=== PATIENT | female | born 1930 | race Caucasian/White ===

== ENCOUNTER 2017-01-14 09:56 | Inpatient (IN) | payer MEDICARE, OTHER ==
[~2017-01-14] VITALS: Ht 165.1 cm; Wt 73.5 kg
[~2017-01-14 09:56] MED LIST: ASPI81TA2 PO; BUSP10TA PO; CELE200C PO; CHON250C PO; CLOB15CR TP; FAMO20TA5 PO; FEXO180T81 PO; GLUC1CAP14 PO; HYDR-2762 PO; LANS30TA6 PO; LATA2.5D3 OP; LEVO88TA4 PO; LISI40TA PO; MIRT30TA3 PO; OMEG1CAP16 PO; OMEG1CAP6 PO; PRED20TA PO; [UNRECOGNIZED DRUG - CODE] PO; pravastatin PO; stool softner; vitamin d
[2017-01-14] MEDS ORDERED: ONDANSETRON PF 4 MG/2 ML VIAL. IV ONE (11:00)
[2017-01-14] MEDS: FENTANYL PF 100 MCG/2 ML VIAL. IV PRN ×3 (11:12→12:27)
--- NOTE | 2017-01-14 11:43 | RAD ---
Exam performed: Right lower extremity venous Doppler. Clinical Indication: Severe pain in the right popliteal region for one day Date of Service:01/14/17 Comparison : None available Discussion: Multiple longitudinal and transverse high resolution real-time images of the venous system of right lower extremity were obtained with color and Doppler sampling and spectral analysis. The common femoral, superficial femoral, popliteal and proximal calf veins are all patent and demonstrate normal flow and compressibility. Normal respiratory phasicity and augmentation is present. There is a 4.3 x 2.7 x 1.1 cm hypoechoic area in the popliteal fossa. No vascularity is noted. Impression: 1. Normal color duplex ultrasound of the venous system of right lower extremity. 2. Hypoechoic 4.3 x 2.7 x 1.1 cm area in the right popliteal fossa corresponds to the area of pain. This could possibly represent a complex Barker's cysts or hematoma. Correlate with the history of trauma. If symptoms persist and patient does not respond to you for treatment, consider evaluation with MRI right knee with contrast.
[2017-01-14 11:48] LABS: BASO % 0 % (0-3); EOS % 0 % (0-3); HEMATOCRIT 34.8 % (36.0-47.0); HEMOGLOBIN 11.8 g/dL (12.0-15.5); LYMPH # 1.8 x10^3/uL (1.0-4.8); LYMPH % 22 % (24-48); MEAN CORPUSCULAR HEMOGLOBIN 32 pg (25-35); MEAN CORPUSCULAR HGB CONC 34 g/dL (31-37); MEAN CORPUSCULAR VOLUME 95 fL (79-100); MONO % 13 % (0-9); NEUT % 65 % (31-73); PLATELET COUNT 196 x10^3/uL (140-400); RED BLOOD COUNT 3.66 x10^6/uL (3.50-5.40); RED CELL DISTRIBUTION WIDTH 14.9 % (11.5-14.5); WHITE BLOOD COUNT 8.5 x10^3/uL (4.0-11.0)
[2017-01-14 11:59] LABS: CALCIUM 8.9 mg/dL (8.5-10.1); CREATININE 0.7 mg/dL (0.6-1.0); GFR 79.5; POTASSIUM 4.2 mmol/L (3.5-5.1)
[2017-01-14 12:04] LABS: ALBUMIN 3.3 g/dL (3.4-5.0); ALBUMIN/GLOBULIN RATIO 0.9 (1.0-1.7); TOTAL BILIRUBIN 0.6 mg/dL (0.2-1.0); TOTAL PROTEIN 6.8 g/dL (6.4-8.2)
--- NOTE | 2017-01-14 12:34 | RAD ---
Exam performed: One view chest. Indication: CP/cough Date of Service: 01/14/2017 12:42 PM Comparison: None available. Single AP upright portable view chest findings: Cardiomediastinal silhouette is within limits of normal. No acute infiltrates, effusion or pneumothorax is detected. The bony structures are normal. Impression: No acute cardiopulmonary process is detected.
--- NOTE | 2017-01-14 12:35 | RAD ---
Exam performed: 3 views right knee. History: Right knee pain, no known injury, pain worse with ambulation. Date of service: 01/14/17. Comparison: None available 3 views right knee findings: There is mild narrowing of both medial and lateral tibiofemoral as well as patellofemoral joint with osteophytic spurring. There is no acute fracture or dislocation. There is a moderate sized suprapatellar joint effusion. No soft tissue foreign body. 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
[2017-01-14] MEDS ORDERED: CONTRAST GIVEN MC PRN (12:45)
[2017-01-14] MEDS: MORPHINE SULFATE 4 MG/ML DISP.SYRIN. IV/SQ PRN ×3 (12:50→14:08)
--- NOTE | 2017-01-14 12:56 | EKG ---
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
[2017-01-14] MEDS ORDERED: IOHEXOL 350 MG/ML 100ML VIAL. IV ONE (13:00)
--- NOTE | 2017-01-14 14:06 | RAD ---
Exam performed: CT angiogram bilateral lower extremity runoff. History: Severe right lower extremity pain. Negative venous Doppler. Date of service: 01/14/17. Comparison: None available Technique: Contiguous helical acquisitions are obtained from the pelvis and both lower extremity runoff is performed. Sagittal and coronal reformatted images are obtained. The images were sent to 3-D workstation and rotating MIP images were obtained and reviewed. Findings: The distal abdominal aorta and aortic bifurcation appears normal. There is mild scattered atheromatous plaquing involving the distal aorta as well as internal and external iliac arteries. Normal course and caliber of both external iliac arteries as they course towards the groin. Common and superficial femoral arteries are seen normally throughout their course. Normal right popliteal artery and a normal popliteal artery bifurcation into anterior tibial as well as tibioperoneal trunk which further bifurcate into posterior tibial and renal arteries is seen. The left distal superficial artery/proximal popliteal artery is not clearly seen due to streak artifact emanating from the left knee arthroplasty. The distal left popliteal artery and the popliteal artery bifurcation into anterior tibial and tibioperoneal trunk which further bifurcate into posterior tibial and peroneal arteries is seen. Normal bilateral three-vessel anatomy is seen bilaterally extending up to the ankles. There are degenerative changes about the left hip joint. Status post total right hip arthroplasty. There are degenerative changes about the right knee joint with small joint effusion. Status post left total knee arthroplasty. There are no fractures. No definite acute abnormality seen. Sigmoid diverticulosis. The uterus is normal. Impression: 1. Mild atherosclerotic changes involving the distal aorta and its bifurcation with minimal atheromatous plaquing seen in both lower extremity arteries. No evidence of focal stenosis or aneurysm is identified. 2. Status post right hip and left knee arthroplasty. 3. Degenerative arthrosis involving the right knee with a small joint effusion. PQRS Compliance Statement: One or more of the following individualized dose reduction techniques were utilized for this examination: 1. Automated exposure control 2. Adjustment of the mA and/or kV according to patient size 3. Use of iterative reconstruction technique
[2017-01-14] MEDS: HYDROMORPHONE 2 MG/ML VIAL. IV/SQ PRN ×2 (14:49→15:40)
[2017-01-14] MEDS ORDERED: LIDOCAINE 2% 20 ML VIAL. IJ ONE (16:15)
[2017-01-14] MEDS ORDERED: MORPHINE SULFATE 4 MG/ML DISP.SYRIN. IV PRN (17:15)
[2017-01-14] MEDS ORDERED: ONDANSETRON PF 4 MG/2 ML VIAL. IV PRN (17:15)
[2017-01-14] MEDS ORDERED: ACETAMINOPHEN 325 MG TABLET. PO PRN (17:15)
--- NOTE | 2017-01-14 17:27 | ED.ADGEN ---
Past Medical History Past Medical History: Anxiety, Arthritis, Cancer, Depression, GERD, High Cholesterol, Hypertension, Hypothyroid Additional Past Medical Histor: BREAST CANCER Past Surgical History: Cancer Surgery, Cholecystectomy, Knee Replacement, Tonsillectomy, Other Additional Past Surgical Histo: bladder sx, lumpectomy Alcohol Use: None Drug Use: None Adult General Chief Complaint Chief Complaint: LOWER EXT PAIN HPI HPI Patient is a 86 year old [woman, history of type 2 diabetes mellitus, hypercholesterolemia, hypertension, arthritis, who presents to the emergency department with a complaint of right knee pain. Patient states that she first noted aching in the back of her this morning, states that she was seated in a chair when she is expressing worsening pain in the back of her leg, denies any discrete injuries, states she stood up, and states the pain probable became worse. She did call EMS, as she was unable to ambulate with the pain. Denies any similar symptoms previously. Patient is status post a hip replacement on the right, and a knee replacement on the left, states that "I could've had one on the right, but I didn't want yet". No recent travel or surgery, history of DVT or PE. She is not taking any medication prior to coming to the ED for pain. Review of Systems Review of Systems Constitutional: Denies fever or chills. [] Eyes: Denies change in visual acuity. [] HENT: Denies nasal congestion or sore throat. [] Respiratory: Denies cough or shortness of breath. [] Cardiovascular: Denies chest pain or edema. [] GI: Denies abdominal pain, nausea, vomiting, bloody stools or diarrhea. [] : Denies dysuria. [] Musculoskeletal: Denies back pain, right knee pain. Integument: Denies rash. [] Neurologic: Denies headache, focal weakness or sensory changes. [] Endocrine: Denies polyuria or polydipsia. [] Lymphatic: Denies swollen glands. [] Psychiatric: Denies depression or anxiety. [] Current Medications Current Medications Current Medications Medications (Trade) Dose Ordered Sig/Michael Start Time Stop Time Status Last Admin Dose Admin Acetaminophen (Tylenol) 650 mg PRN Q4HRS PRN 01/14/17 17:15 01/15/17 17:14 Fentanyl Citrate (Fentanyl 2ml Vial) 25 mcg PRN Q15MIN PRN 01/14/17 10:45 01/15/17 10:44 01/14/17 12:27 25 MCG Hydromorphone HCl (Dilaudid) 0.5 mg PRN Q15MIN PRN 01/14/17 14:30 01/15/17 01:00 01/14/17 15:40 0.5 MG Info (Do NOT chart on this entry -- for MONITORING) 1 each PRN DAILY PRN 01/14/17 12:45 01/16/17 12:44 Iohexol (Omnipaque 350 Mg/ml) 95 ml 1X ONCE 01/14/17 13:00 01/14/17 13:01 DC 01/14/17 12:57 95 ML Lidocaine HCl 20 ml 1X ONCE 01/14/17 16:15 01/14/17 16:16 DC 01/14/17 16:09 20 ML Morphine Sulfate 4 mg PRN Q2HR PRN 01/14/17 17:15 01/15/17 17:14 Ondansetron HCl (Zofran) 4 mg PRN Q8HRS PRN 01/14/17 17:15 01/15/17 17:14 Allergies Allergies Allergies Coded Allergies Type Severity Reaction Last Updated Verified Penicillins Allergy Intermediate Swelling 06/20/16 No Sulfa (Sulfonamide Antibiotics) Allergy Intermediate Rash 06/20/16 No nabumetone Adverse Reaction Intermediate nausea/vomiting 03/14/15 No Physical Exam Physical Exam Constitutional: Well developed, well nourished, no acute distress, non-toxic appearance. [] HENT: Normocephalic, atraumatic, bilateral external ears normal, oropharynx moist, no oral exudates, nose normal. [] Eyes: PERRLA, EOMI, conjunctiva normal, no discharge. [] Neck: Normal range of motion, no tenderness, supple, no stridor. [] Cardiovascular:Heart rate regular rhythm, no murmur [] Lungs & Thorax: Bilateral breath sounds clear to auscultation [] Abdomen: Bowel sounds normal, soft, no tenderness, no masses, no pulsatile masses. [] Skin: Warm, dry, no erythema, no rash. [] Back: No tenderness, no CVA tenderness. [] Extremities: No tenderness, no cyanosis, no clubbing, ROM intact, no edema. [] Neurologic: Alert and oriented X 3, normal motor function, normal sensory function, no focal deficits noted. [] Psychologic: Affect normal, judgement normal, mood normal. [] Current Patient Data Vital Signs Vital Signs Date Time Temp Pulse Resp B/P Pulse Ox O2 Delivery O2 Flow Rate FiO2 01/14/17 14:49 Room Air 01/14/17 13:58 93 150/67 95 01/14/17 09:56 97.3 18 97.3 Lab Values Laboratory Tests Test 01/14/17 11:25 White Blood Count 8.5x10^3/uL (4.0-11.0) Red Blood Count 3.66x10^6/uL (3.50-5.40) Hemoglobin 11.8g/dL (12.0-15.5) L Hematocrit 34.8% (36.0-47.0) L Mean Corpuscular Volume 95fL (79-100) Mean Corpuscular Hemoglobin 32pg (25-35) Mean Corpuscular Hemoglobin Concent 34g/dL (31-37) Red Cell Distribution Width 14.9% (11.5-14.5) H Platelet Count 196x10^3/uL (140-400) Neutrophils (%) (Auto) 65% (31-73) Lymphocytes (%) (Auto) 22% (24-48) L Monocytes (%) (Auto) 13% (0-9) H Eosinophils (%) (Auto) 0% (0-3) Basophils (%) (Auto) 0% (0-3) Neutrophils # (Auto) 5.5x10^3uL (1.8-7.7) Lymphocytes # (Auto) 1.8x10^3/uL (1.0-4.8) Monocytes # (Auto) 1.1x10^3/uL (0.0-1.1) Eosinophils # (Auto) 0.0x10^3/uL (0.0-0.7) Basophils # (Auto) 0.0x10^3/uL (0.0-0.2) Erythrocyte Sedimentation Rate 52 (0-25) H Sodium Level 132mmol/L (136-145) L Potassium Level 4.2mmol/L (3.5-5.1) Chloride Level 96mmol/L (98-107) L Carbon Dioxide Level 27mmol/L (21-32) Anion Gap 9 (6-14) Blood Urea Nitrogen 16mg/dL (7-20) Creatinine 0.7mg/dL (0.6-1.0) Estimated GFR (Cockcroft-Gault) 79.5 BUN/Creatinine Ratio 23 (6-20) H Glucose Level 103mg/dL (70-99) H Calcium Level 8.9mg/dL (8.5-10.1) Total Bilirubin 0.6mg/dL (0.2-1.0) Aspartate Amino Transferase (AST) 30U/L (15-37) Alanine Aminotransferase (ALT) 23U/L (14-59) Alkaline Phosphatase 86U/L (46-116) C-Reactive Protein, Quantitative 4.6mg/L (0-3.3) H Total Protein 6.8g/dL (6.4-8.2) Albumin 3.3g/dL (3.4-5.0) L Albumin/Globulin Ratio 0.9 (1.0-1.7) L Laboratory Tests 01/14/17 11:25 Laboratory Tests 01/14/17 11:25 Radiology/Procedures Radiology/Procedures [] [facility] [address] [place], [place] [id number] IMAGING REPORT Signed PATIENT: OMA SHETTY ACCOUNT: [id number] : 1930 LOCATION: ER AGE: 86 SEX: F EXAM STATUS: PRE ER ORD. PHYSICIAN: NOE JAVIER DO REASON: Knee/rle pain PROCEDURE: VENOUS LOWER EXTREMITY RIGHT Exam performed: Right lower extremity venous Doppler. Clinical Indication: Severe pain in the right popliteal region for one day Date of Service:01/14/17 Comparison : None available Discussion: Multiple longitudinal and transverse high resolution real-time images of the venous system of right lower extremity were obtained with color and Doppler sampling and spectral analysis. The common femoral, superficial femoral, popliteal and proximal calf veins are all patent and demonstrate normal flow and compressibility. Normal respiratory phasicity and augmentation is present. There is a 4.3 x 2.7 x 1.1 cm hypoechoic area in the popliteal fossa. No vascularity is noted. Impression: 1. Normal color duplex ultrasound of the venous system of right lower extremity. 2. Hypoechoic 4.3 x 2.7 x 1.1 cm area in the right popliteal fossa corresponds to the area of pain. This could possibly represent a complex Barker's cysts or hematoma. Correlate with the history of trauma. If symptoms persist and patient does not respond to you for treatment, consider evaluation with MRI right knee with contrast. DICTATED and SIGNED BY: JOSE FRANCISCO SWANN MD DATE: 01/14/17 1138 CC: NOE JAVIER DO; RM BURROUGHS ~ Impressions: [address] [address] IMAGING REPORT Signed PATIENT: OMA SHETTY ACCOUNT: [id number] : 1930 LOCATION: ER AGE: 86 SEX: F EXAM STATUS: REG ER ORD. PHYSICIAN: NOE JAVIER DO REASON: CP/cough PROCEDURE: PORTABLE CHEST 1V Exam performed: One view chest. Indication: CP/cough Date of Service: 01/14/2017 12:42 PM Comparison: None available. Single AP upright portable view chest findings: Cardiomediastinal silhouette is within limits of normal. No acute infiltrates, effusion or pneumothorax is detected. The bony structures are normal. Impression: No acute cardiopulmonary process is detected. [facility] [address] [place] [address] IMAGING REPORT Signed PATIENT: OMA SHETTY ACCOUNT: [id number] : 1930 LOCATION: ER AGE: 86 SEX: F EXAM STATUS: REG ER ORD. PHYSICIAN: NOE JAVIER DO REASON: CP/cough PROCEDURE: KNEE RIGHT 3V Exam performed: 3 views right knee. History: Right knee pain, no known injury, pain worse with ambulation. Date of service: 01/14/17. Comparison: None available 3 views right knee findings: There is mild narrowing of both medial and lateral tibiofemoral as well as patellofemoral joint with osteophytic spurring. There is no acute fracture or dislocation. There is a moderate sized suprapatellar joint effusion. No soft tissue foreign body. 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 DICTATED and SIGNED BY: JOSE FRANCISCO SWANN MD DATE: 01/14/17 1232 CC: NOE JAVIER DO; RM BURROUGHS ~ DICTATED and SIGNED BY: JOSE FRANCISCO SWANN MD DATE: 01/14/17 1231 CC: NOE JAVIER DO; RM BURROUGHS ~ [facility] [address] [place] [address] IMAGING REPORT Signed PATIENT: OMA SHETTY ACCOUNT: [id number] : 1930 LOCATION: ER AGE: 86 SEX: F EXAM STATUS: REG ER ORD. PHYSICIAN: NOE JAVIER DO REASON: pain right lower extremity, concern for vascular abnormality PROCEDURE: CTA ABD ILEO/FEMORAL RUNOFF Exam performed: CT angiogram bilateral lower extremity runoff. History: Severe right lower extremity pain. Negative venous Doppler. Date of service: 01/14/17. Comparison: None available Technique: Contiguous helical acquisitions are obtained from the pelvis and both lower extremity runoff is performed. Sagittal and coronal reformatted images are obtained. The images were sent to 3-D workstation and rotating MIP images were obtained and reviewed. Findings: The distal abdominal aorta and aortic bifurcation appears normal. There is mild scattered atheromatous plaquing involving the distal aorta as well as internal and external iliac arteries. Normal course and caliber of both external iliac arteries as they course towards the groin. Common and superficial femoral arteries are seen normally throughout their course. Normal right popliteal artery and a normal popliteal artery bifurcation into anterior tibial as well as tibioperoneal trunk which further bifurcate into posterior tibial and renal arteries is seen. The left distal superficial artery/proximal popliteal artery is not clearly seen due to streak artifact emanating from the left knee arthroplasty. The distal left popliteal artery and the popliteal artery bifurcation into anterior tibial and tibioperoneal trunk which further bifurcate into posterior tibial and peroneal arteries is seen. Normal bilateral three-vessel anatomy is seen bilaterally extending up to the ankles. There are degenerative changes about the left hip joint. Status post total right hip arthroplasty. There are degenerative changes about the right knee joint with small joint effusion. Status post left total knee arthroplasty. There are no fractures. No definite acute abnormality seen. Sigmoid diverticulosis. The uterus is normal. Impression: 1. Mild atherosclerotic changes involving the distal aorta and its bifurcation with minimal atheromatous plaquing seen in both lower extremity arteries. No evidence of focal stenosis or aneurysm is identified. 2. Status post right hip and left knee arthroplasty. 3. Degenerative arthrosis involving the right knee with a small joint effusion. PQRS Compliance Statement: One or more of the following individualized dose reduction techniques were utilized for this examination: 1. Automated exposure control 2. Adjustment of the mA and/or kV according to patient size 3. Use of iterative reconstruction technique DICTATED and SIGNED BY: JOSE FRANCISCO SWANN MD DATE: 01/14/17 8123 CC: NOE JAVIER DO; RM BURROUGHS ~ Course & Med Decision Making Course & Med Decision Making Pertinent Labs and Imaging studies reviewed. (See chart for details) Patient received several doses of fentanyl, followed by morphine. With continued pain in her right lower extremity. Due to the examination findings, I did have concern for a Barker cyst, ultrasound was obtained, which revealed a possible complex Barker's cyst versus hematoma. I did discuss the findings and concerns stated in the ultrasound, with Dr. Joyner of vascular surgery, who recommended obtaining imaging of the aorta with runoff to the extremities and to ensure that there was no vascular injury or abnormalities that was causing the patient's discomfort, as it is possible that she may have had some disruption/dislocation, weight with standing which was not very clear at that time. I did discuss this with patient, she was agreeable with this plan, CT obtained without issue, did not reveal any evidence of vascular abnormality. Patient continues to be extremely uncomfortable, noted to have a slightly increased effusion on examination than initially, patient does not have examination consistent with septic joint, either in history, laboratory studies or on examination, as her pain is still primarily in the posterior aspect of the joint. I did discuss laboratory studies and examination with Dr. Peralta of orthopedics, no indication for antibiotics or emergent aspirate for concern of septic joint. Patient is agreeable for initial hospital due to continued pain, receiving Dilaudid for her discomfort. She was evaluated in the emergency department Dr. Jean, who accepted to his service as admission for knee pain, with plan to consult orthopedics as stated. As she remains uncomfortable on reexamination, after discussion with the patient, I did perform a joint aspirate to affect relief from the effusion, and did aspirate approximately 8 mL of hematoma of the synovial space. At this time the patient is resting much more comfortably. Laboratory studies were sent for cell count, culture, Gram stain and crystal analysis. Consultation was placed for orthopedics as stated. Dragon Disclaimer Dragon Disclaimer This electronic medical record was generated, in whole or in part, using a voice recognition dictation system. Departure Impression: Primary Impression: Knee pain, right Disposition: ADMITTED INPATIENT Condition: IMPROVED NOE JAVIER DO Jan 14, 2017 17:27
[2017-01-14 17:45] VITALS: BP 126/58
[2017-01-14] MEDS ORDERED: DOXY100T PO (18:22)
[2017-01-14] MEDS ORDERED: CHOL100013 PO (18:22)
[2017-01-14] MEDS ORDERED: ACET500T68 PO (18:22)
[2017-01-14 19:28] VITALS: BP 106/49
[2017-01-14] MEDS ORDERED: OXYCODONE/APAP 10/325 TABLET. PO PRN (20:00)
[2017-01-14] MEDS ORDERED: MORPHINE SULFATE 4 MG/ML DISP.SYRIN. IV ONE (20:00)
[2017-01-14] MEDS ORDERED: OXYCODONE/APAP 5/325 TABLET. PO PRN (20:00)
[2017-01-14 20:04] LABS: BF CLARITY TURBID; BF COLOR RED
--- NOTE | 2017-01-14 21:42 | ACF ---
Admit Criteria Forms Admit Criteria Forms Admit Criteria Forms PAIN MANAGEMENT GRG Clinical Indications for Admission to Inpatient Care (Place 'X' for any and all applicable criteria): Hospital admission is needed for appropriate care of the patient because of ANY ONE of the following are present (1)(2)(3)(4)(5): [X]I. Severe pain requiring acute inpatient management as indicated by ALL of the following (2)(5)(10): [X]a) Continuous or frequent (eg, every 2 to 4 hours) parenteral analgesics required [A] [X]b) Necessity (ie, alternative approaches not effective) for analgesic regimen that can only be performed or initiated in inpatient setting [ ]II. Pain causing debilitation to the point of inability to function or be supported at any other level of care [ ]III. Severe side effects from pain medications as indicated by ANY ONE of the following (12)(13)(14)(15): [ ]a) Uncontrollable seizures [ ]b) Cardiac arrhythmias [ ]c) Severe volume depletion [ ]d) Vomiting that is uncontrollable at any other level of care [ ]e) Altered mental status (Diego coma scale score less than 13) [ ]f) Obstipation with inadequate GI function to maintain nutrition [ ]g) Dehydration that is severe or persistent The original [employer] content created by [employer] has been revised. The portions of the content which have been revised are identified through the use of italic text or in bold, and [facility] has neither reviewed nor approved the modified material. All other unmodified content is copyright [employer]. Please see references footnoted in the original [employer] edition 2016 MYCHAL OLMEDO Jan 14, 2017 21:42
--- NOTE | 2017-01-14 22:04 | HP ---
ADMIT DATE: 01/14/2017 CHIEF COMPLAINT: Severe knee pain. 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 She presents with severe right knee pain, rates it at 10/10, worse with moving, better with sitting still. Imaging studies were shown probable Barker cyst. I discussed the case with the ER physician. We are going to admit the patient with consultation to Orthopedics and narcotics. It should be noted the ER doctor did drain the knee as well. There was quite large amount of blood. There was probably a concomitant hemarthrosis. PAST MEDICAL HISTORY: Arthritis, anxiety, breast cancer, depression, GERD, hyperlipidemia, hypertension, hypothyroidism, cholecystectomy, knee replacement, tonsillectomy, bladder surgery, ____. ALLERGIES: PENICILLIN, SULFA, AND NUBAIN. FAMILY HISTORY: Diabetes. SOCIAL HISTORY: She does not drink, smoke or take drugs. 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 MEDICATIONS: Reviewed, please refer to the MRAD. REVIEW OF SYSTEMS: GENERAL: No history of weight change, weakness or fevers. SKIN: No bruising, hair changes or rashes. EYES: No blurred, double or loss of vision. NOSE AND THROAT: No history of nosebleeds, hoarseness or sore throat. HEART: No history of palpitations, chest pain or shortness of breath on exertion. LUNGS: Denies cough, hemoptysis, wheezing or shortness of breath. GASTROINTESTINAL: Denies changes in appetite, nausea, vomiting, diarrhea or constipation. GENITOURINARY: No history of frequency, urgency, hesitancy or nocturia. NEUROLOGIC: Denies history of numbness, tingling, tremor or weakness. PSYCHIATRIC: No history of panic, anxiety or depression. ENDOCRINE: No history of heat or cold intolerance, polyuria or polydipsia. EXTREMITIES: Severe right knee pain. PHYSICAL EXAMINATION: VITAL SIGNS: Temperature afebrile, pulse 67, respirations 18, blood pressure 126/58. GENERAL: She is alert, cooperative, complaining of severe pain in her leg and the back of her knee. HEART: Distant S1, S2. LUNGS: Clear. ABDOMEN: Soft, positive bowel sounds. EXTREMITIES: The right knee is swollen. There is severe pain on the right in the posterior aspect. ENDOCRINE: No thyromegaly. LYMPHATICS: No cervical nodes. HEMATOPOIETIC: No bruising. LABORATORY DATA: White count 8, hemoglobin 12, platelets 196. Electrolytes: Sodium 132, potassium 4.2, chloride 96, bicarbonate 27, BUN 16, creatinine 0.7, glucose 103, C-reactive protein is high at 4.6. ASSESSMENT AND PLAN: Barker's cyst and hemarthrosis. The patient has been admitted. We will consult Orthopedics, p.r.n. narcotics, IV fluids. We will try to resume her home meds, physical therapy and occupational therapy. She might need residential. ZEHRA DONNELLY DO DR: JUNAID/yelena JOB#: [id number] / [id number]
[2017-01-14] MEDS: LATANOPROST 0.005% OPHTH SOLUTION 2.5ML BOTTLE. OU SCH (22:10)
[2017-01-14] MEDS: OMEGA-3 FATTY ACIDS/FISH OIL 1,000 MG CAPSULE. PO SCH (22:10)
[2017-01-14] MEDS: busPIRone 10 MG TABLET. PO SCH (22:10)
[2017-01-14] MEDS: ATORVASTATIN CALCIUM 10 MG TABLET. PO SCH (22:10)
[2017-01-14] MEDS: DOXYCYCLINE HYCLATE 100 MG TABLET PO SCH (22:10)
[2017-01-14 23:42] VITALS: BP 91/47
[2017-01-15 03:05] VITALS: BP 100/52
[2017-01-15 05:11] LABS: BASO % 0 % (0-3); EOS % 0 % (0-3); HEMATOCRIT 35.3 % (36.0-47.0); HEMOGLOBIN 11.6 g/dL (12.0-15.5); LYMPH # 1.3 x10^3/uL (1.0-4.8); LYMPH % 20 % (24-48); MEAN CORPUSCULAR HEMOGLOBIN 32 pg (25-35); MEAN CORPUSCULAR HGB CONC 33 g/dL (31-37); MEAN CORPUSCULAR VOLUME 98 fL (79-100); MONO % 16 % (0-9); NEUT % 65 % (31-73); PLATELET COUNT 193 x10^3/uL (140-400); RED BLOOD COUNT 3.61 x10^6/uL (3.50-5.40); RED CELL DISTRIBUTION WIDTH 14.8 % (11.5-14.5); WHITE BLOOD COUNT 6.8 x10^3/uL (4.0-11.0)
[2017-01-15 05:30] LABS: CALCIUM 9.1 mg/dL (8.5-10.1); CREATININE 1.9 mg/dL (0.6-1.0); GFR 25.1; POTASSIUM 4.8 mmol/L (3.5-5.1)
[2017-01-15 07:00] VITALS: BP 106/54
[2017-01-15] MEDS ORDERED: LIDOCAINE 2% 20 ML VIAL. IJ ONE (07:00)
[2017-01-15] MEDS ORDERED: methylPREDNISolone ACETATE 80 MG/ML VIAL. IM ONE (07:00)
[2017-01-15] MEDS ORDERED: BUPIVACAINE 0.5% 50 ML VIAL. IJ ONE (07:00)
--- NOTE | 2017-01-15 07:46 | PDOC ---
ORTHO PROGRESS NOTES Vitals Vital Signs Date Time Temp Pulse Resp B/P Pulse Ox O2 Delivery O2 Flow Rate FiO2 01/15/17 03:05 98.1 85 14 100/52 96 Nasal Cannula 1.5 98.1 Labs Laboratory Tests Test 01/14/17 11:25 01/14/17 16:40 01/15/17 04:40 White Blood Count 8.5x10^3/uL (4.0-11.0) 6.8x10^3/uL (4.0-11.0) Red Blood Count 3.66x10^6/uL (3.50-5.40) 3.61x10^6/uL (3.50-5.40) Hemoglobin 11.8g/dL (12.0-15.5) 11.6g/dL (12.0-15.5) Hematocrit 34.8% (36.0-47.0) 35.3% (36.0-47.0) Mean Corpuscular Volume 95fL (79-100) 98fL (79-100) Mean Corpuscular Hemoglobin 32pg (25-35) 32pg (25-35) Mean Corpuscular Hemoglobin Concent 34g/dL (31-37) 33g/dL (31-37) Red Cell Distribution Width 14.9% (11.5-14.5) 14.8% (11.5-14.5) Platelet Count 196x10^3/uL (140-400) 193x10^3/uL (140-400) Neutrophils (%) (Auto) 65% (31-73) 65% (31-73) Lymphocytes (%) (Auto) 22% (24-48) 20% (24-48) Monocytes (%) (Auto) 13% (0-9) 16% (0-9) Eosinophils (%) (Auto) 0% (0-3) 0% (0-3) Basophils (%) (Auto) 0% (0-3) 0% (0-3) Neutrophils # (Auto) 5.5x10^3uL (1.8-7.7) 4.4x10^3uL (1.8-7.7) Lymphocytes # (Auto) 1.8x10^3/uL (1.0-4.8) 1.3x10^3/uL (1.0-4.8) Monocytes # (Auto) 1.1x10^3/uL (0.0-1.1) 1.1x10^3/uL (0.0-1.1) Eosinophils # (Auto) 0.0x10^3/uL (0.0-0.7) 0.0x10^3/uL (0.0-0.7) Basophils # (Auto) 0.0x10^3/uL (0.0-0.2) 0.0x10^3/uL (0.0-0.2) Erythrocyte Sedimentation Rate 52 (0-25) Sodium Level 132mmol/L (136-145) 130mmol/L (136-145) Potassium Level 4.2mmol/L (3.5-5.1) 4.8mmol/L (3.5-5.1) Chloride Level 96mmol/L (98-107) 94mmol/L (98-107) Carbon Dioxide Level 27mmol/L (21-32) 27mmol/L (21-32) Anion Gap 9 (6-14) 9 (6-14) Blood Urea Nitrogen 16mg/dL (7-20) 26mg/dL (7-20) Creatinine 0.7mg/dL (0.6-1.0) 1.9mg/dL (0.6-1.0) Estimated GFR (Cockcroft-Gault) 79.5 25.1 BUN/Creatinine Ratio 23 (6-20) Glucose Level 103mg/dL (70-99) 110mg/dL (70-99) Calcium Level 8.9mg/dL (8.5-10.1) 9.1mg/dL (8.5-10.1) Total Bilirubin 0.6mg/dL (0.2-1.0) Aspartate Amino Transf (AST/SGOT) 30U/L (15-37) Alanine Aminotransferase (ALT/SGPT) 23U/L (14-59) Alkaline Phosphatase 86U/L (46-116) C-Reactive Protein, Quantitative 4.6mg/L (0-3.3) Total Protein 6.8g/dL (6.4-8.2) Albumin 3.3g/dL (3.4-5.0) Albumin/Globulin Ratio 0.9 (1.0-1.7) Body Fluid Source Synovial Body Fluid Color Red Body Fluid Clarity Turbid Body Fluid Nucleated Cells 33367/cmm Body Fluid Mononuclear WBCs (%) 14% Body Fluid Polymorphonuclear Cells 86% Body Fluid Total RBCs Counted 351626/cmm Laboratory Tests Test 01/14/17 11:25 01/14/17 16:40 01/15/17 04:40 White Blood Count 8.5x10^3/uL (4.0-11.0) 6.8x10^3/uL (4.0-11.0) Red Blood Count 3.66x10^6/uL (3.50-5.40) 3.61x10^6/uL (3.50-5.40) Hemoglobin 11.8g/dL (12.0-15.5) 11.6g/dL (12.0-15.5) Hematocrit 34.8% (36.0-47.0) 35.3% (36.0-47.0) Mean Corpuscular Volume 95fL (79-100) 98fL (79-100) Mean Corpuscular Hemoglobin 32pg (25-35) 32pg (25-35) Mean Corpuscular Hemoglobin Concent 34g/dL (31-37) 33g/dL (31-37) Red Cell Distribution Width 14.9% (11.5-14.5) 14.8% (11.5-14.5) Platelet Count 196x10^3/uL (140-400) 193x10^3/uL (140-400) Neutrophils (%) (Auto) 65% (31-73) 65% (31-73) Lymphocytes (%) (Auto) 22% (24-48) 20% (24-48) Monocytes (%) (Auto) 13% (0-9) 16% (0-9) Eosinophils (%) (Auto) 0% (0-3) 0% (0-3) Basophils (%) (Auto) 0% (0-3) 0% (0-3) Neutrophils # (Auto) 5.5x10^3uL (1.8-7.7) 4.4x10^3uL (1.8-7.7) Lymphocytes # (Auto) 1.8x10^3/uL (1.0-4.8) 1.3x10^3/uL (1.0-4.8) Monocytes # (Auto) 1.1x10^3/uL (0.0-1.1) 1.1x10^3/uL (0.0-1.1) Eosinophils # (Auto) 0.0x10^3/uL (0.0-0.7) 0.0x10^3/uL (0.0-0.7) Basophils # (Auto) 0.0x10^3/uL (0.0-0.2) 0.0x10^3/uL (0.0-0.2) Erythrocyte Sedimentation Rate 52 (0-25) Sodium Level 132mmol/L (136-145) 130mmol/L (136-145) Potassium Level 4.2mmol/L (3.5-5.1) 4.8mmol/L (3.5-5.1) Chloride Level 96mmol/L (98-107) 94mmol/L (98-107) Carbon Dioxide Level 27mmol/L (21-32) 27mmol/L (21-32) Anion Gap 9 (6-14) 9 (6-14) Blood Urea Nitrogen 16mg/dL (7-20) 26mg/dL (7-20) Creatinine 0.7mg/dL (0.6-1.0) 1.9mg/dL (0.6-1.0) Estimated GFR (Cockcroft-Gault) 79.5 25.1 BUN/Creatinine Ratio 23 (6-20) Glucose Level 103mg/dL (70-99) 110mg/dL (70-99) Calcium Level 8.9mg/dL (8.5-10.1) 9.1mg/dL (8.5-10.1) Total Bilirubin 0.6mg/dL (0.2-1.0) Aspartate Amino Transf (AST/SGOT) 30U/L (15-37) Alanine Aminotransferase (ALT/SGPT) 23U/L (14-59) Alkaline Phosphatase 86U/L (46-116) C-Reactive Protein, Quantitative 4.6mg/L (0-3.3) Total Protein 6.8g/dL (6.4-8.2) Albumin 3.3g/dL (3.4-5.0) Albumin/Globulin Ratio 0.9 (1.0-1.7) Body Fluid Source Synovial Body Fluid Color Red Body Fluid Clarity Turbid Body Fluid Nucleated Cells 71794/cmm Body Fluid Mononuclear WBCs (%) 14% Body Fluid Polymorphonuclear Cells 86% Body Fluid Total RBCs Counted 020840/cmm Assessment and Plan note dictated knee injection performed activity as anita ok to go from my standpoint JOSÉ MIGUEL PINTO II, MD Jan 15, 2017 07:46
[2017-01-15] MEDS: CHOLECALCIFEROL (VITAMIN D3) 1,000 UNIT TABLET PO SCH (08:24)
[2017-01-15] MEDS: CETIRIZINE HCL 10 MG TABLET PO SCH (08:25)
[2017-01-15] MEDS: OMEGA-3 FATTY ACIDS/FISH OIL 1,000 MG CAPSULE. PO SCH ×2 (08:25→08:34)
[2017-01-15] MEDS: busPIRone 10 MG TABLET. PO SCH ×2 (08:25→20:45)
[2017-01-15] MEDS: LEVOTHYROXINE 88 MCG TABLET PO SCH (08:26)
[2017-01-15] MEDS: PAROXETINE ER 12.5 MG TAB.ER.24H. PO SCH (08:27)
[2017-01-15] MEDS: LANSOPRAZOLE 30 MG TAB.RAP.DR PO SCH (08:27)
[2017-01-15] MEDS: LISINOPRIL 40 MG TABLET. PO SCH (08:28)
[2017-01-15] MEDS: ASPIRIN 81 MG TAB.CHEW PO SCH (08:29)
[2017-01-15] MEDS: DOXYCYCLINE HYCLATE 100 MG TABLET PO SCH ×2 (08:29→20:45)
[2017-01-15] MEDS ORDERED: PREDNISONE 20 MG TABLET PO SCH (09:00)
[2017-01-15] MEDS ORDERED: CELECOXIB 200 MG CAPSULE PO SCH (09:00)
--- NOTE | 2017-01-15 09:23 | CONS ---
DATE OF CONSULTATION: 01/15/2017 REFERRING PROVIDER: Dr. Jean. CONSULTING PROVIDER: Ayan Peralta MD REASON FOR CONSULTATION: Right knee pain and effusion. CHIEF COMPLAINT: Right leg pain. 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 She felt the pain mainly in the back of her leg and it did radiate proximally and distally. She has a history of a left total knee arthroplasty, but tells me that the current right knee pain is worse than anything she can remember on the left side. The Emergency Room provider did do a knee aspiration as well as an ultrasound and angiography. The patient tells me that her right knee is feeling better today already. ALLERGIES: PENICILLIN, SULFA, NUBAIN. PAST MEDICAL HISTORY: Arthritis, anxiety, breast cancer, depression, GERD, hypertension, hypothyroidism, history of cholecystectomy, left total knee arthroplasty, right total hip arthroplasty, advanced right hip arthritis, tonsillectomy. FAMILY HISTORY: Diabetes. SOCIAL HISTORY: No alcohol or tobacco. MEDICATIONS: Reviewed. Please see MRAD. REVIEW OF SYSTEMS: Twelve-point review of systems are negative except as per HPI. PHYSICAL EXAMINATION: VITAL SIGNS: Reviewed. GENERAL: The patient is alert and oriented. No acute distress. Mood and affect are appropriate. HEENT: Head is normocephalic, atraumatic. Extraocular muscles are intact. Nasal cannula in place. CARDIOVASCULAR: Regular rate and rhythm. Dorsalis pedis 2+. No edema in her lower extremities. LUNGS: Respirations are unlabored with symmetric chest rise. ABDOMEN: Soft, nondistended. EXTREMITIES: Examination of bilateral lower extremities reveals EHL and FHL 5/5. Normal sensation is present in bilateral lower extremities. Well-healed anterior midline skin incision consistent with a total knee arthroplasty over her left side. Right knee range of motion is limited secondary to pain, 10 degrees to approximately 100 degrees. Knee is stable to varus and valgus. There is a bandage and a small amount of ecchymosis over the superolateral patellar region. She does have some mild tenderness to palpation globally around her knee. IMAGING: Reviewed. CT was reviewed. No obvious lesions. She does have advanced left hip arthritis, right total hip arthroplasty, left total knee arthroplasty, advanced right knee degenerative joint disease. Knee x-ray was reviewed and interpreted by myself. Report was also reviewed. Advanced right knee DJD. Ultrasound report was reviewed. She has a popliteal cyst. IMPRESSION: Right knee degenerative joint disease with bloody effusion. PLAN: I did review the results of the aspiration. These were consistent with a mild inflammatory hemarthrosis and not a septic process. Therefore, I had a discussion of risks, benefits, alternatives to intra-articular corticosteroid injection. After a sterile prep over the superolateral area, I injected 80 mg of Depo-Medrol and 50:50 local anesthetic mixture into the knee without complication. She tolerated this well. The area was cleansed, dried, and sterile dressings applied. From my standpoint, she can participate in activity as tolerated. Disposition per primary team. I did give her my card. She should feel free to follow up with me when her pain returns. AYAN PERALTA MD DR: AIMEE/yelena JOB#: [id number] / [id number]
[2017-01-15 11:00] VITALS: BP 112/48
--- NOTE | 2017-01-15 11:50 | PDOC ---
PROGRESS NOTES Chief Complaint Chief Complaint cc: Knee pain; Barker's cyst and hemarthrosis - cough, ?bronchitis - elevated Cr History of Present Illness History of Present Illness Patient sitting up in bed when evaluated this AM, in no acute distress. R knee injection was performed by ortho. Pt has improvement in pain and swelling. She was found to have an elevated Cr, without renal history. And has a bronchitis- like cough, over the last couple days. She is agreeable to getting these issues evaluated by the subspecialists. She also complains of anxiety, which she supposes is due to the combination of medications she's been taking. Vitals Vitals Vital Signs Date Time Temp Pulse Resp B/P Pulse Ox O2 Delivery O2 Flow Rate FiO2 01/15/17 11:00 97.4 85 18 112/48 93 Room Air 97.4 01/15/17 08:00 1.5 Physical Exam General: Alert, Cooperative, No acute distress Heart: Regular rate, Other (distant S1, S2) Lungs: Clear Abdomen: Soft, No tenderness Extremities: No cyanosis, Other (improved swelling R knee) Skin: No significant lesion Labs LABS Laboratory Tests Test 01/14/17 16:40 01/15/17 04:40 Body Fluid Source Synovial Body Fluid Color Red Body Fluid Clarity Turbid Body Fluid Nucleated Cells 14788/cmm Body Fluid Mononuclear WBCs (%) 14% Body Fluid Polymorphonuclear Cells 86% Body Fluid Total RBCs Counted 035956/cmm White Blood Count 6.8x10^3/uL (4.0-11.0) Red Blood Count 3.61x10^6/uL (3.50-5.40) Hemoglobin 11.6g/dL (12.0-15.5) Hematocrit 35.3% (36.0-47.0) Mean Corpuscular Volume 98fL (79-100) Mean Corpuscular Hemoglobin 32pg (25-35) Mean Corpuscular Hemoglobin Concent 33g/dL (31-37) Red Cell Distribution Width 14.8% (11.5-14.5) Platelet Count 193x10^3/uL (140-400) Neutrophils (%) (Auto) 65% (31-73) Lymphocytes (%) (Auto) 20% (24-48) Monocytes (%) (Auto) 16% (0-9) Eosinophils (%) (Auto) 0% (0-3) Basophils (%) (Auto) 0% (0-3) Neutrophils # (Auto) 4.4x10^3uL (1.8-7.7) Lymphocytes # (Auto) 1.3x10^3/uL (1.0-4.8) Monocytes # (Auto) 1.1x10^3/uL (0.0-1.1) Eosinophils # (Auto) 0.0x10^3/uL (0.0-0.7) Basophils # (Auto) 0.0x10^3/uL (0.0-0.2) Sodium Level 130mmol/L (136-145) Potassium Level 4.8mmol/L (3.5-5.1) Chloride Level 94mmol/L (98-107) Carbon Dioxide Level 27mmol/L (21-32) Anion Gap 9 (6-14) Blood Urea Nitrogen 26mg/dL (7-20) Creatinine 1.9mg/dL (0.6-1.0) Estimated GFR (Cockcroft-Gault) 25.1 Glucose Level 110mg/dL (70-99) Calcium Level 9.1mg/dL (8.5-10.1) Review of Systems Review of Systems denies fever, chills + R knee pain, well managed and improving + cough + anxiety Assessment and Plan Assessmemt and Plan ASSESSMENT: - Knee pain, resolved; Barker's cyst and hemarthrosis - cough, ?bronchitis - elevated Cr PLAN: - Orthopedics on the case; performed knee injection - consulting Nephrology for elevated Cr - consulting Pulmonology for cough/?bronchitis - SW to [facility] eval - cont PRN narcotic - cont IVF - PT/OT - repeat daily labs Problems: Comment Review of Relevant I have reviewed the following items kyle (where applicable) has been applied. Labs Laboratory Tests Test 01/14/17 11:25 01/14/17 16:40 01/15/17 04:40 White Blood Count 8.5x10^3/uL (4.0-11.0) 6.8x10^3/uL (4.0-11.0) Red Blood Count 3.66x10^6/uL (3.50-5.40) 3.61x10^6/uL (3.50-5.40) Hemoglobin 11.8g/dL (12.0-15.5) 11.6g/dL (12.0-15.5) Hematocrit 34.8% (36.0-47.0) 35.3% (36.0-47.0) Mean Corpuscular Volume 95fL (79-100) 98fL (79-100) Mean Corpuscular Hemoglobin 32pg (25-35) 32pg (25-35) Mean Corpuscular Hemoglobin Concent 34g/dL (31-37) 33g/dL (31-37) Red Cell Distribution Width 14.9% (11.5-14.5) 14.8% (11.5-14.5) Platelet Count 196x10^3/uL (140-400) 193x10^3/uL (140-400) Neutrophils (%) (Auto) 65% (31-73) 65% (31-73) Lymphocytes (%) (Auto) 22% (24-48) 20% (24-48) Monocytes (%) (Auto) 13% (0-9) 16% (0-9) Eosinophils (%) (Auto) 0% (0-3) 0% (0-3) Basophils (%) (Auto) 0% (0-3) 0% (0-3) Neutrophils # (Auto) 5.5x10^3uL (1.8-7.7) 4.4x10^3uL (1.8-7.7) Lymphocytes # (Auto) 1.8x10^3/uL (1.0-4.8) 1.3x10^3/uL (1.0-4.8) Monocytes # (Auto) 1.1x10^3/uL (0.0-1.1) 1.1x10^3/uL (0.0-1.1) Eosinophils # (Auto) 0.0x10^3/uL (0.0-0.7) 0.0x10^3/uL (0.0-0.7) Basophils # (Auto) 0.0x10^3/uL (0.0-0.2) 0.0x10^3/uL (0.0-0.2) Erythrocyte Sedimentation Rate 52 (0-25) Sodium Level 132mmol/L (136-145) 130mmol/L (136-145) Potassium Level 4.2mmol/L (3.5-5.1) 4.8mmol/L (3.5-5.1) Chloride Level 96mmol/L (98-107) 94mmol/L (98-107) Carbon Dioxide Level 27mmol/L (21-32) 27mmol/L (21-32) Anion Gap 9 (6-14) 9 (6-14) Blood Urea Nitrogen 16mg/dL (7-20) 26mg/dL (7-20) Creatinine 0.7mg/dL (0.6-1.0) 1.9mg/dL (0.6-1.0) Estimated GFR (Cockcroft-Gault) 79.5 25.1 BUN/Creatinine Ratio 23 (6-20) Glucose Level 103mg/dL (70-99) 110mg/dL (70-99) Calcium Level 8.9mg/dL (8.5-10.1) 9.1mg/dL (8.5-10.1) Total Bilirubin 0.6mg/dL (0.2-1.0) Aspartate Amino Transf (AST/SGOT) 30U/L (15-37) Alanine Aminotransferase (ALT/SGPT) 23U/L (14-59) Alkaline Phosphatase 86U/L (46-116) C-Reactive Protein, Quantitative 4.6mg/L (0-3.3) Total Protein 6.8g/dL (6.4-8.2) Albumin 3.3g/dL (3.4-5.0) Albumin/Globulin Ratio 0.9 (1.0-1.7) Body Fluid Source Synovial Body Fluid Color Red Body Fluid Clarity Turbid Body Fluid Nucleated Cells 00050/cmm Body Fluid Mononuclear WBCs (%) 14% Body Fluid Polymorphonuclear Cells 86% Body Fluid Total RBCs Counted 912915/cmm Laboratory Tests Test 01/14/17 16:40 01/15/17 04:40 Body Fluid Source Synovial Body Fluid Color Red Body Fluid Clarity Turbid Body Fluid Nucleated Cells 47241/cmm Body Fluid Mononuclear WBCs (%) 14% Body Fluid Polymorphonuclear Cells 86% Body Fluid Total RBCs Counted 949813/cmm White Blood Count 6.8x10^3/uL (4.0-11.0) Red Blood Count 3.61x10^6/uL (3.50-5.40) Hemoglobin 11.6g/dL (12.0-15.5) Hematocrit 35.3% (36.0-47.0) Mean Corpuscular Volume 98fL (79-100) Mean Corpuscular Hemoglobin 32pg (25-35) Mean Corpuscular Hemoglobin Concent 33g/dL (31-37) Red Cell Distribution Width 14.8% (11.5-14.5) Platelet Count 193x10^3/uL (140-400) Neutrophils (%) (Auto) 65% (31-73) Lymphocytes (%) (Auto) 20% (24-48) Monocytes (%) (Auto) 16% (0-9) Eosinophils (%) (Auto) 0% (0-3) Basophils (%) (Auto) 0% (0-3) Neutrophils # (Auto) 4.4x10^3uL (1.8-7.7) Lymphocytes # (Auto) 1.3x10^3/uL (1.0-4.8) Monocytes # (Auto) 1.1x10^3/uL (0.0-1.1) Eosinophils # (Auto) 0.0x10^3/uL (0.0-0.7) Basophils # (Auto) 0.0x10^3/uL (0.0-0.2) Sodium Level 130mmol/L (136-145) Potassium Level 4.8mmol/L (3.5-5.1) Chloride Level 94mmol/L (98-107) Carbon Dioxide Level 27mmol/L (21-32) Anion Gap 9 (6-14) Blood Urea Nitrogen 26mg/dL (7-20) Creatinine 1.9mg/dL (0.6-1.0) Estimated GFR (Cockcroft-Gault) 25.1 Glucose Level 110mg/dL (70-99) Calcium Level 9.1mg/dL (8.5-10.1) Microbiology 01/14/17 Gram Stain - Final, Complete Medications Current Medications Fentanyl Citrate (Fentanyl 2ml Vial) 25 mcg PRN Q15MIN PRN IV PAIN GREATER THAN 3/10 Last administered on 01/14/17t 12:27; Start 01/14/17 at 10:45; Stop 01/15 at 10:44; Status DC Ondansetron HCl (Zofran) 4 mg 1X ONCE IV Last administered on 01/14/17 11:11; Start 01/14/17 at 11:00; Stop 01/14/17 at 11:01; Status DC Morphine Sulfate 4 mg PRN Q15MIN PRN IV/SQ PAIN GREATER THAN 3/10 Last administered on 01/14/17 14:08; Start 01/14/17 at 12:30; Stop 01/15/17 at 01:00; Status DC Iohexol (Omnipaque 350 Mg/ml) 95 ml 1X ONCE IV Last administered on 01/14/17 12:57; Start 01/14/17 at 13:00; Stop 01/14/17 at 13:01; Status DC Info (Do NOT chart on this entry -- for MONITORING) 1 each PRN DAILY PRN MC SEE COMMENTS; Start 01/14/17 at 12:45; Stop 01/16/17 at 12:44 Hydromorphone HCl (Dilaudid) 0.5 mg PRN Q15MIN PRN IV/SQ PAIN GREATER THAN 3/ 10 Last administered on 01/14/17 15:40; Start 01/14/17 at 14:30; Stop 01/15/17 at 01:00; Status DC Lidocaine HCl 20 ml 1X ONCE IJ Last administered on 01/14/17 16:09; Start 01/14 at 16:15; Stop 01/14/17 at 16:16; Status DC Ondansetron HCl (Zofran) 4 mg PRN Q8HRS PRN IV NAUSEA/VOMITING Last administered on 01/14/17 20:17; Start 01/14/17 at 17:15; Stop 01/15/17 at 17:14 Morphine Sulfate 4 mg PRN Q2HR PRN IV PAIN Last administered on 01/14/17 18:40 ; Start 01/14/17 at 17:15; Stop 01/15/17 at 17:14 Acetaminophen (Tylenol) 650 mg PRN Q4HRS PRN PO FEVER; Start 01/14/17 at 17:15; Stop 01/15/17 at 17:14 Acetaminophen (Tylenol) 500 mg BID PRN PO PAIN; Start 01/14/17 at 19:15 Aspirin (Children'S Aspirin) 81 mg DAILYWBKFT PO Last administered on 01/15/17 08:29; Start 01/15/17 at 08:00 Buspirone HCl (Buspar) 10 mg BID PO Last administered on 01/15/17 08:25; Start 01/14/17 at 21:00 Celecoxib (Celebrex) 200 mg DAILY PO Last administered on 01/15/17 08:25; Start 01/15/17 at 09:00 Doxycycline Hyclate (Vibra-Tab) 100 mg BID PO Last administered on 01/15/17 08: 29; Start 01/14/17 at 21:00 Lansoprazole (Prevacid) 30 mg DAILY PO Last administered on 01/15/17 08:27; Start 01/15/17 at 09:00 Latanoprost (Xalatan) 1 drop HS OU Last administered on 01/14/17 22:10; Start 01/14/17 at 21:00 Levothyroxine Sodium (Synthroid) 88 mcg DAILYAC PO Last administered on 08:26; Start 01/15/17 at 07:30 Lisinopril (Prinivil) 40 mg DAILY PO Last administered on 01/15/17 08:28; Start 01/15/17 at 09:00 Fish Oil (Fish Oil) 1,000 mg BID PO Last administered on 01/14/17 22:10; Start 01/14/17 at 21:00 Prednisone (Prednisone) 20 mg DAILY PO Last administered on 01/15/17 08:26; Start 01/15/17 at 09:00 Vitamin D (Vitamin D3) 1,000 unit DAILY PO Last administered on 01/15/17 08:24 ; Start 01/15/17 at 09:00 Cetirizine HCl (Zyrtec) 10 mg DAILY PO Last administered on 01/15/17 08:25; Start 01/15/17 at 09:00 Paroxetine HCl (Paxil Cr) 37.5 mg DAILY PO Last administered on 01/15/17 08:27 ; Start 01/15/17 at 09:00 Atorvastatin Calcium (Lipitor) 10 mg QHS PO Last administered on 01/14/17 22:10 ; Start 01/14/17 at 21:00 Morphine Sulfate 4 mg 1X ONCE IV Last administered on 01/14/17 20:17; Start at 20:00; Stop 01/14/17 at 20:01; Status DC Oxycodone/ Acetaminophen (Percocet 10/325) 1 tab PRN Q4HRS PRN PO PAIN Last administered on 01/14/17 20:23; Start 01/14/17 at 20:00 Oxycodone/ Acetaminophen (Percocet 5/325) 1 tab PRN Q4HRS PRN PO PAIN; Start at 20:00 Methylprednisolone Acetate (Depo-Medrol 80mg Vial) 80 mg 1X ONCE IM ; Start 01/15/17 at 07:00; Stop 01/15/17 at 07:01; Status DC Lidocaine HCl 20 ml 1X ONCE IJ ; Start 01/15/17 at 07:00; Stop 01/15/17 at 07:01 ; Status DC Bupivacaine HCl (Marcaine 0.5%) 50 ml 1X ONCE IJ ; Start 01/15/17 at 07:00; Stop 01/15/17 at 07:01; Status DC Active Scripts Active Prednisone 20 Mg Tablet 2 Tab PO DAILY Reported Acetaminophen 500 Mg Tablet 2 Tab PO BID PRN Vitamin D (Cholecalciferol (Vitamin D3)) 1,000 Unit Capsule 1 Cap PO DAILY Doxycycline Hyclate 100 Mg Tablet 1 Tab PO BID Kassy Allergy (Fexofenadine Hcl) 180 Mg Tablet 1 Tab PO DAILY Latanoprost 2.5 Ml Drops 1 Drop OP HS [stool softner] [pravastatin] 40 Mg PO HS Aspirin 81 Mg Tab.chew 81 Mg PO Paxil Cr (Paroxetine Hcl) 37.5 Mg Tab.er.24h 37.5 Mg PO DAILY Buspirone Hcl 10 Mg Tablet 10 Mg PO BID Fish Oil 1,000 Mg Capsule (Decker-3 Fatty Acids/Fish Oil) 1 Each Capsule 1 Each PO BID [vitamin d] Glucosamine 1,500 Complex Cp (Gluc Johnson/Chondro Johnson A/Vit C/Mn) 1 Each Capsule 1 Each PO Lisinopril 40 Mg Tablet 40 Mg PO DAILY Levothyroxine Sodium 88 Mcg Tablet 88 Mcg PO DAILYAC Celebrex (Celecoxib) 200 Mg Capsule 200 Mg PO DAILY 30 Days Prevacid (Lansoprazole) 30 Mg Tab.rap.dr 30 Mg PO DAILY Vitals/I & O Vital Sign - Last 24 Hours 01/14/17 01/14/17 01/14/17 01/14/17 11:45 12:07 12:37 13:28 Pulse 90 86 88 B/P 140/62 158/67 147/68 Pulse Ox 94 O2 Delivery Room Air Room Air 01/14/17 01/14/17 01/14/17 01/14/17 13:32 13:34 13:58 14:08 Pulse 93 B/P 150/67 Pulse Ox 95 O2 Delivery Room Air Room Air Room Air Room Air 01/14/17 01/14/17 01/14/17 01/14/17 14:49 17:45 17:45 18:40 Temp 97.3 97.3 97.3 97.3 Pulse 97 97 Resp 18 18 B/P 126/58 126/58 Pulse Ox 86 86 O2 Delivery Room Air Room Air Room Air Room Air 01/14/17 01/14/17 01/14/17 01/14/17 18:52 19:11 19:28 19:45 Temp 98.4 98.4 Pulse 93 Resp 16 B/P 106/49 Pulse Ox 91 O2 Delivery Room Air Room Air Room Air Room Air 01/14/17 01/14/17 01/14/17 01/14/17 20:17 20:23 21:00 22:15 Resp 16 14 O2 Delivery Room Air Room Air Room Air Room Air 01/14/17 01/15/17 01/15/17 01/15/17 23:42 03:05 07:00 08:00 Temp 97.4 98.1 97.9 97.4 98.1 97.9 Pulse 95 85 87 Resp 16 14 18 B/P 91/47 100/52 106/54 Pulse Ox 90 96 94 O2 Delivery Room Air Nasal Cannula Room Air Room Air O2 Flow Rate 1.5 1.5 01/15/17 01/15/17 08:28 11:00 Temp 97.4 97.4 Pulse 87 85 Resp 18 B/P 106/54 112/48 Pulse Ox 93 O2 Delivery Room Air Intake and Output 01/14/17 01/14/17 01/15/17 15:00 23:00 07:00 Intake Total 180 ml Balance 180 ml CONY,NIAL K III DO Jan 15, 2017 11:50
[2017-01-15] MEDS: IV NORMAL SALINE 1000ML BAG 1,000 ML IV SCH (12:23)
[2017-01-15 15:00] VITALS: BP 147/62
[2017-01-15] MEDS: ACETAMINOPHEN 500 MG TABLET PO PRN ×2 (15:04→20:45)
[2017-01-15 19:00] VITALS: BP 160/71
[2017-01-15] MEDS: ATORVASTATIN CALCIUM 10 MG TABLET. PO SCH (20:44)
[2017-01-15] MEDS: LATANOPROST 0.005% OPHTH SOLUTION 2.5ML BOTTLE. OU SCH (20:45)
[2017-01-15] MEDS: BENZONATATE 100 MG CAPSULE. PO PRN (20:45)
--- NOTE | 2017-01-15 21:22 | PDOC ---
ORTHO PROGRESS NOTES Subjective Knee pain better after injection. Vitals Vital Signs Date Time Temp Pulse Resp B/P Pulse Ox O2 Delivery O2 Flow Rate FiO2 01/15/17 19:00 97.9 87 18 160/71 93 Room Air 97.9 01/15/17 08:00 1.5 Labs Laboratory Tests Test 01/14/17 11:25 01/14/17 16:40 01/15/17 04:40 White Blood Count 8.5x10^3/uL (4.0-11.0) 6.8x10^3/uL (4.0-11.0) Red Blood Count 3.66x10^6/uL (3.50-5.40) 3.61x10^6/uL (3.50-5.40) Hemoglobin 11.8g/dL (12.0-15.5) 11.6g/dL (12.0-15.5) Hematocrit 34.8% (36.0-47.0) 35.3% (36.0-47.0) Mean Corpuscular Volume 95fL (79-100) 98fL (79-100) Mean Corpuscular Hemoglobin 32pg (25-35) 32pg (25-35) Mean Corpuscular Hemoglobin Concent 34g/dL (31-37) 33g/dL (31-37) Red Cell Distribution Width 14.9% (11.5-14.5) 14.8% (11.5-14.5) Platelet Count 196x10^3/uL (140-400) 193x10^3/uL (140-400) Neutrophils (%) (Auto) 65% (31-73) 65% (31-73) Lymphocytes (%) (Auto) 22% (24-48) 20% (24-48) Monocytes (%) (Auto) 13% (0-9) 16% (0-9) Eosinophils (%) (Auto) 0% (0-3) 0% (0-3) Basophils (%) (Auto) 0% (0-3) 0% (0-3) Neutrophils # (Auto) 5.5x10^3uL (1.8-7.7) 4.4x10^3uL (1.8-7.7) Lymphocytes # (Auto) 1.8x10^3/uL (1.0-4.8) 1.3x10^3/uL (1.0-4.8) Monocytes # (Auto) 1.1x10^3/uL (0.0-1.1) 1.1x10^3/uL (0.0-1.1) Eosinophils # (Auto) 0.0x10^3/uL (0.0-0.7) 0.0x10^3/uL (0.0-0.7) Basophils # (Auto) 0.0x10^3/uL (0.0-0.2) 0.0x10^3/uL (0.0-0.2) Erythrocyte Sedimentation Rate 52 (0-25) Sodium Level 132mmol/L (136-145) 130mmol/L (136-145) Potassium Level 4.2mmol/L (3.5-5.1) 4.8mmol/L (3.5-5.1) Chloride Level 96mmol/L (98-107) 94mmol/L (98-107) Carbon Dioxide Level 27mmol/L (21-32) 27mmol/L (21-32) Anion Gap 9 (6-14) 9 (6-14) Blood Urea Nitrogen 16mg/dL (7-20) 26mg/dL (7-20) Creatinine 0.7mg/dL (0.6-1.0) 1.9mg/dL (0.6-1.0) Estimated GFR (Cockcroft-Gault) 79.5 25.1 BUN/Creatinine Ratio 23 (6-20) Glucose Level 103mg/dL (70-99) 110mg/dL (70-99) Calcium Level 8.9mg/dL (8.5-10.1) 9.1mg/dL (8.5-10.1) Total Bilirubin 0.6mg/dL (0.2-1.0) Aspartate Amino Transf (AST/SGOT) 30U/L (15-37) Alanine Aminotransferase (ALT/SGPT) 23U/L (14-59) Alkaline Phosphatase 86U/L (46-116) C-Reactive Protein, Quantitative 4.6mg/L (0-3.3) Total Protein 6.8g/dL (6.4-8.2) Albumin 3.3g/dL (3.4-5.0) Albumin/Globulin Ratio 0.9 (1.0-1.7) Body Fluid Source Synovial Body Fluid Color Red Body Fluid Clarity Turbid Body Fluid Nucleated Cells 01686/cmm Body Fluid Mononuclear WBCs (%) 14% Body Fluid Polymorphonuclear Cells 86% Body Fluid Total RBCs Counted 352476/cmm Laboratory Tests Test 01/15/17 04:40 White Blood Count 6.8x10^3/uL (4.0-11.0) Red Blood Count 3.61x10^6/uL (3.50-5.40) Hemoglobin 11.6g/dL (12.0-15.5) Hematocrit 35.3% (36.0-47.0) Mean Corpuscular Volume 98fL (79-100) Mean Corpuscular Hemoglobin 32pg (25-35) Mean Corpuscular Hemoglobin Concent 33g/dL (31-37) Red Cell Distribution Width 14.8% (11.5-14.5) Platelet Count 193x10^3/uL (140-400) Neutrophils (%) (Auto) 65% (31-73) Lymphocytes (%) (Auto) 20% (24-48) Monocytes (%) (Auto) 16% (0-9) Eosinophils (%) (Auto) 0% (0-3) Basophils (%) (Auto) 0% (0-3) Neutrophils # (Auto) 4.4x10^3uL (1.8-7.7) Lymphocytes # (Auto) 1.3x10^3/uL (1.0-4.8) Monocytes # (Auto) 1.1x10^3/uL (0.0-1.1) Eosinophils # (Auto) 0.0x10^3/uL (0.0-0.7) Basophils # (Auto) 0.0x10^3/uL (0.0-0.2) Sodium Level 130mmol/L (136-145) Potassium Level 4.8mmol/L (3.5-5.1) Chloride Level 94mmol/L (98-107) Carbon Dioxide Level 27mmol/L (21-32) Anion Gap 9 (6-14) Blood Urea Nitrogen 26mg/dL (7-20) Creatinine 1.9mg/dL (0.6-1.0) Estimated GFR (Cockcroft-Gault) 25.1 Glucose Level 110mg/dL (70-99) Calcium Level 9.1mg/dL (8.5-10.1) Notes A and A RLE: mild effusion at knee, unchanged remains NVI Assessment and Plan activity as anita follow up in clinic JOSÉ MIGUEL PINTO II, MD Jan 15, 2017 21:22
[2017-01-15 23:00] VITALS: BP 133/64
[2017-01-16] MEDS: IV NORMAL SALINE 1000ML BAG 1,000 ML IV SCH (01:50)
[2017-01-16 03:00] VITALS: BP 134/66
[2017-01-16 06:10] LABS: BASO % 0 % (0-3); EOS % 0 % (0-3); HEMATOCRIT 31.4 % (36.0-47.0); HEMOGLOBIN 10.4 g/dL (12.0-15.5); LYMPH # 0.8 x10^3/uL (1.0-4.8); LYMPH % 9 % (24-48); MEAN CORPUSCULAR HEMOGLOBIN 32 pg (25-35); MEAN CORPUSCULAR HGB CONC 33 g/dL (31-37); MEAN CORPUSCULAR VOLUME 97 fL (79-100); MONO % 4 % (0-9); NEUT % 87 % (31-73); PLATELET COUNT 183 x10^3/uL (140-400); RED BLOOD COUNT 3.23 x10^6/uL (3.50-5.40); RED CELL DISTRIBUTION WIDTH 14.8 % (11.5-14.5); WHITE BLOOD COUNT 8.7 x10^3/uL (4.0-11.0)
[2017-01-16 06:47] LABS: CALCIUM 8.8 mg/dL (8.5-10.1); CREATININE 0.9 mg/dL (0.6-1.0); GFR 59.5; POTASSIUM 4.5 mmol/L (3.5-5.1)
[2017-01-16 07:00] VITALS: BP 143/71
[2017-01-16 07:51] LABS: OVALOCYTES FEW; PLT ESTIMATE ADEQUATE (ADEQUATE)
[2017-01-16] MEDS: ASPIRIN 81 MG TAB.CHEW PO SCH (08:00)
[2017-01-16] MEDS: ACETAMINOPHEN 500 MG TABLET PO PRN ×2 (08:36→21:02)
[2017-01-16] MEDS: PAROXETINE ER 12.5 MG TAB.ER.24H. PO SCH (08:36)
[2017-01-16] MEDS: LEVOTHYROXINE 88 MCG TABLET PO SCH (08:36)
[2017-01-16] MEDS: DOXYCYCLINE HYCLATE 100 MG TABLET PO SCH ×2 (08:36→21:01)
[2017-01-16] MEDS: busPIRone 10 MG TABLET. PO SCH ×2 (08:36→21:01)
[2017-01-16] MEDS: CETIRIZINE HCL 10 MG TABLET PO SCH (08:37)
[2017-01-16] MEDS: CHOLECALCIFEROL (VITAMIN D3) 1,000 UNIT TABLET PO SCH (08:37)
[2017-01-16] MEDS: BENZONATATE 100 MG CAPSULE. PO PRN ×2 (08:37→21:01)
[2017-01-16] MEDS: LISINOPRIL 40 MG TABLET. PO SCH (08:37)
[2017-01-16] MEDS: OMEGA-3 FATTY ACIDS/FISH OIL 1,000 MG CAPSULE. PO SCH (08:38)
[2017-01-16] MEDS: LANSOPRAZOLE 30 MG TAB.RAP.DR PO SCH (08:38)
[2017-01-16 11:00] VITALS: BP 132/70
--- NOTE | 2017-01-16 11:09 | CONS ---
DATE OF CONSULTATION: REQUESTING PHYSICIAN: Hospitalist. REASON FOR CONSULTATION: Renal failure. HISTORY OF PRESENT ILLNESS: This is an 86-year-old female admitted with right knee pain. She has had poor oral intake over the last 24 hours under the setting. She has had increase in serum creatinine from 0.7 to 1.9 with corresponding decline in GFR from 79.5 to 25.1, and in this setting, Nephrology evaluation is requested. The patient feels "very dry." PAST MEDICAL HISTORY: Breast carcinoma, hypertension, hyperlipidemia, hypothyroidism, cholecystectomy, knee replacement, GE reflux disease, tonsillectomy, bladder surgery, depression, and anxiety. ALLERGIES: PENICILLIN, SULFA, AND ____. MEDICATIONS: Reviewed. FAMILY HISTORY: Noncontributory. SOCIAL HISTORY: The patient resides with assistance. No tobacco or ethanol. REVIEW OF SYSTEMS: No headaches, sinus problem, nasal drainage, epistaxis, changes in vision or hearing. No difficulty swallowing. No fever, chills, cough, sputum production, or hemoptysis. No chest pain, shortness of breath, PND, orthopnea, or dyspnea on exertion. No abdominal pain or upper or lower gastrointestinal blood loss. No nausea, vomiting, diarrhea, seizures, or malignancies. PHYSICAL EXAMINATION: GENERAL: The patient awake and conversant. HEENT: Clear. NECK: No increased JVD, no thyromegaly, masses, or adenopathy. LUNGS: Clear. CARDIAC: Without S3 or rub. ABDOMEN: Soft, nontender. No bruits. EXTREMITIES: Trace edema. NEUROLOGIC: Nonfocal localizing. PSYCHIATRIC: Good attention to detail, appropriate affect. LABORATORY DATA: Sodium 130, potassium 4.8, chloride 94, CO2 27, BUN 26, creatinine 1.9, and GFR 25. ____ labs as per above. Hemoglobin 11.6 and hematocrit 35%. IMPRESSION: Renal failure - acute, likely secondary to dehydration. RECOMMENDATIONS: Isotonic saline. We will follow renal function with you. DESTINY LEMONS MD DR: DESMOND/yelena JOB#: [id number] / [id number]
--- NOTE | 2017-01-16 11:09 | CONS ---
DATE OF CONSULTATION: 01/15/2017 ATTENDING PHYSICIAN: Dr. Jean. REASON FOR CONSULTATION: The patient is seen in pulmonary consultation at the request of Dr. Jean for cough. HISTORY OF PRESENT ILLNESS: The patient is an 86-year-old, that recently returned from [place], had upper respiratory tract infection and flu-like symptoms. She has been having a cough. She actually was seen in the urgent care center. The cough is mostly nonproductive. I reviewed her medications. She is also on lisinopril. I queried the patient about reflux. She does drink caffeinated beverages and she does suffer from reflux. PAST MEDICAL HISTORY: Arthritis, anxiety, breast cancer, depression, gastroesophageal reflux, hyperlipidemia, hypertension, hypothyroidism. PAST SURGICAL HISTORY: Status post cholecystectomy, knee replacement, tonsillectomy. ALLERGIES: TO PENICILLIN, SULFA, [place]. FAMILY HISTORY: Diabetes. SOCIAL HISTORY: She has never smoked. Denies any alcohol intake. REVIEW OF SYSTEMS: As indicated above. Otherwise, a 10-point system was reviewed and negative. PHYSICAL EXAMINATION: GENERAL: The patient was in no respiratory distress. During my evaluation, she coughed on several occasions. It was mostly dry. NECK: Jugular venous distention was not elevated. LUNGS: Adequate airway flow, no wheezes. CARDIOVASCULAR: Regular rate and rhythm, with S1, S2. No S3. ABDOMEN: Soft, nontender, nondistended. EXTREMITIES: No clubbing, cyanosis, or edema. LABORATORY DATA: White count was normal, hemoglobin and hematocrit were noted. Electrolytes were noted. Chest x-ray reviewed, no acute cardiopulmonary process. IMPRESSION AND PLAN: Cough, suspect post infectious. Recommend symptomatic treatment. If the cough persists after 2 months, I recommend that she follow up with either myself or family doctor. At that point, I would recommend discontinuing the lisinopril. For now, discharged home on doxycycline and prednisone taper along with Tessalon Perles. The patient was also instructed on avoiding caffeinated beverages, not eating close to bedtime, avoiding chocolates. I do appreciate the privilege in sharing in the patient's care. DEENA TURNER MD DR: KRISTINE/yelena JOB#: [id number] / [id number]
--- NOTE | 2017-01-16 13:06 | PDOC ---
PROGRESS NOTES Chief Complaint Chief Complaint cc: Knee pain, resolved; Barker's cyst and hemarthrosis - cough, suspect post infectious - Acute Renal Failure likely 2/2 to dehydration, resolving History of Present Illness History of Present Illness Patient sitting up in bed when evaluated this AM, in no acute distress. R knee pain and swelling improved since injection was performed by ortho. Creatinine is now 0.9, after spiking to 1.9 yesterday. Vitals Vitals Vital Signs Date Time Temp Pulse Resp B/P Pulse Ox O2 Delivery O2 Flow Rate FiO2 01/16/17 11:00 98.1 94 18 132/70 92 Room Air 98.1 01/16/17 08:00 1.5 Physical Exam General: Alert, Cooperative, No acute distress Heart: Regular rate, Other (distant S1, S2) Lungs: Clear Abdomen: Soft, No tenderness Extremities: No cyanosis, Other (improved pain and swelling R knee) Skin: No significant lesion Labs LABS Laboratory Tests Test 01/16/17 05:25 White Blood Count 8.7x10^3/uL (4.0-11.0) Red Blood Count 3.23x10^6/uL (3.50-5.40) Hemoglobin 10.4g/dL (12.0-15.5) Hematocrit 31.4% (36.0-47.0) Mean Corpuscular Volume 97fL (79-100) Mean Corpuscular Hemoglobin 32pg (25-35) Mean Corpuscular Hemoglobin Concent 33g/dL (31-37) Red Cell Distribution Width 14.8% (11.5-14.5) Platelet Count 183x10^3/uL (140-400) Neutrophils (%) (Auto) 87% (31-73) Lymphocytes (%) (Auto) 9% (24-48) Monocytes (%) (Auto) 4% (0-9) Eosinophils (%) (Auto) 0% (0-3) Basophils (%) (Auto) 0% (0-3) Neutrophils # (Auto) 7.6x10^3uL (1.8-7.7) Lymphocytes # (Auto) 0.8x10^3/uL (1.0-4.8) Monocytes # (Auto) 0.3x10^3/uL (0.0-1.1) Eosinophils # (Auto) 0.0x10^3/uL (0.0-0.7) Basophils # (Auto) 0.0x10^3/uL (0.0-0.2) Segmented Neutrophils % 78% (35-66) Band Neutrophils % 8% (0-9) Lymphocytes % 8% (24-48) Monocytes % 6% (0-10) Platelet Estimate Adequate (ADEQUATE) Ovalocytes Few Sodium Level 130mmol/L (136-145) Potassium Level 4.5mmol/L (3.5-5.1) Chloride Level 97mmol/L (98-107) Carbon Dioxide Level 25mmol/L (21-32) Anion Gap 8 (6-14) Blood Urea Nitrogen 23mg/dL (7-20) Creatinine 0.9mg/dL (0.6-1.0) Estimated GFR (Cockcroft-Gault) 59.5 Glucose Level 142mg/dL (70-99) Calcium Level 8.8mg/dL (8.5-10.1) Review of Systems Review of Systems denies fever, chills improved R knee pain, since injection. + cough + anxiety Assessment and Plan Assessmemt and Plan ASSESSMENT: - Knee pain, resolved; Barker's cyst and hemarthrosis - cough, suspect post infectious - Acute Renal Failure likely 2/2 to dehydration, resolving PLAN: - possible SNU in AM - Nephrology recs for elevated Cr/BUN appreciated - Pulmonology recs for cough appreciated - appreciate Orthopedics; planning to f/u outpatient - cont PRN narcotic - cont IVF - PT/OT - repeat daily labs Problems: Comment Review of Relevant I have reviewed the following items kyle (where applicable) has been applied. Labs Laboratory Tests Test 01/14/17 16:40 01/15/17 04:40 01/16/17 05:25 Body Fluid Source Synovial Body Fluid Color Red Body Fluid Clarity Turbid Body Fluid Nucleated Cells 71022/cmm Body Fluid Mononuclear WBCs (%) 14% Body Fluid Polymorphonuclear Cells 86% Body Fluid Total RBCs Counted 526662/cmm White Blood Count 6.8x10^3/uL (4.0-11.0) 8.7x10^3/uL (4.0-11.0) Red Blood Count 3.61x10^6/uL (3.50-5.40) 3.23x10^6/uL (3.50-5.40) Hemoglobin 11.6g/dL (12.0-15.5) 10.4g/dL (12.0-15.5) Hematocrit 35.3% (36.0-47.0) 31.4% (36.0-47.0) Mean Corpuscular Volume 98fL (79-100) 97fL (79-100) Mean Corpuscular Hemoglobin 32pg (25-35) 32pg (25-35) Mean Corpuscular Hemoglobin Concent 33g/dL (31-37) 33g/dL (31-37) Red Cell Distribution Width 14.8% (11.5-14.5) 14.8% (11.5-14.5) Platelet Count 193x10^3/uL (140-400) 183x10^3/uL (140-400) Neutrophils (%) (Auto) 65% (31-73) 87% (31-73) Lymphocytes (%) (Auto) 20% (24-48) 9% (24-48) Monocytes (%) (Auto) 16% (0-9) 4% (0-9) Eosinophils (%) (Auto) 0% (0-3) 0% (0-3) Basophils (%) (Auto) 0% (0-3) 0% (0-3) Neutrophils # (Auto) 4.4x10^3uL (1.8-7.7) 7.6x10^3uL (1.8-7.7) Lymphocytes # (Auto) 1.3x10^3/uL (1.0-4.8) 0.8x10^3/uL (1.0-4.8) Monocytes # (Auto) 1.1x10^3/uL (0.0-1.1) 0.3x10^3/uL (0.0-1.1) Eosinophils # (Auto) 0.0x10^3/uL (0.0-0.7) 0.0x10^3/uL (0.0-0.7) Basophils # (Auto) 0.0x10^3/uL (0.0-0.2) 0.0x10^3/uL (0.0-0.2) Sodium Level 130mmol/L (136-145) 130mmol/L (136-145) Potassium Level 4.8mmol/L (3.5-5.1) 4.5mmol/L (3.5-5.1) Chloride Level 94mmol/L (98-107) 97mmol/L (98-107) Carbon Dioxide Level 27mmol/L (21-32) 25mmol/L (21-32) Anion Gap 9 (6-14) 8 (6-14) Blood Urea Nitrogen 26mg/dL (7-20) 23mg/dL (7-20) Creatinine 1.9mg/dL (0.6-1.0) 0.9mg/dL (0.6-1.0) Estimated GFR (Cockcroft-Gault) 25.1 59.5 Glucose Level 110mg/dL (70-99) 142mg/dL (70-99) Calcium Level 9.1mg/dL (8.5-10.1) 8.8mg/dL (8.5-10.1) Segmented Neutrophils % 78% (35-66) Band Neutrophils % 8% (0-9) Lymphocytes % 8% (24-48) Monocytes % 6% (0-10) Platelet Estimate Adequate (ADEQUATE) Ovalocytes Few Laboratory Tests Test 01/16/17 05:25 White Blood Count 8.7x10^3/uL (4.0-11.0) Red Blood Count 3.23x10^6/uL (3.50-5.40) Hemoglobin 10.4g/dL (12.0-15.5) Hematocrit 31.4% (36.0-47.0) Mean Corpuscular Volume 97fL (79-100) Mean Corpuscular Hemoglobin 32pg (25-35) Mean Corpuscular Hemoglobin Concent 33g/dL (31-37) Red Cell Distribution Width 14.8% (11.5-14.5) Platelet Count 183x10^3/uL (140-400) Neutrophils (%) (Auto) 87% (31-73) Lymphocytes (%) (Auto) 9% (24-48) Monocytes (%) (Auto) 4% (0-9) Eosinophils (%) (Auto) 0% (0-3) Basophils (%) (Auto) 0% (0-3) Neutrophils # (Auto) 7.6x10^3uL (1.8-7.7) Lymphocytes # (Auto) 0.8x10^3/uL (1.0-4.8) Monocytes # (Auto) 0.3x10^3/uL (0.0-1.1) Eosinophils # (Auto) 0.0x10^3/uL (0.0-0.7) Basophils # (Auto) 0.0x10^3/uL (0.0-0.2) Segmented Neutrophils % 78% (35-66) Band Neutrophils % 8% (0-9) Lymphocytes % 8% (24-48) Monocytes % 6% (0-10) Platelet Estimate Adequate (ADEQUATE) Ovalocytes Few Sodium Level 130mmol/L (136-145) Potassium Level 4.5mmol/L (3.5-5.1) Chloride Level 97mmol/L (98-107) Carbon Dioxide Level 25mmol/L (21-32) Anion Gap 8 (6-14) Blood Urea Nitrogen 23mg/dL (7-20) Creatinine 0.9mg/dL (0.6-1.0) Estimated GFR (Cockcroft-Gault) 59.5 Glucose Level 142mg/dL (70-99) Calcium Level 8.8mg/dL (8.5-10.1) Microbiology 01/14/17 Gram Stain - Final, Complete Medications Current Medications Fentanyl Citrate (Fentanyl 2ml Vial) 25 mcg PRN Q15MIN PRN IV PAIN GREATER THAN 3/10 Last administered on 01/14/17 12:27; Start 01/14/17 at 10:45; Stop 01/15 at 10:44; Status DC Ondansetron HCl (Zofran) 4 mg 1X ONCE IV Last administered on 01/14/17 11:11; Start 01/14/17 at 11:00; Stop 01/14/17 at 11:01; Status DC Morphine Sulfate 4 mg PRN Q15MIN PRN IV/SQ PAIN GREATER THAN 3/10 Last administered on 01/14/17 14:08; Start 01/14/17 at 12:30; Stop 01/15/17 at 01:00; Status DC Iohexol (Omnipaque 350 Mg/ml) 95 ml 1X ONCE IV Last administered on 01/14/17 12:57; Start 01/14/17 at 13:00; Stop 01/14/17 at 13:01; Status DC Info (Do NOT chart on this entry -- for MONITORING) 1 each PRN DAILY PRN MC SEE COMMENTS; Start 01/14/17 at 12:45; Stop 01/16/17 at 12:44; Status DC Hydromorphone HCl (Dilaudid) 0.5 mg PRN Q15MIN PRN IV/SQ PAIN GREATER THAN 3/ 10 Last administered on 01/14/17 15:40; Start 01/14/17 at 14:30; Stop 01/15/17 at 01:00; Status DC Lidocaine HCl 20 ml 1X ONCE IJ Last administered on 01/14/17 16:09; Start 01/14 at 16:15; Stop 01/14/17 at 16:16; Status DC Ondansetron HCl (Zofran) 4 mg PRN Q8HRS PRN IV NAUSEA/VOMITING Last administered on 01/14/17 20:17; Start 01/14/17 at 17:15; Stop 01/15/17 at 17:14; Status DC Morphine Sulfate 4 mg PRN Q2HR PRN IV PAIN Last administered on 01/14/17 18:40 ; Start 01/14/17 at 17:15; Stop 01/15/17 at 17:14; Status DC Acetaminophen (Tylenol) 650 mg PRN Q4HRS PRN PO FEVER; Start 01/14/17 at 17:15; Stop 01/15/17 at 17:14; Status DC Acetaminophen (Tylenol) 500 mg BID PRN PO PAIN Last administered on 01/16/17 08 :36; Start 01/14/17 at 19:15 Aspirin (Children'S Aspirin) 81 mg DAILYWBKFT PO Last administered on 01/16/17 08:00; Start 01/15/17 at 08:00 Buspirone HCl (Buspar) 10 mg BID PO Last administered on 01/16/17 08:36; Start 01/14/17 at 21:00 Celecoxib (Celebrex) 200 mg DAILY PO Last administered on 01/15/17 08:25; Start 01/15/17 at 09:00; Stop 01/15/17 at 15:00; Status DC Doxycycline Hyclate (Vibra-Tab) 100 mg BID PO Last administered on 01/16/17 08: 36; Start 01/14/17 at 21:00 Lansoprazole (Prevacid) 30 mg DAILY PO Last administered on 01/16/17 08:38; Start 01/15/17 at 09:00 Latanoprost (Xalatan) 1 drop HS OU Last administered on 01/15/17 20:45; Start 01/14/17 at 21:00 Levothyroxine Sodium (Synthroid) 88 mcg DAILYAC PO Last administered on 08:36; Start 01/15/17 at 07:30 Lisinopril (Prinivil) 40 mg DAILY PO Last administered on 01/16/17 08:37; Start 01/15/17 at 09:00 Fish Oil (Fish Oil) 1,000 mg BID PO Last administered on 01/14/17 22:10; Start 01/14/17 at 21:00 Prednisone (Prednisone) 20 mg DAILY PO Last administered on 01/15/17 08:26; Start 01/15/17 at 09:00; Stop 01/15/17 at 16:28; Status DC Vitamin D (Vitamin D3) 1,000 unit DAILY PO Last administered on 01/16/17 08:37 ; Start 01/15/17 at 09:00 Cetirizine HCl (Zyrtec) 10 mg DAILY PO Last administered on 01/16/17 08:37; Start 01/15/17 at 09:00 Paroxetine HCl (Paxil Cr) 37.5 mg DAILY PO Last administered on 01/16/17 08:36 ; Start 01/15/17 at 09:00 Atorvastatin Calcium (Lipitor) 10 mg QHS PO Last administered on 01/15/17 20:44 ; Start 01/14/17 at 21:00 Morphine Sulfate 4 mg 1X ONCE IV Last administered on 01/14/17 20:17; Start at 20:00; Stop 01/14/17 at 20:01; Status DC Oxycodone/ Acetaminophen (Percocet 10/325) 1 tab PRN Q4HRS PRN PO PAIN Last administered on 01/14/17 20:23; Start 01/14/17 at 20:00 Oxycodone/ Acetaminophen (Percocet 5/325) 1 tab PRN Q4HRS PRN PO PAIN; Start at 20:00 Methylprednisolone Acetate (Depo-Medrol 80mg Vial) 80 mg 1X ONCE IM ; Start 01/15/17 at 07:00; Stop 01/15/17 at 07:01; Status DC Lidocaine HCl 20 ml 1X ONCE IJ ; Start 01/15/17 at 07:00; Stop 01/15/17 at 07:01 ; Status DC Bupivacaine HCl 50 ml 50 ml 1X ONCE IJ ; Start 01/15/17 at 07:00; Stop 01/15/17 at 07:01; Status DC Sodium Chloride (Iv Sodium Chloride 0.9% 1000ml Bag) 1,000 ml @ 75 mls/hr [id number] IV Last administered on 01/16/17 01:50; Start 01/15/17 at 12:30 Benzonatate (Tessalon Perle) 100 mg PRN Q6HRS PRN PO COUGH Last administered on 01/16/17 08:37; Start 01/15/17 at 16:30 Active Scripts Active Prednisone 20 Mg Tablet 2 Tab PO DAILY Reported Acetaminophen 500 Mg Tablet 2 Tab PO BID PRN Vitamin D (Cholecalciferol (Vitamin D3)) 1,000 Unit Capsule 1 Cap PO DAILY Doxycycline Hyclate 100 Mg Tablet 1 Tab PO BID Kassy Allergy (Fexofenadine Hcl) 180 Mg Tablet 1 Tab PO DAILY Latanoprost 2.5 Ml Drops 1 Drop OP HS [stool softner] [pravastatin] 40 Mg PO HS Aspirin 81 Mg Tab.chew 81 Mg PO Paxil Cr (Paroxetine Hcl) 37.5 Mg Tab.er.24h 37.5 Mg PO DAILY Buspirone Hcl 10 Mg Tablet 10 Mg PO BID Fish Oil 1,000 Mg Capsule ([place]-3 Fatty Acids/Fish Oil) 1 Each Capsule 1 Each PO BID [vitamin d] Glucosamine 1,500 Complex Cp (Gluc Johnson/Chondro Johnson A/Vit C/Mn) 1 Each Capsule 1 Each PO Lisinopril 40 Mg Tablet 40 Mg PO DAILY Levothyroxine Sodium 88 Mcg Tablet 88 Mcg PO DAILYAC Celebrex (Celecoxib) 200 Mg Capsule 200 Mg PO DAILY 30 Days Prevacid (Lansoprazole) 30 Mg Tab.rap.dr 30 Mg PO DAILY Vitals/I & O Vital Sign - Last 24 Hours 01/15/17 01/15/17 01/15/17 01/15/17 15:00 19:00 20:00 23:00 Temp 98.1 97.9 97.6 98.1 97.9 97.6 Pulse 86 87 72 Resp 18 18 18 B/P 147/62 160/71 133/64 Pulse Ox 94 93 93 O2 Delivery Room Air Room Air Room Air Room Air 01/16/17 01/16/17 01/16/17 01/16/17 03:00 07:00 08:00 08:37 Temp 97.9 97.5 97.9 97.5 Pulse 79 89 89 Resp 18 B/P 134/66 143/71 143/71 Pulse Ox 92 91 O2 Delivery Room Air Room Air Room Air O2 Flow Rate 1.5 01/16/17 11:00 Temp 98.1 98.1 Pulse 94 Resp 18 B/P 132/70 Pulse Ox 92 O2 Delivery Room Air Intake and Output 01/15/17 01/15/17 01/16/17 15:00 23:00 07:00 Intake Total 619 ml Balance 619 ml ZEHRA DONNELLY III DO Jan 16, 2017 13:06
--- NOTE | 2017-01-16 14:05 | PDOC ---
PROGRESS NOTES Subjective Subjective SEEN IN FOLLOW UP OF ARF DUE TO DEHYDRATION Objective Objective Vital Signs Date Time Temp Pulse Resp B/P Pulse Ox O2 Delivery O2 Flow Rate FiO2 01/16/17 11:00 98.1 94 18 132/70 92 Room Air 98.1 01/16/17 08:00 1.5 Intake and Output 01/16/17 07:00 Intake Total 619 ml Balance 619 ml Intake Oral 200 ml IV Total 419 ml # Voids 1 Physical Exam Abdomen: Normal bowel sounds, Soft, No tenderness, No hepatosplenomegaly, No masses Heart: Regular rate, Normal S1, Normal S2, No murmurs, Gallops Extremities: No clubbing, No cyanosis, No edema, Normal pulses, No tenderness/ swelling General: Alert, Oriented X3, Cooperative, No acute distress Lungs: Clear to auscultation, Normal air movement Psych/Mental Status: Mental status NL, Mood NL Diagnosis RENAL FAILURE: Acute, Other (DEHYDRATION RESOLVED) Assessment Assessment Problems Medical Problems: (1) Knee pain, right Status: Acute Plan Plan of Care STOP IVF. RENAL WILL SIGN OFF Comment Review of Relevant I have reviewed the following items kyle (where applicable) has been applied. Labs Laboratory Tests Test 01/14/17 16:40 01/15/17 04:40 01/16/17 05:25 Body Fluid Source Synovial Body Fluid Color Red Body Fluid Clarity Turbid Body Fluid Nucleated Cells 83048/cmm Body Fluid Mononuclear WBCs (%) 14% Body Fluid Polymorphonuclear Cells 86% Body Fluid Total RBCs Counted 471256/cmm Body Fluid Crystals Comment (None seen) White Blood Count 6.8x10^3/uL (4.0-11.0) 8.7x10^3/uL (4.0-11.0) Red Blood Count 3.61x10^6/uL (3.50-5.40) 3.23x10^6/uL (3.50-5.40) Hemoglobin 11.6g/dL (12.0-15.5) 10.4g/dL (12.0-15.5) Hematocrit 35.3% (36.0-47.0) 31.4% (36.0-47.0) Mean Corpuscular Volume 98fL (79-100) 97fL (79-100) Mean Corpuscular Hemoglobin 32pg (25-35) 32pg (25-35) Mean Corpuscular Hemoglobin Concent 33g/dL (31-37) 33g/dL (31-37) Red Cell Distribution Width 14.8% (11.5-14.5) 14.8% (11.5-14.5) Platelet Count 193x10^3/uL (140-400) 183x10^3/uL (140-400) Neutrophils (%) (Auto) 65% (31-73) 87% (31-73) Lymphocytes (%) (Auto) 20% (24-48) 9% (24-48) Monocytes (%) (Auto) 16% (0-9) 4% (0-9) Eosinophils (%) (Auto) 0% (0-3) 0% (0-3) Basophils (%) (Auto) 0% (0-3) 0% (0-3) Neutrophils # (Auto) 4.4x10^3uL (1.8-7.7) 7.6x10^3uL (1.8-7.7) Lymphocytes # (Auto) 1.3x10^3/uL (1.0-4.8) 0.8x10^3/uL (1.0-4.8) Monocytes # (Auto) 1.1x10^3/uL (0.0-1.1) 0.3x10^3/uL (0.0-1.1) Eosinophils # (Auto) 0.0x10^3/uL (0.0-0.7) 0.0x10^3/uL (0.0-0.7) Basophils # (Auto) 0.0x10^3/uL (0.0-0.2) 0.0x10^3/uL (0.0-0.2) Sodium Level 130mmol/L (136-145) 130mmol/L (136-145) Potassium Level 4.8mmol/L (3.5-5.1) 4.5mmol/L (3.5-5.1) Chloride Level 94mmol/L (98-107) 97mmol/L (98-107) Carbon Dioxide Level 27mmol/L (21-32) 25mmol/L (21-32) Anion Gap 9 (6-14) 8 (6-14) Blood Urea Nitrogen 26mg/dL (7-20) 23mg/dL (7-20) Creatinine 1.9mg/dL (0.6-1.0) 0.9mg/dL (0.6-1.0) Estimated GFR (Cockcroft-Gault) 25.1 59.5 Glucose Level 110mg/dL (70-99) 142mg/dL (70-99) Calcium Level 9.1mg/dL (8.5-10.1) 8.8mg/dL (8.5-10.1) Segmented Neutrophils % 78% (35-66) Band Neutrophils % 8% (0-9) Lymphocytes % 8% (24-48) Monocytes % 6% (0-10) Platelet Estimate Adequate (ADEQUATE) Ovalocytes Few Laboratory Tests Test 01/16/17 05:25 White Blood Count 8.7x10^3/uL (4.0-11.0) Red Blood Count 3.23x10^6/uL (3.50-5.40) Hemoglobin 10.4g/dL (12.0-15.5) Hematocrit 31.4% (36.0-47.0) Mean Corpuscular Volume 97fL (79-100) Mean Corpuscular Hemoglobin 32pg (25-35) Mean Corpuscular Hemoglobin Concent 33g/dL (31-37) Red Cell Distribution Width 14.8% (11.5-14.5) Platelet Count 183x10^3/uL (140-400) Neutrophils (%) (Auto) 87% (31-73) Lymphocytes (%) (Auto) 9% (24-48) Monocytes (%) (Auto) 4% (0-9) Eosinophils (%) (Auto) 0% (0-3) Basophils (%) (Auto) 0% (0-3) Neutrophils # (Auto) 7.6x10^3uL (1.8-7.7) Lymphocytes # (Auto) 0.8x10^3/uL (1.0-4.8) Monocytes # (Auto) 0.3x10^3/uL (0.0-1.1) Eosinophils # (Auto) 0.0x10^3/uL (0.0-0.7) Basophils # (Auto) 0.0x10^3/uL (0.0-0.2) Segmented Neutrophils % 78% (35-66) Band Neutrophils % 8% (0-9) Lymphocytes % 8% (24-48) Monocytes % 6% (0-10) Platelet Estimate Adequate (ADEQUATE) Ovalocytes Few Sodium Level 130mmol/L (136-145) Potassium Level 4.5mmol/L (3.5-5.1) Chloride Level 97mmol/L (98-107) Carbon Dioxide Level 25mmol/L (21-32) Anion Gap 8 (6-14) Blood Urea Nitrogen 23mg/dL (7-20) Creatinine 0.9mg/dL (0.6-1.0) Estimated GFR (Cockcroft-Gault) 59.5 Glucose Level 142mg/dL (70-99) Calcium Level 8.8mg/dL (8.5-10.1) Microbiology 01/14/17 Anaerobic/Aerobic Culture, Resulted Pending 01/14/17 Anaerobic Culture Result 1 (NONA), Resulted Pending 01/14/17 Aerobic Culture - Preliminary, Resulted 01/14/17 Aerobic Culture Result 1 (NONA) - Preliminary, Resulted Medications Current Medications Fentanyl Citrate (Fentanyl 2ml Vial) 25 mcg PRN Q15MIN PRN IV PAIN GREATER THAN 3/10 Last administered on 01/14/17 12:27; Start 01/14/17 at 10:45; Stop 01/15 at 10:44; Status DC Ondansetron HCl (Zofran) 4 mg 1X ONCE IV Last administered on 01/14/17 11:11; Start 01/14/17 at 11:00; Stop 01/14/17 at 11:01; Status DC Morphine Sulfate 4 mg PRN Q15MIN PRN IV/SQ PAIN GREATER THAN 3/10 Last administered on 01/14/17 14:08; Start 01/14/17 at 12:30; Stop 01/15/17 at 01:00; Status DC Iohexol (Omnipaque 350 Mg/ml) 95 ml 1X ONCE IV Last administered on 01/14/17 12:57; Start 01/14/17 at 13:00; Stop 01/14/17 at 13:01; Status DC Info (Do NOT chart on this entry -- for MONITORING) 1 each PRN DAILY PRN MC SEE COMMENTS; Start 01/14/17 at 12:45; Stop 01/16/17 at 12:44; Status DC Hydromorphone HCl (Dilaudid) 0.5 mg PRN Q15MIN PRN IV/SQ PAIN GREATER THAN 3/ 10 Last administered on 01/14/17 15:40; Start 01/14/17 at 14:30; Stop 01/15/17 at 01:00; Status DC Lidocaine HCl 20 ml 1X ONCE IJ Last administered on 01/14/17 16:09; Start 01/14 at 16:15; Stop 01/14/17 at 16:16; Status DC Ondansetron HCl (Zofran) 4 mg PRN Q8HRS PRN IV NAUSEA/VOMITING Last administered on 01/14/17 20:17; Start 01/14/17 at 17:15; Stop 01/15/17 at 17:14; Status DC Morphine Sulfate 4 mg PRN Q2HR PRN IV PAIN Last administered on 01/14/17 18:40 ; Start 01/14/17 at 17:15; Stop 01/15/17 at 17:14; Status DC Acetaminophen (Tylenol) 650 mg PRN Q4HRS PRN PO FEVER; Start 01/14/17 at 17:15; Stop 01/15/17 at 17:14; Status DC Acetaminophen (Tylenol) 500 mg BID PRN PO PAIN Last administered on 01/16/17 08 :36; Start 01/14/17 at 19:15 Aspirin (Children'S Aspirin) 81 mg [id number] PO Last administered on 01/16/17 08:00; Start 01/15/17 at 08:00 Buspirone HCl (Buspar) 10 mg BID PO Last administered on 01/16/17 08:36; Start 01/14/17 at 21:00 Celecoxib (Celebrex) 200 mg DAILY PO Last administered on 01/15/17 08:25; Start 01/15/17 at 09:00; Stop 01/15/17 at 15:00; Status DC Doxycycline Hyclate (Vibra-Tab) 100 mg BID PO Last administered on 01/16/17 08: 36; Start 01/14/17 at 21:00 Lansoprazole (Prevacid) 30 mg DAILY PO Last administered on 01/16/17 08:38; Start 01/15/17 at 09:00 Latanoprost (Xalatan) 1 drop HS OU Last administered on 01/15/17 20:45; Start 01/14/17 at 21:00 Levothyroxine Sodium (Synthroid) 88 mcg DAILYAC PO Last administered on 08:36; Start 01/15/17 at 07:30 Lisinopril (Prinivil) 40 mg DAILY PO Last administered on 01/16/17 08:37; Start 01/15/17 at 09:00 Fish Oil (Fish Oil) 1,000 mg BID PO Last administered on 01/14/17 22:10; Start 01/14/17 at 21:00 Prednisone (Prednisone) 20 mg DAILY PO Last administered on 01/15/17 08:26; Start 01/15/17 at 09:00; Stop 01/15/17 at 16:28; Status DC Vitamin D (Vitamin D3) 1,000 unit DAILY PO Last administered on 01/16/17 08:37 ; Start 01/15/17 at 09:00 Cetirizine HCl (Zyrtec) 10 mg DAILY PO Last administered on 01/16/17 08:37; Start 01/15/17 at 09:00 Paroxetine HCl (Paxil Cr) 37.5 mg DAILY PO Last administered on 01/16/17 08:36 ; Start 01/15/17 at 09:00 Atorvastatin Calcium (Lipitor) 10 mg QHS PO Last administered on 01/15/17 20:44 ; Start 01/14/17 at 21:00 Morphine Sulfate 4 mg 1X ONCE IV Last administered on 01/14/17 20:17; Start at 20:00; Stop 01/14/17 at 20:01; Status DC Oxycodone/ Acetaminophen (Percocet 10/325) 1 tab PRN Q4HRS PRN PO PAIN Last administered on 01/14/17 20:23; Start 01/14/17 at 20:00 Oxycodone/ Acetaminophen (Percocet 5/325) 1 tab PRN Q4HRS PRN PO PAIN; Start at 20:00 Methylprednisolone Acetate (Depo-Medrol 80mg Vial) 80 mg 1X ONCE IM ; Start 01/15/17 at 07:00; Stop 01/15/17 at 07:01; Status DC Lidocaine HCl 20 ml 1X ONCE IJ ; Start 01/15/17 at 07:00; Stop 01/15/17 at 07:01 ; Status DC Bupivacaine HCl 50 ml 50 ml 1X ONCE IJ ; Start 01/15/17 at 07:00; Stop 01/15/17 at 07:01; Status DC Sodium Chloride (Iv Sodium Chloride 0.9% 1000ml Bag) 1,000 ml @ 75 mls/hr [id number] IV Last administered on 01/16/17 01:50; Start 01/15/17 at 12:30 Benzonatate (Tessalon Perle) 100 mg PRN Q6HRS PRN PO COUGH Last administered on 01/16/17 08:37; Start 01/15/17 at 16:30 Active Scripts Active Prednisone 20 Mg Tablet 2 Tab PO DAILY Reported Acetaminophen 500 Mg Tablet 2 Tab PO BID PRN Vitamin D (Cholecalciferol (Vitamin D3)) 1,000 Unit Capsule 1 Cap PO DAILY Doxycycline Hyclate 100 Mg Tablet 1 Tab PO BID Kassy Allergy (Fexofenadine Hcl) 180 Mg Tablet 1 Tab PO DAILY Latanoprost 2.5 Ml Drops 1 Drop OP HS [stool softner] [pravastatin] 40 Mg PO HS Aspirin 81 Mg Tab.chew 81 Mg PO Paxil Cr (Paroxetine Hcl) 37.5 Mg Tab.er.24h 37.5 Mg PO DAILY Buspirone Hcl 10 Mg Tablet 10 Mg PO BID Fish Oil 1,000 Mg Capsule ([place]-3 Fatty Acids/Fish Oil) 1 Each Capsule 1 Each PO BID [vitamin d] Glucosamine 1,500 Complex Cp (Gluc Johnson/Chondro Johnson A/Vit C/Mn) 1 Each Capsule 1 Each PO Lisinopril 40 Mg Tablet 40 Mg PO DAILY Levothyroxine Sodium 88 Mcg Tablet 88 Mcg PO DAILYAC Celebrex (Celecoxib) 200 Mg Capsule 200 Mg PO DAILY 30 Days Prevacid (Lansoprazole) 30 Mg Tab.rap.dr 30 Mg PO DAILY Vitals/I & O Vital Sign - Last 24 Hours 01/15/17 01/15/17 01/15/17 01/15/17 15:00 19:00 20:00 23:00 Temp 98.1 97.9 97.6 98.1 97.9 97.6 Pulse 86 87 72 Resp 18 18 18 B/P 147/62 160/71 133/64 Pulse Ox 94 93 93 O2 Delivery Room Air Room Air Room Air Room Air 01/16/17 01/16/17 01/16/17 01/16/17 03:00 07:00 08:00 08:37 Temp 97.9 97.5 97.9 97.5 Pulse 79 89 89 Resp 20 18 B/P 134/66 143/71 143/71 Pulse Ox 92 91 O2 Delivery Room Air Room Air Room Air O2 Flow Rate 1.5 01/16/17 11:00 Temp 98.1 98.1 Pulse 94 Resp 18 B/P 132/70 Pulse Ox 92 O2 Delivery Room Air Intake and Output 01/15/17 01/15/17 01/16/17 15:00 23:00 07:00 Intake Total 619 ml Balance 619 ml DESTINY LEMONS MD Jan 16, 2017 14:05
--- NOTE | 2017-01-16 14:19 | PDOC ---
PULMONARY PROGRESS NOTES Subjective STILL COUGHING Vitals Vital Signs Date Time Temp Pulse Resp B/P Pulse Ox O2 Delivery O2 Flow Rate FiO2 01/16/17 11:00 98.1 94 18 132/70 92 Room Air 98.1 01/16/17 08:00 1.5 ROS: No Nausea, No Chest Pain, No Abdominal Pain General: Alert Lungs: Clear Cardiovascular: S1, S2 Abdomen: Soft, Non-tender Neuro Exam: Alert Extremities: No Edema Skin: Warm Labs Laboratory Tests Test 01/14/17 16:40 01/15/17 04:40 01/16/17 05:25 Body Fluid Source Synovial Body Fluid Color Red Body Fluid Clarity Turbid Body Fluid Nucleated Cells 98272/cmm Body Fluid Mononuclear WBCs (%) 14% Body Fluid Polymorphonuclear Cells 86% Body Fluid Total RBCs Counted 054383/cmm Body Fluid Crystals Comment (None seen) White Blood Count 6.8x10^3/uL (4.0-11.0) 8.7x10^3/uL (4.0-11.0) Red Blood Count 3.61x10^6/uL (3.50-5.40) 3.23x10^6/uL (3.50-5.40) Hemoglobin 11.6g/dL (12.0-15.5) 10.4g/dL (12.0-15.5) Hematocrit 35.3% (36.0-47.0) 31.4% (36.0-47.0) Mean Corpuscular Volume 98fL (79-100) 97fL (79-100) Mean Corpuscular Hemoglobin 32pg (25-35) 32pg (25-35) Mean Corpuscular Hemoglobin Concent 33g/dL (31-37) 33g/dL (31-37) Red Cell Distribution Width 14.8% (11.5-14.5) 14.8% (11.5-14.5) Platelet Count 193x10^3/uL (140-400) 183x10^3/uL (140-400) Neutrophils (%) (Auto) 65% (31-73) 87% (31-73) Lymphocytes (%) (Auto) 20% (24-48) 9% (24-48) Monocytes (%) (Auto) 16% (0-9) 4% (0-9) Eosinophils (%) (Auto) 0% (0-3) 0% (0-3) Basophils (%) (Auto) 0% (0-3) 0% (0-3) Neutrophils # (Auto) 4.4x10^3uL (1.8-7.7) 7.6x10^3uL (1.8-7.7) Lymphocytes # (Auto) 1.3x10^3/uL (1.0-4.8) 0.8x10^3/uL (1.0-4.8) Monocytes # (Auto) 1.1x10^3/uL (0.0-1.1) 0.3x10^3/uL (0.0-1.1) Eosinophils # (Auto) 0.0x10^3/uL (0.0-0.7) 0.0x10^3/uL (0.0-0.7) Basophils # (Auto) 0.0x10^3/uL (0.0-0.2) 0.0x10^3/uL (0.0-0.2) Sodium Level 130mmol/L (136-145) 130mmol/L (136-145) Potassium Level 4.8mmol/L (3.5-5.1) 4.5mmol/L (3.5-5.1) Chloride Level 94mmol/L (98-107) 97mmol/L (98-107) Carbon Dioxide Level 27mmol/L (21-32) 25mmol/L (21-32) Anion Gap 9 (6-14) 8 (6-14) Blood Urea Nitrogen 26mg/dL (7-20) 23mg/dL (7-20) Creatinine 1.9mg/dL (0.6-1.0) 0.9mg/dL (0.6-1.0) Estimated GFR (Cockcroft-Gault) 25.1 59.5 Glucose Level 110mg/dL (70-99) 142mg/dL (70-99) Calcium Level 9.1mg/dL (8.5-10.1) 8.8mg/dL (8.5-10.1) Segmented Neutrophils % 78% (35-66) Band Neutrophils % 8% (0-9) Lymphocytes % 8% (24-48) Monocytes % 6% (0-10) Platelet Estimate Adequate (ADEQUATE) Ovalocytes Few Laboratory Tests Test 01/16/17 05:25 White Blood Count 8.7x10^3/uL (4.0-11.0) Red Blood Count 3.23x10^6/uL (3.50-5.40) Hemoglobin 10.4g/dL (12.0-15.5) Hematocrit 31.4% (36.0-47.0) Mean Corpuscular Volume 97fL (79-100) Mean Corpuscular Hemoglobin 32pg (25-35) Mean Corpuscular Hemoglobin Concent 33g/dL (31-37) Red Cell Distribution Width 14.8% (11.5-14.5) Platelet Count 183x10^3/uL (140-400) Neutrophils (%) (Auto) 87% (31-73) Lymphocytes (%) (Auto) 9% (24-48) Monocytes (%) (Auto) 4% (0-9) Eosinophils (%) (Auto) 0% (0-3) Basophils (%) (Auto) 0% (0-3) Neutrophils # (Auto) 7.6x10^3uL (1.8-7.7) Lymphocytes # (Auto) 0.8x10^3/uL (1.0-4.8) Monocytes # (Auto) 0.3x10^3/uL (0.0-1.1) Eosinophils # (Auto) 0.0x10^3/uL (0.0-0.7) Basophils # (Auto) 0.0x10^3/uL (0.0-0.2) Segmented Neutrophils % 78% (35-66) Band Neutrophils % 8% (0-9) Lymphocytes % 8% (24-48) Monocytes % 6% (0-10) Platelet Estimate Adequate (ADEQUATE) Ovalocytes Few Sodium Level 130mmol/L (136-145) Potassium Level 4.5mmol/L (3.5-5.1) Chloride Level 97mmol/L (98-107) Carbon Dioxide Level 25mmol/L (21-32) Anion Gap 8 (6-14) Blood Urea Nitrogen 23mg/dL (7-20) Creatinine 0.9mg/dL (0.6-1.0) Estimated GFR (Cockcroft-Gault) 59.5 Glucose Level 142mg/dL (70-99) Calcium Level 8.8mg/dL (8.5-10.1) Medications Active Scripts Medications Dose Route/Sig Days Date Category Acetaminophen 500 Mg Tablet 2 Tab PO BID PRN 01/14/17 Reported Vitamin D (Cholecalciferol (Vitamin D3)) 1,000 Unit Capsule 1 Cap PO DAILY 01/14/17 Reported Doxycycline Hyclate 100 Mg Tablet 1 Tab PO BID 01/14/17 Reported Prednisone 20 Mg Tablet 2 Tab PO DAILY 06/20/16 Rx Kassy Allergy (Fexofenadine Hcl) 180 Mg Tablet 1 Tab PO DAILY 03/14/15 Reported Latanoprost 2.5 Ml Drops 1 Drop OP HS 05/19/14 Reported [stool softner] 05/19/14 Reported [pravastatin] 40 Mg PO HS 05/19/14 Reported Aspirin 81 Mg Tab.chew 81 Mg PO 05/19/14 Reported Paxil Cr (Paroxetine Hcl) 37.5 Mg Tab.er.24h 37.5 Mg PO DAILY 05/19/14 Reported Buspirone Hcl 10 Mg Tablet 10 Mg PO BID 05/19/14 Reported Fish Oil 1,000 Mg Capsule ([place]-3 Fatty Acids/Fish Oil) 1 Each Capsule 1 Each PO BID 05/19/14 Reported [vitamin d] 05/19/14 Reported Glucosamine 1,500 Complex Cp (Gluc Johnson/Chondro Johnson A/Vit C/Mn) 1 Each Capsule 1 Each PO 05/19/14 Reported Lisinopril 40 Mg Tablet 40 Mg PO DAILY 05/19/14 Reported Levothyroxine Sodium 88 Mcg Tablet 88 Mcg PO DAILYAC 05/19/14 Reported Celebrex (Celecoxib) 200 Mg Capsule 200 Mg PO DAILY 30 05/19/14 Reported Prevacid (Lansoprazole) 30 Mg Tab.rap.dr 30 Mg PO DAILY 05/19/14 Reported Impression . IMPRESSION AND PLAN: Cough, suspect post infectious. Recommend symptomatic treatment. If the cough persists after 2 months, I recommend that she follow up with either myself or family doctor. At that point, I would recommend discontinuing the lisinopril. For now, discharged home on doxycycline and prednisone taper along with Shravan Zuñiga. The patient was also instructed on avoiding caffeinated beverages, not eating close to bedtime, avoiding chocolates. Plan . CONTINUE THE SAME SEE MY NOTE FOLLOW UP IN 6-8 WEEKS DEENA TURNER MD Jan 16, 2017 14:19
[2017-01-16 15:00] VITALS: BP 182/85
[2017-01-16 19:39] VITALS: BP 153/65
[2017-01-16] MEDS: ATORVASTATIN CALCIUM 10 MG TABLET. PO SCH (21:01)
[2017-01-16] MEDS: LATANOPROST 0.005% OPHTH SOLUTION 2.5ML BOTTLE. OU SCH (21:02)
[2017-01-16] MEDS ORDERED: MAGNESIUM HYDROXIDE 2,400 MG/30 ML ORAL.SUSP. PO PRN (21:45)
[2017-01-16] MEDS ORDERED: BISACODYL 10 MG SUPP.RECT PR PRN (21:45)
[2017-01-16 23:03] VITALS: BP 155/84
[2017-01-17 03:09] VITALS: BP 153/66
[2017-01-17 04:59] LABS: BASO % 0 % (0-3); EOS % 0 % (0-3); HEMATOCRIT 32.7 % (36.0-47.0); LYMPH # 1.1 x10^3/uL (1.0-4.8); LYMPH % 11 % (24-48); MEAN CORPUSCULAR HEMOGLOBIN 32 pg (25-35); MEAN CORPUSCULAR HGB CONC 34 g/dL (31-37); MEAN CORPUSCULAR VOLUME 96 fL (79-100); MONO % 9 % (0-9); NEUT % 80 % (31-73); PLATELET COUNT 259 x10^3/uL (140-400); RED CELL DISTRIBUTION WIDTH 14.6 % (11.5-14.5); WHITE BLOOD COUNT 10.4 x10^3/uL (4.0-11.0)
[2017-01-17 05:24] LABS: CALCIUM 9.1 mg/dL (8.5-10.1); CREATININE 0.8 mg/dL (0.6-1.0); GFR 68.2; POTASSIUM 4.6 mmol/L (3.5-5.1)
[2017-01-17 07:00] VITALS: BP 167/82
[2017-01-17] MEDS ORDERED: POLYETHYLENE GLYCOL 3350 17 GM PACKET. PO SCH (09:00)
[2017-01-17] MEDS: CETIRIZINE HCL 10 MG TABLET PO SCH (09:15)
[2017-01-17] MEDS: CHOLECALCIFEROL (VITAMIN D3) 1,000 UNIT TABLET PO SCH (09:15)
[2017-01-17] MEDS: ASPIRIN 81 MG TAB.CHEW PO SCH (09:15)
[2017-01-17] MEDS: busPIRone 10 MG TABLET. PO SCH (09:15)
[2017-01-17] MEDS: LANSOPRAZOLE 30 MG TAB.RAP.DR PO SCH (09:15)
[2017-01-17] MEDS: PAROXETINE ER 12.5 MG TAB.ER.24H. PO SCH (09:16)
[2017-01-17] MEDS: DOXYCYCLINE HYCLATE 100 MG TABLET PO SCH (09:16)
[2017-01-17] MEDS: LEVOTHYROXINE 88 MCG TABLET PO SCH (09:17)
[2017-01-17] MEDS: LISINOPRIL 40 MG TABLET. PO SCH (09:17)
[2017-01-17 11:00] VITALS: BP 174/68
[2017-01-17] MEDS ORDERED: AMLODIPINE BESYLATE 5 MG TABLET PO ONE (11:15)
[2017-01-17 11:30] VITALS: BP 174/68
[2017-01-17] MEDS ORDERED: DOXY100T PO (12:06)
--- NOTE | 2017-01-17 13:31 | PDOC ---
PULMONARY PROGRESS NOTES Subjective STILL COUGHING, BUT BETTER Vitals Vital Signs Date Time Temp Pulse Resp B/P Pulse Ox O2 Delivery O2 Flow Rate FiO2 01/17/17 11:30 87 174/68 01/17/17 11:00 98.1 18 94 Room Air 98.1 01/16/17 08:00 1.5 ROS: No Nausea, No Chest Pain, No Abdominal Pain General: Alert Lungs: Clear Cardiovascular: S1, S2 Abdomen: Soft, Non-tender Neuro Exam: Alert Extremities: No Edema Skin: Warm Labs Laboratory Tests Test 01/16/17 05:25 01/17/17 04:00 White Blood Count 8.7x10^3/uL (4.0-11.0) 10.4x10^3/uL (4.0-11.0) Red Blood Count 3.23x10^6/uL (3.50-5.40) 3.40x10^6/uL (3.50-5.40) Hemoglobin 10.4g/dL (12.0-15.5) 11.0g/dL (12.0-15.5) Hematocrit 31.4% (36.0-47.0) 32.7% (36.0-47.0) Mean Corpuscular Volume 97fL (79-100) 96fL (79-100) Mean Corpuscular Hemoglobin 32pg (25-35) 32pg (25-35) Mean Corpuscular Hemoglobin Concent 33g/dL (31-37) 34g/dL (31-37) Red Cell Distribution Width 14.8% (11.5-14.5) 14.6% (11.5-14.5) Platelet Count 183x10^3/uL (140-400) 259x10^3/uL (140-400) Neutrophils (%) (Auto) 87% (31-73) 80% (31-73) Lymphocytes (%) (Auto) 9% (24-48) 11% (24-48) Monocytes (%) (Auto) 4% (0-9) 9% (0-9) Eosinophils (%) (Auto) 0% (0-3) 0% (0-3) Basophils (%) (Auto) 0% (0-3) 0% (0-3) Neutrophils # (Auto) 7.6x10^3uL (1.8-7.7) 8.3x10^3uL (1.8-7.7) Lymphocytes # (Auto) 0.8x10^3/uL (1.0-4.8) 1.1x10^3/uL (1.0-4.8) Monocytes # (Auto) 0.3x10^3/uL (0.0-1.1) 1.0x10^3/uL (0.0-1.1) Eosinophils # (Auto) 0.0x10^3/uL (0.0-0.7) 0.0x10^3/uL (0.0-0.7) Basophils # (Auto) 0.0x10^3/uL (0.0-0.2) 0.0x10^3/uL (0.0-0.2) Segmented Neutrophils % 78% (35-66) Band Neutrophils % 8% (0-9) Lymphocytes % 8% (24-48) Monocytes % 6% (0-10) Platelet Estimate Adequate (ADEQUATE) Ovalocytes Few Sodium Level 130mmol/L (136-145) 130mmol/L (136-145) Potassium Level 4.5mmol/L (3.5-5.1) 4.6mmol/L (3.5-5.1) Chloride Level 97mmol/L (98-107) 95mmol/L (98-107) Carbon Dioxide Level 25mmol/L (21-32) 27mmol/L (21-32) Anion Gap 8 (6-14) 8 (6-14) Blood Urea Nitrogen 23mg/dL (7-20) 16mg/dL (7-20) Creatinine 0.9mg/dL (0.6-1.0) 0.8mg/dL (0.6-1.0) Estimated GFR (Cockcroft-Gault) 59.5 68.2 Glucose Level 142mg/dL (70-99) 118mg/dL (70-99) Calcium Level 8.8mg/dL (8.5-10.1) 9.1mg/dL (8.5-10.1) Laboratory Tests Test 01/17/17 04:00 White Blood Count 10.4x10^3/uL (4.0-11.0) Red Blood Count 3.40x10^6/uL (3.50-5.40) Hemoglobin 11.0g/dL (12.0-15.5) Hematocrit 32.7% (36.0-47.0) Mean Corpuscular Volume 96fL (79-100) Mean Corpuscular Hemoglobin 32pg (25-35) Mean Corpuscular Hemoglobin Concent 34g/dL (31-37) Red Cell Distribution Width 14.6% (11.5-14.5) Platelet Count 259x10^3/uL (140-400) Neutrophils (%) (Auto) 80% (31-73) Lymphocytes (%) (Auto) 11% (24-48) Monocytes (%) (Auto) 9% (0-9) Eosinophils (%) (Auto) 0% (0-3) Basophils (%) (Auto) 0% (0-3) Neutrophils # (Auto) 8.3x10^3uL (1.8-7.7) Lymphocytes # (Auto) 1.1x10^3/uL (1.0-4.8) Monocytes # (Auto) 1.0x10^3/uL (0.0-1.1) Eosinophils # (Auto) 0.0x10^3/uL (0.0-0.7) Basophils # (Auto) 0.0x10^3/uL (0.0-0.2) Sodium Level 130mmol/L (136-145) Potassium Level 4.6mmol/L (3.5-5.1) Chloride Level 95mmol/L (98-107) Carbon Dioxide Level 27mmol/L (21-32) Anion Gap 8 (6-14) Blood Urea Nitrogen 16mg/dL (7-20) Creatinine 0.8mg/dL (0.6-1.0) Estimated GFR (Cockcroft-Gault) 68.2 Glucose Level 118mg/dL (70-99) Calcium Level 9.1mg/dL (8.5-10.1) Medications Active Scripts Medications Dose Route/Sig Days Date Category Acetaminophen 500 Mg Tablet 2 Tab PO BID PRN 01/14/17 Reported Vitamin D (Cholecalciferol (Vitamin D3)) 1,000 Unit Capsule 1 Cap PO DAILY 01/14/17 Reported Doxycycline Hyclate 100 Mg Tablet 1 Tab PO BID 01/14/17 Reported Prednisone 20 Mg Tablet 2 Tab PO DAILY 06/20/16 Rx Kassy Allergy (Fexofenadine Hcl) 180 Mg Tablet 1 Tab PO DAILY 03/14/15 Reported Latanoprost 2.5 Ml Drops 1 Drop OP HS 05/19/14 Reported [stool softner] 05/19/14 Reported [pravastatin] 40 Mg PO HS 05/19/14 Reported Aspirin 81 Mg Tab.chew 81 Mg PO 05/19/14 Reported Paxil Cr (Paroxetine Hcl) 37.5 Mg Tab.er.24h 37.5 Mg PO DAILY 05/19/14 Reported Buspirone Hcl 10 Mg Tablet 10 Mg PO BID 05/19/14 Reported Fish Oil 1,000 Mg Capsule ([place]-3 Fatty Acids/Fish Oil) 1 Each Capsule 1 Each PO BID 05/19/14 Reported [vitamin d] 05/19/14 Reported Glucosamine 1,500 Complex Cp (Gluc Johnson/Chondro Johnson A/Vit C/Mn) 1 Each Capsule 1 Each PO 05/19/14 Reported Lisinopril 40 Mg Tablet 40 Mg PO DAILY 05/19/14 Reported Levothyroxine Sodium 88 Mcg Tablet 88 Mcg PO DAILYAC 05/19/14 Reported Celebrex (Celecoxib) 200 Mg Capsule 200 Mg PO DAILY 30 05/19/14 Reported Prevacid (Lansoprazole) 30 Mg Tab.rap.dr 30 Mg PO DAILY 05/19/14 Reported Impression . : Cough, suspect post infectious. Recommend symptomatic treatment. If the cough persists after 2-3 weeks, I recommend that she follow up with either Dr Krueger or family doctor. At that point, I would recommend discontinuing the lisinopril. For now, discharged home on doxycycline and prednisone taper along with Shravan Zuñiga. The patient was also instructed on avoiding caffeinated beverages, not eating close to bedtime, avoiding chocolates. Plan . CONTINUE THE SAME SEE MY NOTE FOLLOW UP IN 6-8 WEEKS NEEDED SAIRA SHAH MD Jan 17, 2017 13:31
--- NOTE | 2017-01-17 15:28 | PDOC3 ---
Discharge Summary Visit Information Date of Admission: Jan 14, 2017 Date of Discharge: Jan 17, 2017 Admitting Diagnosis: knee pain Final Diagnosis bronchitis, cough dyspnea GERD depression Problems Medical Problems: (1) HTN (hypertension) Status: Acute (2) Knee pain, right Status: Acute Brief Hospital Course Allergies Allergies Coded Allergies Type Severity Reaction Last Updated Verified Penicillins Allergy Intermediate Swelling 06/20/16 No Sulfa (Sulfonamide Antibiotics) Allergy Intermediate Rash 06/20/16 No nabumetone Adverse Reaction Intermediate nausea/vomiting 03/14/15 No Vital Signs Vital Signs Date Time Temp Pulse Resp B/P Pulse Ox O2 Delivery O2 Flow Rate FiO2 01/17/17 11:30 87 174/68 01/17/17 11:00 98.1 18 94 Room Air 98.1 01/16/17 08:00 1.5 Lab Results Laboratory Tests Test 01/16/17 05:25 01/17/17 04:00 White Blood Count 8.7x10^3/uL (4.0-11.0) 10.4x10^3/uL (4.0-11.0) Red Blood Count 3.23x10^6/uL (3.50-5.40) 3.40x10^6/uL (3.50-5.40) Hemoglobin 10.4g/dL (12.0-15.5) 11.0g/dL (12.0-15.5) Hematocrit 31.4% (36.0-47.0) 32.7% (36.0-47.0) Mean Corpuscular Volume 97fL (79-100) 96fL (79-100) Mean Corpuscular Hemoglobin 32pg (25-35) 32pg (25-35) Mean Corpuscular Hemoglobin Concent 33g/dL (31-37) 34g/dL (31-37) Red Cell Distribution Width 14.8% (11.5-14.5) 14.6% (11.5-14.5) Platelet Count 183x10^3/uL (140-400) 259x10^3/uL (140-400) Neutrophils (%) (Auto) 87% (31-73) 80% (31-73) Lymphocytes (%) (Auto) 9% (24-48) 11% (24-48) Monocytes (%) (Auto) 4% (0-9) 9% (0-9) Eosinophils (%) (Auto) 0% (0-3) 0% (0-3) Basophils (%) (Auto) 0% (0-3) 0% (0-3) Neutrophils # (Auto) 7.6x10^3uL (1.8-7.7) 8.3x10^3uL (1.8-7.7) Lymphocytes # (Auto) 0.8x10^3/uL (1.0-4.8) 1.1x10^3/uL (1.0-4.8) Monocytes # (Auto) 0.3x10^3/uL (0.0-1.1) 1.0x10^3/uL (0.0-1.1) Eosinophils # (Auto) 0.0x10^3/uL (0.0-0.7) 0.0x10^3/uL (0.0-0.7) Basophils # (Auto) 0.0x10^3/uL (0.0-0.2) 0.0x10^3/uL (0.0-0.2) Segmented Neutrophils % 78% (35-66) Band Neutrophils % 8% (0-9) Lymphocytes % 8% (24-48) Monocytes % 6% (0-10) Platelet Estimate Adequate (ADEQUATE) Ovalocytes Few Sodium Level 130mmol/L (136-145) 130mmol/L (136-145) Potassium Level 4.5mmol/L (3.5-5.1) 4.6mmol/L (3.5-5.1) Chloride Level 97mmol/L (98-107) 95mmol/L (98-107) Carbon Dioxide Level 25mmol/L (21-32) 27mmol/L (21-32) Anion Gap 8 (6-14) 8 (6-14) Blood Urea Nitrogen 23mg/dL (7-20) 16mg/dL (7-20) Creatinine 0.9mg/dL (0.6-1.0) 0.8mg/dL (0.6-1.0) Estimated GFR (Cockcroft-Gault) 59.5 68.2 Glucose Level 142mg/dL (70-99) 118mg/dL (70-99) Calcium Level 8.8mg/dL (8.5-10.1) 9.1mg/dL (8.5-10.1) Laboratory Tests Test 01/17/17 04:00 White Blood Count 10.4x10^3/uL (4.0-11.0) Red Blood Count 3.40x10^6/uL (3.50-5.40) Hemoglobin 11.0g/dL (12.0-15.5) Hematocrit 32.7% (36.0-47.0) Mean Corpuscular Volume 96fL (79-100) Mean Corpuscular Hemoglobin 32pg (25-35) Mean Corpuscular Hemoglobin Concent 34g/dL (31-37) Red Cell Distribution Width 14.6% (11.5-14.5) Platelet Count 259x10^3/uL (140-400) Neutrophils (%) (Auto) 80% (31-73) Lymphocytes (%) (Auto) 11% (24-48) Monocytes (%) (Auto) 9% (0-9) Eosinophils (%) (Auto) 0% (0-3) Basophils (%) (Auto) 0% (0-3) Neutrophils # (Auto) 8.3x10^3uL (1.8-7.7) Lymphocytes # (Auto) 1.1x10^3/uL (1.0-4.8) Monocytes # (Auto) 1.0x10^3/uL (0.0-1.1) Eosinophils # (Auto) 0.0x10^3/uL (0.0-0.7) Basophils # (Auto) 0.0x10^3/uL (0.0-0.2) Sodium Level 130mmol/L (136-145) Potassium Level 4.6mmol/L (3.5-5.1) Chloride Level 95mmol/L (98-107) Carbon Dioxide Level 27mmol/L (21-32) Anion Gap 8 (6-14) Blood Urea Nitrogen 16mg/dL (7-20) Creatinine 0.8mg/dL (0.6-1.0) Estimated GFR (Cockcroft-Gault) 68.2 Glucose Level 118mg/dL (70-99) Calcium Level 9.1mg/dL (8.5-10.1) Brief Hospital Course Ms. Vizcarra is a 86 old admit with poorly controlled htn and right knee pain knee asp., Dx Bakers Cyst, f/u primary care Discharge Information Follow Up: Weeks Disposition/Orders: D/C to Home Scheduled ([pravastatin]) 40 MG PO HS (Reported) Buspirone Hcl (Buspirone Hcl) 10 MG PO BID (Reported) Celecoxib (Celebrex) 200 MG PO DAILY (Reported) Cholecalciferol (Vitamin D3) (Vitamin D) 1 CAP PO DAILY (Reported) Doxycycline Hyclate (Doxycycline Hyclate) 1 TAB PO BID Fexofenadine Hcl (Kassy Allergy) 1 TAB PO DAILY (Reported) Lansoprazole (Prevacid) 30 MG PO DAILY (Reported) Latanoprost (Latanoprost) 1 DROP OP HS (Reported) Levothyroxine Sodium (Levothyroxine Sodium) 88 MCG PO DAILYAC (Reported) Lisinopril (Lisinopril) 40 MG PO DAILY (Reported) [place]-3 Fatty Acids/Fish Oil (Fish Oil 1,000 Mg Capsule) 1 EACH PO BID (Reported ) Paroxetine Hcl (Paxil Cr) 37.5 MG PO DAILY (Reported) Scheduled PRN Acetaminophen (Acetaminophen) 2 TAB PO BID PRN PRN PAIN (Reported) Miscellaneous Medications ([vitamin d]) (Reported) ([stool softner]) (Reported) Aspirin (Aspirin) 81 MG PO (Reported) Gluc Johnson/Chondro Johnson A/Vit C/Mn (Glucosamine 1,500 Complex Cp) 1 EACH PO (Reported ) Discontinued Medications Prednisone (Prednisone) 2 TAB PO DAILY Patient Instructions Patient Instructions time < 30 min f/u DR. Vernon 10 days additional KASIE Lozano MD Jan 17, 2017 15:28
[2017-01-23] MEDS ORDERED: BENZ100C2 PO (11:40)
[2017-01-23] MEDS ORDERED: PRED20TA PO (11:40)
[2017-01-23] MEDS ORDERED: DEME150T PO (11:40)
[2017-01-23] MEDS ORDERED: DOXY100T PO (11:40)
[2017-01-23] MEDS ORDERED: APIX5TAB PO (11:42)
[2017-01-23] MEDS ORDERED: AMIO200T2 PO ×2 (11:42)
== END 2017-01-17 13:40 | disposition home or self-care (01) | DRG 558 ==
LOC: ER 09:56 → 4 NORTH 16:52
PROVIDERS: ADMIT Internal Medicine; ATTEND Internal Medicine
DX: M71.21 Synovial cyst of popliteal space [Baker], right knee (principal); N17.9 Acute kidney failure, unspecified; M25.061 Hemarthrosis, right knee; E03.9 Hypothyroidism, unspecified; E11.9 Type 2 diabetes mellitus without complications; E78.00 Pure hypercholesterolemia, unspecified; E78.5 Hyperlipidemia, unspecified; Z96.641 Presence of right artificial hip joint; Z96.652 Presence of left artificial knee joint; F32.9 Major depressive disorder, single episode, unspecified; F41.9 Anxiety disorder, unspecified; I10 Essential (primary) hypertension; J40 Bronchitis, not specified as acute or chronic; K21.9 Gastro-esophageal reflux disease without esophagitis; M16.11 Unilateral primary osteoarthritis, right hip; M17.11 Unilateral primary osteoarthritis, right knee; Z83.3 Family history of diabetes mellitus; Z85.3 Personal history of malignant neoplasm of breast; Z90.49 Acquired absence of other specified parts of digestive tract; Z88.0 Allergy status to penicillin; Z88.2 Allergy status to sulfonamides; Z88.8 Allergy status to other drugs, medicaments and biological substances; Z79.899 Other long term (current) drug therapy; N18.2 Chronic kidney disease, stage 2 (mild)
CPT/HCPCS: 36415; 71010; 73562; 75635; 80048; 80053; 85007; 85027; 85651; 86140; 87071; 87075; 87205; 89050; 89060; 93005; 93971; 96374; 96375; 96376; J1170; J2270; J2405; J3010; J7030; J7512; Q9967; 97116; 97530; 97535; 99285-25

== ENCOUNTER 2017-01-17 23:48 | Inpatient (IN) | payer MEDICARE, OTHER ==
[~2017-01-17] VITALS: Ht 165.1 cm; Wt 78.7 kg
[~2017-01-17 23:48] MED LIST changes: +ACET500T68 PO; +CHOL100013 PO; +DOXY100T PO
[2017-01-18] VITALS (9 sets, daily range): BP systolic 144–163; BP diastolic 76–86
[2017-01-18 00:30] LABS: BASO % 1 % (0-3); EOS % 0 % (0-3); HEMATOCRIT 35.2 % (36.0-47.0); HEMOGLOBIN 11.7 g/dL (12.0-15.5); LYMPH # 1.9 x10^3/uL (1.0-4.8); LYMPH % 19 % (24-48); MEAN CORPUSCULAR HEMOGLOBIN 32 pg (25-35); MEAN CORPUSCULAR HGB CONC 33 g/dL (31-37); MEAN CORPUSCULAR VOLUME 96 fL (79-100); MONO % 11 % (0-9); NEUT % 69 % (31-73); PLATELET COUNT 285 x10^3/uL (140-400); RED BLOOD COUNT 3.65 x10^6/uL (3.50-5.40); RED CELL DISTRIBUTION WIDTH 14.6 % (11.5-14.5); WHITE BLOOD COUNT 10.1 x10^3/uL (4.0-11.0)
[2017-01-18] MEDS ORDERED: IV NORMAL SALINE 1000ML BAG 1,000 ML IV ONE (00:30)
[2017-01-18 00:38] LABS: CALCIUM 9.4 mg/dL (8.5-10.1); CREATININE 0.9 mg/dL (0.6-1.0); GFR 59.5; POTASSIUM 4.2 mmol/L (3.5-5.1)
--- NOTE | 2017-01-18 00:59 | PHYS DOC ---
Past Medical History Past Medical History: Anxiety, Arthritis, Cancer, Depression, GERD, High Cholesterol, Hypertension, Hypothyroid Additional Past Medical Histor: BREAST CANCER Past Surgical History: Cancer Surgery, Cholecystectomy, Knee Replacement, Tonsillectomy, Other Additional Past Surgical Histo: bladder sx, lumpectomy Alcohol Use: None Drug Use: None Adult General Chief Complaint Chief Complaint: NEAR SYNCOPE [facility] HPI This is an 86-year-old female who states she had an episode of near syncope while she was in the shower. She was just recently discharged from the hospital for right knee pain as well as a bronchitis. She was just discharged today. Her right knee pain associated to it a Barker's cyst. She denies any history of heart problems. States she feels weak but denies any chest pain or shortness of breath. She denies any fever or chills. She denies falling or hitting her head. She states she fell in the shower but was able to step out a shower and rest. She called her daughter who brought her here for evaluation. Review of Systems Review of Systems Constitutional: Denies fever or chills [] Eyes: Denies change in visual acuity, redness, or eye pain [] HENT: Denies nasal congestion or sore throat [] Respiratory: Denies cough or shortness of breath [] Cardiovascular: No additional information not addressed in HPI [] GI: Denies abdominal pain, nausea, vomiting, bloody stools or diarrhea [] : Denies dysuria or hematuria [] Musculoskeletal: Denies back pain or joint pain [] Integument: Denies rash or skin lesions [] Neurologic: Denies headache, focal weakness or sensory changes [] Endocrine: Denies polyuria or polydipsia [] Current Medications Current Medications Current Medications Medications (Trade) Dose Ordered Sig/Michael Start Time Stop Time Status Last Admin Dose Admin Sodium Chloride (Iv Sodium Chloride 0.9% 1000ml Bag) 1,000 ml @ 100 mls/hr Q10H 01/18/17 00:55 01/19/17 00:54 Allergies Allergies Allergies Coded Allergies Type Severity Reaction Last Updated Verified Penicillins Allergy Intermediate Swelling 06/20/16 No Sulfa (Sulfonamide Antibiotics) Allergy Intermediate Rash 06/20/16 No nabumetone Adverse Reaction Intermediate nausea/vomiting 03/14/15 No Physical Exam Physical Exam Constitutional: Well developed, well nourished, no acute distress, non-toxic appearance. [] HENT: Normocephalic, atraumatic, bilateral external ears normal, oropharynx moist, no oral exudates, nose normal. [] Eyes: PERRLA, EOMI, conjunctiva normal, no discharge. [] Neck: Normal range of motion, no tenderness, supple, no stridor. [] Cardiovascular:Heart rate regular rhythm, no murmur [] Lungs & Thorax: Bilateral breath sounds clear to auscultation [] Abdomen: Bowel sounds normal, soft, no tenderness, no masses, no pulsatile masses. [] Skin: Warm, dry, no erythema, no rash. [] Back: No tenderness, no CVA tenderness. [] Extremities: No tenderness, no cyanosis, no clubbing, ROM intact, no edema. [] Neurologic: Alert and oriented X 3, normal motor function, normal sensory function, no focal deficits noted. [] Psychologic: Affect normal, judgement normal, mood normal. [] Current Patient Data Vital Signs Vital Signs Date Time Temp Pulse Resp B/P Pulse Ox O2 Delivery O2 Flow Rate FiO2 01/17/17 23:48 98.0 120 18 164/82 95 Room Air 98.0 Lab Values Laboratory Tests Test 01/18/17 00:15 White Blood Count 10.1x10^3/uL (4.0-11.0) Red Blood Count 3.65x10^6/uL (3.50-5.40) Hemoglobin 11.7g/dL (12.0-15.5) L Hematocrit 35.2% (36.0-47.0) L Mean Corpuscular Volume 96fL (79-100) Mean Corpuscular Hemoglobin 32pg (25-35) Mean Corpuscular Hemoglobin Concent 33g/dL (31-37) Red Cell Distribution Width 14.6% (11.5-14.5) H Platelet Count 285x10^3/uL (140-400) Neutrophils (%) (Auto) 69% (31-73) Lymphocytes (%) (Auto) 19% (24-48) L Monocytes (%) (Auto) 11% (0-9) H Eosinophils (%) (Auto) 0% (0-3) Basophils (%) (Auto) 1% (0-3) Neutrophils # (Auto) 7.0x10^3uL (1.8-7.7) Lymphocytes # (Auto) 1.9x10^3/uL (1.0-4.8) Monocytes # (Auto) 1.1x10^3/uL (0.0-1.1) Eosinophils # (Auto) 0.0x10^3/uL (0.0-0.7) Basophils # (Auto) 0.0x10^3/uL (0.0-0.2) Sodium Level 128mmol/L (136-145) L Potassium Level 4.2mmol/L (3.5-5.1) Chloride Level 90mmol/L (98-107) L Carbon Dioxide Level 28mmol/L (21-32) Anion Gap 10 (6-14) Blood Urea Nitrogen 16mg/dL (7-20) Creatinine 0.9mg/dL (0.6-1.0) Estimated GFR (Cockcroft-Gault) 59.5 Glucose Level 118mg/dL (70-99) H Calcium Level 9.4mg/dL (8.5-10.1) Troponin I Quantitative 0.081ng/mL (0.000-0.055) Laboratory Tests 01/18/17 00:15 Laboratory Tests 01/18/17 00:15 EKG EKG EKG as interpreted by me shows a sinus tachycardia with a rate of 104 bpm. There are no obvious ischemic findings seen. Radiology/Procedures Radiology/Procedures One view of the chest as interpreted by me did not reveal an acute cardiopulmonary process. Course & Med Decision Making Course & Med Decision Making Pertinent Labs and Imaging studies reviewed. (See chart for details) This 86-year-old female will be admitted to the hospital for her ongoing weakness that she has a slightly elevated troponin of 0.08. Cardiac consult will be ordered. Repeat troponins will be ordered as well. I will discuss the case with the hospitalist, Dr. Freed, about the need for admission. EKG and chest x-ray at this time do not reveal any acute abnormalities. Her orthostatic vital signs were positive and she was given a fluid bolus in the department prior to admission. Dragon Disclaimer Dragon Disclaimer This electronic medical record was generated, in whole or in part, using a voice recognition dictation system. Departure Departure Impression: Primary Impression: Weakness Additional Impression: Near syncope Disposition: ADMITTED INPATIENT Admitting Physician: Kamron Freed Condition: STABLE Referrals: RM BURROUGHS (PCP) Problem Qualifiers [place] MOTLEY DO Jan 18, 2017 00:59
[2017-01-18] MEDS ORDERED: ONDANSETRON PF 4 MG/2 ML VIAL. IV PRN ×2 (01:00→09:10)
--- NOTE | 2017-01-18 01:17 | ACF ---
Admission Forms Criteria INTENSIVE CARE UNIT ADMISSION Intensive Care Admission Guidelines ( Place 'X' for any and all applicable criteria): Admission to ICU may be indicated when need is demonstrated by ANY ONE of the following (1)(2)(3)(4)(5)(6)(7)(8)(9) : [ ]I. Vital sign abnormalities, including ANY ONE of the following: [ ]a) Systolic arterial pressure less than 90 mm Hg, or 20 mm Hg below the patient's usual pressure [ ]b) Diastolic arterial pressure greater than 120 mm Hg [ ]c) Mean arterial pressure less than 70 mm Hg [A] [ ]d) Pulse less than 40 or greater than 140 beats per minute (in adult) [ ]e) Respiratory rate greater than 35 or less than 8 breaths per minute [ ]II. Laboratory findings (new), including ANY ONE of the following (10): [ ]a) Saturation of arterial oxygen less than 88% or partial pressure of oxygen less than 60 mm Hg (8.0 kPa) despite oxygen supplementation [ ]b) Rising partial pressure of carbon dioxide with respiratory acidosis [ ]c) pH less than 7.2 or greater than 7.65 [ ]d) Serum glucose greater than 800 mg/dL (44.4 mmol/L) [ ]e) Serum sodium less than 110 mEq/L (mmol/L) or greater than 160 mEq/L (mmol/L) [ ]f) Serum potassium less than 2 mEq/L (mmol/L) or greater than 7 mEq /L (mmol/L) [ ]g) Serum calcium greater than 15 mg/dL (3.75 mmol/L) [ ]h) Serum phosphorus less than 1 mg/dL (0.32 mmol/L) [ ]i) Toxic drug level or poisoning causing or likely to cause neurologic or Hemodynamic instability [ ]j) Less severe laboratory abnormalities contributing to ANY ONE of the following: [ ]i) Seizure [ ]ii) Altered mental status [ ]iii) Muscle weakness [ ]iv) Arrhythmias [ ]v) Hemodynamic instability [ ]vi) Other significant clinical manifestations [ ]III. Electrocardiogram (or cardiac monitoring) findings, including ANY ONE of the following: [ ]a) Inherently unstable or life-threatening arrhythmia (eg, sustained ventricular tachycardia, ventricular fibrillation, asystole) [ ]b) Arrhythmia causing severe hypotension (eg, bradycardia, tachycardia) [ ]c) Complete heart block causing severe hypotension [ ]d) Other findings indicative of a need for intensive care (eg , MS) [ ]IV.Physical findings, including ANY ONE of the following: [ ]a) Threatened airway [ ]b) Sudden altered mental status [ ]c) Repeated or prolonged seizures [ ]d) Coma [ ]e) New-onset anuria (urine output <0.1 mL/kg/hr over 4 h) [ ]f) Cyanosis (new) [ ]g) Cardiac tamponade [ ]h) Status post respiratory or cardiac arrest [ ]i) Severe moreno (eg, partial thickness moreno over more than 10% of body surface, third-degree moreno) [ ]j) Findings consistent with abdominal emergency (eg, peritoneal signs) [ ]V.Imaging findings, such as dissecting aneurysm or ruptured viscus [ ].Specific intervention or monitoring needed, as indicated by ANY ONE of the following: [ ]a) New need for assisted ventilation, invasive or noninvasive(11) [ ]b) New need for intubation (eg, to protect airway) [ ]c) New tracheostomy (less than 48 hours old) [ ]d) Hourly vital signs or neurologic checks [ ]e) Pulmonary artery line monitoring needed [ ]f) Continuous arterial line monitoring needed [ ]g) Continuous IV vasoactive drugs [ ]h) Continuous IV antiarrhythmics [ ]i) Large volume IV fluid resuscitation (eg, greater than 6 L per day ) [ ]j) Large or rapid transfusion needs (eg, more than 6 units within 24 hours) [ ]k) High-risk IV treatment, such as bolus IV medicatns or mannitol infusion [ ]l) Acute cardiac pacing [ ]m) Intra-aortic balloon pump [ ]n) Ventricular assist device [ ]o) Cardioversion [ ]p) Pericardiocentesis [ ]q) Hemodialysis in unstable patient [ ]r) Continuous renal replacement therapy (eg, continuous veno-venous hemofiltration) [ ]s) Peritoneal dialysis initiation [ ]t) Emergency bronchoscopic therapy (eg, for hemoptysis) [ ]u) Emergency endoscopic therapy for bleeding [ ]v) Balloon tamponade for variceal bleeding [ ]w) Intracranial pressure monitoring or tissue oxygen monitoring [ ]x) Ventriculostomy monitoring [ ]y) Treatment of ongoing seizures [ ]z) Induced hypothermia or coma [ ]aa) Ongoing frequent testing and treatment for acute conditions, including ANY ONE of the following: [ ]i) Correction of severe metabolic acidosis/ alkalosis [ ]ii). Severe fluid overload [ ]iii) Cerebral edema [ ]iv) Monitoring or suctioning for respiratory insufficiency or acidosis [ ]v) Monitoring for active bleeding [ ]bb) Rapid desensitization for high-risk hypersensitivity reaction to required medication (eg, penicillin)(12) [ ]cc) Other need for treatment or monitoring not available outside the ICU [X]VII.Cardiology diagnoses or procedures, including ANY ONE of the following (13)(14)(15)(16)(17): [X]a) Chest pain with ANY ONE of the following: [ ]i) Hemodynamic instability [ ]ii) Suspicion of diagnoses needing ICU care (eg, aortic dissection) [ ]iii) New unstable or symptomatic arrhythmia or ECG finding (eg, ventricular tachycardia, ventricular fibrillation, advanced heart block) [X]iv) Syncope or near-syncope [ ]v) SBP less than 100 mm Hg [ ]vi) Pulmonary edema thought to be due to ischemia [ ]vii) New or worsening mitral regurgitation murmur, S3 , or rales [ ]b) Acute MS with complications as indicated by ANY ONE of the following: [ ]i) Persistent chest pain [ ]ii) Hemodynamic instability [ ]iii) New unstable or symptomatic arrhythmia or ECG finding (eg, ventricular tachycardia, ventricular fibrillation, advanced heart block) [ ]iv) Syncope or near-syncope [ ]v) Pulmonary edema thought to be due to ischemia [ ]vi) New or worsening mitral regurgitation murmur, S3 , or rales [ ]vii) New-onset bundle branch block [ ]viii) Hemorrhagic complication (eg, intracranial or access site bleed following thrombolysis) [ ]c) Cardiac arrhythmia or conduction defect with Hemodynamic instability [ ]d) Complication of cardiac ablation, including ANY ONE of the following(18): [ ]i) Pericardial tamponade [ ]ii) Hemodynamic instability [ ]iii) Thromboembolic stroke [ ]iv) Aortic valve injury [ ]v) Vascular injuries [ ]vi) Esophageal perforation [ ]vii) Severe arrhythmia [ ]viii) Air embolism [ ]ix) Other severe complication [ ]e) Cardiogenic shock [ ]f) Hypertensive emergency, with need for ANY ONE of the following(19): [ ]i) IV antihypertensive therapy [ ]ii) Invasive hemodynamic monitoring (eg, arterial line) [ ]g) Pericardial tamponade [ ]h) Severe heart failure, with ANY ONE of the following(15): [ ]i) Respiratory failure [ ]ii) Cardiogenic shock [ ]iii) Severe arrhythmias [ ]iv) Evidence of cardiac ischemia [ ]i Myocarditis, with ANY ONE of the following [ ]i) Hemodynamic instability [ ]ii) Respiratory failure [ ]iii) Severe arrhythmias [ ]iv) Need for cardiac assist device (eg, left ventricular assist device or extracorporeal membrane oxygenator) [ ]j) Status post cardiac arrest(20) [ ]VIII. Cardiovascular Surgery diagnoses or procedures, including ANY ONE of the following.(21)(22): [ ]a) Acute aortic dissection [ ]b) Aortic surgery for ANY ONE of the following: [ ]i) Thoracic aneurysm [ ]ii) Abdominal aneurysm with ANY ONE of the following(23): [ ]1) Emergency repair [ ]2) Severe cardiopulmonary disease [ ]3) Dialysis-dependent renal failure [ ]4) Need for IV blood pressure control [ ]5) Need for ongoing ventilatory support [ ]6) Perioperative complications, including ANY ONE of the following: [ ]A. Sustained Hemodynamic instability [ ]B. Cardiac ischemia or arrhythmia [ ]C. Hypothermia (less than 35 degrees C (95 degrees F)) [ ]D. Blood transfusion greater than 3 L [ ]iii) Aortic coarctation operative excision or repair [ ]iv) Aortofemoral or aortoiliac bypass with ANY ONE of the following: [ ]1) Continued intubation [ ]2) Hemodynamic instability [ ]3) Need for IV blood pressure control [ ]4) Severe cardiopulmonary disease [ ]c) Cardiac surgery [ ]d) Carotid endarterectomy or stent placement with ANY ONE of the following: [ ]i) Blood pressure <100/60 mm Hg or >160/90 mm Hg despite 4 h of postanesthetic management [ ]ii) New or progressive neurologic defect [ ]iii) Chest pain [ ]iv) Continued intubation [ ]v) Heart failure [ ]vi) Airway compromise by hematoma or vocal cord paralysis [ ]vi) Need for IV blood pressure control [ ]e) Heart transplant [ ]f) Infrainguinal peripheral vascular surgery with ANY ONE of the following: [ ]i) Hemodynamic instability [ ]ii) Acute complications such as persistent chest pain or respiratory distress [ ]iii) Requirement for IV antiarrhythmic or vasoactive agent [ ]iv) Requirement for pulmonary artery catheter [ ]v) Severe hypertension despite 6 hours of recovery room management [ ]g) Complications of any surgery requiring ICU intervention as indicated by ANY ONE of the following(24): [ ]i) Hemodynamic instability [ ]ii) Myocardial infarction with complications (eg, severe arrhythmia, hypotension) [ ]iii) Excessive bleeding or severe coagulopathy [ ]iv) Respiratory failure [ ]v) Renal failure [ ]vi) Airway instability or obstruction [ ]vii) Neurologic deterioration [ ]viii) Infection with likelihood of sepsis syndrome or significant fluid shifts [ ]IX.Endocrinology diagnoses or procedures, including ANY ONE of the following(25)(26): [ ]a) Adrenal crisis with Hemodynamic instability(27) [ ]b) Pheochromocytoma with ANY ONE of the following(28): [ ]i) Hypertensive crisis [ ]ii) Postoperative Hemodynamic instability [ ]iii) Need for IV vasoactive therapy [ ]iv) Need for invasive arterial or central venous pressure monitoring [ ]v) Organ ischemia [ ]c) Diabetic hyperosmolar state with obtundation or coma [ ]d) Diabetic ketoacidosis with ANY ONE of the following: [ ]i) Serum pH less than 7.10 or bicarbonate level less than 10 mEq/L (mmol/L) [ ]ii) Rapidly changing electrolytes [ ]iii) Hypotension [ ]iv) Requirement for large-volume fluid resuscitation [ ]v) Respiratory insufficiency [ ]vi) Life-threatening cardiac dysrhythmias [ ]vii) Obtundation [ ]viii) Severe precipitating condition such as sepsis, stroke, or acute MS [ ]e) Severe hypoglycemia requiring continuous glucose infusion with frequent adjustment or glucagon infusion [ ]f) Hyperthyroidism associated with thyroid storm (also known as thyrotoxic crisis)(29) [ ]g) Myxedema with life-threatening neurologic, cardiovascular, electrolyte, or renal dysfunction(29) [ ]h) Diabetes insipidus that cannot be controlled with routine medication (30) [ ]X. Gastroenterology diagnoses or procedures, including ANY ONE of the following: [ ]a) Esophageal perforation(31) [ ]b) Severe caustic esophageal injury(31) [ ]c) Liver disease complications with ANY ONE of the following(32): [ ]i) Severe hepatic encephalopathy (eg, stage 3 (somnolent) or higher) [ ]ii) Type 1 hepatorenal syndrome [ ]iii) Other cirrhosis-associated causes of acute renal failure ( eg, severe hypovolemia, acute tubular necrosis, abdominal compartment syndrome) [ ]iv) Hemodynamic instability [ ]v) Respiratory insufficiency due to severe ascites [ ]vi) Sepsis due to spontaneous bacterial peritonitis [ ]d) Fulminant hepatic failure when aggressive intervention or transplant is anticipated (32) [ ]e) Gastrointestinal hemorrhage (upper or lower) with ANY ONE of the following(33)(34): [ ]i) Active ongoing bleeding [ ]ii) Transfusion requirement greater than 2 units of packed red cells [ ]iii) Bleeding ulcer or nonbleeding visible vessel seen on endoscopy [ ]iv) Bleeding ulcer, visible blood vessel, bleeding (or recently bleeding) esophageal varices seen on endoscopy [ ]v) Hypotension [ ]vi) Syncope [ ]vii) Coagulopathy [ ]viii) Hepatic cirrhosis [ ]ix) Abnormal mental status [ ]x) Unstable comorbid condition or end organ dysfunction [ ]xi) Ischemia due to poor perfusion [ ]xii) Need for hemodynamic monitoring (eg, for patients with heart failure or valvular disease) [ ]f) Severe pancreatitis indicated by ANY ONE of the following (35)(36): [ ]i) Requirement for aggressive fluid resuscitation [ ]ii) Life-threatening electrolyte abnormality [ ]iii) SBP less than 90 mm Hg [ ]iv) Persistent tachycardia greater than 120 beats per minute [ ]v) Patients at high risk of rapid deterioration, including ANY ONE of the following: [ ]1) Calculated [place] II score greater than 8 [ ]2) Age older than 55 years [ ]3) BMI greater than 30 [ ]4) Greater than 30% pancreatic necrosis on CT scan [ ]5) Admission hematocrit greater than 47% (0.47) [ ]vi) Organ failure as indicated by ANY ONE of the following: [ ]1) Serum creatinine greater than 1.9 mg/dL (168 micromoles/L) [ ]2) Requirement for mechanical ventilation [ ]3) Urine output less than 50 mL/hour [ ]4) Arterial partial pressure of oxygen less than 60 mm Hg (8.0 kPa) despite supplemental oxygen [ ]5) PiO2/FiO2 ratio less than 300 [ ]vii) Expanding pseudocyst [ ]viii) Infected pancreas [ ]ix) Pleural effusion [ ]x) Encephalopathy [ ]xi) Severe comorbidities [ ]XI. General Surgery diagnoses or procedures, including ANY ONE of the following (9)(24)(37): [ ]a) Acute abdominal catastrophe (eg, ischemic bowel, perforated viscus, abdominal compartment syndrome) [ ]b) Complications of any surgery requiring ICU intervention as indicated by ANY ONE of the following: [ ]i) Hemodynamic instability [ ]ii) MS with complications (eg, severe arrhythmia, hypotension) [ ]iii) Excessive bleeding or severe coagulopathy [ ]iv) Respiratory failure [ ]v) Renal failure [ ]vi) Airway instability or obstruction [ ]vii) Neurologic deterioration [ ]viii) Infection with likelihood of sepsis syndrome or significant fluid shifts [ ]c) Multiple trauma with complicating features as indicated by ANY ONE of the following(38): [ ]i) Impending acute respiratory failure due to lung contusion, unstable chest wall, aspiration, or hemorrhage [ ]ii) Facial or neck injury threatening airway patency [ ]iii) Cardiac contusion [ ]iv) Pericardial effusion [ ]v) Bronchial tear [ ]vi) Hemodynamic instability [ ]vii) Rhabdomyolisis requiring large volume IV fluid resuscitation [ ]viii)Other significant complicating feature [ ]d) Organ transplant(39)(40) [ ]e) Esophagectomy(31) [ ]f) Whipple procedure [ ]g) Preoperative or postoperative patients requiring ICU intervention, such as hemodynamic optimization, pulmonary artery monitoring, mechanical ventilation, or extensive nursing care [ ]h) Obesity surgery patients with ANY ONE of the following(41): [ ]i) ICU management needs for comorbid conditions, such as sleep apnea or airway management needs [ ]ii) Failed postoperative extubation [ ]iii) Intraoperative complications [ ]XII. Nephrology diagnoses or procedures, including acute, or acute on chronic renal insufficiency with ANY ONE of the following(44)(45): [ ]a) Life-threatening electrolyte or acid-base disorder [ ]b) Acute pulmonary edema [ ]c) Hypotension or significant volume depletion [ ]d) Hypertensive emergency [ ]e) Underlying critical illness contributing to renal failure (eg, septic shock, hepatorenal syndrome) [ ]f) Need for continuous renal replacement therapy [ ]XIII. Neurology diagnoses or procedures, including ANY ONE of the following (46)(47) [B] : [ ]a) Intracranial hypertension requiring ANY ONE of the following(49 ): [ ]i) Induced barbiturate coma [ ]ii) Pharmacologic paralysis or deep sedation and mechanical ventilation [ ]iii) Intracranial pressure or cerebral perfusion pressure monitoring [ ]iv) IV mannitol or hypertonic saline [ ]v) Frequent serum osmolality measurements [ ]b) Seizures with ANY ONE of the following(50): [ ]i) Status epilepticus [ ]ii) Airway compromise requiring or likely to require mechanical ventilation [ ]iii) Severe electrolyte abnormalities causing seizures [ ]c) Progressive acute neurologic dysfunction requiring or likely to require ANY ONE of the following: [ ]i) Mechanical ventilation [ ]ii) Intracranial pressure or cerebral perfusion pressure monitoring [ ]d) Meningitis with obtundation or respiratory insufficiency [C])(51 ) [ ]e) Stroke with ANY ONE of the following(52)(53): [ ]i) Need for observation after thrombolysis [ ]ii) Altered mental status [ ]iii) Need for mechanical ventilation [ ]iv) Elevated intracranial pressure [ ]v) Hypertensive emergency [ ]vi) High risk of progressive infarction or deterioration based on CT scan or MRI [ ]vii) Hemorrhage [ ]f) Acute coma [ ]g) Acute spontaneous intracranial hemorrhage(53)(54) [ ]h) Drug ingestion with ANY ONE of the following(56)(57): [ ]i) Hemodynamic instability [ ]ii) Respiratory depression (partial pressure of carbon dioxide >45 mm Hg (6.0 kPa), new) [ ]iii) Patient requires or is likely to require mechanical ventilation. [ ]iv) Arrhythmias [ ]v) Seizures [ ]vi) Altered mental status ([place] coma scale score less than 12, new) [ ]vii) Significant risk for acute deterioration (eg, toxic level of hypotension or arrhythmia-producing drug) [ ]viii) Drug-induced hypothermia or hyperthermia [ ]ix) Increasing metabolic acidosis [ ]x) Severe hypoglycemia requiring glucose infusion with frequent adjustment or glucagon administration [ ]xi) Ongoing antidote administration (eg, continuous naloxone infusion, organophosphate toxicity treatment) [ ]xii) Emergency intervention need (eg, dialysis, hemoperfusion, restraints) [ ]i) Brain with preparation for organ donation [ ]j) Traumatic brain injury with ANY ONE of the following(55): [ ]i) Altered mental status (eg, new onset [place] coma scale score less than 10) [ ]ii) Cerebral edema [ ]iii) Cerebral hemorrhage [ ]iv) Increased intracranial pressure [ ]XIV. Neurosurgery diagnoses or procedures, including ANY ONE of the following(49)(58)(59): [ ]a) Emergency craniotomy for tumor, hematoma, or trauma [ ]b) Elective craniotomy for posterior fossa tumor [ ]c) Elective craniotomy (supratentorial) for tumor with ANY ONE of the following: [ ]i) Postoperative neurologic deficit or impaired consciousness 6 hours after completion of procedure [ ]ii) SBP less than 110 mm Hg or greater than 180 mm Hg despite therapy [ ]iii) Extensive operative blood loss [ ]iv) High anesthesia risk (eg, [place] [employer] anesthesi[employer] score greater than 3 [ ]d) Craniotomy for aneurysm with ANY ONE of the following: [ ]i) Postoperative neurologic deficit or impaired consciousness 6 hours after completion of procedure [ ]ii) Preoperative [place] grade 3 or higher [ ]iii) SBP less than 110 mm Hg or greater than 180 mm Hg despite therapy [ ]iv) Intracranial pressure monitoring [ ]e) Acute spinal cord injury [ ]f) Subarachnoid hemorrhage [ ]g) Traumatic brain injury with ANY ONE of the following: [ ]i) Acute mental status change ([place] coma scale score less than 10) [ ]ii) CT scan showing cerebral edema or hemorrhage [ ]iii) Intracranial pressure monitoring [ ]h) Complications of any surgery requiring ICU intervention as indicated by ANY ONE of the following(60): [ ]i) Hemodynamic instability [ ]ii) MS with complications (eg, severe arrhythmia, hypotension) [ ]iii) Excessive bleeding or severe coagulopathy [ ]iv) Respiratory failure [ ] v) Renal failure [ ]vi) Airway instability or obstruction [ ]vii) Neurologic deterioration [ ]viii) Infection with likelihood of sepsis syndrome or significant fluid shifts [ ]i) Preoperative or postoperative patients requiring ICU intervention, such as hemodynamic optimization, pulmonary artery monitoring, mechanical ventilation, or extensive nursing care [ ]XV.Obstetrics and Gynecology diagnoses or procedures, including ANY ONE of the ffg. (61)(62)(63): [ ]a) Severe peripartum condition as indicated by ANY ONE of the following: [ ]i) Eclampsia [ ]ii) Hypertensive emergency [ ]iii) HELLP syndrome (hemolysis, elevated liver enzymes, and low platelet count) [ ]iv) Pulmonary edema [ ]v) Respiratory failure [ ]vi) Pulmonary embolism [ ]vii) Anaphylactoid syndrome of (amniotic fluid embolus) [ ]viii) Ovarian hyperstimulation syndrome [D] [ ]ix) Acute fatty liver of (hepatic failure) [ ]x) Complications such as placental abruption or severe hemorrhage [ ]xi) Sepsis (eg, puerperal sepsis, chorioamnionitis, septic ) [ ]xii) cardiomyopathy with severe congestive heart failure (eg, respiratory failure, cardiogenic shock) [ ]b) Ruptured ectopic [ ]c) Complications of any surgery requiring ICU intervention as indicated by ANY ONE of the following: [ ]i) Hemodynamic instability [ ]ii) MS with complications (eg, severe arrhythmia, hypotension) [ ]iii) Excessive bleeding or severe coagulopathy [ ]iv) Respiratory failure [ ]v) Renal failure [ ]vi) Airway instability or obstruction [ ]vii) Neurologic deterioration [ ]viii) Infection with likelihood of sepsis syndrome or significant fluid shifts [ ]d) Preoperative or postoperative patients requiring ICU intervention , such as hemodynamic optimization, pulmonary artery monitoring, mechanical ventilation, or extensive nursing care [ ]XVI.Ophthalmology diagnoses or procedures, including ANY ONE of the following (64): [ ]a) Complications of any surgery requiring ICU intervention, such as ANY ONE of the following: [ ]i) Hemodynamic instability [ ]ii) MS with complications (eg, severe arrhythmia, hypotension) [ ]iii) Excessive bleeding or severe coagulopathy [ ]iv) Respiratory failure [ ]v) Renal failure [ ]vi) Airway instability or obstruction [ ]vii) Neurologic deterioration [ ]viii) Infection with likelihood of sepsis syndrome or significant fluid shifts [ ]b) Preoperative or postoperative patients requiring ICU intervention , such as hemodynamic optimization, pulmonary artery monitoring, mechanical ventilation, or extensive nursing care [ ]XVII.Orthopedics diagnoses or procedures, including ANY ONE of the following [phone]): [ ]a) Complications of any surgery requiring ICU intervention as indicated by ANY ONE of the following: [ ]i) Hemodynamic instability [ ]ii) MS with complications (eg, severe arrhythmia, hypotension) [ ]iii) Excessive bleeding or severe coagulopathy [ ]iv) Respiratory failure [ ]v) Renal failure [ ]vi) Airway instability or obstruction [ ] vii) Neurologic deterioration [ ]viii) Infection with likelihood of sepsis syndrome or significant fluid shifts [ ]b) Multiple trauma with complicating features as indicated by ANY ONE of the following(38): [ ]i) Impending acute respiratory failure due to lung contusion, unstable chest wall, pneumothorax, aspiration, or hemorrhage [ ]ii) Facial or neck injury threatening airway patency [ ]iii) Cardiac contusion [ ]iv) Rhabdomyolysis requiring large volume IV fluid resuscitation [ ]v) Pericardial effusion [ ]vi) Bronchial tear [ ]vii) Hemodynamic instability [ ]viii) Other significant complicating feature [ ]c) Threatened compartment syndrome [ ]d) Severe moreno with ANY ONE of the following(68)(69)(70): [ ]i) Hypotension or requirement for aggressive fluid resuscitation [ ]ii) Respiratory insufficiency with requirement for high- flow oxygen or mechanical ventilation [ ]iii) Carbon monoxide poisoning [ ]iv) Life-threatening cardiac, renal, pulmonary, or neurologic dysfunction [ ]v) High-voltage (eg, 1000 volts or more) electrical burn [ ]vi) Requirement for frequent or intensive debridement and dressing changes; examples include: [ ]1) Partial thickness moreno greater than 10% of body surface [ ]2) Moreno on face, hands, feet, genitalia, perineum , or major joints [ ]3) Third-degree moreno [ ]4) Any burn greater than 15% of body surface area [ ]vii) Inhalation lung injury [ ]viii) Concomitant trauma or other medical condition requiring ICU care [ ]e) Preoperative or postoperative patients requiring ICU intervention , such as hemodynamic optimization, pulmonary artery monitoring, mechanical ventilation, or extensive nursing care [ ]XVIII.Otolaryngology diagnoses or procedures, including ANY ONE of the following (71)(72): [ ]a) Complications of any surgery requiring ICU intervention as indicated by ANY ONE of the following: [ ]i) Hemodynamic instability [ ]ii) MS with complications (eg, severe arrhythmia, hypotension) [ ]iii) Excessive bleeding or severe coagulopathy [ ]iv) Respiratory failure [ ]v) Renal failure [ ]vi) Airway instability or obstruction [ ]vii) Neurologic deterioration [ ]viii) Infection with likelihood of sepsis syndrome or significant fluid shifts [ ]b) Airway or hemodynamic compromise that persists after 3 hours of observation in postanesthesia care unit following nasal, palate (eg, uvulopalatopharyngoplasty or palatoplasty), or tongue surgery for sleep apnea [ ]c) Preoperative or postoperative patient requiring ICU intervention, such as hemodynamic optimization, pulmonary artery monitoring, mechanical ventilation, or extensive nursing care [ ]d) Symptomatic upper airway compromise (eg, laryngeal edema, mass) [ ]e) Other airway-compromising procedure (eg, posterior nasal packing) [ ]XIX.Thoracic Surgery and Pulmonary Disease Diagnosis or procedures, including ANY ONE of the following(6): [ ]a) Asthma with ANY ONE of the following(73)(74): [ ]i) Impending or actual respiratory arrest [ ]ii) Need for mechanical ventilation [ ]iii) Peak expiratory flow rate less than 30% of predicted or personal best [ ]iv) Peak expiratory flow rate or FEV1 less than 40% predicted after 1 hour of initial treatment [ ]v) Acidosis [ ]vi) Persistent or worsening hypoxia after initial treatment [ ]vii) Hypercapnia (eg, partial pressure of carbon dioxide greater than 43 mm Hg (5.7 kPa)) [ ]viii) Severe drowsiness, confusion, or coma [ ]ix) Requiring continuous inhaled bronchodilator [ ]b) COPD with ANY ONE of the following(75): [ ]i) Need for assisted ventilation [ ]ii) Hemodynamic instability [ ]iii) Severe dyspnea unresponsive to initial treatment [ ]iv) Change in level of consciousness [ ]v) Persistent findings despite oxygen and outpatient management, including ANY ONE of the following: [ ]1) Partial pressure of oxygen less than 40 mm Hg ( 5.3 kPa) [ ]2) Partial pressure of carbon dioxide greater than 60 mm Hg (8.0 kPa) [ ]3) pH less than 7.25 [ ]4) Worsening hypoxemia or acidosis [ ]c) Cor pulmonale with ANY ONE of the following(75)(76)(77): [ ]i) Hemodynamic instability [ ]ii) Need for IV inotropic or vasoactive agent [ ]iii) Need for invasive hemodynamic monitoring (eg, central venous, pulmonary artery, or arterial catheter) [ ]iv) Hypoxemia with partial pressure of oxygen less than 40 mm Hg (5.3 kPa) [ ]v) Worsening hypoxemia or acidosis despite oxygen therapy [ ]vi) Need for assisted ventilation [ ]vii) Need for right ventricular assist device [ ]viii) Unstable atrial tachyarrhythmia [ ]ix) Need for inhaled nitric oxide [ ]d) Aspiration pneumonia with ANY ONE of the following(78): [ ]i) Acute respiratory distress syndrome (PaO2/FiO2 ratio of 300 or less) [ ]ii) Impending or actual respiratory arrest [ ]iii) Need for invasive or noninvasive mechanical ventilation [ ]e) Pneumocystis jiroveci pneumonia with ANY ONE of the following(79): [ ]i) Impending or actual respiratory arrest [ ]ii) Hypoxia (eg, PO260 mmGh (8.0 kPa) or less despite oxygen therapy) [ ]iii) Need for invasive or noninvasive mechanical ventilation [ ]f) Pneumonia with ANY ONE of the following(80)(81)(82): [ ]i) Need for invasive or noninvasive assisted ventilation [ ]ii) Hemodynamic instability [ ]iii) Severity factors as indicated by 3 or MORE of the following: [ ]1) Respiratory rate 30 breaths per minute or greater [ ]2) PaO2/FiO2 ratio of 250 or less [ ]3) Multilobed infiltrates [ ]4) Altered mental status [ ]5) BUN 20 mg/dL (7.1 mmol/L) or greater [ ]6) WBC count less than 4000/mm3 (4 x109/L) [ ]7) Platelet count <100,000/mm3 (100 x109/L) [ ]8) Temperature less than 36 degrees C (96.8 degrees F ) [ ]9) Hypotension requiring aggressive fluid resuscitation [ ]g) Pulmonary hypertension requiring initiation of parenteral pulmonary vasodilator or trial of inhaled nitric oxide (eg, need for right heart catheterization)(76) [ ]h) Impending respiratory failure as indicated by ANY ONE of the following: [ ]i) Respiratory rate greater than 30 or partial pressure of oxygen less than 60 mm Hg (8.0 kPa) on 50% oxygen or more [ ]ii) Partial pressure of carbon dioxide greater than 45 mm Hg (6.0 kPa) with pH less than 7.35 [ ]i) Respiratory failure with ANY ONE of the following (47): [ ]i) Need for invasive or noninvasive mechanical ventilation [ ]ii) High likelihood of requiring mechanical ventilation within 24 hours [ ]iii) Observation in the first several hours immediately after extubation from mechanical ventilation [ ]iv) Need for close observation and aggressive therapy, such as suctioning, chest physiotherapy, or inhalation treatments at intervals less than 1 hour [ ]v) Pharmacologic ventilatory paralysis [ ]j) Venous thromboembolism with need for systemic or catheter- directed thrombolysis (eg, for limb-threatening thrombosis, phlegmasia cerulea dolens) (83) [ ]k) Pulmonary embolus with ANY ONE of the following(83): [ ]i) Hypotension [ ]ii) Severe hypoxia [ ]iii) Dangerous arrhythmia [ ]iv) Bleeding [ ]v) Need for systemic or catheter-directed thrombolysis [ ]l) Lobectomy or other major thoracic surgery [ ]m) Lung transplant [ ]n) Symptomatic upper airway obstruction (eg, laryngeal edema, mass) [ ]o) Massive hemoptysis [ ]p) Infection or thrombosis of an intravenous device with ANY ONE of the following(6)(84): [ ]i) Hemodynamic instability [ ]ii) Requirement for frequent hemodynamic measurements [ ]iii) Shock [ ]iv) End organ dysfunction [ ] v) Acute renal failure due to missed dialysis [ ]vi) Unstable acute complication (eg, pericardial tamponade , tension pneumothorax) [ ]q) Traumatic rib fracture or fractures with ANY ONE of the following(85): [ ]i) Injury severity score of 19 or greater [ ]ii) Respiratory insufficiency [ ]iii) Flail chest [ ]iv) Sternum fracture [ ]v) Vascular injury (eg, heart or great vessels) [ ]r) Pleural effusion with ANY ONE of the following(86): [ ]i) Respiratory insufficiency [ ]ii) Hemothorax with active ongoing bleeding [ ]iii) Hemodynamic instability [ ]iv) Unstable comorbid condition (eg, sepsis or heart failure [ ]XX. Urology diagnoses or procedures, including ANY ONE of the following ( 87)(88): [ ]a) Renal transplant [ ]b) Complications of any surgery requiring ICU intervention as indicated by ANY ONE of the following: [ ]i) Hemodynamic instability [ ]ii) MS with complications (eg, severe arrhythmia, hypotension) [ ]iii) Excessive bleeding or severe coagulopathy [ ]iv) Respiratory failure [ ]v) Renal failure [ ]vi) Airway instability or obstruction [ ]vii) Neurologic deterioration [ ]viii) Infection with likelihood of sepsis syndrome or significant fluid shifts [ ]c) Preoperative or postoperative patients requiring ICU intervention , such as hemodynamic optimization, pulmonary artery monitoring, mechanical ventilation , or extensive nursing care [ ]XXI.Infectious Disease diagnoses or procedures, with ANY ONE of the following (6)(43): [ ]a) Hemodynamic instability [ ]b) Shock [ ]c) Requirement for frequent hemodynamic measurements (eg, arterial catheter, pulmonary artery catheter) [ ]d) Sepsis or suspected sepsis with end organ dysfunction (eg, acute kidney injury, acute respiratory distress syndrome) [ ]e) Necrotizing soft tissue infection [ ] XXII.Hematology - Oncology diagnoses or procedures, including chemotherapy administration with ANY ONE of the following(42): [ ]a) Hemodynamic instability [ ]b) Tumor lysis syndrome with ANY ONE of the following : [ ]1) Acute kidney injury [ ]2) Severe electrolyte abnormality [ ]3) Cardiac dysrhythmia [ ]XXIII. Systemic conditions, including ANY ONE of the following: [ ]a) Severe electrolyte or metabolic disturbance causing or likely to cause ANY ONE of the following(10)(89)(90): [ ]i) Life-threatening cardiac dysrhythmia [ ]ii) Respiratory insufficiency [ ]iii) Altered mental status [ ]iv) Seizures [ ]v) Hemodynamic instability [ ]vi) Muscular weakness [ ]b) Environmental injuries such as hypothermia, hyperthermia, electrical injuries, or near drowning(70)(91)(92) The original [employer] content created by [employer] has been revised. The portions of the content which have been revised are identified through the use of italic text or in bold, and [facility] has neither reviewed nor approved the modified material. All other unmodified content is copyright [employer]. Please see references footnoted in the original [facility] [employer] edition 2016 Admission Criteria Met?: Yes LUCI ERVIN Jan 18, 2017 01:17
[2017-01-18] MEDS: IV NORMAL SALINE 1000ML BAG 1,000 ML IV SCH ×2 (01:33→17:17)
--- NOTE | 2017-01-18 06:34 | EKG ---
[facility] [address] [place] [address] Test Date: 2017-01-17 Test Time: 23:56:59 Pat Name: OMA SHETTY Department: Room: Gender: F Spice Mixer: : [id number] Requested By: [place] MOTLEY Order Number: [id number] Reading MD: Measurements Intervals Miller Rate: 104 P: -53 NH: 132 QRS: 50 QRSD: 98 T: 33 QT: 330 QTc: 440 Interpretive Statements SINUS TACHYCARDIA T ABNORMALITY IN ANTERIOR LEADS RI6.01 Unconfirmed report No previous ECG available for comparison
--- NOTE | 2017-01-18 07:30 | RAD ---
EXAM: Chest one view. HISTORY: Near syncope. COMPARISON: 01/14/2017. FINDINGS: A frontal view of the chest is obtained. There are no confluent infiltrates. There is no pneumothorax or pleural effusion. The heart is not enlarged. There is mild elevation of the right hemidiaphragm with mild basilar atelectasis. There are atherosclerotic calcifications of the aorta. Changes of right mastectomy and axillary lymph node dissection are noted. There is a mild S-shaped thoracic scoliosis. IMPRESSION: 1. No confluent infiltrates.
[2017-01-18] MEDS ORDERED: LABETALOL 20 MG/4 ML DISP.SYRIN. IVP PRN (09:15)
--- NOTE | 2017-01-18 09:29 | PDOC2 ---
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 Was treated with Steroids during recent stay as well as IV hydration. One dose of amlodipine 01/17. Became weak and pre-syncopal in the shower yesterday evening. Denies associated dyspnea, chest pain, dizziness or lightheadedness. EKG with ST but no acute changes. Troponin levels of 0.08 and 0.076. Continues to feel weak today. Reason for Visit: weakness PAST MEDICAL HISTORY Cardiovascular: HTN, Hyperlipidemia Pulmonary: Bronchitis (01/2017) GI: GERD Heme/Onc: Cancer (right breast) Psych: Anxiety, Depression Musculoskeletal: Osteoarthritis (DJD) Endocrine: Hypothyroidism PAST SURGICAL HISTORY Past Surgical History: Cholecystectomy, Total hip replacement (right), Total knee replacement (left), Other (bladder surgery; lumpectomy) FAMILY HISTORY Family History: Other (non-contributory) SOCIAL HISTORY Smoke: No ALCOHOL: none Drugs: None Lives: Alone ( in NH due to dementia) CURRENT MEDICATIONS CURRENT MEDICATIONS Current Medications Medications (Trade) Dose Ordered Sig/Michael Route PRN Reason Start Time Stop Time Status Last Admin Dose Admin Sodium Chloride 1,000 ml @ 1,000 mls/hr 1X ONCE IV 01/18/17 00:30 01/18/17 01:29 DC 01/18/17 00:15 Sodium Chloride (Iv Sodium Chloride 0.9% 1000ml Bag) 1,000 ml @ 100 mls/hr Q10H IV 01/18/17 00:55 01/19/17 00:54 01/18/17 01:33 ALLERGIES ALLERGIES: Coded Allergies: Penicillins (Unverified Allergy, Intermediate, Swelling, 06/20/16) Sulfa (Sulfonamide Antibiotics) (Unverified Allergy, Intermediate, Rash, ) nabumetone (Unverified Adverse Reaction, Intermediate, nausea/vomiting, 03/14/15) ROS Review of System 14 point review with pertinent positives in HPI PHYSICAL EXAM General: Alert, Oriented X3, Cooperative HEENT: Atraumatic, PERRLA Lungs: Other (coarse) Heart: Normal S1, Normal S2, No murmurs, Other (no carotid bruits) Abdomen: Normal bowel sounds, Soft Extremities: No edema Skin: No rashes Neuro: Normal speech Psych/Mental Status: Mental status NL, Mood NL MUSCULOSKELETAL: Osteoarthritic changes both hands VITALS VITALS Vital Signs Date Time Temp Pulse Resp B/P Pulse Ox O2 Delivery O2 Flow Rate FiO2 01/18/17 07:51 98.0 92 17 154/83 92 Room Air 98.0 LABS Lab: Laboratory Tests Test 01/18/17 00:15 01/18/17 06:40 White Blood Count 10.1x10^3/uL (4.0-11.0) Red Blood Count 3.65x10^6/uL (3.50-5.40) Hemoglobin 11.7g/dL (12.0-15.5) Hematocrit 35.2% (36.0-47.0) Mean Corpuscular Volume 96fL (79-100) Mean Corpuscular Hemoglobin 32pg (25-35) Mean Corpuscular Hemoglobin Concent 33g/dL (31-37) Red Cell Distribution Width 14.6% (11.5-14.5) Platelet Count 285x10^3/uL (140-400) Neutrophils (%) (Auto) 69% (31-73) Lymphocytes (%) (Auto) 19% (24-48) Monocytes (%) (Auto) 11% (0-9) Eosinophils (%) (Auto) 0% (0-3) Basophils (%) (Auto) 1% (0-3) Neutrophils # (Auto) 7.0x10^3uL (1.8-7.7) Lymphocytes # (Auto) 1.9x10^3/uL (1.0-4.8) Monocytes # (Auto) 1.1x10^3/uL (0.0-1.1) Eosinophils # (Auto) 0.0x10^3/uL (0.0-0.7) Basophils # (Auto) 0.0x10^3/uL (0.0-0.2) Sodium Level 128mmol/L (136-145) Potassium Level 4.2mmol/L (3.5-5.1) Chloride Level 90mmol/L (98-107) Carbon Dioxide Level 28mmol/L (21-32) Anion Gap 10 (6-14) Blood Urea Nitrogen 16mg/dL (7-20) Creatinine 0.9mg/dL (0.6-1.0) Estimated GFR (Cockcroft-Gault) 59.5 Glucose Level 118mg/dL (70-99) Calcium Level 9.4mg/dL (8.5-10.1) Troponin I Quantitative 0.081ng/mL (0.000-0.055) 0.076ng/mL (0.000-0.055) IMAGES IMAGES CXR: There are no confluent infiltrates. There is no pneumothorax or pleural effusion. The heart is not enlarged. There is mild elevation of the right hemidiaphragm with mild basilar atelectasis. There are atherosclerotic calcifications of the aorta. Changes of right mastectomy and axillary lymph node dissection are noted. There is a mild S-shaped thoracic scoliosis. IMPRESSION: 1. No confluent infiltrates. EKG EKG ST without acute changes ASSESSMENT/PLAN ASSESSMENT/PLAN 1. near syncope ? related to recent bronchitis and changes in BP meds continue IV hydration check orthostatics echo to evaluate for valvular heart disease 2. trivial elevation in troponin levels not consistent with AMI no acute changes in EKG echo to assess LV function and evaluate for segmental WMA 3. HTN off meds for now with controlled BP 4. tachycardia likely reactive; recent steroid use; recent acute illness 5. hyponatremia continue IV fluids Problems: FABIOLA CRUZ MD 01/19/17 0910: CARDIAC CONSULT ALLERGIES ALLERGIES: Coded Allergies: Penicillins (Unverified Allergy, Intermediate, Swelling, 06/20/16) Sulfa (Sulfonamide Antibiotics) (Unverified Allergy, Intermediate, Rash, ) nabumetone (Unverified Adverse Reaction, Intermediate, nausea/vomiting, 03/14/15) ASSESSMENT/PLAN ASSESSMENT/PLAN Patient seen and examined 01/18/17. Agree with RECOATER's assessment and plan. Symptoms probably secondary to dehydration. Agree with intravenous fluids. 2-D echo showed normal LV function without any regional wall motion abnormalities. Plan for all patient ischemic evaluation the formal stress test. Thank you for your consultation. Problems: PHU DUMONT APRN Jan 18, 2017 09:29 FABIOLA CRUZ MD Jan 19, 2017 09:10
[2017-01-18] MEDS ORDERED: BENZONATATE 100 MG CAPSULE. PO PRN (09:30)
[2017-01-18] MEDS: OMEGA-3 FATTY ACIDS/FISH OIL 1,000 MG CAPSULE. PO SCH ×2 (10:00→19:13)
[2017-01-18] MEDS: CELECOXIB 200 MG CAPSULE PO SCH (10:00)
--- NOTE | 2017-01-18 10:05 | PDOC1 ---
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 BUt unfortunately fell at home, LAbs remarkable for worsening hyponatremia, upon dc was 131, on re admission is 128. On lisinopril at home for many yrs, Also has hypothyroidism, last TSH 2 yrs ago was low ([facility] records),. Pt denies any sxs, just weak, NS running at 100cc.hr Discussed with cards, will check echo and orthostatics, REquested renal consult - case dw renal too Past Medical History Cardiovascular: HTN, Hyperlipidemia Pulmonary: Bronchitis (01/2017) GI: GERD Heme/Onc: Cancer (right breast) Psych: Anxiety, Depression Musculoskeletal: Osteoarthritis (DJD) Endocrine: Hypothyroidism Past Surgical History Past Surgical History: Cholecystectomy, Total hip replacement (right), Total knee replacement (left), Other (bladder surgery; lumpectomy) Family History Family History: Other (non-contributory) Social History Smoke: No ALCOHOL: none Drugs: None Current Problem List Problem List Problems Medical Problems: (1) Near syncope Status: Acute (2) Weakness Status: Acute Problems: Current Medications Current Medications Current Medications Sodium Chloride (Iv Sodium Chloride 0.9% 1000ml Bag) 1,000 ml @ 1,000 mls/hr 1X ONCE IV Last administered on 01/18/17 00:15; Start 01/18/17 at 00:30; Stop 01/18/17 at 01:29; Status DC Ondansetron HCl 4 mg 4 mg PRN Q8HRS PRN IV NAUSEA/VOMITING; Start 01/18/17 at 01 :00; Stop 01/18/17 at 09:13; Status DC Sodium Chloride (Iv Sodium Chloride 0.9% 1000ml Bag) 1,000 ml @ 100 mls/hr Q10H IV Last administered on 01/18/17 01:33; Start 01/18/17 at 00:55; Stop at 00:54 Ondansetron HCl (Zofran) 4 mg PRN Q6HRS PRN IV NAUSEA/VOMITING; Start 01/18/17 at 09:10 Acetaminophen (Tylenol) 500 mg PRN Q6HRS PRN PO MILD PAIN / TEMP; Start at 09:15 Aspirin (Children'S Aspirin) 81 mg DAILY PO ; Start 01/18/17 at 10:00 Buspirone HCl (Buspar) 10 mg BID PO ; Start 01/18/17 at 10:00 Celecoxib (Celebrex) 200 mg DAILY PO ; Start 01/18/17 at 10:00 Doxycycline Hyclate (Vibra-Tab) 100 mg BID PO ; Start 01/18/17 at 10:00 Pantoprazole Sodium (Protonix) 40 mg DAILYAC PO ; Start 01/18/17 at 10:00 Latanoprost (Xalatan) 1 drop HS OU ; Start 01/18/17 at 21:00 Levothyroxine Sodium (Synthroid) 88 mcg DAILYAC PO ; Start 01/18/17 at 10:00 Fish Oil (Fish Oil) 1,000 mg BID PO ; Start 01/18/17 at 10:00 Vitamin D (Vitamin D3) 1,000 unit DAILY PO ; Start 01/18/17 at 10:00 Cetirizine HCl (Zyrtec) 10 mg DAILY PO ; Start 01/18/17 at 10:00 Paroxetine HCl (Paxil Cr) 37.5 mg DAILY PO ; Start 01/18/17 at 10:00 Atorvastatin Calcium (Lipitor) 10 mg QHS PO ; Start 01/18/17 at 21:00 Labetalol HCl (Normodyne) 10 mg PRN Q2HR PRN IVP HYPERTENSION, SEE COMMENTS; Start 01/18/17 at 09:15 Benzonatate (Tessalon Perle) 100 mg PRN Q8HRS PRN PO COUGH; Start 01/18/17 at 09 :30 Active Scripts Active Doxycycline Hyclate 100 Mg Tablet 1 Tab PO BID Reported Acetaminophen 500 Mg Tablet 2 Tab PO BID PRN Vitamin D (Cholecalciferol (Vitamin D3)) 1,000 Unit Capsule 1 Cap PO DAILY Kassy Allergy (Fexofenadine Hcl) 180 Mg Tablet 1 Tab PO DAILY Latanoprost 2.5 Ml Drops 1 Drop OP HS [stool softner] [pravastatin] 40 Mg PO HS Aspirin 81 Mg Tab.chew 81 Mg PO Paxil Cr (Paroxetine Hcl) 37.5 Mg Tab.er.24h 37.5 Mg PO DAILY Buspirone Hcl 10 Mg Tablet 10 Mg PO BID Fish Oil 1,000 Mg Capsule (Montrose-3 Fatty Acids/Fish Oil) 1 Each Capsule 1 Each PO BID [vitamin d] Glucosamine 1,500 Complex Cp (Gluc Johnson/Chondro Johnson A/Vit C/Mn) 1 Each Capsule 1 Each PO Lisinopril 40 Mg Tablet 40 Mg PO DAILY Levothyroxine Sodium 88 Mcg Tablet 88 Mcg PO DAILYAC Celebrex (Celecoxib) 200 Mg Capsule 200 Mg PO DAILY 30 Days Prevacid (Lansoprazole) 30 Mg Tab.rap.dr 30 Mg PO DAILY Allergies Allergies: Coded Allergies: Penicillins (Unverified Allergy, Intermediate, Swelling, 06/20/16) Sulfa (Sulfonamide Antibiotics) (Unverified Allergy, Intermediate, Rash, ) nabumetone (Unverified Adverse Reaction, Intermediate, nausea/vomiting, 03/14/15) ROS General: YES: Other (weak), No: Appetite, Chills, Fatigue, Malaise, Night Sweats PSYCHOLOGICAL ROS: No: Anxiety, Behavioral Disorder, Concentration difficultie , Decreased libido, Depression, Disorientation, Hallucinations, Hostility, Irritablity, Memory difficulties, Mood Swings, Obsessive thoughts, Other, Physical abuse, Sexual abuse, Sleep disturbances, Suicidal ideation Eyes: No Blurry vision, No Decreased vision, No Double vision, No Dry eyes, No Excessive tearing, No Eye Pain, No Itchy Eyes, No Loss of vision, No Other, No Photophobia, No Scotomata, No Uses contacts, No Uses glasses HEENT: No: Epistaxis, Heacaches, Hearing change, Nasal congestion, Nasal discharge, Oral lesions, Other, Sinus pain, Sneezing, Snoring, Sore Throat, Tinnitus, Vertigo, Visual Changes, Vocal changes ALLERGY AND IMMUNOLOGY: No: Hives, Insect Bite Sensitivity, Itchy/Watery Eyes, Nasal Congestion, Other, Post Nasal Drip, Seasonal Allergies Hematological and Lymphatic: No: Bleeding Problems, Blood Clots, Blood Transfusions, Brusing, Night Sweats, Other, Pallor, Swollen Lymph Nodes ENDOCRINE: No: Breast Changes, Galactorrhea, Hair Pattern Changes, Hot Flashes , Malaise/lethargy, Mood Swings, Other, Palpitations, Polydipsia/polyuria, Skin Changes, Temperature Intolerance, Unexpected Weight Changes Breast: No New/Changing Breast Lumps, No Nipple changes, No Nipple discharge, No Other Respiratory: No: Cough, Hemoptysis, Orthopnea, Other, Pleuritic Pain, SOB with excertion, Shortness of breath, Sputum Changes, Stridor, Tachypnea, Wheezing Cardiovascular: No Chest Pain, No Edema, No Lt Headedness, No Orthopnea, No Other, No Palpitations, No Paroxysmal Noc. Dyspnea Gastrointestinal: No Abdominal Pain, No Constipation, No Diarrhea, No Hematochezia, No Melena, No Nausea, No Other, No Vomiting Genitourinary: No , No , No , No , No , No , No , No Discharge, No Dysuria, No Flank Pain, No Frequency, No Hematuria, No Incontinence, No Other, No Pain, No Retention, No Urgency Musculoskeletal: No Gait Disturbance, No Joint Pain, No Joint Stiffness, No Joint Swelling, No Muscle Pain, No Muscular Weakness, No Other, No Pain In:, No Swelling In: Neurological: No Behavorial Changes, No Bowel/Bladder ControlChng, No Confusion , No Dizziness, No Gait Disturbance, No Headaches, No Impaired Coord/balance, No Memory Loss, No Numbness/Tingling, No Other, No Seizures, No Speech Problems , No Tremors, No Visual Changes, No Weakness Skin: No Acne, No Dry Skin, No Eczema, No Hair Changes, No Lumps, No Mole Changes, No Mottling, No Nail Changes, No Other, No Pruritus, No Rash, No Skin Lesion Changes Physical Exam General: Alert, Oriented X3, Cooperative, No acute distress HEENT: Atraumatic, PERRLA, EOMI Lungs: Clear to auscultation, Normal air movement Heart: S1S2, no rubs, no gallops Cardiovascular: S1, S2 Breasts: Normal Abdomen: Normal bowel sounds, Soft, No tenderness, No hepatosplenomegaly, No masses Rectal Exam: not examined PELVIC: Nml ext genitalia Extremities: No clubbing, No cyanosis, No edema, Normal pulses, No tenderness/ swelling Skin: No rashes, No breakdown, No significant lesion Neuro: Normal gait, Normal speech, Strength at 5/5 X4 ext, Normal tone, Sensation intact, Cranial nerves 3-12 NL, Reflexes 2+ Psych/Mental Status: Mental status NL, Mood NL Vitals Vitals Vital Signs Date Time Temp Pulse Resp B/P Pulse Ox O2 Delivery O2 Flow Rate FiO2 01/18/17 07:51 98.0 92 17 154/83 92 Room Air 98.0 Labs Labs Laboratory Tests Test 01/18/17 00:15 01/18/17 06:40 White Blood Count 10.1x10^3/uL (4.0-11.0) Red Blood Count 3.65x10^6/uL (3.50-5.40) Hemoglobin 11.7g/dL (12.0-15.5) Hematocrit 35.2% (36.0-47.0) Mean Corpuscular Volume 96fL (79-100) Mean Corpuscular Hemoglobin 32pg (25-35) Mean Corpuscular Hemoglobin Concent 33g/dL (31-37) Red Cell Distribution Width 14.6% (11.5-14.5) Platelet Count 285x10^3/uL (140-400) Neutrophils (%) (Auto) 69% (31-73) Lymphocytes (%) (Auto) 19% (24-48) Monocytes (%) (Auto) 11% (0-9) Eosinophils (%) (Auto) 0% (0-3) Basophils (%) (Auto) 1% (0-3) Neutrophils # (Auto) 7.0x10^3uL (1.8-7.7) Lymphocytes # (Auto) 1.9x10^3/uL (1.0-4.8) Monocytes # (Auto) 1.1x10^3/uL (0.0-1.1) Eosinophils # (Auto) 0.0x10^3/uL (0.0-0.7) Basophils # (Auto) 0.0x10^3/uL (0.0-0.2) Sodium Level 128mmol/L (136-145) Potassium Level 4.2mmol/L (3.5-5.1) Chloride Level 90mmol/L (98-107) Carbon Dioxide Level 28mmol/L (21-32) Anion Gap 10 (6-14) Blood Urea Nitrogen 16mg/dL (7-20) Creatinine 0.9mg/dL (0.6-1.0) Estimated GFR (Cockcroft-Gault) 59.5 Glucose Level 118mg/dL (70-99) Calcium Level 9.4mg/dL (8.5-10.1) Troponin I Quantitative 0.081ng/mL (0.000-0.055) 0.076ng/mL (0.000-0.055) Thyroid Stimulating Hormone (TSH) 0.504uIU/mL (0.358-3.74) Laboratory Tests Test 01/18/17 00:15 01/18/17 06:40 White Blood Count 10.1x10^3/uL (4.0-11.0) Red Blood Count 3.65x10^6/uL (3.50-5.40) Hemoglobin 11.7g/dL (12.0-15.5) Hematocrit 35.2% (36.0-47.0) Mean Corpuscular Volume 96fL (79-100) Mean Corpuscular Hemoglobin 32pg (25-35) Mean Corpuscular Hemoglobin Concent 33g/dL (31-37) Red Cell Distribution Width 14.6% (11.5-14.5) Platelet Count 285x10^3/uL (140-400) Neutrophils (%) (Auto) 69% (31-73) Lymphocytes (%) (Auto) 19% (24-48) Monocytes (%) (Auto) 11% (0-9) Eosinophils (%) (Auto) 0% (0-3) Basophils (%) (Auto) 1% (0-3) Neutrophils # (Auto) 7.0x10^3uL (1.8-7.7) Lymphocytes # (Auto) 1.9x10^3/uL (1.0-4.8) Monocytes # (Auto) 1.1x10^3/uL (0.0-1.1) Eosinophils # (Auto) 0.0x10^3/uL (0.0-0.7) Basophils # (Auto) 0.0x10^3/uL (0.0-0.2) Sodium Level 128mmol/L (136-145) Potassium Level 4.2mmol/L (3.5-5.1) Chloride Level 90mmol/L (98-107) Carbon Dioxide Level 28mmol/L (21-32) Anion Gap 10 (6-14) Blood Urea Nitrogen 16mg/dL (7-20) Creatinine 0.9mg/dL (0.6-1.0) Estimated GFR (Cockcroft-Gault) 59.5 Glucose Level 118mg/dL (70-99) Calcium Level 9.4mg/dL (8.5-10.1) Troponin I Quantitative 0.081ng/mL (0.000-0.055) 0.076ng/mL (0.000-0.055) Thyroid Stimulating Hormone (TSH) 0.504uIU/mL (0.358-3.74) VTE Prophylaxis Ordered VTE Prophylaxis Devices: Yes VTE Pharmacological Prophylaxi: Yes Assessment/Plan Assessment/Plan 1. Generalized weakness 2 Worsened.Hyponatremia on ANGEL inhib and recent pred use for # 3 3. Recent Acute bronchitis 4. Rt knee pain 5. HTN, uncontrolled PLAN: Echo orthostatics NS 100c.hr Re check TSH Check BMP dominik Renal consult \HOld lisinopril? prn labetolol PT/OT Dw CArds and renal TERMULSOBEIDA Rodriguez MD Jan 18, 2017 10:04
--- NOTE | 2017-01-18 10:19 | PDOC2 ---
CONSULT Date of Consult Date of Consult DATE: 01/18/17 TIME: 09:56 Reason for Consult Reason for Consult: hyponatremia Referring Physician Referring Physician: Dr Cullen Identification/Chief Complaint Chief Complaint Fall, weakness Problems: Source Source: Chart review, Patient History of Present Illness Reason for Visit: as dictated Past Medical History Cardiovascular: HTN, Hyperlipidemia Pulmonary: Bronchitis (01/2017) GI: GERD Heme/Onc: Cancer (right breast) Psych: Anxiety, Depression Musculoskeletal: Osteoarthritis (DJD) Endocrine: Hypothyroidism Past Surgical History Past Surgical History: Cholecystectomy, Total hip replacement (right), Total knee replacement (left), Other (bladder surgery; lumpectomy) Family History Family History: Other (non-contributory) Social History No ALCOHOL: none Drugs: None Lives: Alone ( in [place] due to dementia) Current Problem List Problem List Problems Medical Problems: (1) Near syncope Status: Acute (2) Weakness Status: Acute Current Medications Current Medications Current Medications Sodium Chloride (Iv Sodium Chloride 0.9% 1000ml Bag) 1,000 ml @ 1,000 mls/hr 1X ONCE IV Last administered on 01/18/17 00:15; Start 01/18/17 at 00:30; Stop 01/18/17 at 01:29; Status DC Ondansetron HCl 4 mg 4 mg PRN Q8HRS PRN IV NAUSEA/VOMITING; Start 01/18/17 at 01 :00; Stop 01/18/17 at 09:13; Status DC Sodium Chloride (Iv Sodium Chloride 0.9% 1000ml Bag) 1,000 ml @ 100 mls/hr Q10H IV Last administered on 01/18/17 01:33; Start 01/18/17 at 00:55; Stop at 00:54 Ondansetron HCl (Zofran) 4 mg PRN Q6HRS PRN IV NAUSEA/VOMITING; Start 01/18/17 at 09:10 Acetaminophen (Tylenol) 500 mg PRN Q6HRS PRN PO MILD PAIN / TEMP; Start at 09:15 Aspirin (Children'S Aspirin) 81 mg DAILY PO ; Start 01/18/17 at 10:00 Buspirone HCl (Buspar) 10 mg BID PO ; Start 01/18/17 at 10:00 Celecoxib (Celebrex) 200 mg DAILY PO ; Start 01/18/17 at 10:00 Doxycycline Hyclate (Vibra-Tab) 100 mg BID PO ; Start 01/18/17 at 10:00 Pantoprazole Sodium (Protonix) 40 mg DAILYAC PO ; Start 01/18/17 at 10:00 Latanoprost (Xalatan) 1 drop HS OU ; Start 01/18/17 at 21:00 Levothyroxine Sodium (Synthroid) 88 mcg DAILYAC PO ; Start 01/18/17 at 10:00 Fish Oil (Fish Oil) 1,000 mg BID PO ; Start 01/18/17 at 10:00 Vitamin D (Vitamin D3) 1,000 unit DAILY PO ; Start 01/18/17 at 10:00 Cetirizine HCl (Zyrtec) 10 mg DAILY PO ; Start 01/18/17 at 10:00 Paroxetine HCl (Paxil Cr) 37.5 mg DAILY PO ; Start 01/18/17 at 10:00 Atorvastatin Calcium (Lipitor) 10 mg QHS PO ; Start 01/18/17 at 21:00 Labetalol HCl (Normodyne) 10 mg PRN Q2HR PRN IVP HYPERTENSION, SEE COMMENTS; Start 01/18/17 at 09:15 Benzonatate (Tessalon Perle) 100 mg PRN Q8HRS PRN PO COUGH; Start 01/18/17 at 09 :30 Active Scripts Active Doxycycline Hyclate 100 Mg Tablet 1 Tab PO BID Reported Acetaminophen 500 Mg Tablet 2 Tab PO BID PRN Vitamin D (Cholecalciferol (Vitamin D3)) 1,000 Unit Capsule 1 Cap PO DAILY Kassy Allergy (Fexofenadine Hcl) 180 Mg Tablet 1 Tab PO DAILY Latanoprost 2.5 Ml Drops 1 Drop OP HS [stool softner] [pravastatin] 40 Mg PO HS Aspirin 81 Mg Tab.chew 81 Mg PO Paxil Cr (Paroxetine Hcl) 37.5 Mg Tab.er.24h 37.5 Mg PO DAILY Buspirone Hcl 10 Mg Tablet 10 Mg PO BID Fish Oil 1,000 Mg Capsule (Warren-3 Fatty Acids/Fish Oil) 1 Each Capsule 1 Each PO BID [vitamin d] Glucosamine 1,500 Complex Cp (Gluc Johnson/Chondro Johnson A/Vit C/Mn) 1 Each Capsule 1 Each PO Lisinopril 40 Mg Tablet 40 Mg PO DAILY Levothyroxine Sodium 88 Mcg Tablet 88 Mcg PO DAILYAC Celebrex (Celecoxib) 200 Mg Capsule 200 Mg PO DAILY 30 Days Prevacid (Lansoprazole) 30 Mg Tab.rap.dr 30 Mg PO DAILY Allergies Allergies: Coded Allergies: Penicillins (Unverified Allergy, Intermediate, Swelling, 06/20/16) Sulfa (Sulfonamide Antibiotics) (Unverified Allergy, Intermediate, Rash, ) nabumetone (Unverified Adverse Reaction, Intermediate, nausea/vomiting, 03/14/15) ROS Review of System GEN: no Fevers no Chills + Gen weakness EYES: no new Visual Complaints ENT: no EN Drainage no Hearing deficiets CVS: no Orthopnea no CP ? fall vs Syncope RESP: no SOB no URIBE GI: + Nausea no Vomiting No Diarrhea : no Dysuria no Urgency HEME: no easy bruising no Palp Ly Nodes NEURO no Focal Weakness no Sz PSYCH: no Suicidal Ideation ch Depression SKIN: no Rashes ENDO: no Polyuria or ? (intentional) Polydipsia no Hot/Cold Intolerance (+ hot Flashes) MU SK: ch Arthralgia no Myalgia Physical Exam Physical Exam General Appearance: Awake Alert Oriented x 3 In no Distress Eyes: VIsion Unchanged Conjunctiva Normal EN: No EN Drainage Mucous Memb. moist Neck: no JVD min JVP Supple no Thyromegaly CVS: S1 S2 soft Murmur No Gallop No Rub no Edema Resp: no Rales no Rhonchi no Acc. Muscle use GI: BAS +ve NO Bruit Non Tender Non Distended : no CVA tenderness; no Suprapubic Tenderness SKIN: no Rashes Breast Exam deferred Mu.Sk: Adequate ROM x left knee no Muscle Atrophy Heme: Unable to palpate Obvious LAD no palp Splenomegaly NEURO: Good Strength and Tone Cranial Nerves II - XII grossly intact Psych: chronically Depressed no Active hallucination Vital Signs Vital Signs Date Time Temp Pulse Resp B/P Pulse Ox O2 Delivery O2 Flow Rate FiO2 01/18/17 07:51 98.0 92 17 154/83 92 Room Air 98.0 Assessment & Plan HypoNatremia - multifactorial; checking TSH, recent Prednisone use (will check Cortrosyn stim if she does not respond to IV NS). She was intentionally drinking water as instructed due to recent dehydration but was not eating well. Nausea probably contributing too. Cannot R/o Vol depletion. She does not want me to stop the SSRI. WRIGHT-2i may also be contributing. Reval after IV NS as ongoing ? Vol depletion - IVF ongoing HTN - reval after home BP Meds are restarted anemia - suspect due to recent hospital stay Labs Labs Laboratory Tests Test 01/18/17 00:15 01/18/17 06:40 White Blood Count 10.1x10^3/uL (4.0-11.0) Red Blood Count 3.65x10^6/uL (3.50-5.40) Hemoglobin 11.7g/dL (12.0-15.5) Hematocrit 35.2% (36.0-47.0) Mean Corpuscular Volume 96fL (79-100) Mean Corpuscular Hemoglobin 32pg (25-35) Mean Corpuscular Hemoglobin Concent 33g/dL (31-37) Red Cell Distribution Width 14.6% (11.5-14.5) Platelet Count 285x10^3/uL (140-400) Neutrophils (%) (Auto) 69% (31-73) Lymphocytes (%) (Auto) 19% (24-48) Monocytes (%) (Auto) 11% (0-9) Eosinophils (%) (Auto) 0% (0-3) Basophils (%) (Auto) 1% (0-3) Neutrophils # (Auto) 7.0x10^3uL (1.8-7.7) Lymphocytes # (Auto) 1.9x10^3/uL (1.0-4.8) Monocytes # (Auto) 1.1x10^3/uL (0.0-1.1) Eosinophils # (Auto) 0.0x10^3/uL (0.0-0.7) Basophils # (Auto) 0.0x10^3/uL (0.0-0.2) Sodium Level 128mmol/L (136-145) Potassium Level 4.2mmol/L (3.5-5.1) Chloride Level 90mmol/L (98-107) Carbon Dioxide Level 28mmol/L (21-32) Anion Gap 10 (6-14) Blood Urea Nitrogen 16mg/dL (7-20) Creatinine 0.9mg/dL (0.6-1.0) Estimated GFR (Cockcroft-Gault) 59.5 Glucose Level 118mg/dL (70-99) Calcium Level 9.4mg/dL (8.5-10.1) Troponin I Quantitative 0.081ng/mL (0.000-0.055) 0.076ng/mL (0.000-0.055) Thyroid Stimulating Hormone (TSH) 0.504uIU/mL (0.358-3.74) Laboratory Tests Test 01/18/17 00:15 01/18/17 06:40 White Blood Count 10.1x10^3/uL (4.0-11.0) Red Blood Count 3.65x10^6/uL (3.50-5.40) Hemoglobin 11.7g/dL (12.0-15.5) Hematocrit 35.2% (36.0-47.0) Mean Corpuscular Volume 96fL (79-100) Mean Corpuscular Hemoglobin 32pg (25-35) Mean Corpuscular Hemoglobin Concent 33g/dL (31-37) Red Cell Distribution Width 14.6% (11.5-14.5) Platelet Count 285x10^3/uL (140-400) Neutrophils (%) (Auto) 69% (31-73) Lymphocytes (%) (Auto) 19% (24-48) Monocytes (%) (Auto) 11% (0-9) Eosinophils (%) (Auto) 0% (0-3) Basophils (%) (Auto) 1% (0-3) Neutrophils # (Auto) 7.0x10^3uL (1.8-7.7) Lymphocytes # (Auto) 1.9x10^3/uL (1.0-4.8) Monocytes # (Auto) 1.1x10^3/uL (0.0-1.1) Eosinophils # (Auto) 0.0x10^3/uL (0.0-0.7) Basophils # (Auto) 0.0x10^3/uL (0.0-0.2) Sodium Level 128mmol/L (136-145) Potassium Level 4.2mmol/L (3.5-5.1) Chloride Level 90mmol/L (98-107) Carbon Dioxide Level 28mmol/L (21-32) Anion Gap 10 (6-14) Blood Urea Nitrogen 16mg/dL (7-20) Creatinine 0.9mg/dL (0.6-1.0) Estimated GFR (Cockcroft-Gault) 59.5 Glucose Level 118mg/dL (70-99) Calcium Level 9.4mg/dL (8.5-10.1) Troponin I Quantitative 0.081ng/mL (0.000-0.055) 0.076ng/mL (0.000-0.055) Thyroid Stimulating Hormone (TSH) 0.504uIU/mL (0.358-3.74) Images Images COMPARISON: 01/14/2017. FINDINGS: A frontal view of the chest is obtained. There are no confluent infiltrates. There is no pneumothorax or pleural effusion. The heart is not enlarged. There is mild elevation of the right hemidiaphragm with mild basilar atelectasis. There are atherosclerotic calcifications of the aorta. Changes of right mastectomy and axillary lymph node dissection are noted. There is a mild S-shaped thoracic scoliosis. IMPRESSION: 1. No confluent infiltrates. RENATA ROMO MD Jan 18, 2017 10:19
[2017-01-18] MEDS ORDERED: MAGNESIUM SULFATE 2GM 50 ML IV ONE (11:00)
[2017-01-18] MEDS: PAROXETINE ER 12.5 MG TAB.ER.24H. PO SCH (11:05)
[2017-01-18] MEDS: CHOLECALCIFEROL (VITAMIN D3) 1,000 UNIT TABLET PO SCH (11:05)
[2017-01-18] MEDS: PANTOPRAZOLE 40 MG TABLET. PO SCH (11:05)
[2017-01-18] MEDS: LEVOTHYROXINE 88 MCG TABLET PO SCH (11:05)
[2017-01-18] MEDS: ASPIRIN 81 MG TAB.CHEW PO SCH (11:06)
[2017-01-18] MEDS: CETIRIZINE HCL 10 MG TABLET PO SCH (11:06)
[2017-01-18] MEDS: DOXYCYCLINE HYCLATE 100 MG TABLET PO SCH ×2 (11:06→20:10)
[2017-01-18] MEDS: busPIRone 10 MG TABLET. PO SCH ×2 (11:06→20:10)
[2017-01-18] MEDS: IPRATRPIUM/ALBUTEROL 0.5/2.5MG 3 ML NEBU. NEB SCH ×2 (16:10→19:34)
--- NOTE | 2017-01-18 16:27 | CARD ---
APPROVED REPORT EXAM: Two-dimensional and M-mode echocardiogram with Doppler and color Doppler. Other Information Quality : GoodHR: 97bpm Rhythm : NSR INDICATION Hypertension/HCVD RISK FACTORS Hypertension 2D DIMENSIONS RVDd3.2 (2.9-3.5cm)Left Atrium(2D)3.0 (1.6-4.0cm) IVSd0.9 (0.7-1.1cm)Aortic Root(2D)3.6 (2.0-3.7cm) LVDd4.7 (3.9-5.9cm)LVOT Diameter2.3 (1.8-2.4cm) PWd1.0 (0.7-1.1cm)LVDs3.2 (2.5-4.0cm) FS (%) 33.1 %SV63.8 ml LVEF(%)61.7 (>50%) Aortic Valve AoV Peak Luis M.117.6cm/sAoV VTI25.6cm AO Peak GR.5.5mmHgLVOT Peak Luis M.93.2cm/s AO Mean GR.4mmHgAVA (VMAX)3.29cm2 Mitral Valve MV E Xidxxtao79.8cm/sMV E Peak Gr.4mmHg MV DECEL [id number] A Rkkxnawi947.4cm/s MV E Mean Gr.2mmHgE/A Ratio0.7 MV A [id number] Pulmonary Valve PV Peak Soxfruac80.4cm/s Pulmonary Vein S1 Xujqhsdi12.9cm/sD2 Ckobqwoz14.3cm/s PVa [id number] LEFT VENTRICLE The left ventricle is normal size. There is normal left ventricular wall thickness. The left ventricu lar systolic function is normal. The Ejection Fraction is 60-65%. There is normal LV segmental wall m otion. Transmitral Doppler flow pattern is Grade I-abnormal relaxation pattern. RIGHT VENTRICLE The right ventricle is normal size. There is normal right ventricular wall thickness. The right ventr icular systolic function is normal. ATRIA The left atrium size is normal. The right atrium size is normal. The interatrial septum is intact wit h no evidence for an atrial septal defect or patent foramen ovale as noted on 2-D or Doppler imaging. AORTIC VALVE The aortic valve is mildly sclerotic. Doppler and Color Flow revealed trace aortic regurgitation. The re is no significant aortic valvular stenosis. MITRAL VALVE Mitral annular calcification is mild. The mitral valve leaflets are thickened. There is no evidence o f mitral valve prolapse. There is no mitral valve stenosis. Doppler and Color Flow revealed no mitral valve regurgitation noted. TRICUSPID VALVE The tricuspid valve is normal in structure and function. Doppler and Color Flow revealed no tricuspid valve regurgitation noted. There is no pulmonary hypertension. PULMONIC VALVE Doppler and Color Flow revealed trace pulmonic valvular regurgitation. There is no pulmonic valvular stenosis. GREAT VESSELS The aortic root is normal in size. The ascending aorta is normal in size. The pulmonary artery is nor mal. The IVC is normal in size and collapses >50% with inspiration. PERICARDIAL EFFUSION There is no evidence of significant pericardial effusion. Critical Notification Critical Value: No <Conclusion> The left ventricular systolic function is normal. The Ejection Fraction is 60-65%. There is normal LV segmental wall motion. Transmitral Doppler flow pattern is Grade I-abnormal relaxation pattern. Trace aortic regurgitation. There is no evidence of significant pericardial effusion.
[2017-01-18] MEDS: ACETAMINOPHEN 500 MG TABLET PO PRN (17:26)
[2017-01-18] MEDS: ATORVASTATIN CALCIUM 10 MG TABLET. PO SCH (20:10)
[2017-01-18] MEDS: BENZONATATE 100 MG CAPSULE. PO SCH (20:10)
[2017-01-18] MEDS: LATANOPROST 0.005% OPHTH SOLUTION 2.5ML BOTTLE. OU SCH (20:12)
[2017-01-18] MEDS ORDERED: MAGNESIUM SULFATE 1GM 100 ML IV ONE (23:00)
[2017-01-18] MEDS: GUAIFENESIN DM 200MG/20MG 10 ML SYRUP. PO PRN (23:11)
--- NOTE | 2017-01-19 02:14 | CONS ---
DATE OF CONSULTATION: PRIMARY PHYSICIAN: Dr. Cullen. REASON FOR CONSULTATION: Hyponatremia. HISTORY OF PRESENT ILLNESS: This patient is an 86-year-old female who was just discharged yesterday. 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 She apparently had acute bronchitis recently and was treated for the same. She was discharged on doxycycline and Solu-Medrol. She claims she had 5 days of high dose prednisone, which I am unable to verify. She unfortunately sustained a fall at home. She does not think it was a syncopal per se, but she has had generalized weakness. Her sodium was 131 at time of discharge and was 128 on readmission today. We were asked to see her for the same. She has been on lisinopril and SSRI for the prolonged period of time. She does not want me to stop it at this time. She did have some nausea, mostly associated with her coughing. Chest x-ray was nonrevealing for gross obvious abnormality. She does admit to poor p.o. intake, but she does admit to drinking decent amounts of water whatever she could keep down. For rest of details, see electronic records. RENATA ROMO MD DR: SHORTY/yelena JOB#: [id number] / [id number]
[2017-01-19] MEDS: IV NORMAL SALINE 1000ML BAG 1,000 ML IV SCH (03:10)
[2017-01-19 03:17] VITALS: BP 155/82
[2017-01-19 04:21] LABS: CALCIUM 8.1 mg/dL (8.5-10.1); CREATININE 0.6 mg/dL (0.6-1.0); POTASSIUM 3.9 mmol/L (3.5-5.1)
[2017-01-19 04:38] LABS: CHOLESTEROL/HDL RATIO 2.7
[2017-01-19] MEDS: GUAIFENESIN DM 200MG/20MG 10 ML SYRUP. PO PRN ×2 (06:23→20:46)
[2017-01-19] MEDS: PANTOPRAZOLE 40 MG TABLET. PO SCH (06:23)
[2017-01-19 07:00] VITALS: BP 161/88
[2017-01-19] MEDS ORDERED: ALPRAZOLAM 0.25 MG TABLET PO PRN (07:30)
[2017-01-19] MEDS: LEVOTHYROXINE 88 MCG TABLET PO SCH (07:33)
[2017-01-19] MEDS: PAROXETINE ER 12.5 MG TAB.ER.24H. PO SCH (07:35)
[2017-01-19] MEDS: PREDNISONE 20 MG TABLET PO SCH ×2 (07:35→09:00)
[2017-01-19] MEDS: IPRATRPIUM/ALBUTEROL 0.5/2.5MG 3 ML NEBU. NEB SCH ×4 (07:51→19:06)
[2017-01-19] MEDS: CELECOXIB 200 MG CAPSULE PO SCH (09:00)
[2017-01-19] MEDS: OMEGA-3 FATTY ACIDS/FISH OIL 1,000 MG CAPSULE. PO SCH (09:00)
--- NOTE | 2017-01-19 09:08 | PDOC ---
DANITZAPHU COLON Rao DIRECTOR PROCESS 01/19/17 0908: CARDIO Progress Notes Date and Time Date of Service 01/19/2017 Time of Evaluation 0907 Subjective Subjective: No Chest Pain, No shortness of breath, No Palpitations, No Dizziness, Other (anxiety attack earlier today) Vitals Vitals Vital Signs Date Time Temp Pulse Resp B/P Pulse Ox O2 Delivery O2 Flow Rate FiO2 01/19/17 07:52 96 Room Air 01/19/17 07:00 97.5 93 17 161/88 97.5 Weight Weight [ ] Input and Output Intake and Output Intake and Output 01/19/17 07:00 Intake Total 2695 ml Output Total 1700 ml Balance 995 ml Intake Oral 1720 ml IV Total 975 ml Output Urine Total 1700 ml Laboratory Labs Laboratory Tests Test 01/18/17 12:55 01/19/17 03:30 Troponin I Quantitative 0.069ng/mL (0.000-0.055) Sodium Level 128mmol/L (136-145) Potassium Level 3.9mmol/L (3.5-5.1) Chloride Level 93mmol/L (98-107) Carbon Dioxide Level 25mmol/L (21-32) Anion Gap 10 (6-14) Blood Urea Nitrogen 10mg/dL (7-20) Creatinine 0.6mg/dL (0.6-1.0) Estimated GFR (Cockcroft-Gault) 95.0 Glucose Level 96mg/dL (70-99) Calcium Level 8.1mg/dL (8.5-10.1) Magnesium Level 2.1mg/dL (1.8-2.4) Triglycerides Level 58mg/dL (0-150) Cholesterol Level 137mg/dL (0-200) LDL Cholesterol, Calculated 74mg/dL (0-100) VLDL Cholesterol, Calculated 12mg/dL (0-40) HDL Cholesterol 51mg/dL (40-60) Cholesterol/HDL Ratio 2.7 Case Discussion Case Discussed with: Physician, Other (RN) Physical Exam HEENT: Neck Supple W Full Motion Chest: Symmetric LUNGS: Other (coarse) Heart: S1S2, no rubs, no gallops, other (tele: SR) Abdomen: Soft N/T Extremities: No Edema Neurology: alert, oriented, follow commands Diagnostic Tests Echocardiogram: Normal LVEF (60-65% with grade 1 diastolic dysfunction; no segmental wall motion abnormalities), Normal Valves (trace AR) Assessment Assessment 1. near syncope no further episodes continue oral hydration echo with preserved LV function and no significant valvular heart disease 2. trivial elevation in troponin levels not consistent with AMI no acute changes in EKG preserved LV function and no segmental WMA on echo ? outpatient MPI 3. HTN remains mildly elevated restart ACEI @ lower dose and titrate upward if needed 4. hyponatremia FABIOLA CRUZ MD 01/20/17 0918: CARDIO Progress Notes Assessment Assessment Patient seen and examined 01/19/17. Agree with GROUT PUMP OPERATOR's assessment and plan. Telemetry did not show any significant arrhythmias. 2-D echo showed normal LV function without any significant structural abnormalities. Plan for outpatient ischemic evaluation in the form of MPI to evaluate slightly elevated troponin level. PHU DUMONT APRN Jan 19, 2017 09:08 FABIOLA CRUZ MD Jan 20, 2017 09:18
[2017-01-19] MEDS: DOXYCYCLINE HYCLATE 100 MG TABLET PO SCH ×2 (09:25→20:45)
[2017-01-19] MEDS: CHOLECALCIFEROL (VITAMIN D3) 1,000 UNIT TABLET PO SCH (09:25)
[2017-01-19] MEDS: busPIRone 10 MG TABLET. PO SCH ×2 (09:25→20:45)
[2017-01-19] MEDS: CETIRIZINE HCL 10 MG TABLET PO SCH (09:25)
[2017-01-19] MEDS: BENZONATATE 100 MG CAPSULE. PO SCH ×3 (09:25→20:45)
[2017-01-19] MEDS: ASPIRIN 81 MG TAB.CHEW PO SCH (09:25)
[2017-01-19] MEDS ORDERED: LISINOPRIL 2.5 MG TABLET PO SCH (09:30)
[2017-01-19] MEDS: LISINOPRIL 10 MG TABLET PO SCH (09:40)
--- NOTE | 2017-01-19 10:41 | PDOC ---
PROGRESS NOTES Chief Complaint Chief Complaint 1. Generalized weakness 2 Worsened.Hyponatremia on ANGEL inhib and recent pred use for # 3 and on chronic SSRI 3. Recent Acute bronchitis 4. Rt knee pain 5. HTN, uncontrolled 6. Depression and anxiety NOS History of Present Illness History of Present Illness HAd an anxiety attack 7 am today Better with xanax - last took xanax yrs ago NOt orthostatic Remains weak PT note reviewed PT agreeable to rehab NA 128- pt wants to cont taking paxil She thinks the steroids Pred 40 is making her anxious Dec BS but minimal wheezing PLAN: CPM COnt pred, xanax prn and pT./OT Sw for rehab Lisinopril 10 mg PO qD- restarted by cards' Monitor hyponat Dw \pt, cards and RN Vitals Vitals Vital Signs Date Time Temp Pulse Resp B/P Pulse Ox O2 Delivery O2 Flow Rate FiO2 01/19/17 09:40 93 148/62 01/19/17 08:00 Room Air 01/19/17 07:52 96 01/19/17 07:00 97.5 17 97.5 Physical Exam General: Alert, Oriented X3, Cooperative, No acute distress Heart: Normal S1, Normal S2, No murmurs, Other (no carotid bruits) Lungs: Clear Abdomen: Normal bowel sounds, Soft, No tenderness, No hepatosplenomegaly, No masses Extremities: No clubbing, No cyanosis, No edema, Normal pulses, No tenderness/ swelling Skin: No rashes, No breakdown, No significant lesion Labs LABS Laboratory Tests Test 01/18/17 12:55 01/19/17 03:30 Troponin I Quantitative 0.069ng/mL (0.000-0.055) Sodium Level 128mmol/L (136-145) Potassium Level 3.9mmol/L (3.5-5.1) Chloride Level 93mmol/L (98-107) Carbon Dioxide Level 25mmol/L (21-32) Anion Gap 10 (6-14) Blood Urea Nitrogen 10mg/dL (7-20) Creatinine 0.6mg/dL (0.6-1.0) Estimated GFR (Cockcroft-Gault) 95.0 Glucose Level 96mg/dL (70-99) Calcium Level 8.1mg/dL (8.5-10.1) Magnesium Level 2.1mg/dL (1.8-2.4) Triglycerides Level 58mg/dL (0-150) Cholesterol Level 137mg/dL (0-200) LDL Cholesterol, Calculated 74mg/dL (0-100) VLDL Cholesterol, Calculated 12mg/dL (0-40) HDL Cholesterol 51mg/dL (40-60) Cholesterol/HDL Ratio 2.7 Review of Systems Review of Systems weak, anxiety, all else is neg Assessment and Plan Assessmemt and Plan Problems Medical Problems: (1) Hyponatremia Status: Acute (2) Near syncope Status: Acute (3) Weakness Status: Acute Problems: Comment Review of Relevant I have reviewed the following items kyle (where applicable) has been applied. Labs Laboratory Tests Test 01/18/17 00:15 01/18/17 06:40 01/18/17 12:55 01/19/17 03:30 White Blood Count 10.1x10^3/uL (4.0-11.0) Red Blood Count 3.65x10^6/uL (3.50-5.40) Hemoglobin 11.7g/dL (12.0-15.5) Hematocrit 35.2% (36.0-47.0) Mean Corpuscular Volume 96fL (79-100) Mean Corpuscular Hemoglobin 32pg (25-35) Mean Corpuscular Hemoglobin Concent 33g/dL (31-37) Red Cell Distribution Width 14.6% (11.5-14.5) Platelet Count 285x10^3/uL (140-400) Neutrophils (%) (Auto) 69% (31-73) Lymphocytes (%) (Auto) 19% (24-48) Monocytes (%) (Auto) 11% (0-9) Eosinophils (%) (Auto) 0% (0-3) Basophils (%) (Auto) 1% (0-3) Neutrophils # (Auto) 7.0x10^3uL (1.8-7.7) Lymphocytes # (Auto) 1.9x10^3/uL (1.0-4.8) Monocytes # (Auto) 1.1x10^3/uL (0.0-1.1) Eosinophils # (Auto) 0.0x10^3/uL (0.0-0.7) Basophils # (Auto) 0.0x10^3/uL (0.0-0.2) Sodium Level 128mmol/L (136-145) 128mmol/L (136-145) Potassium Level 4.2mmol/L (3.5-5.1) 3.9mmol/L (3.5-5.1) Chloride Level 90mmol/L (98-107) 93mmol/L (98-107) Carbon Dioxide Level 28mmol/L (21-32) 25mmol/L (21-32) Anion Gap 10 (6-14) 10 (6-14) Blood Urea Nitrogen 16mg/dL (7-20) 10mg/dL (7-20) Creatinine 0.9mg/dL (0.6-1.0) 0.6mg/dL (0.6-1.0) Estimated GFR (Cockcroft-Gault) 59.5 95.0 Glucose Level 118mg/dL (70-99) 96mg/dL (70-99) Serum Osmolality 259mOsm/Kg (279-304) Calcium Level 9.4mg/dL (8.5-10.1) 8.1mg/dL (8.5-10.1) Troponin I Quantitative 0.081ng/mL (0.000-0.055) 0.076ng/mL (0.000-0.055) 0.069ng/mL (0.000-0.055) Uric Acid 2.2mg/dL (2.6-6.0) Magnesium Level 1.7mg/dL (1.8-2.4) 2.1mg/dL (1.8-2.4) Thyroid Stimulating Hormone (TSH) 0.504uIU/mL (0.358-3.74) Triglycerides Level 58mg/dL (0-150) Cholesterol Level 137mg/dL (0-200) LDL Cholesterol, Calculated 74mg/dL (0-100) VLDL Cholesterol, Calculated 12mg/dL (0-40) HDL Cholesterol 51mg/dL (40-60) Cholesterol/HDL Ratio 2.7 Laboratory Tests Test 01/18/17 12:55 01/19/17 03:30 Troponin I Quantitative 0.069ng/mL (0.000-0.055) Sodium Level 128mmol/L (136-145) Potassium Level 3.9mmol/L (3.5-5.1) Chloride Level 93mmol/L (98-107) Carbon Dioxide Level 25mmol/L (21-32) Anion Gap 10 (6-14) Blood Urea Nitrogen 10mg/dL (7-20) Creatinine 0.6mg/dL (0.6-1.0) Estimated GFR (Cockcroft-Gault) 95.0 Glucose Level 96mg/dL (70-99) Calcium Level 8.1mg/dL (8.5-10.1) Magnesium Level 2.1mg/dL (1.8-2.4) Triglycerides Level 58mg/dL (0-150) Cholesterol Level 137mg/dL (0-200) LDL Cholesterol, Calculated 74mg/dL (0-100) VLDL Cholesterol, Calculated 12mg/dL (0-40) HDL Cholesterol 51mg/dL (40-60) Cholesterol/HDL Ratio 2.7 Medications Current Medications Sodium Chloride (Iv Sodium Chloride 0.9% 1000ml Bag) 1,000 ml @ 1,000 mls/hr 1X ONCE IV Last administered on 01/18/17 00:15; Start 01/18/17 at 00:30; Stop 01/18/17 at 01:29; Status DC Ondansetron HCl 4 mg 4 mg PRN Q8HRS PRN IV NAUSEA/VOMITING; Start 01/18/17 at 01 :00; Stop 01/18/17 at 09:13; Status DC Sodium Chloride (Iv Sodium Chloride 0.9% 1000ml Bag) 1,000 ml @ 100 mls/hr Q10H IV Last administered on 01/19/17 03:10; Start 01/18/17 at 00:55; Stop at 00:54; Status DC Ondansetron HCl (Zofran) 4 mg PRN Q6HRS PRN IV NAUSEA/VOMITING; Start 01/18/17 at 09:10 Acetaminophen (Tylenol) 500 mg PRN Q6HRS PRN PO MILD PAIN / TEMP Last administered on 01/18/17 17:26; Start 01/18/17 at 09:15 Aspirin (Children'S Aspirin) 81 mg DAILY PO Last administered on 01/19/17 09:25 ; Start 01/18/17 at 10:00 Buspirone HCl (Buspar) 10 mg BID PO Last administered on 01/19/17 09:25; Start 01/18/17 at 10:00 Celecoxib (Celebrex) 200 mg DAILY PO ; Start 01/18/17 at 10:00 Doxycycline Hyclate (Vibra-Tab) 100 mg BID PO Last administered on 01/19/17 09: 25; Start 01/18/17 at 10:00 Pantoprazole Sodium (Protonix) 40 mg DAILYAC PO Last administered on 01/19/17 06:23; Start 01/18/17 at 10:00 Latanoprost (Xalatan) 1 drop HS OU Last administered on 01/18/17 20:12; Start 01/18/17 at 21:00 Levothyroxine Sodium (Synthroid) 88 mcg DAILYAC PO Last administered on 07:33; Start 01/18/17 at 10:00 Fish Oil (Fish Oil) 1,000 mg BID PO ; Start 01/18/17 at 10:00 Vitamin D (Vitamin D3) 1,000 unit DAILY PO Last administered on 01/19/17 09:25 ; Start 01/18/17 at 10:00 Cetirizine HCl (Zyrtec) 10 mg DAILY PO Last administered on 01/19/17 09:25; Start 01/18/17 at 10:00 Paroxetine HCl (Paxil Cr) 37.5 mg DAILY PO Last administered on 01/19/17 07:35 ; Start 01/18/17 at 10:00 Atorvastatin Calcium (Lipitor) 10 mg QHS PO Last administered on 01/18/17 20:10 ; Start 01/18/17 at 21:00 Labetalol HCl (Normodyne) 10 mg PRN Q2HR PRN IVP HYPERTENSION, SEE COMMENTS; Start 01/18/17 at 09:15 Benzonatate 100 mg 100 mg PRN Q8HRS PRN PO COUGH Last administered on 01/18/17 14:44; Start 01/18/17 at 09:30 Magnesium Sulfate/ Dextrose (Magnesium Sulfate PREMIX 2GM) 50 ml @ 25 mls/hr 1X ONCE IV Last administered on 01/18/17 11:05; Start 01/18/17 at 11:00; Stop 01/18/17 at 12:59; Status DC Prednisone (Prednisone) 40 mg DAILY PO Last administered on 01/19/17 07:35; Start 01/19/17 at 07:28; Stop 01/21/17 at 07:27 Prednisone (Prednisone) 20 mg DAILY PO ; Start 01/22/17 at 09:00 Albuterol/ Ipratropium (Duoneb) 3 ml RTQID NEB Last administered on 01/19/17 07 :51; Start 01/18/17 at 16:00 Benzonatate (Tessalon Perle) 100 mg [id number] PO Last administered on 01/19/17 09: 25; Start 01/18/17 at 21:00 Guaifenesin 10 ml 10 ml PRN Q6HRS PRN PO COUGH Last administered on 01/19/17 06 :23; Start 01/18/17 at 16:45 Magnesium Sulfate/ Dextrose (Magnesium Sulfate PREMIX 1GM) 100 ml @ 100 mls/hr 1X ONCE IV ; Start 01/18/17 at 23:00; Stop 01/18/17 at 23:00; Status DC Alprazolam (Xanax) 0.25 mg PRN Q8HRS PRN PO ANXIETY / AGITATION Last administered on 01/19/17 07:34; Start 01/19/17 at 07:30 Lisinopril (Prinivil) 2.5 mg DAILY PO ; Start 01/19/17 at 09:30; Stop 01/19/17 at 09:30; Status DC Lisinopril (Prinivil) 10 mg DAILY PO Last administered on 01/19/17 09:40; Start 01/19/17 at 09:30 Active Scripts Active Doxycycline Hyclate 100 Mg Tablet 1 Tab PO BID Reported Acetaminophen 500 Mg Tablet 2 Tab PO BID PRN Vitamin D (Cholecalciferol (Vitamin D3)) 1,000 Unit Capsule 1 Cap PO DAILY Kassy Allergy (Fexofenadine Hcl) 180 Mg Tablet 1 Tab PO DAILY Latanoprost 2.5 Ml Drops 1 Drop OP HS [stool softner] [pravastatin] 40 Mg PO HS Aspirin 81 Mg Tab.chew 81 Mg PO Paxil Cr (Paroxetine Hcl) 37.5 Mg Tab.er.24h 37.5 Mg PO DAILY Buspirone Hcl 10 Mg Tablet 10 Mg PO BID Fish Oil 1,000 Mg Capsule ([place]-3 Fatty Acids/Fish Oil) 1 Each Capsule 1 Each PO BID [vitamin d] Glucosamine 1,500 Complex Cp (Gluc Johnson/Chondro Johnson A/Vit C/Mn) 1 Each Capsule 1 Each PO Lisinopril 40 Mg Tablet 40 Mg PO DAILY Levothyroxine Sodium 88 Mcg Tablet 88 Mcg PO DAILYAC Celebrex (Celecoxib) 200 Mg Capsule 200 Mg PO DAILY 30 Days Prevacid (Lansoprazole) 30 Mg Tab.rap.dr 30 Mg PO DAILY Vitals/I & O Vital Sign - Last 24 Hours 01/18/17 01/18/17 01/18/17 01/18/17 11:00 11:04 11:05 14:32 Temp 98.3 98.1 98.3 98.1 Pulse 94 90 115 90 Resp 18 18 B/P 154/79 150/76 148/83 147/80 Pulse Ox 92 91 O2 Delivery Room Air Room Air 01/18/17 01/18/17 01/18/17 01/18/17 16:14 19:10 19:30 19:35 Temp 97.5 97.5 Pulse 96 Resp 20 B/P 144/86 Pulse Ox 95 92 96 O2 Delivery Room Air Room Air Room Air Room Air 01/18/17 01/19/17 01/19/17 01/19/17 23:12 03:17 07:00 07:52 Temp 97.6 98.4 97.5 97.6 98.4 97.5 Pulse 91 99 93 Resp 20 17 B/P 157/82 155/82 161/88 Pulse Ox 95 95 92 96 O2 Delivery Room Air Room Air Room Air Room Air 01/19/17 01/19/17 08:00 09:40 Pulse 93 B/P 148/62 O2 Delivery Room Air Intake and Output 01/18/17 01/18/17 01/19/17 15:00 23:00 07:00 Intake Total 1000 ml 1295 ml 400 ml Output Total 250 ml 450 ml 1000 ml Balance 750 ml 845 ml -600 ml SOBEIDA CLINE MD Jan 19, 2017 10:41
[2017-01-19 11:00] VITALS: BP 167/80
[2017-01-19] MEDS: ACETAMINOPHEN 500 MG TABLET PO PRN ×2 (12:54→23:23)
--- NOTE | 2017-01-19 13:32 | PDOC ---
SUBJECTIVE ROS F/up HypoNatremia NOT feeling too good today. Had Anxiety etc this am She thinks its the prednisone; ate a better brkfast. CVS: no Orthopnea, no CP RESP: no SOB, no URIBE GI: no Nausea, no Vomiting : no Dysuria, no Urgency OBJECTIVE Vital Signs Vital Signs Date Time Temp Pulse Resp B/P Pulse Ox O2 Delivery O2 Flow Rate FiO2 01/19/17 11:44 Room Air 01/19/17 11:00 98.2 89 20 167/80 94 98.2 I & 0 Intake and Output 01/19/17 07:00 Intake Total 2695 ml Output Total 1700 ml Balance 995 ml Intake Oral 1720 ml IV Total 975 ml Output Urine Total 1700 ml PHYSICAL EXAM Physical Exam General Appearance: Awake Alert Oriented x 3 In no Distress Eyes: VIsion Unchanged Conjunctiva Normal EN: No EN Drainage Mucous Memb. moist Neck: no JVD min JVP Supple no Thyromegaly CVS: S1 S2 soft Murmur No Gallop No Rub no Edema Resp: no Rales no Rhonchi no Acc. Muscle use GI: BAS +ve NO Bruit Non Tender Non Distended : no CVA tenderness; no Suprapubic Tenderness Assessment & Plan HypoNatremia - multifactorial; TSH is WNL. Not much change despite IV NS. U Osm NA yet. Current findings point to ^ ADH state. Recent Prednisone use (will check Cortrosyn stim if she does not respond to IV NS). Nausea probably contributing too. Cannot R/o Vol depletion. She does not want me to stop the SSRI. WRIGHT-2i may also be contributing. Since she is not feeling good - I will start 3% NaCl and ANGEL. Orthos -ve. HTN - reval after home BP Meds are restarted anemia - suspect due to recent hospital stay COMMENT/RELEVANT DATA Meds Current Medications Medications (Trade) Dose Ordered Sig/Michael Start Time Stop Time Status Last Admin Dose Admin Acetaminophen (Tylenol) 500 mg PRN Q6HRS PRN 01/18/17 09:15 01/19/17 12:54 500 MG Albuterol/ Ipratropium (Duoneb) 3 ml RTQID 01/18/17 16:00 01/19/17 11:43 3 ML Alprazolam (Xanax) 0.25 mg PRN Q8HRS PRN 01/19/17 07:30 01/19/17 07:34 0.25 MG Aspirin (Children'S Aspirin) 81 mg DAILY 01/18/17 10:00 01/19/17 09:25 81 MG Atorvastatin Calcium (Lipitor) 10 mg QHS 01/18/17 21:00 01/18/17 20:10 10 MG Benzonatate (Tessalon Perle) 100 mg [id number] 01/18/17 21:00 01/19/17 09:25 100 MG Benzonatate 100 mg 100 mg PRN Q8HRS PRN 01/18/17 09:30 01/18/17 14:44 100 MG Buspirone HCl (Buspar) 10 mg BID 01/18/17 10:00 01/19/17 09:25 10 MG Celecoxib (Celebrex) 200 mg DAILY 01/18/17 10:00 Cetirizine HCl (Zyrtec) 10 mg DAILY 01/18/17 10:00 01/19/17 09:25 10 MG Doxycycline Hyclate (Vibra-Tab) 100 mg BID 01/18/17 10:00 01/19/17 09:25 100 MG Fish Oil (Fish Oil) 1,000 mg BID 01/18/17 10:00 Guaifenesin 10 ml 10 ml PRN Q6HRS PRN 01/18/17 16:45 01/19/17 06:23 10 ML Labetalol HCl (Normodyne) 10 mg PRN Q2HR PRN 01/18/17 09:15 Latanoprost (Xalatan) 1 drop HS 01/18/17 21:00 01/18/17 20:12 1 DROP Levothyroxine Sodium (Synthroid) 88 mcg DAILYAC 01/18/17 10:00 01/19/17 07:33 88 MCG Lisinopril (Prinivil) 10 mg DAILY 01/19/17 09:30 01/19/17 09:40 10 MG Magnesium Sulfate/ Dextrose (Magnesium Sulfate PREMIX 1GM) 100 ml @ 100 mls/hr 1X ONCE 01/18/17 23:00 01/18/17 23:00 DC Magnesium Sulfate/ Dextrose (Magnesium Sulfate PREMIX 2GM) 50 ml @ 25 mls/hr 1X ONCE 01/18/17 11:00 01/18/17 12:59 DC 01/18/17 11:05 25 MLS/HR Ondansetron HCl (Zofran) 4 mg PRN Q6HRS PRN 01/18/17 09:10 Ondansetron HCl 4 mg 4 mg PRN Q8HRS PRN 01/18/17 01:00 01/18/17 09:13 DC Pantoprazole Sodium (Protonix) 40 mg DAILYAC 01/18/17 10:00 01/19/17 06:23 40 MG Paroxetine HCl (Paxil Cr) 37.5 mg DAILY 01/18/17 10:00 01/19/17 07:35 37.5 MG Prednisone (Prednisone) 20 mg DAILY 01/22/17 09:00 Sodium Chloride (Iv Sodium Chloride 0.9% 1000ml Bag) 1,000 ml @ 100 mls/hr Q10H 01/18/17 00:55 01/19/17 00:54 DC 01/19/17 03:10 100 MLS/HR Vitamin D (Vitamin D3) 1,000 unit DAILY 01/18/17 10:00 01/19/17 09:25 1,000 UNIT Lab Laboratory Tests Test 01/19/17 03:30 Sodium Level 128mmol/L (136-145) Potassium Level 3.9mmol/L (3.5-5.1) Chloride Level 93mmol/L (98-107) Carbon Dioxide Level 25mmol/L (21-32) Anion Gap 10 (6-14) Blood Urea Nitrogen 10mg/dL (7-20) Creatinine 0.6mg/dL (0.6-1.0) Estimated GFR (Cockcroft-Gault) 95.0 Glucose Level 96mg/dL (70-99) Calcium Level 8.1mg/dL (8.5-10.1) Magnesium Level 2.1mg/dL (1.8-2.4) Triglycerides Level 58mg/dL (0-150) Cholesterol Level 137mg/dL (0-200) LDL Cholesterol, Calculated 74mg/dL (0-100) VLDL Cholesterol, Calculated 12mg/dL (0-40) HDL Cholesterol 51mg/dL (40-60) Cholesterol/HDL Ratio 2.7 RENATA ROMO MD Jan 19, 2017 13:31
[2017-01-19] MEDS: DEMECLOCYCLINE HCL 150 MG TABLET PO SCH ×2 (14:00→20:45)
[2017-01-19] MEDS ORDERED: SODIUM CHLORIDE 3 % 500 ML IV PRN (14:00)
[2017-01-19] MEDS ORDERED: LORAZEPAM 1 MG TABLET. PO ONE (15:45)
--- NOTE | 2017-01-19 19:06 | RAD ---
PROCEDURE Single view chest radiograph HISTORY 86-year-old female status post PICC line placement. Patient reports history of bronchitis. TECHNIQUE Portable upright AP view of the chest is obtained. COMPARISON January 14, 2017. FINDINGS There has been interval placement of a left upper extremity PICC line with the distal tip terminating at the expected level of the superior cavoatrial junction. No interval consolidation, pleural effusion or pneumothorax is seen. Cardiomediastinal silhouette remains within normal limits of size. Aortic knob calcifications re-demonstrated. Visualized osseous structures and overlying soft tissues demonstrate no acute interval change. Surgical clips re-demonstrated in the right axillary region. IMPRESSION Left upper extremity PICC line with distal tip overlying the expected superior cavoatrial junction. No interval acute cardiopulmonary process seen radiographically. Electronically signed by: Coral Barnett (Jan 19, 2017 19:04:50)
[2017-01-19 20:42] VITALS: BP 152/80
[2017-01-19] MEDS: ATORVASTATIN CALCIUM 10 MG TABLET. PO SCH (20:44)
[2017-01-19] MEDS: LATANOPROST 0.005% OPHTH SOLUTION 2.5ML BOTTLE. OU SCH (20:45)
[2017-01-19 23:00] VITALS: BP 123/69
[2017-01-20 00:03] VITALS: BP 131/74
[2017-01-20 03:00] VITALS: BP 153/80
[2017-01-20] MEDS: LEVOTHYROXINE 88 MCG TABLET PO SCH (05:59)
[2017-01-20] MEDS: PANTOPRAZOLE 40 MG TABLET. PO SCH (05:59)
[2017-01-20 06:37] LABS: POTASSIUM 3.4 mmol/L (3.5-5.1)
[2017-01-20] MEDS: IPRATRPIUM/ALBUTEROL 0.5/2.5MG 3 ML NEBU. NEB SCH ×4 (07:31→20:27)
--- NOTE | 2017-01-20 08:42 | PDOC ---
SUBJECTIVE ROS F/up Hyponatremia Feeling a little better today CVS: no Orthopnea, no CP RESP: no SOB, no URIBE + Cough GI: no Nausea, no Vomiting : no Dysuria, no Urgency OBJECTIVE Vital Signs Vital Signs Date Time Temp Pulse Resp B/P Pulse Ox O2 Delivery O2 Flow Rate FiO2 01/20/17 07:32 Room Air 01/20/17 03:00 98.3 18 153/80 93 98.3 01/19/17 20:42 100 I & 0 Intake and Output 01/20/17 07:00 Intake Total 1460 ml Output Total 2100 ml Balance -640 ml Intake Oral 1460 ml Output Urine Total 2100 ml PHYSICAL EXAM Physical Exam General Appearance: Awake Alert Oriented x 3 In no Distress Eyes: VIsion Unchanged Conjunctiva Normal EN: No EN Drainage Mucous Memb. moist Neck: no JVD min JVP Supple no Thyromegaly CVS: S1 S2 soft Murmur No Gallop No Rub no Edema Resp: no Rales occ Rhonchi no Acc. Muscle use GI: BS +ve NO Bruit Non Tender Non Distended : no CVA tenderness; no Suprapubic Tenderness Assessment & Plan HypoNatremia - multifactorial; U Osm NA yet. Current findings point to ^ ADH state. remains on Prednisone. She does not want me to stop the SSRI. WRIGHT-2i may also be contributing. She is feeling better with higher Na this am after 3 % NaCl and ANGEL. ? Needs for CT chest if Cough and Na do not resolve; emphazied and ordered high protein diet. HTN - reval after home BP Meds are restarted anemia - suspect due to recent hospital stay COMMENT/RELEVANT DATA Meds Current Medications Medications (Trade) Dose Ordered Sig/Michael Start Time Stop Time Status Last Admin Dose Admin Acetaminophen (Tylenol) 500 mg PRN Q6HRS PRN 01/18/17 09:15 01/19/17 23:23 500 MG Albuterol/ Ipratropium (Duoneb) 3 ml RTQID 01/18/17 16:00 01/20/17 07:31 3 ML Alprazolam (Xanax) 0.25 mg PRN Q6HRS PRN 01/19/17 16:00 Aspirin (Children'S Aspirin) 81 mg DAILY 01/18/17 10:00 01/19/17 09:25 81 MG Atorvastatin Calcium (Lipitor) 10 mg QHS 01/18/17 21:00 01/19/17 20:44 10 MG Benzonatate (Tessalon Perle) 100 mg [id number] 01/18/17 21:00 01/19/17 20:45 100 MG Benzonatate 100 mg 100 mg PRN Q8HRS PRN 01/18/17 09:30 01/18/17 14:44 100 MG Buspirone HCl (Buspar) 10 mg BID 01/18/17 10:00 01/19/17 20:45 10 MG Celecoxib (Celebrex) 200 mg DAILY 01/18/17 10:00 01/19/17 15:51 DC Cetirizine HCl (Zyrtec) 10 mg DAILY 01/18/17 10:00 01/19/17 09:25 10 MG Demeclocycline HCl 150 mg 150 mg Q12HR 01/19/17 14:00 01/19/17 20:45 150 MG Doxycycline Hyclate (Vibra-Tab) 100 mg BID 01/18/17 10:00 01/19/17 20:45 100 MG Fish Oil (Fish Oil) 1,000 mg BID 01/18/17 10:00 01/19/17 15:51 DC Guaifenesin 10 ml 10 ml PRN Q6HRS PRN 01/18/17 16:45 01/19/17 20:46 10 ML Labetalol HCl (Normodyne) 10 mg PRN Q2HR PRN 01/18/17 09:15 Latanoprost (Xalatan) 1 drop HS 01/18/17 21:00 01/19/17 20:45 1 DROP Levothyroxine Sodium (Synthroid) 88 mcg DAILYAC 01/18/17 10:00 01/20/17 05:59 88 MCG Lisinopril (Prinivil) 10 mg DAILY 01/19/17 09:30 01/19/17 09:40 10 MG Lorazepam (Ativan) 1 mg 1X ONCE 01/19/17 15:45 01/19/17 15:52 DC 01/19/17 16:17 1 MG Magnesium Sulfate/ Dextrose (Magnesium Sulfate PREMIX 1GM) 100 ml @ 100 mls/hr 1X ONCE 01/18/17 23:00 01/18/17 23:00 DC Magnesium Sulfate/ Dextrose (Magnesium Sulfate PREMIX 2GM) 50 ml @ 25 mls/hr 1X ONCE 01/18/17 11:00 01/18/17 12:59 DC 01/18/17 11:05 25 MLS/HR Ondansetron HCl (Zofran) 4 mg PRN Q6HRS PRN 01/18/17 09:10 Ondansetron HCl 4 mg 4 mg PRN Q8HRS PRN 01/18/17 01:00 01/18/17 09:13 DC Pantoprazole Sodium (Protonix) 40 mg DAILYAC 01/18/17 10:00 01/20/17 05:59 40 MG Paroxetine HCl (Paxil Cr) 37.5 mg DAILY 01/18/17 10:00 01/19/17 07:35 37.5 MG Prednisone (Prednisone) 20 mg DAILY 01/22/17 09:00 Sodium Chloride (Hypertonic Saline) 500 ml @ 30 mls/hr CONT PRN PRN 01/19/17 14:00 01/19/17 20:44 30 MLS/HR Sodium Chloride (Iv Sodium Chloride 0.9% 1000ml Bag) 1,000 ml @ 100 mls/hr Q10H 01/18/17 00:55 01/19/17 00:54 DC 01/19/17 03:10 100 MLS/HR Vitamin D (Vitamin D3) 1,000 unit DAILY 01/18/17 10:00 01/19/17 09:25 1,000 UNIT Lab Laboratory Tests Test 01/19/17 18:00 01/20/17 00:50 01/20/17 06:00 Sodium Level 121mmol/L (136-145) 127mmol/L (136-145) 129mmol/L (136-145) Potassium Level 3.4mmol/L (3.5-5.1) Chloride Level 95mmol/L (98-107) Carbon Dioxide Level 28mmol/L (21-32) Anion Gap 6 (6-14) RENATA ROMO MD Jan 20, 2017 08:42
[2017-01-20] MEDS: PREDNISONE 20 MG TABLET PO SCH ×2 (08:58→09:56)
[2017-01-20] MEDS: CETIRIZINE HCL 10 MG TABLET PO SCH (08:58)
[2017-01-20] MEDS: BENZONATATE 100 MG CAPSULE. PO SCH ×3 (08:58→22:07)
[2017-01-20] MEDS: GUAIFENESIN DM 200MG/20MG 10 ML SYRUP. PO PRN (08:58)
[2017-01-20] MEDS: PAROXETINE ER 12.5 MG TAB.ER.24H. PO SCH (08:58)
[2017-01-20] MEDS: LISINOPRIL 10 MG TABLET PO SCH (09:02)
[2017-01-20] MEDS: busPIRone 10 MG TABLET. PO SCH ×2 (09:02→22:07)
[2017-01-20] MEDS: CHOLECALCIFEROL (VITAMIN D3) 1,000 UNIT TABLET PO SCH (09:02)
[2017-01-20] MEDS: DOXYCYCLINE HYCLATE 100 MG TABLET PO SCH ×2 (09:03→22:08)
[2017-01-20 09:09] VITALS: BP 160/87
[2017-01-20] MEDS ORDERED: POTASSIUM CHLORIDE 20 MEQ TABLET.ER. PO ONE (09:30)
[2017-01-20] MEDS: ASPIRIN 81 MG TAB.CHEW PO SCH (09:57)
--- NOTE | 2017-01-20 10:22 | PDOC ---
PROGRESS NOTES Chief Complaint Chief Complaint 1. Generalized weakness 2 Worsened.Hyponatremia on ANGEL inhib and recent pred use for # 3 and on chronic SSRI 3. Recent Acute bronchitis 4. Rt knee pain 5. HTN, uncontrolled 6. Depression and anxiety NOS History of Present Illness History of Present Illness On hypertonic now by renal Na 129 today from 128 Does not want to be taken off of paxil. COughing but no wheezing Weak Asks when she can go home She thinks pred is worsening her anxiety and insomnia PLAN: COnt hypertonic via PICC per renal PT./OT while here SW on case for dc planning, agreeable to rehab so far Dec pred dose Ok for phenergan with codeine Dw RN Vitals Vitals Vital Signs Date Time Temp Pulse Resp B/P Pulse Ox O2 Delivery O2 Flow Rate FiO2 01/20/17 09:09 98.2 92 18 160/87 98.2 01/20/17 07:32 Room Air 01/20/17 03:00 93 Physical Exam General: Alert, Oriented X3, Cooperative, No acute distress Heart: Normal S1, Normal S2, No murmurs, Other (no carotid bruits) Lungs: Clear Abdomen: Normal bowel sounds, Soft, No tenderness, No hepatosplenomegaly, No masses Extremities: No clubbing, No cyanosis, No edema, Normal pulses, No tenderness/ swelling Skin: No rashes, No breakdown, No significant lesion Labs LABS Laboratory Tests Test 01/19/17 18:00 01/20/17 00:50 01/20/17 06:00 Sodium Level 121mmol/L (136-145) 127mmol/L (136-145) 129mmol/L (136-145) Potassium Level 3.4mmol/L (3.5-5.1) Chloride Level 95mmol/L (98-107) Carbon Dioxide Level 28mmol/L (21-32) Anion Gap 6 (6-14) Review of Systems Review of Systems cough, anxiety, weak, insomnia Assessment and Plan Assessmemt and Plan Problems Medical Problems: (1) Hyponatremia Status: Acute (2) Near syncope Status: Acute (3) Weakness Status: Acute Problems: Comment Review of Relevant I have reviewed the following items kyle (where applicable) has been applied. Labs Laboratory Tests Test 01/18/17 12:55 01/18/17 14:40 01/19/17 03:30 01/19/17 18:00 Troponin I Quantitative 0.069ng/mL (0.000-0.055) Urine Random Sodium 98mmol/L (Not Estab.) Sodium Level 128mmol/L (136-145) 121mmol/L (136-145) Potassium Level 3.9mmol/L (3.5-5.1) Chloride Level 93mmol/L (98-107) Carbon Dioxide Level 25mmol/L (21-32) Anion Gap 10 (6-14) Blood Urea Nitrogen 10mg/dL (7-20) Creatinine 0.6mg/dL (0.6-1.0) Estimated GFR (Cockcroft-Gault) 95.0 Glucose Level 96mg/dL (70-99) Calcium Level 8.1mg/dL (8.5-10.1) Magnesium Level 2.1mg/dL (1.8-2.4) Triglycerides Level 58mg/dL (0-150) Cholesterol Level 137mg/dL (0-200) LDL Cholesterol, Calculated 74mg/dL (0-100) VLDL Cholesterol, Calculated 12mg/dL (0-40) HDL Cholesterol 51mg/dL (40-60) Cholesterol/HDL Ratio 2.7 Free Thyroxine 1.35ng/dL (0.76-1.46) Test 01/20/17 00:50 01/20/17 06:00 Sodium Level 127mmol/L (136-145) 129mmol/L (136-145) Potassium Level 3.4mmol/L (3.5-5.1) Chloride Level 95mmol/L (98-107) Carbon Dioxide Level 28mmol/L (21-32) Anion Gap 6 (6-14) Laboratory Tests Test 01/19/17 18:00 01/20/17 00:50 01/20/17 06:00 Sodium Level 121mmol/L (136-145) 127mmol/L (136-145) 129mmol/L (136-145) Potassium Level 3.4mmol/L (3.5-5.1) Chloride Level 95mmol/L (98-107) Carbon Dioxide Level 28mmol/L (21-32) Anion Gap 6 (6-14) Medications Current Medications Sodium Chloride (Iv Sodium Chloride 0.9% 1000ml Bag) 1,000 ml @ 1,000 mls/hr 1X ONCE IV Last administered on 01/18/17 00:15; Start 01/18/17 at 00:30; Stop 01/18/17 at 01:29; Status DC Ondansetron HCl 4 mg 4 mg PRN Q8HRS PRN IV NAUSEA/VOMITING; Start 01/18/17 at 01 :00; Stop 01/18/17 at 09:13; Status DC Sodium Chloride (Iv Sodium Chloride 0.9% 1000ml Bag) 1,000 ml @ 100 mls/hr Q10H IV Last administered on 01/19/17 03:10; Start 01/18/17 at 00:55; Stop at 00:54; Status DC Ondansetron HCl (Zofran) 4 mg PRN Q6HRS PRN IV NAUSEA/VOMITING; Start 01/18/17 at 09:10 Acetaminophen (Tylenol) 500 mg PRN Q6HRS PRN PO MILD PAIN / TEMP Last administered on 01/19/17 23:23; Start 01/18/17 at 09:15 Aspirin (Children'S Aspirin) 81 mg DAILY PO Last administered on 01/20/17 09:57 ; Start 01/18/17 at 10:00 Buspirone HCl (Buspar) 10 mg BID PO Last administered on 01/20/17 09:02; Start 01/18/17 at 10:00 Celecoxib (Celebrex) 200 mg DAILY PO ; Start 01/18/17 at 10:00; Stop 01/19/17 at 15:51; Status DC Doxycycline Hyclate (Vibra-Tab) 100 mg BID PO Last administered on 01/20/17 09: 03; Start 01/18/17 at 10:00 Pantoprazole Sodium (Protonix) 40 mg DAILYAC PO Last administered on 01/20/17 05:59; Start 01/18/17 at 10:00 Latanoprost (Xalatan) 1 drop HS OU Last administered on 01/19/17 20:45; Start 01/18/17 at 21:00 Levothyroxine Sodium (Synthroid) 88 mcg DAILYAC PO Last administered on 05:59; Start 01/18/17 at 10:00 Fish Oil (Fish Oil) 1,000 mg BID PO ; Start 01/18/17 at 10:00; Stop 01/19/17 at 15 :51; Status DC Vitamin D (Vitamin D3) 1,000 unit DAILY PO Last administered on 01/20/17 09:02 ; Start 01/18/17 at 10:00 Cetirizine HCl (Zyrtec) 10 mg DAILY PO Last administered on 01/20/17 08:58; Start 01/18/17 at 10:00 Paroxetine HCl (Paxil Cr) 37.5 mg DAILY PO Last administered on 01/20/17 08:58 ; Start 01/18/17 at 10:00 Atorvastatin Calcium (Lipitor) 10 mg QHS PO Last administered on 01/19/17 20:44 ; Start 01/18/17 at 21:00 Labetalol HCl (Normodyne) 10 mg PRN Q2HR PRN IVP HYPERTENSION, SEE COMMENTS; Start 01/18/17 at 09:15 Benzonatate 100 mg 100 mg PRN Q8HRS PRN PO COUGH Last administered on 01/18/17 14:44; Start 01/18/17 at 09:30; Stop 01/20/17 at 09:20; Status DC Magnesium Sulfate/ Dextrose (Magnesium Sulfate PREMIX 2GM) 50 ml @ 25 mls/hr 1X ONCE IV Last administered on 01/18/17 11:05; Start 01/18/17 at 11:00; Stop 01/18/17 at 12:59; Status DC Prednisone (Prednisone) 40 mg DAILY PO Last administered on 01/20/17 09:56; Start 01/19/17 at 07:28; Stop 01/20/17 at 10:16; Status DC Prednisone (Prednisone) 20 mg DAILY PO ; Start 01/22/17 at 09:00 Albuterol/ Ipratropium (Duoneb) 3 ml RTQID NEB Last administered on 01/20/17 07 :31; Start 01/18/17 at 16:00 Benzonatate (Tessalon Perle) 100 mg [id number] PO Last administered on 01/20/17 08: 58; Start 01/18/17 at 21:00 Guaifenesin 10 ml 10 ml PRN Q6HRS PRN PO COUGH Last administered on 01/20/17 08 :58; Start 01/18/17 at 16:45; Stop 01/20/17 at 10:16; Status DC Magnesium Sulfate/ Dextrose (Magnesium Sulfate PREMIX 1GM) 100 ml @ 100 mls/hr 1X ONCE IV ; Start 01/18/17 at 23:00; Stop 01/18/17 at 23:00; Status DC Alprazolam (Xanax) 0.25 mg PRN Q8HRS PRN PO ANXIETY / AGITATION Last administered on 01/19/17 07:34; Start 01/19/17 at 07:30; Stop 01/19/17 at 15:51; Status DC Lisinopril (Prinivil) 2.5 mg DAILY PO ; Start 01/19/17 at 09:30; Stop 01/19/17 at 09:30; Status DC Lisinopril (Prinivil) 10 mg DAILY PO Last administered on 01/20/17 09:02; Start 01/19/17 at 09:30 Demeclocycline HCl 150 mg 150 mg Q12HR PO Last administered on 01/19/17 20:45; Start 01/19/17 at 14:00 Sodium Chloride (Hypertonic Saline) 500 ml @ 30 mls/hr CONT PRN PRN IV see comments Last administered on 01/19/17 20:44; Start 01/19/17 at 14:00 Alprazolam (Xanax) 0.25 mg PRN Q6HRS PRN PO ANXIETY / AGITATION; Start 01/19/17 at 16:00 Lorazepam (Ativan) 1 mg 1X ONCE PO Last administered on 01/19/17 16:17; Start 01/19/17 at 15:45; Stop 01/19/17 at 15:52; Status DC Potassium Chloride (Klor-Con) 40 meq 1X ONCE PO ; Start 01/20/17 at 09:30; Stop 01/20/17 at 09:31; Status DC Promethazine HCl/ Codeine (Phenergan With Codeine) 5 ml QID PO ; Start 01/20/17 at 13:00; Status UNV Active Scripts Active Doxycycline Hyclate 100 Mg Tablet 1 Tab PO BID Reported Acetaminophen 500 Mg Tablet 2 Tab PO BID PRN Vitamin D (Cholecalciferol (Vitamin D3)) 1,000 Unit Capsule 1 Cap PO DAILY Kassy Allergy (Fexofenadine Hcl) 180 Mg Tablet 1 Tab PO DAILY Latanoprost 2.5 Ml Drops 1 Drop OP HS [stool softner] [pravastatin] 40 Mg PO HS Aspirin 81 Mg Tab.chew 81 Mg PO Paxil Cr (Paroxetine Hcl) 37.5 Mg Tab.er.24h 37.5 Mg PO DAILY Buspirone Hcl 10 Mg Tablet 10 Mg PO BID Fish Oil 1,000 Mg Capsule ([place]-3 Fatty Acids/Fish Oil) 1 Each Capsule 1 Each PO BID [vitamin d] Glucosamine 1,500 Complex Cp (Gluc Johnson/Chondro Johnson A/Vit C/Mn) 1 Each Capsule 1 Each PO Lisinopril 40 Mg Tablet 40 Mg PO DAILY Levothyroxine Sodium 88 Mcg Tablet 88 Mcg PO DAILYAC Celebrex (Celecoxib) 200 Mg Capsule 200 Mg PO DAILY 30 Days Prevacid (Lansoprazole) 30 Mg Tab.rap.dr 30 Mg PO DAILY Vitals/I & O Vital Sign - Last 24 Hours 01/19/17 01/19/17 01/19/17 01/19/17 11:00 11:44 15:00 16:33 Temp 98.2 98.2 Pulse 89 Resp 20 B/P 167/80 Pulse Ox 94 O2 Delivery Room Air Room Air Room Air Room Air 01/19/17 01/19/17 01/19/17 01/19/17 19:07 20:00 20:42 23:00 Temp 98.1 98.1 Pulse 100 Resp 20 22 B/P 152/80 123/69 Pulse Ox 95 O2 Delivery Room Air Room Air Room Air Room Air 01/20/17 01/20/17 01/20/17 01/20/17 00:03 03:00 07:32 09:02 Temp 98.3 98.3 98.3 98.3 Pulse 98 Resp 16 18 B/P 131/74 153/80 160/87 Pulse Ox 93 O2 Delivery Room Air Room Air Room Air 01/20/17 09:09 Temp 98.2 98.2 Pulse 92 Resp 18 B/P 160/87 Intake and Output 01/19/17 01/19/17 01/20/17 15:00 23:00 07:00 Intake Total 920 ml 480 ml 60 ml Output Total 1000 ml 350 ml 750 ml Balance -80 ml 130 ml -690 ml SOBEIDA CLINE MD Jan 20, 2017 10:22
[2017-01-20] MEDS: DEMECLOCYCLINE HCL 150 MG TABLET PO SCH ×2 (10:43→22:07)
[2017-01-20] MEDS: PROMETH/CODEINE 6.25/10MG 5 ML SYRUP. PO SCH ×3 (11:39→22:07)
--- NOTE | 2017-01-20 11:53 | PDOC ---
ALBA PACHECO [employer]GER 01/20/17 1153: CARDIO Progress Notes Date and Time Date of Service 01/20/17 Time of Evaluation 1240 Subjective Subjective: No Chest Pain, No shortness of breath, No Palpitations, No Dizziness, Other (c/o presistent cough) Vitals Vitals Vital Signs Date Time Temp Pulse Resp B/P Pulse Ox O2 Delivery O2 Flow Rate FiO2 01/20/17 09:09 98.2 92 18 160/87 98.2 01/20/17 07:32 Room Air 01/20/17 03:00 93 Weight Weight [ ] Input and Output Intake and Output Intake and Output 01/20/17 07:00 Intake Total 1460 ml Output Total 2100 ml Balance -640 ml Intake Oral 1460 ml Output Urine Total 2100 ml Laboratory Labs Laboratory Tests Test 01/19/17 18:00 01/20/17 00:50 01/20/17 06:00 Sodium Level 121mmol/L (136-145) 127mmol/L (136-145) 129mmol/L (136-145) Potassium Level 3.4mmol/L (3.5-5.1) Chloride Level 95mmol/L (98-107) Carbon Dioxide Level 28mmol/L (21-32) Anion Gap 6 (6-14) Case Discussion Case Discussed with: Physician, Other (RN) Physical Exam HEENT: Neck Supple W Full Motion Chest: Symmetric LUNGS: Other (coarse) Heart: S1S2, no rubs, no gallops, other (tele: SR) Abdomen: Soft N/T Extremities: No Edema Neurology: alert, oriented, follow commands Diagnostic Tests Echocardiogram: Normal LVEF (60-65% with grade 1 diastolic dysfunction; no segmental wall motion abnormalities), Normal Valves (trace AR) Assessment Assessment 1. near syncope no further episodes echo with preserved LV function and no significant valvular heart disease 2. ventricular arrhythmia SVT noted on telemetry; pt sleeping. syncopal contributor? K replaced, check Mg. TSH WNL echo with preserved LV function and no segmental WMA start low-dose BB given length of arrhythmia consider cardiac cath versus stress test in am- will discuss with primary cardiology 3. HTN improved 4. hyponatremia improved; Na 129 hypertonic IVF ongoing per renal FABIOLA CRUZ MD 01/21/17 1000: CARDIO Progress Notes Assessment Assessment Patient seen and examined 01/20/17. Agree with [employer]IN[employer]NAN[employer]'s assessment and plan. Telemetry showed a long episode of ventricular tachycardia. Due to her presentation with syncope and VT noted on telemetry, we will proceed with cardiac catheterization to rule out ischemic etiology. Risks and benefits were explained ALBA PACHECO APRN Jan 20, 2017 11:53 FABIOLA CRUZ MD Jan 21, 2017 10:00
[2017-01-20] MEDS ORDERED: MAGNESIUM SULFATE 2GM 50 ML IV ONE (15:00)
[2017-01-20 15:33] VITALS: BP 154/75
[2017-01-20 19:46] VITALS: BP 160/81
[2017-01-20] MEDS ORDERED: METOPROLOL TART IMMED RELEASE 25 MG TABLET PO SCH (21:00)
[2017-01-20] MEDS: LATANOPROST 0.005% OPHTH SOLUTION 2.5ML BOTTLE. OU SCH (22:05)
[2017-01-20] MEDS: ATORVASTATIN CALCIUM 10 MG TABLET. PO SCH (22:07)
[2017-01-20 22:55] VITALS: BP 141/70
[2017-01-21] VITALS (12 sets, daily range): BP systolic 119–175; BP diastolic 54–75
[2017-01-21] MEDS: ACETAMINOPHEN 500 MG TABLET PO PRN ×2 (00:04→16:12)
[2017-01-21] MEDS: ALPRAZOLAM 0.25 MG TABLET PO PRN ×3 (03:29→16:12)
[2017-01-21] MEDS: IPRATRPIUM/ALBUTEROL 0.5/2.5MG 3 ML NEBU. NEB SCH ×4 (06:52→20:10)
[2017-01-21 07:07] LABS: POTASSIUM 4.2 mmol/L (3.5-5.1)
--- NOTE | 2017-01-21 07:48 | PDOC ---
SUBJECTIVE ROS F/up HypoNatremia Feels much better overall but still feels like some throat congestions CVS: no Orthopnea, no CP RESP: no SOB, no URIBE GI: no Nausea, no Vomiting : no Dysuria, no Urgency OBJECTIVE Vital Signs Vital Signs Date Time Temp Pulse Resp B/P Pulse Ox O2 Delivery O2 Flow Rate FiO2 01/21/17 06:53 97 Room Air 01/21/17 03:06 98.8 78 18 156/69 98.8 I & 0 Intake and Output 01/21/17 07:00 Intake Total 1614 ml Output Total 1500 ml Balance 114 ml Intake Oral 1614 ml Output Urine Total 1500 ml PHYSICAL EXAM Physical Exam General Appearance: Awake Alert Oriented x 3 In no Distress Eyes: VIsion Unchanged Conjunctiva Normal EN: No EN Drainage Mucous Memb. moist Neck: no JVD min JVP Supple no Thyromegaly CVS: S1 S2 soft Murmur No Gallop No Rub no Edema Resp: no Rales occ Rhonchi no Acc. Muscle use GI: BS +ve NO Bruit Non Tender Non Distended : no CVA tenderness; no Suprapubic Tenderness Assessment & Plan HypoNatremia - multifactorial; U Osm > S. Osm when cehcked. 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 remains on Prednisone. She does not want me to stop the SSRI. [id number] may also be contributing. She is feeling better after 3% NaCl and ANGEL, but Na Dropped as noted. Check CT Neck and chest, ct high protein diet. Accel HTN - suspect due to prednisone, RAD for completion anemia - suspect due to recent hospital stay COMMENT/RELEVANT DATA Meds Current Medications Medications (Trade) Dose Ordered Sig/Michael Start Time Stop Time Status Last Admin Dose Admin Acetaminophen (Tylenol) 500 mg PRN Q6HRS PRN 01/18/17 09:15 01/21/17 00:04 500 MG Albuterol/ Ipratropium (Duoneb) 3 ml RTQID 01/18/17 16:00 01/21/17 06:52 3 ML Alprazolam (Xanax) 0.25 mg PRN Q6HRS PRN 01/19/17 16:00 01/21/17 03:29 0.25 MG Aspirin (Children'S Aspirin) 81 mg DAILY 01/18/17 10:00 01/20/17 09:57 81 MG Atorvastatin Calcium (Lipitor) 10 mg QHS 01/18/17 21:00 01/20/17 22:07 10 MG Benzonatate (Tessalon Perle) 100 mg [id number] 01/18/17 21:00 01/20/17 22:07 100 MG Buspirone HCl (Buspar) 10 mg BID 01/18/17 10:00 01/20/17 22:07 10 MG Celecoxib (Celebrex) 200 mg DAILY 01/18/17 10:00 01/19/17 15:51 DC Cetirizine HCl (Zyrtec) 10 mg DAILY 01/18/17 10:00 01/20/17 08:58 10 MG Demeclocycline HCl 150 mg 150 mg Q12HR 01/19/17 14:00 01/20/17 22:07 150 MG Doxycycline Hyclate (Vibra-Tab) 100 mg BID 01/18/17 10:00 01/20/17 22:08 100 MG Fish Oil (Fish Oil) 1,000 mg BID 01/18/17 10:00 01/19/17 15:51 DC Guaifenesin 10 ml 10 ml PRN Q6HRS PRN 01/18/17 16:45 01/20/17 10:16 DC 01/20/17 08:58 10 ML Labetalol HCl (Normodyne) 10 mg PRN Q2HR PRN 01/18/17 09:15 Latanoprost (Xalatan) 1 drop HS 01/18/17 21:00 01/20/17 22:05 1 DROP Levothyroxine Sodium (Synthroid) 88 mcg DAILYAC 01/18/17 10:00 01/20/17 05:59 88 MCG Lisinopril (Prinivil) 10 mg DAILY 01/19/17 09:30 01/20/17 09:02 10 MG Lorazepam (Ativan) 1 mg 1X ONCE 01/19/17 15:45 01/19/17 15:52 DC 01/19/17 16:17 1 MG Magnesium Sulfate/ Dextrose (Magnesium Sulfate PREMIX 1GM) 100 ml @ 100 mls/hr 1X ONCE 01/18/17 23:00 01/18/17 23:00 DC Magnesium Sulfate/ Dextrose (Magnesium Sulfate PREMIX 2GM) 50 ml @ 25 mls/hr 1X ONCE 01/20/17 15:00 01/20/17 16:59 DC 01/20/17 15:33 25 MLS/HR Metoprolol Tartrate (Lopressor) 12.5 mg BID 01/20/17 21:00 01/20/17 22:09 12.5 MG Ondansetron HCl (Zofran) 4 mg PRN Q6HRS PRN 01/18/17 09:10 Ondansetron HCl 4 mg 4 mg PRN Q8HRS PRN 01/18/17 01:00 01/18/17 09:13 DC Pantoprazole Sodium (Protonix) 40 mg DAILYAC 01/18/17 10:00 01/20/17 05:59 40 MG Paroxetine HCl (Paxil Cr) 37.5 mg DAILY 01/18/17 10:00 01/20/17 08:58 37.5 MG Potassium Chloride (Klor-Con) 40 meq 1X ONCE 01/20/17 09:30 01/20/17 09:31 DC 01/20/17 10:44 40 MEQ Prednisone (Prednisone) 20 mg DAILY 01/22/17 09:00 Promethazine HCl/ Codeine 5 ml 5 ml QID 01/20/17 13:00 01/20/17 22:07 5 ML Sodium Chloride (Hypertonic Saline) 500 ml @ 30 mls/hr CONT PRN PRN 01/19/17 14:00 01/20/17 17:17 DC 01/19/17 20:44 30 MLS/HR Sodium Chloride (Iv Sodium Chloride 0.9% 1000ml Bag) 1,000 ml @ 100 mls/hr Q10H 01/18/17 00:55 01/19/17 00:54 DC 01/19/17 03:10 100 MLS/HR Vitamin D (Vitamin D3) 1,000 unit DAILY 01/18/17 10:00 01/20/17 09:02 1,000 UNIT Lab Laboratory Tests Test 01/20/17 12:45 01/21/17 06:30 Sodium Level 141mmol/L (136-145) 130mmol/L (136-145) Magnesium Level 1.7mg/dL (1.8-2.4) Potassium Level 4.2mmol/L (3.5-5.1) Chloride Level 95mmol/L (98-107) Carbon Dioxide Level 29mmol/L (21-32) Anion Gap 6 (6-14) RENATA ROOM MD Jan 21, 2017 07:48
[2017-01-21] MEDS ORDERED: IV NORMAL SALINE 1000ML BAG 1,000 ML IV SCH (08:30)
[2017-01-21] MEDS: busPIRone 10 MG TABLET. PO SCH ×2 (09:00→20:33)
[2017-01-21] MEDS: BENZONATATE 100 MG CAPSULE. PO SCH ×3 (09:00→20:33)
[2017-01-21] MEDS: DEMECLOCYCLINE HCL 150 MG TABLET PO SCH ×3 (09:00→20:33)
[2017-01-21] MEDS: DOXYCYCLINE HYCLATE 100 MG TABLET PO SCH ×2 (09:00→20:33)
[2017-01-21] MEDS: PANTOPRAZOLE 40 MG TABLET. PO SCH (09:01)
[2017-01-21] MEDS: METOPROLOL TART IMMED RELEASE 25 MG TABLET PO SCH ×3 (09:01→21:00)
[2017-01-21] MEDS: CETIRIZINE HCL 10 MG TABLET PO SCH (09:01)
[2017-01-21] MEDS: PROMETH/CODEINE 6.25/10MG 5 ML SYRUP. PO SCH ×4 (09:01→20:33)
[2017-01-21] MEDS: LEVOTHYROXINE 88 MCG TABLET PO SCH (09:02)
[2017-01-21] MEDS: PAROXETINE ER 12.5 MG TAB.ER.24H. PO SCH (09:02)
[2017-01-21] MEDS: ASPIRIN 81 MG TAB.CHEW PO SCH (09:02)
--- NOTE | 2017-01-21 09:13 | PDOC ---
PROGRESS NOTES Chief Complaint Chief Complaint 1. Generalized weakness 2 Worsened.Hyponatremia on ANGEL inhib and recent pred use for # 3 and on chronic SSRI 3. Recent Acute bronchitis 4. Rt knee pain 5. HTN, uncontrolled 6. 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 Pt now lives alone, fell at home Agreeable to rehab now, though she may still be hesitant at times PLAN: Add pulmo consult for the cough/congestion She does not want to be taken of paxil\ Does not like high doses of pred (makes her anxious) - only on 20 mg now from prev 40 mgs she was dcd with by pulmo Dw pt and RN Vitals Vitals Vital Signs Date Time Temp Pulse Resp B/P Pulse Ox O2 Delivery O2 Flow Rate FiO2 01/21/17 09:01 90 01/21/17 07:00 97.7 20 172/63 96 Room Air 97.7 Physical Exam General: Alert, Oriented X3, Cooperative, No acute distress Heart: Normal S1, Normal S2, No murmurs, Other (no carotid bruits) Lungs: Clear Abdomen: Normal bowel sounds, Soft, No tenderness, No hepatosplenomegaly, No masses Extremities: No clubbing, No cyanosis, No edema, Normal pulses, No tenderness/ swelling Skin: No rashes, No breakdown, No significant lesion Labs LABS Laboratory Tests Test 01/20/17 12:45 01/21/17 06:30 Sodium Level 141mmol/L (136-145) 130mmol/L (136-145) Magnesium Level 1.7mg/dL (1.8-2.4) 2.3mg/dL (1.8-2.4) Potassium Level 4.2mmol/L (3.5-5.1) Chloride Level 95mmol/L (98-107) Carbon Dioxide Level 29mmol/L (21-32) Anion Gap 6 (6-14) Review of Systems Review of Systems cough, anxiety, no soa, no cp Assessment and Plan Assessmemt and Plan Problems Medical Problems: (1) Hyponatremia Status: Acute (2) Near syncope Status: Acute (3) Weakness Status: Acute Problems: Comment Review of Relevant I have reviewed the following items kyle (where applicable) has been applied. Labs Laboratory Tests Test 01/19/17 18:00 01/20/17 00:50 01/20/17 06:00 01/20/17 12:45 Sodium Level 121mmol/L (136-145) 127mmol/L (136-145) 129mmol/L (136-145) 141mmol/L (136-145) Potassium Level 3.4mmol/L (3.5-5.1) Chloride Level 95mmol/L (98-107) Carbon Dioxide Level 28mmol/L (21-32) Anion Gap 6 (6-14) Magnesium Level 1.7mg/dL (1.8-2.4) Test 01/21/17 06:30 Sodium Level 130mmol/L (136-145) Potassium Level 4.2mmol/L (3.5-5.1) Chloride Level 95mmol/L (98-107) Carbon Dioxide Level 29mmol/L (21-32) Anion Gap 6 (6-14) Magnesium Level 2.3mg/dL (1.8-2.4) Laboratory Tests Test 01/20/17 12:45 01/21/17 06:30 Sodium Level 141mmol/L (136-145) 130mmol/L (136-145) Magnesium Level 1.7mg/dL (1.8-2.4) 2.3mg/dL (1.8-2.4) Potassium Level 4.2mmol/L (3.5-5.1) Chloride Level 95mmol/L (98-107) Carbon Dioxide Level 29mmol/L (21-32) Anion Gap 6 (6-14) Medications Current Medications Sodium Chloride (Iv Sodium Chloride 0.9% 1000ml Bag) 1,000 ml @ 1,000 mls/hr 1X ONCE IV Last administered on 01/18/17t 00:15; Start 01/18/17 at 00:30; Stop 01/18/17 at 01:29; Status DC Ondansetron HCl 4 mg 4 mg PRN Q8HRS PRN IV NAUSEA/VOMITING; Start 01/18/17 at 01 :00; Stop 01/18/17 at 09:13; Status DC Sodium Chloride (Iv Sodium Chloride 0.9% 1000ml Bag) 1,000 ml @ 100 mls/hr Q10H IV Last administered on 01/19/17 03:10; Start 01/18/17 at 00:55; Stop at 00:54; Status DC Ondansetron HCl (Zofran) 4 mg PRN Q6HRS PRN IV NAUSEA/VOMITING; Start 01/18/17 at 09:10 Acetaminophen (Tylenol) 500 mg PRN Q6HRS PRN PO MILD PAIN / TEMP Last administered on 01/21/17 00:04; Start 01/18/17 at 09:15 Aspirin (Children'S Aspirin) 81 mg DAILY PO Last administered on 01/21/17 09: 02; Start 01/18/17 at 10:00 Buspirone HCl (Buspar) 10 mg BID PO Last administered on 01/20/17 22:07; Start 01/18/17 at 10:00 Celecoxib (Celebrex) 200 mg DAILY PO ; Start 01/18/17 at 10:00; Stop 01/19/17 at 15:51; Status DC Doxycycline Hyclate (Vibra-Tab) 100 mg BID PO Last administered on 01/20/17 22: 08; Start 01/18/17 at 10:00 Pantoprazole Sodium (Protonix) 40 mg DAILYAC PO Last administered on 01/21/17 09:01; Start 01/18/17 at 10:00 Latanoprost (Xalatan) 1 drop HS OU Last administered on 01/20/17 22:05; Start 01/18/17 at 21:00 Levothyroxine Sodium (Synthroid) 88 mcg DAILYAC PO Last administered on 09:02; Start 01/18/17 at 10:00 Fish Oil (Fish Oil) 1,000 mg BID PO ; Start 01/18/17 at 10:00; Stop 01/19/17 at 15 :51; Status DC Vitamin D (Vitamin D3) 1,000 unit DAILY PO Last administered on 01/20/17 09:02 ; Start 01/18/17 at 10:00 Cetirizine HCl (Zyrtec) 10 mg DAILY PO Last administered on 01/21/17 09:01; Start 01/18/17 at 10:00 Paroxetine HCl (Paxil Cr) 37.5 mg DAILY PO Last administered on 01/21/17 09:02 ; Start 01/18/17 at 10:00 Atorvastatin Calcium (Lipitor) 10 mg QHS PO Last administered on 01/20/17 22:07 ; Start 01/18/17 at 21:00 Labetalol HCl (Normodyne) 10 mg PRN Q2HR PRN IVP HYPERTENSION, SEE COMMENTS; Start 01/18/17 at 09:15 Benzonatate 100 mg 100 mg PRN Q8HRS PRN PO COUGH Last administered on 01/18/17 14:44; Start 01/18/17 at 09:30; Stop 01/20/17 at 09:20; Status DC Magnesium Sulfate/ Dextrose (Magnesium Sulfate PREMIX 2GM) 50 ml @ 25 mls/hr 1X ONCE IV Last administered on 01/18/17 11:05; Start 01/18/17 at 11:00; Stop 01/18/17 at 12:59; Status DC Prednisone (Prednisone) 40 mg DAILY PO Last administered on 01/20/17 09:56; Start 01/19/17 at 07:28; Stop 01/20/17 at 10:16; Status DC Prednisone (Prednisone) 20 mg DAILY PO ; Start 01/22/17 at 09:00 Albuterol/ Ipratropium (Duoneb) 3 ml RTQID NEB Last administered on 01/21/17 06:52; Start 01/18/17 at 16:00 Benzonatate (Tessalon Perle) 100 mg [id number] PO Last administered on 01/20/17 22: 07; Start 01/18/17 at 21:00 Guaifenesin 10 ml 10 ml PRN Q6HRS PRN PO COUGH Last administered on 01/20/17 08 :58; Start 01/18/17 at 16:45; Stop 01/20/17 at 10:16; Status DC Magnesium Sulfate/ Dextrose (Magnesium Sulfate PREMIX 1GM) 100 ml @ 100 mls/hr 1X ONCE IV ; Start 01/18/17 at 23:00; Stop 01/18/17 at 23:00; Status DC Alprazolam (Xanax) 0.25 mg PRN Q8HRS PRN PO ANXIETY / AGITATION Last administered on 01/19/17 07:34; Start 01/19/17 at 07:30; Stop 01/19/17 at 15:51; Status DC Lisinopril (Prinivil) 2.5 mg DAILY PO ; Start 01/19/17 at 09:30; Stop 01/19/17 at 09:30; Status DC Lisinopril (Prinivil) 10 mg DAILY PO Last administered on 01/20/17 09:02; Start 01/19/17 at 09:30; Stop 01/21/17 at 07:46; Status DC Demeclocycline HCl 150 mg 150 mg Q12HR PO Last administered on 01/20/17 22:07; Start 01/19/17 at 14:00; Stop 01/21/17 at 07:46; Status DC Sodium Chloride (Hypertonic Saline) 500 ml @ 30 mls/hr CONT PRN PRN IV see comments Last administered on 01/19/17 20:44; Start 01/19/17 at 14:00; Stop at 17:17; Status DC Alprazolam (Xanax) 0.25 mg PRN Q6HRS PRN PO ANXIETY / AGITATION Last administered on 01/21/17 03:29; Start 01/19/17 at 16:00 Lorazepam (Ativan) 1 mg 1X ONCE PO Last administered on 01/19/17 16:17; Start 01/19/17 at 15:45; Stop 01/19/17 at 15:52; Status DC Potassium Chloride (Klor-Con) 40 meq 1X ONCE PO Last administered on 01/20/17 10:44; Start 01/20/17 at 09:30; Stop 01/20/17 at 09:31; Status DC Promethazine HCl/ Codeine 5 ml 5 ml QID PO Last administered on 01/21/17 09:01 ; Start 01/20/17 at 13:00 Magnesium Sulfate/ Dextrose (Magnesium Sulfate PREMIX 2GM) 50 ml @ 25 mls/hr 1X ONCE IV Last administered on 01/20/17 15:33; Start 01/20/17 at 15:00; Stop 01/20/17 at 16:59; Status DC Metoprolol Tartrate (Lopressor) 12.5 mg BID PO Last administered on 01/20/17 22 :09; Start 01/20/17 at 21:00; Stop 01/21/17 at 07:46; Status DC Demeclocycline HCl (Declomycin) 300 mg TID PO ; Start 01/21/17 at 09:00 Lisinopril (Prinivil) 20 mg DAILY PO ; Start 01/21/17 at 09:00 Metoprolol Tartrate 25 mg 25 mg BID PO Last administered on 01/21/17 09:01; Start 01/21/17 at 09:00 Sodium Chloride (Iv Sodium Chloride 0.9% 1000ml Bag) 1,000 ml @ 75 mls/hr [id number] IV ; Start 01/21/17 at 08:30 Active Scripts Active Doxycycline Hyclate 100 Mg Tablet 1 Tab PO BID Reported Acetaminophen 500 Mg Tablet 2 Tab PO BID PRN Vitamin D (Cholecalciferol (Vitamin D3)) 1,000 Unit Capsule 1 Cap PO DAILY Kassy Allergy (Fexofenadine Hcl) 180 Mg Tablet 1 Tab PO DAILY Latanoprost 2.5 Ml Drops 1 Drop OP HS [stool softner] [pravastatin] 40 Mg PO HS Aspirin 81 Mg Tab.chew 81 Mg PO Paxil Cr (Paroxetine Hcl) 37.5 Mg Tab.er.24h 37.5 Mg PO DAILY Buspirone Hcl 10 Mg Tablet 10 Mg PO BID Fish Oil 1,000 Mg Capsule (Jackson-3 Fatty Acids/Fish Oil) 1 Each Capsule 1 Each PO BID [vitamin d] Glucosamine 1,500 Complex Cp (Gluc Johnson/Chondro Johnson A/Vit C/Mn) 1 Each Capsule 1 Each PO Lisinopril 40 Mg Tablet 40 Mg PO DAILY Levothyroxine Sodium 88 Mcg Tablet 88 Mcg PO DAILYAC Celebrex (Celecoxib) 200 Mg Capsule 200 Mg PO DAILY 30 Days Prevacid (Lansoprazole) 30 Mg Tab.rap.dr 30 Mg PO DAILY Vitals/I & O Vital Sign - Last 24 Hours 01/20/17 01/20/17 01/20/17 01/20/17 11:30 12:02 15:33 16:31 Temp 98.4 98.4 Pulse 86 100 Resp 18 20 B/P 154/75 Pulse Ox 95 O2 Delivery Room Air Room Air Room Air Room Air 01/20/17 01/20/17 01/20/17 01/20/17 19:46 19:52 20:26 22:09 Temp 98.4 98.4 Pulse 96 96 Resp 18 B/P 160/81 169/91 Pulse Ox 96 96 O2 Delivery Room Air Room Air Room Air 01/20/17 01/21/17 01/21/17 01/21/17 22:55 03:06 06:53 07:00 Temp 98.5 98.8 97.7 98.5 98.8 97.7 Pulse 75 78 81 Resp 20 18 20 B/P 141/70 156/69 172/63 Pulse Ox 97 95 97 96 O2 Delivery Room Air Room Air Room Air Room Air 01/21/17 09:01 Pulse 90 Intake and Output 01/20/17 01/20/17 01/21/17 15:00 23:00 07:00 Intake Total 200 ml 877 ml 537 ml Output Total 400 ml 400 ml 700 ml Balance -200 ml 477 ml -163 ml SOBEIDA CLINE MD Jan 21, 2017 09:13
[2017-01-21] MEDS ORDERED: IOHEXOL 300 MG/ML 75 ML VIAL IV ONE (09:45)
[2017-01-21] MEDS ORDERED: CONTRAST GIVEN MC PRN ×2 (09:45→15:00)
--- NOTE | 2017-01-21 09:54 | RAD ---
EXAM: RENAL DOPPLER ULTRASOUND. HISTORY: Hypertension. COMPARISON: None. FINDINGS: Grayscale and Doppler analysis of the renal vasculature was performed bilaterally. Grayscale analysis of the kidneys was also performed. The peak systolic velocities within the proximal, mid and distal right renal artery are 155 cm/s, 102 cm/s and 61 cm/s, respectively. Resistive indices measure 0.71-0.81. The right renal vein is patent. The corresponding measurements on the left are 111 cm/s, 93 cm/s and 98 cm/s, respectively. Resistive indices measure 0.70-0.74. The left renal vein is patent. The peak systolic velocity within the abdominal aorta at the level of the renal arteries is 84 cm/s. The right kidney measures 9.9 cm. Cortical thickness and echogenicity are preserved. There is no hydronephrosis. The left kidney measures 9.6 cm. Cortical thickness and echogenicity are preserved. There is no hydronephrosis. The abdominal aorta is grossly patent and normal in caliber in its visualized portions. IMPRESSION: 1. No evidence of hemodynamically significant stenosis. 2. Unremarkable examination of the kidneys. No hydronephrosis. 3. Increased resistive indices at least on the right suggest intrinsic renal disease.
[2017-01-21] MEDS ORDERED: FENTANYL PF 100 MCG/2 ML VIAL. IV STA (10:04)
[2017-01-21] MEDS: LISINOPRIL 20 MG TABLET PO SCH (10:21)
[2017-01-21] MEDS ORDERED: LIDOCAINE 2% 20 ML VIAL. ONE (13:48)
[2017-01-21] MEDS ORDERED: IODIXANOL 320 MG/ML 100 ML VIAL. ONE (13:48)
--- NOTE | 2017-01-21 14:06 | PDOC ---
Provider Note Provider Note dictated SAIRA SHAH MD Jan 21, 2017 14:06
[2017-01-21] MEDS ORDERED: VERAPAMIL 5 MG/2 ML VIAL. ONE ×3 (14:30→15:07)
[2017-01-21] MEDS ORDERED: HEPARIN for IV BOLUS 10,000 UNIT/10 ML VIAL. ONE (14:33)
[2017-01-21] MEDS ORDERED: FENTANYL PF 100 MCG/2 ML VIAL. ONE (14:33)
[2017-01-21] MEDS ORDERED: MIDAZOLAM HCL/PF 5 MG/5 ML VIAL ONE (14:33)
[2017-01-21] MEDS ORDERED: NITROGLYCERIN 200 MCG/2 ML SYRINGE FOR CATH/VASC LAB. ONE ×2 (14:33→15:08)
[2017-01-21] MEDS ORDERED: LIDOCAINE 2% 20 ML VIAL. IJ ONE (14:45)
--- NOTE | 2017-01-21 14:45 | CONS ---
DATE OF CONSULTATION: ATTENDING PHYSICIAN: Dr. Cullen. REASON FOR CONSULTATION: Cough, bronchitis. HISTORY OF PRESENT ILLNESS: The patient is a pleasant 86-year-old female who was seen by us during her recent hospitalization for a chronic cough which has got worse a few weeks prior to her presentation and she had some flu-like symptoms. The patient was also on lisinopril. She was treated with antibiotics for bronchitis along with steroid inhalers. She was subsequently discharged home. She went home and stayed hardly 10 to 12 hours and came back after a fall. When asked to see her for further evaluation of the cough, the patient stated the cough has been present for about a year. Last 2 weeks the cough did increase, which is slightly better. No fever, no chills. She is not a smoker. No postnasal drainage, but she does have acid reflux for which she takes medication. PAST MEDICAL HISTORY: Arthritis, anxiety, breast cancer, depression, gastroesophageal reflux, hyperlipidemia, hypertension, and hypothyroidism. PAST SURGICAL HISTORY: Cholecystectomy, knee replacement, and tonsillectomy. ALLERGIES: PENICILLIN. SOCIAL HISTORY: She never smoke cigarettes. REVIEW OF SYSTEMS: Twelve-point system obtained. Pertinent positives discussed in my present illness, otherwise noncontributory. All systems that were negative were reviewed as well. FAMILY HISTORY: Noncontributory lungs. PHYSICAL EXAMINATION: VITAL SIGNS: Stable, afebrile, pulse ox is 94% on room air. HEENT: Sclerae nonicteric. NECK: Supple. LUNGS: With few anterior rhonchi. CARDIOVASCULAR: Regular rate and rhythm. ABDOMEN: Soft, nontender. EXTREMITIES: With no pitting edema. LABORATORY DATA: Reviewed. White cell count is 10.1, hemoglobin 11.7, platelets are 285. Her chemistries with a magnesium of 1.7 and troponin level of 0.069. IMPRESSION: 1. Chronic cough for past 1 year, which did flared up worsening 2 weeks ago, most likely triggered by flu-like symptoms. The cough is slowly getting better, but not back to her baseline. I suspect that we may be dealing with ANGEL inhibitor lisinopril-induced cough. 2. Recent hospitalization with generalized weakness and hyponatremia. Cardiology has been consulted and cardiac cath has been planned. 3. No significant history of tobacco use. 4. Cleared chest x-ray. RECOMMENDATIONS: 1. Continue with present prednisone. 2. Nebulizers with steroids. 3. Oral prednisone taper. 4. Consider discontinuing lisinopril. 5. Follow cardiology recommendation. Discussed with patient's daughter. SAIRA SHAH MD DR: ORLIN/yelena JOB#: [id number] / [id number] RENETTA
[2017-01-21] MEDS ORDERED: HEPARIN for IV BOLUS 10,000 UNIT/10 ML VIAL. IART ONE (15:00)
[2017-01-21] MEDS ORDERED: NITROGLYCERIN 200 MCG/2 ML SYRINGE FOR CATH/VASC LAB. IART ONE (15:00)
[2017-01-21] MEDS ORDERED: IODIXANOL 320 MG/ML 100 ML VIAL. IART ONE (15:00)
[2017-01-21] MEDS ORDERED: VERAPAMIL 5 MG/2 ML VIAL. IART ONE (15:00)
[2017-01-21] MEDS ORDERED: MIDAZOLAM HCL/PF 5 MG/5 ML VIAL IV ONE (15:00)
[2017-01-21] MEDS ORDERED: FENTANYL PF 100 MCG/2 ML VIAL. IV ONE (15:00)
[2017-01-21] MEDS ORDERED: IBUPROFEN 600 MG TABLET. PO PRN (15:15)
[2017-01-21] MEDS ORDERED: IV 1/2 NORMAL SALINE 1,000 ML IV SCH (15:17)
--- NOTE | 2017-01-21 15:17 | PDOC ---
MODERATE SEDATION ASSESSMENT RISKS/ALTERNATIVES Risks/Alternatives Risks and alternatives of this type of sedation and procedure discussed with: RISK/ALTERNATIVES: Patient H & P ON CHART H & P H & P on chart and reviewed for co-morbid conditions and appropriate labs. H&P ON CHART: Yes STATUS PREG STATUS ASSESSED: N/A MEDS/ALLERGIES REVIEWED Meds/Allergies Reviewed Medications and Allergies including time and route of recently administered narcotics and sedatives. MEDS/ALLERGIES REVIEWED: Yes ASA RATING ASA RATING: II AIRWAY ASSESSMENT Airway Assessment Airway patency, oral function limitations, presence of caps, crowns, dentures, partials, and ability to extend neck assessed. AIRWAY ASSESSMENT: Yes MALLAMPATI SCORE MALLAMPATI SCORE: II PRE-SEDATION ASSESSMENT PRE-SEDATION ASSESSMENT: Yes FABIOLA CRUZ MD Jan 21, 2017 15:17
--- NOTE | 2017-01-21 15:33 | CARD ---
APPROVED REPORT Procedure(s) performed: Left heart catheterization and selective coronary angiography via right trans radial approach INDICATION The indication(s) include : Ventricular tachycardia and syncope. PROCEDURE NARRATIVE After explaining the risks, benefits and alternative options, informed consent was obtained from jose r ent. Patient was brought to the cardiac Side Seam Tender and right wrist was prepped and draped in the usual fashion after confirming a positive modified Pollo's test. Arterial access was obtained in the [facility] radial artery and a 6 Croatian sheath was inserted. 6 Croatian JL 3.5 and 6 Croatian JR4 catheters were u sed to perform selective angiography of the left and right coronary arteries after initial attempt to engage these arteries with 6 Croatian Abhishek were unsuccessful. Ventriculography was not performed sin ce recent 2-D echo showed normal LV systolic function. Patient tolerated the procedure well. Hemosta sis was achieved using TR band. There were no immediate complications. The following findings were noted. FINDINGS a. The left main coronary artery arose from the left sinus of Valsalva, gave rise to the left anteri or descending and left circumflex arteries and did not show any significant stenosis. b. The left anterior descending artery did not show any significant stenosis. c. The left circumflex artery did not show any significant stenosis. d. The right coronary artery was a large and dominant vessel arising from the right sinus of Valsalv a that did not show any significant stenosis. Conclusion No significant coronary disease Recommendations Medical Therapy
[2017-01-21] MEDS: CHOLECALCIFEROL (VITAMIN D3) 1,000 UNIT TABLET PO SCH (16:12)
[2017-01-21] MEDS: ATORVASTATIN CALCIUM 10 MG TABLET. PO SCH (20:33)
[2017-01-21] MEDS: LATANOPROST 0.005% OPHTH SOLUTION 2.5ML BOTTLE. OU SCH (20:33)
[2017-01-21 20:38] LABS: OBC FLU VALID
[2017-01-21] MEDS: OXYCODONE/APAP 7.5/325 TABLET. PO PRN (21:09)
--- NOTE | 2017-01-22 01:25 | CONS ---
DATE OF CONSULTATION: 01/21/2017 ATTENDING PHYSICIAN: Dr. Freed. The patient was seen at the request of Dr. Cullen for rehab evaluation. 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 She was at this medical center with right knee pain and acute bronchitis. The patient was discharged on oral doxycycline and home health and physical therapy. She apparently had a fainting episode and fell at home and she was found at the time of admission on 01/18/2017 with worsening hyponatremia. At the time of discharge, it was 171 and when she got admitted again it is 128. She has been taking lisinopril at home for many years and also history of hypothyroidism. The patient with known hypertension, hyperlipidemia, bronchitis, gastroesophageal reflux disease, carcinoma of right breast, anxiety, depression, degenerative joint disease, hypothyroidism, status post cholecystectomy, right total hip arthroplasty, left total knee arthroplasty, bladder surgery, lumpectomy. SHE IS KNOWN ALLERGIC TO PENICILLIN, SULFA AND NABUMETONE. The patient lives alone and had stairs for her to manage and she is not using assistive devices prior to the present hospitalization. The patient apparently had her right knee drained and cortisone injection done during her last hospitalization, since then she had big bruise right calf. The patient admits pain in her right calf and ankle area. PHYSICAL EXAMINATION: Today revealed an elderly female, she is alert, oriented to time, place, person and circumstance and follows commands appropriately, moves all 4 extremities voluntarily where she had 4+/5 grade muscle strength. Deep tendon reflexes are 2+ and symmetrical and she had crepitus on range of motion of right knee joint with mild degree of knee joint effusion. She had tenderness to palpation over right calf and right tendo Achilles and she had pain on trying to bring her right ankle to dorsiflexion. The patient had other than big bruise right calf, intact skin. She had equal perception of touch and pinprick sensation bilaterally. I did not check her lower back area at present time as she is on bed rest ____ cardiac cath, which was apparently within normal limits. 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 The patient with known hypertension, hyperlipidemia, gastroesophageal reflux disease, carcinoma of right breast, status post lumpectomy, anxiety, depression, hypothyroidism, status post right hip and left total knee arthroplasty. RECOMMENDATIONS: To obtain Doppler studies to rule out any deep vein thrombosis, right calf which I doubt it. To try ice packs, to get her up as tolerated and agree with the plan for transfer to half-way care unit if she is not getting around well to return home. Dr. Cullen, ____ appreciate asking me to participate in care of this interesting patient. I will be glad to follow her with you as needed for her rehabilitation. KAYELE CAMACHO MD DR: DANIEL/yelena JOB#: [id number] / [id number]
[2017-01-22 03:52] VITALS: BP 131/65
[2017-01-22 05:08] LABS: BASO # 0.1 x10^3/uL (0.0-0.2); BASO % 1 % (0-3); EOS % 3 % (0-3); HEMATOCRIT 28.7 % (36.0-47.0); HEMOGLOBIN 9.5 g/dL (12.0-15.5); LYMPH # 2.3 x10^3/uL (1.0-4.8); LYMPH % 22 % (24-48); MEAN CORPUSCULAR HEMOGLOBIN 32 pg (25-35); MEAN CORPUSCULAR HGB CONC 33 g/dL (31-37); MEAN CORPUSCULAR VOLUME 97 fL (79-100); MONO % 11 % (0-9); NEUT % 63 % (31-73); PLATELET COUNT 222 x10^3/uL (140-400); RED BLOOD COUNT 2.94 x10^6/uL (3.50-5.40); WHITE BLOOD COUNT 10.6 x10^3/uL (4.0-11.0)
[2017-01-22 05:25] LABS: POTASSIUM 4.5 mmol/L (3.5-5.1)
[2017-01-22 07:59] VITALS: BP 122/80
[2017-01-22] MEDS: IPRATRPIUM/ALBUTEROL 0.5/2.5MG 3 ML NEBU. NEB SCH ×4 (08:03→20:51)
[2017-01-22] MEDS ORDERED: IOHEXOL 300 MG/ML 75 ML VIAL IV ONE (08:15)
[2017-01-22] MEDS ORDERED: CONTRAST GIVEN MC PRN (08:15)
--- NOTE | 2017-01-22 08:41 | RAD ---
Exam performed: Right lower extremity venous Doppler. Clinical Indication: Patient had a popliteal fossa cyst drainage one week ago, chronic bruising and discoloration and pain since then Date of Service:01/22/17 Comparison : None available Discussion: There is a focal collection measuring 4.6 x 2.1 x 0.9 cm in the medial popliteal fossa. No internal vascularity is seen. There is soft tissue edema seen in the posterior calf in the area of discoloration Multiple longitudinal and transverse high resolution real-time images of the venous system of right lower extremity were obtained with color and Doppler sampling and spectral analysis. The common femoral, superficial femoral, popliteal and proximal calf veins are all patent and demonstrate normal flow and compressibility. Normal respiratory phasicity and augmentation is present. Impression: Fluid collection in the medial right popliteal fossa probably representing residual Barker's cyst. No convincing evidence of DVT noted.
[2017-01-22] MEDS: LISINOPRIL 20 MG TABLET PO SCH (09:00)
[2017-01-22] MEDS: PROMETH/CODEINE 6.25/10MG 5 ML SYRUP. PO SCH ×4 (09:00→20:57)
[2017-01-22] MEDS: BENZONATATE 100 MG CAPSULE. PO SCH ×3 (09:33→20:57)
[2017-01-22] MEDS: DEMECLOCYCLINE HCL 150 MG TABLET PO SCH ×3 (09:33→20:57)
--- NOTE | 2017-01-22 09:33 | PDOC ---
PULMONARY PROGRESS NOTES Subjective feels better Vitals Vital Signs Date Time Temp Pulse Resp B/P Pulse Ox O2 Delivery O2 Flow Rate FiO2 01/22/17 08:04 95 Room Air 01/22/17 07:59 97.8 83 20 122/80 97.8 01/21/17 15:16 2.0 General: Alert, No acute distress Lungs: Clear Cardiovascular: S1, S2 Abdomen: Soft, Non-tender Neuro Exam: Alert Extremities: Other (echymosis right leg) Labs Laboratory Tests Test 01/20/17 12:45 01/21/17 06:30 01/21/17 13:00 01/21/17 19:16 Sodium Level 141mmol/L (136-145) 130mmol/L (136-145) 130mmol/L (136-145) 132mmol/L (136-145) Magnesium Level 1.7mg/dL (1.8-2.4) 2.3mg/dL (1.8-2.4) Potassium Level 4.2mmol/L (3.5-5.1) Chloride Level 95mmol/L (98-107) Carbon Dioxide Level 29mmol/L (21-32) Anion Gap 6 (6-14) Test 01/21/17 19:55 01/22/17 00:02 01/22/17 04:50 Influenza Type A Antigen Negative (NEGATIVE) Influenza Type B Antigen Negative (NEGATIVE) Sodium Level 131mmol/L (136-145) 131mmol/L (136-145) White Blood Count 10.6x10^3/uL (4.0-11.0) Red Blood Count 2.94x10^6/uL (3.50-5.40) Hemoglobin 9.5g/dL (12.0-15.5) Hematocrit 28.7% (36.0-47.0) Mean Corpuscular Volume 97fL (79-100) Mean Corpuscular Hemoglobin 32pg (25-35) Mean Corpuscular Hemoglobin Concent 33g/dL (31-37) Red Cell Distribution Width 15.0% (11.5-14.5) Platelet Count 222x10^3/uL (140-400) Neutrophils (%) (Auto) 63% (31-73) Lymphocytes (%) (Auto) 22% (24-48) Monocytes (%) (Auto) 11% (0-9) Eosinophils (%) (Auto) 3% (0-3) Basophils (%) (Auto) 1% (0-3) Neutrophils # (Auto) 6.7x10^3uL (1.8-7.7) Lymphocytes # (Auto) 2.3x10^3/uL (1.0-4.8) Monocytes # (Auto) 1.2x10^3/uL (0.0-1.1) Eosinophils # (Auto) 0.3x10^3/uL (0.0-0.7) Basophils # (Auto) 0.1x10^3/uL (0.0-0.2) Potassium Level 4.5mmol/L (3.5-5.1) Chloride Level 95mmol/L (98-107) Carbon Dioxide Level 28mmol/L (21-32) Anion Gap 8 (6-14) Laboratory Tests Test 01/21/17 13:00 01/21/17 19:16 01/21/17 19:55 01/22/17 00:02 Sodium Level 130mmol/L (136-145) 132mmol/L (136-145) 131mmol/L (136-145) Influenza Type A Antigen Negative (NEGATIVE) Influenza Type B Antigen Negative (NEGATIVE) Test 01/22/17 04:50 White Blood Count 10.6x10^3/uL (4.0-11.0) Red Blood Count 2.94x10^6/uL (3.50-5.40) Hemoglobin 9.5g/dL (12.0-15.5) Hematocrit 28.7% (36.0-47.0) Mean Corpuscular Volume 97fL (79-100) Mean Corpuscular Hemoglobin 32pg (25-35) Mean Corpuscular Hemoglobin Concent 33g/dL (31-37) Red Cell Distribution Width 15.0% (11.5-14.5) Platelet Count 222x10^3/uL (140-400) Neutrophils (%) (Auto) 63% (31-73) Lymphocytes (%) (Auto) 22% (24-48) Monocytes (%) (Auto) 11% (0-9) Eosinophils (%) (Auto) 3% (0-3) Basophils (%) (Auto) 1% (0-3) Neutrophils # (Auto) 6.7x10^3uL (1.8-7.7) Lymphocytes # (Auto) 2.3x10^3/uL (1.0-4.8) Monocytes # (Auto) 1.2x10^3/uL (0.0-1.1) Eosinophils # (Auto) 0.3x10^3/uL (0.0-0.7) Basophils # (Auto) 0.1x10^3/uL (0.0-0.2) Sodium Level 131mmol/L (136-145) Potassium Level 4.5mmol/L (3.5-5.1) Chloride Level 95mmol/L (98-107) Carbon Dioxide Level 28mmol/L (21-32) Anion Gap 8 (6-14) Medications Active Scripts Medications Dose Route/Sig Days Date Category Doxycycline Hyclate 100 Mg Tablet 1 Tab PO BID 01/17/17 Rx Acetaminophen 500 Mg Tablet 2 Tab PO BID PRN 01/14/17 Reported Vitamin D (Cholecalciferol (Vitamin D3)) 1,000 Unit Capsule 1 Cap PO DAILY 01/14/17 Reported Kassy Allergy (Fexofenadine Hcl) 180 Mg Tablet 1 Tab PO DAILY 03/14/15 Reported Latanoprost 2.5 Ml Drops 1 Drop OP HS 05/19/14 Reported [stool softner] 05/19/14 Reported [pravastatin] 40 Mg PO HS 05/19/14 Reported Aspirin 81 Mg Tab.chew 81 Mg PO 05/19/14 Reported Paxil Cr (Paroxetine Hcl) 37.5 Mg Tab.er.24h 37.5 Mg PO DAILY 05/19/14 Reported Buspirone Hcl 10 Mg Tablet 10 Mg PO BID 05/19/14 Reported Fish Oil 1,000 Mg Capsule ([place]-3 Fatty Acids/Fish Oil) 1 Each Capsule 1 Each PO BID 05/19/14 Reported [vitamin d] 05/19/14 Reported Glucosamine 1,500 Complex Cp (Gluc Johnson/Chondro Johnson A/Vit C/Mn) 1 Each Capsule 1 Each PO 05/19/14 Reported Lisinopril 40 Mg Tablet 40 Mg PO DAILY 05/19/14 Reported Levothyroxine Sodium 88 Mcg Tablet 88 Mcg PO DAILYAC 05/19/14 Reported Celebrex (Celecoxib) 200 Mg Capsule 200 Mg PO DAILY 30 05/19/14 Reported Prevacid (Lansoprazole) 30 Mg Tab.rap.dr 30 Mg PO DAILY 05/19/14 Reported Impression . 1. Chronic cough for past 1 year, which did flared up worsening 2 weeks ago, most likely triggered by flu-like symptoms. The cough is slowly getting better, but not back to her baseline. I suspect that we may be dealing with ANGEL inhibitor lisinopril-induced cough. 2. Recent hospitalization with generalized weakness and hyponatremia. Cardiology has been consulted and cardiac cath has been planned. 3. No significant history of tobacco use. 4. Cleared chest x-ray. Plan . 1. Continue with present prednisone. 2. Nebulizers with steroids. 3. Oral prednisone taper. 4. Consider discontinuing lisinopril. 5. Follow cardiology recommendation. 6. s/p cath 7. no DVT SAIRA SHAH MD Jan 22, 2017 09:33
[2017-01-22] MEDS: busPIRone 10 MG TABLET. PO SCH ×2 (09:34→20:57)
[2017-01-22] MEDS: CHOLECALCIFEROL (VITAMIN D3) 1,000 UNIT TABLET PO SCH (09:34)
[2017-01-22] MEDS: ASPIRIN 81 MG TAB.CHEW PO SCH (09:34)
[2017-01-22] MEDS: CETIRIZINE HCL 10 MG TABLET PO SCH (09:34)
[2017-01-22] MEDS: PREDNISONE 20 MG TABLET PO SCH (09:35)
[2017-01-22] MEDS: METOPROLOL TART IMMED RELEASE 25 MG TABLET PO SCH ×2 (09:35→20:57)
[2017-01-22] MEDS: PANTOPRAZOLE 40 MG TABLET. PO SCH (09:35)
[2017-01-22] MEDS: PAROXETINE ER 12.5 MG TAB.ER.24H. PO SCH (09:35)
[2017-01-22] MEDS: LEVOTHYROXINE 88 MCG TABLET PO SCH (09:35)
[2017-01-22] MEDS: DOXYCYCLINE HYCLATE 100 MG TABLET PO SCH ×2 (09:36→20:56)
--- NOTE | 2017-01-22 09:42 | RAD ---
Exam performed: 2 views right ankle. History: Pain to the right heel for one week, no known injury. Bruising. Date of service: 01/22/17. Comparison: None available Findings: AP and lateral view of the right ankle are obtained. Normal alignment is preserved. There is no acute fracture or dislocation. There is diffuse soft tissue swelling. No foreign body. Impression: Diffuse soft tissue swelling without underlying bony abnormality.
[2017-01-22 10:17] VITALS: BP 131/51
[2017-01-22] MEDS: OXYCODONE/APAP 7.5/325 TABLET. PO PRN ×3 (10:47→23:50)
--- NOTE | 2017-01-22 11:08 | PDOC ---
CARDIO Progress Notes Date and Time Date of Service 01/22/2017 Time of Evaluation 1059 Subjective Subjective: No Chest Pain, No shortness of breath, No Palpitations, No Dizziness, Other (cough and pain in left foot/ankle/lower calf) Vitals Vitals Vital Signs Date Time Temp Pulse Resp B/P Pulse Ox O2 Delivery O2 Flow Rate FiO2 01/22/17 10:47 Nasal Cannula 2.0 01/22/17 10:17 97.9 85 22 131/51 91 97.9 Weight Weight [ ] Input and Output Intake and Output Intake and Output 01/22/17 07:00 Intake Total 950 ml Output Total 1150 ml Balance -200 ml Intake Oral 600 ml IV Total 350 ml Output Urine Total 1150 ml Laboratory Labs Laboratory Tests Test 01/21/17 13:00 01/21/17 19:16 01/21/17 19:55 01/22/17 00:02 Sodium Level 130mmol/L (136-145) 132mmol/L (136-145) 131mmol/L (136-145) Influenza Type A Antigen Negative (NEGATIVE) Influenza Type B Antigen Negative (NEGATIVE) Test 01/22/17 04:50 White Blood Count 10.6x10^3/uL (4.0-11.0) Red Blood Count 2.94x10^6/uL (3.50-5.40) Hemoglobin 9.5g/dL (12.0-15.5) Hematocrit 28.7% (36.0-47.0) Mean Corpuscular Volume 97fL (79-100) Mean Corpuscular Hemoglobin 32pg (25-35) Mean Corpuscular Hemoglobin Concent 33g/dL (31-37) Red Cell Distribution Width 15.0% (11.5-14.5) Platelet Count 222x10^3/uL (140-400) Neutrophils (%) (Auto) 63% (31-73) Lymphocytes (%) (Auto) 22% (24-48) Monocytes (%) (Auto) 11% (0-9) Eosinophils (%) (Auto) 3% (0-3) Basophils (%) (Auto) 1% (0-3) Neutrophils # (Auto) 6.7x10^3uL (1.8-7.7) Lymphocytes # (Auto) 2.3x10^3/uL (1.0-4.8) Monocytes # (Auto) 1.2x10^3/uL (0.0-1.1) Eosinophils # (Auto) 0.3x10^3/uL (0.0-0.7) Basophils # (Auto) 0.1x10^3/uL (0.0-0.2) Sodium Level 131mmol/L (136-145) Potassium Level 4.5mmol/L (3.5-5.1) Chloride Level 95mmol/L (98-107) Carbon Dioxide Level 28mmol/L (21-32) Anion Gap 8 (6-14) Case Discussion Case Discussed with: Physician, Other (RN) Physical Exam HEENT: Neck Supple W Full Motion Chest: Symmetric LUNGS: Other (coarse) Heart: S1S2, no rubs, no gallops, other (tele: SR) Abdomen: Soft N/T Extremities: No Edema Neurology: alert, oriented, follow commands Diagnostic Tests Echocardiogram: Normal LVEF (60-65% with grade 1 diastolic dysfunction; no segmental wall motion abnormalities), Normal Valves (trace AR) Assessment Assessment 1. near syncope no further episodes continue oral hydration echo with preserved LV function and no significant valvular heart disease 2. trivial elevation in troponin levels not consistent with AMI no acute changes in EKG preserved LV function and no segmental WMA on echo cardiac cath 01/20/2017 without obstructive disease 3. HTN remains mildly elevated stop ACEI with persistent hyponatremia continue beta-blockers 4. hyponatremia was treated with hypertonic saline and declomycin initially, now on tid declomycin 5. NSVT now more likely atrial fib and with aberrancy intermittently; irregular / tachydysrhythmias;asymptomatic rate control with beta-blockers anti-arrhythmic - amiodarone to start [id number] = 4 corresponding to about 4% risk of stroke/yr (considered high risk) and recommendation for OAC will start Eliquis 5 mg BID (normal Cr; weight > 60 kg; age > 80 - dose adjustment not required ) consider event monitor after discharge from SNF to evaluate burden follow up with Dr. Trinidad in about 4 weeks 6. foot pain no evidence of right ankle fracture, bone spur, or DVT per PMR agreeable with transfer to [facility] when determined by other services PHU DUMONT APRN Jan 22, 2017 11:08
--- NOTE | 2017-01-22 11:27 | RAD ---
Exam performed: CT neck and chest with contrast. History: Persistent Low calcium level, possible infection Date of service: 01/22/17. Comparison: None available Technique: Contiguous helical acquisitions are obtained through the neck and chest during intravenous administration of 75 cc of Omnipaque 300. Sagittal and coronal reformatted images are obtained and reviewed. CT neck findings: Diffuse atheromatous calcification of the aorta. Retrotracheal right subclavian artery. The neck vessels appear otherwise grossly unremarkable. The lung apices are clear. Heterogeneous thyroid gland. Both submandibular and parotid glands are normal. Paranasal sinuses and orbits are clear. The visualized portion of the brain appears normal. Spondylotic changes and multilevel disc degenerative changes involving the cervical spine. Impression: 1. No definite abnormality seen in the CT neck. 2. Heterogeneous thyroid gland probably a probable left thyroid nodule. Evaluation with ultrasound may be obtained if not already or foreign. End impression. CT chest findings: Structures at the thoracic inlet including both lobes of the thyroid gland appear normal. The neck and intrathoracic great vessels demonstrate diffuse atheromatous calcification. No definite neck, axillary, mediastinal or hilar lymphadenopathy seen. Calcified subcarinal lymph nodes are seen. Diffuse atheromatous coronary calcification is noted. Heart size is within limits of normal without pericardial effusion Interrogation of lungs demonstrates streaky linear opacities in both lung bases probably atelectasis. Developing infiltrates aren't excluded. There is no pleural effusion or pneumothorax. Limited evaluation of the upper abdominal structures is unremarkable. Multilevel disc degenerative changes and spondylotic changes are seen in the thoracic spine. Impression: 1. Streaky linear and airspace opacities seen in both lung bases probably atelectasis. Infiltrates not excluded. 2. Spondylotic changes and multilevel disc degenerative changes. PQRS Compliance Statement: One or more of the following individualized dose reduction techniques were utilized for this examination: 1. Automated exposure control 2. Adjustment of the mA and/or kV according to patient size 3. Use of iterative reconstruction technique
[2017-01-22] MEDS ORDERED: ANTI-COAG MONITOR BY PHARMACY. MC PRN (11:30)
[2017-01-22] MEDS: BUDESONIDE 0.5 MG/2 ML NEBU NEB SCH ×2 (11:35→20:51)
[2017-01-22] MEDS: APIXABAN 5 MG TABLET. PO SCH ×2 (12:49→20:57)
[2017-01-22] MEDS: AMIODARONE HCL 200 MG TABLET PO SCH ×2 (12:49→20:57)
--- NOTE | 2017-01-22 12:57 | PDOC ---
PROGRESS NOTES Subjective Subjective She c/o pain right heel. Objective Objective Vital Signs Date Time Temp Pulse Resp B/P Pulse Ox O2 Delivery O2 Flow Rate FiO2 01/22/17 12:49 76 01/22/17 12:49 1.0 01/22/17 11:36 Nasal Cannula 01/22/17 10:17 97.9 22 131/51 91 97.9 Intake and Output 01/22/17 07:00 Intake Total 950 ml Output Total 1150 ml Balance -200 ml Intake Oral 600 ml IV Total 350 ml Output Urine Total 1150 ml Physical Exam Physical Exam She is sitting up in bedside recliner and she had continued Barker's cyst right polpliteal fossa and no evidence of DVT right calf. She had no tenderness to palpation over right heel or ankle joint and less tenderness to palpation right heel cord. She continued to have edema around right knee and leg and bruised skin right calf and DJD of right knee and she is can move her right ankle without much pain and last PM she had significant pain while trying to dorsiflex right ankle. Assessment Assessment Problems Medical Problems: (1) Hyponatremia Status: Acute (2) Near syncope Status: Acute (3) Weakness Status: Acute Plan Plan of Care To get her up as tolerated. Comment Review of Relevant I have reviewed the following items kyle (where applicable) has been applied. Labs Laboratory Tests Test 01/21/17 06:30 01/21/17 13:00 01/21/17 19:16 01/21/17 19:55 Sodium Level 130mmol/L (136-145) 130mmol/L (136-145) 132mmol/L (136-145) Potassium Level 4.2mmol/L (3.5-5.1) Chloride Level 95mmol/L (98-107) Carbon Dioxide Level 29mmol/L (21-32) Anion Gap 6 (6-14) Magnesium Level 2.3mg/dL (1.8-2.4) Influenza Type A Antigen Negative (NEGATIVE) Influenza Type B Antigen Negative (NEGATIVE) Test 01/22/17 00:02 01/22/17 04:50 Sodium Level 131mmol/L (136-145) 131mmol/L (136-145) White Blood Count 10.6x10^3/uL (4.0-11.0) Red Blood Count 2.94x10^6/uL (3.50-5.40) Hemoglobin 9.5g/dL (12.0-15.5) Hematocrit 28.7% (36.0-47.0) Mean Corpuscular Volume 97fL (79-100) Mean Corpuscular Hemoglobin 32pg (25-35) Mean Corpuscular Hemoglobin Concent 33g/dL (31-37) Red Cell Distribution Width 15.0% (11.5-14.5) Platelet Count 222x10^3/uL (140-400) Neutrophils (%) (Auto) 63% (31-73) Lymphocytes (%) (Auto) 22% (24-48) Monocytes (%) (Auto) 11% (0-9) Eosinophils (%) (Auto) 3% (0-3) Basophils (%) (Auto) 1% (0-3) Neutrophils # (Auto) 6.7x10^3uL (1.8-7.7) Lymphocytes # (Auto) 2.3x10^3/uL (1.0-4.8) Monocytes # (Auto) 1.2x10^3/uL (0.0-1.1) Eosinophils # (Auto) 0.3x10^3/uL (0.0-0.7) Basophils # (Auto) 0.1x10^3/uL (0.0-0.2) Potassium Level 4.5mmol/L (3.5-5.1) Chloride Level 95mmol/L (98-107) Carbon Dioxide Level 28mmol/L (21-32) Anion Gap 8 (6-14) Laboratory Tests Test 01/21/17 13:00 01/21/17 19:16 01/21/17 19:55 01/22/17 00:02 Sodium Level 130mmol/L (136-145) 132mmol/L (136-145) 131mmol/L (136-145) Influenza Type A Antigen Negative (NEGATIVE) Influenza Type B Antigen Negative (NEGATIVE) Test 01/22/17 04:50 White Blood Count 10.6x10^3/uL (4.0-11.0) Red Blood Count 2.94x10^6/uL (3.50-5.40) Hemoglobin 9.5g/dL (12.0-15.5) Hematocrit 28.7% (36.0-47.0) Mean Corpuscular Volume 97fL (79-100) Mean Corpuscular Hemoglobin 32pg (25-35) Mean Corpuscular Hemoglobin Concent 33g/dL (31-37) Red Cell Distribution Width 15.0% (11.5-14.5) Platelet Count 222x10^3/uL (140-400) Neutrophils (%) (Auto) 63% (31-73) Lymphocytes (%) (Auto) 22% (24-48) Monocytes (%) (Auto) 11% (0-9) Eosinophils (%) (Auto) 3% (0-3) Basophils (%) (Auto) 1% (0-3) Neutrophils # (Auto) 6.7x10^3uL (1.8-7.7) Lymphocytes # (Auto) 2.3x10^3/uL (1.0-4.8) Monocytes # (Auto) 1.2x10^3/uL (0.0-1.1) Eosinophils # (Auto) 0.3x10^3/uL (0.0-0.7) Basophils # (Auto) 0.1x10^3/uL (0.0-0.2) Sodium Level 131mmol/L (136-145) Potassium Level 4.5mmol/L (3.5-5.1) Chloride Level 95mmol/L (98-107) Carbon Dioxide Level 28mmol/L (21-32) Anion Gap 8 (6-14) Medications Current Medications Sodium Chloride (Iv Sodium Chloride 0.9% 1000ml Bag) 1,000 ml @ 1,000 mls/hr 1X ONCE IV Last administered on 01/18/17 00:15; Start 01/18/17 at 00:30; Stop 01/18/17 at 01:29; Status DC Ondansetron HCl 4 mg 4 mg PRN Q8HRS PRN IV NAUSEA/VOMITING; Start 01/18/17 at 01 :00; Stop 01/18/17 at 09:13; Status DC Sodium Chloride (Iv Sodium Chloride 0.9% 1000ml Bag) 1,000 ml @ 100 mls/hr Q10H IV Last administered on 01/19/17 03:10; Start 01/18/17 at 00:55; Stop at 00:54; Status DC Ondansetron HCl (Zofran) 4 mg PRN Q6HRS PRN IV NAUSEA/VOMITING; Start 01/18/17 at 09:10 Acetaminophen (Tylenol) 500 mg PRN Q6HRS PRN PO MILD PAIN / TEMP Last administered on 01/21/17 16:12; Start 01/18/17 at 09:15 Aspirin (Children'S Aspirin) 81 mg DAILY PO Last administered on 01/22/17 09: 34; Start 01/18/17 at 10:00 Buspirone HCl (Buspar) 10 mg BID PO Last administered on 01/22/17 09:34; Start 01/18/17 at 10:00 Celecoxib (Celebrex) 200 mg DAILY PO ; Start 01/18/17 at 10:00; Stop 01/19/17 at 15:51; Status DC Doxycycline Hyclate (Vibra-Tab) 100 mg BID PO Last administered on 01/22/17 09 :36; Start 01/18/17 at 10:00 Pantoprazole Sodium (Protonix) 40 mg DAILYAC PO Last administered on 01/22/17 09:35; Start 01/18/17 at 10:00 Latanoprost (Xalatan) 1 drop HS OU Last administered on 01/21/17 20:33; Start 01/18/17 at 21:00 Levothyroxine Sodium (Synthroid) 88 mcg DAILYAC PO Last administered on 09:35; Start 01/18/17 at 10:00 Fish Oil (Fish Oil) 1,000 mg BID PO ; Start 01/18/17 at 10:00; Stop 01/19/17 at 15 :51; Status DC Vitamin D (Vitamin D3) 1,000 unit DAILY PO Last administered on 01/22/17 09:34 ; Start 01/18/17 at 10:00 Cetirizine HCl (Zyrtec) 10 mg DAILY PO Last administered on 01/22/17 09:34; Start 01/18/17 at 10:00 Paroxetine HCl (Paxil Cr) 37.5 mg DAILY PO Last administered on 01/22/17 09:35 ; Start 01/18/17 at 10:00 Atorvastatin Calcium (Lipitor) 10 mg QHS PO Last administered on 01/21/17 20: 33; Start 01/18/17 at 21:00 Labetalol HCl (Normodyne) 10 mg PRN Q2HR PRN IVP HYPERTENSION, SEE COMMENTS; Start 01/18/17 at 09:15 Benzonatate 100 mg 100 mg PRN Q8HRS PRN PO COUGH Last administered on 01/18/17 14:44; Start 01/18/17 at 09:30; Stop 01/20/17 at 09:20; Status DC Magnesium Sulfate/ Dextrose (Magnesium Sulfate PREMIX 2GM) 50 ml @ 25 mls/hr 1X ONCE IV Last administered on 01/18/17 11:05; Start 01/18/17 at 11:00; Stop 01/18/17 at 12:59; Status DC Prednisone (Prednisone) 40 mg DAILY PO Last administered on 01/20/17 09:56; Start 01/19/17 at 07:28; Stop 01/20/17 at 10:16; Status DC Prednisone (Prednisone) 20 mg DAILY PO Last administered on 01/22/17 09:35; Start 01/22/17 at 09:00 Albuterol/ Ipratropium (Duoneb) 3 ml RTQID NEB Last administered on 01/22/17 11:35; Start 01/18/17 at 16:00 Benzonatate (Tessalon Perle) 100 mg [id number] PO Last administered on 01/22/17 09 :33; Start 01/18/17 at 21:00 Guaifenesin 10 ml 10 ml PRN Q6HRS PRN PO COUGH Last administered on 01/20/17 08 :58; Start 01/18/17 at 16:45; Stop 01/20/17 at 10:16; Status DC Magnesium Sulfate/ Dextrose (Magnesium Sulfate PREMIX 1GM) 100 ml @ 100 mls/hr 1X ONCE IV ; Start 01/18/17 at 23:00; Stop 01/18/17 at 23:00; Status DC Alprazolam (Xanax) 0.25 mg PRN Q8HRS PRN PO ANXIETY / AGITATION Last administered on 01/19/17 07:34; Start 01/19/17 at 07:30; Stop 01/19/17 at 15:51; Status DC Lisinopril (Prinivil) 2.5 mg DAILY PO ; Start 01/19/17 at 09:30; Stop 01/19/17 at 09:30; Status DC Lisinopril (Prinivil) 10 mg DAILY PO Last administered on 01/20/17 09:02; Start 01/19/17 at 09:30; Stop 01/21/17 at 07:46; Status DC Demeclocycline HCl 150 mg 150 mg Q12HR PO Last administered on 01/20/17 22:07; Start 01/19/17 at 14:00; Stop 01/21/17 at 07:46; Status DC Sodium Chloride (Hypertonic Saline) 500 ml @ 30 mls/hr CONT PRN PRN IV see comments Last administered on 01/19/17 20:44; Start 01/19/17 at 14:00; Stop at 17:17; Status DC Alprazolam (Xanax) 0.25 mg PRN Q6HRS PRN PO ANXIETY / AGITATION Last administered on 01/21/17 16:12; Start 01/19/17 at 16:00 Lorazepam (Ativan) 1 mg 1X ONCE PO Last administered on 01/19/17 16:17; Start 01/19/17 at 15:45; Stop 01/19/17 at 15:52; Status DC Potassium Chloride (Klor-Con) 40 meq 1X ONCE PO Last administered on 01/20/17 10:44; Start 01/20/17 at 09:30; Stop 01/20/17 at 09:31; Status DC Promethazine HCl/ Codeine 5 ml 5 ml QID PO Last administered on 01/21/17 20:33 ; Start 01/20/17 at 13:00 Magnesium Sulfate/ Dextrose (Magnesium Sulfate PREMIX 2GM) 50 ml @ 25 mls/hr 1X ONCE IV Last administered on 01/20/17 15:33; Start 01/20/17 at 15:00; Stop 01/20/17 at 16:59; Status DC Metoprolol Tartrate (Lopressor) 12.5 mg BID PO Last administered on 01/20/17 22 :09; Start 01/20/17 at 21:00; Stop 01/21/17 at 07:46; Status DC Demeclocycline HCl (Declomycin) 300 mg TID PO Last administered on 01/22/17 09 :33; Start 01/21/17 at 09:00 Lisinopril (Prinivil) 20 mg DAILY PO Last administered on 01/21/17 10:21; Start 01/21/17 at 09:00; Stop 01/22/17 at 10:16; Status DC Metoprolol Tartrate 25 mg 25 mg BID PO Last administered on 01/22/17 09:35; Start 01/21/17 at 09:00 Sodium Chloride (Iv Sodium Chloride 0.9% 1000ml Bag) 1,000 ml @ 75 mls/hr [id number] IV Last administered on 01/21/17 10:24; Start 01/21/17 at 08:30; Stop 01/21/17 at 20:18; Status DC Iohexol (Omnipaque 300 Mg/ml) 75 ml 1X ONCE IV ; Start 01/21/17 at 09:45; Stop 01/21/17 at 09:46; Status DC Info (Do NOT chart on this entry -- for MONITORING) 1 each PRN DAILY PRN MC SEE COMMENTS; Start 01/21/17 at 09:45; Stop 01/23/17 at 09:44 Fentanyl Citrate (Fentanyl 2ml Vial) 25 mcg 1X STAT IV Last administered on 10:19; Start 01/21/17 at 10:04; Stop 01/21/17 at 10:11; Status DC Lidocaine HCl 20 ml 20 ml STK-MED ONCE .ROUTE ; Start 01/21/17 at 13:48; Stop at 13:49; Status DC Heparin Sodium/ Sodium Chloride 500 ml @ As Directed STK-MED ONCE .ROUTE ; Start 01/21/17 at 13:48; Stop 01/21/17 at 13:49; Status DC Iodixanol (Visipaque 320) 100 ml STK-MED ONCE .ROUTE ; Start 01/21/17 at 13:48; Stop 01/21/17 at 13:49; Status DC Nitroglycerin (Nitroglycerin) 200 mcg STK-MED ONCE .ROUTE ; Start 01/21/17 at 14 :33; Stop 01/21/17 at 14:34; Status DC Verapamil HCl (Verapamil) 5 mg STK-MED ONCE .ROUTE ; Start 01/21/17 at 14:33; Stop 01/21/17 at 14:34; Status DC Fentanyl Citrate (Fentanyl 2ml Vial) 100 mcg STK-MED ONCE .ROUTE ; Start at 14:33; Stop 01/21/17 at 14:34; Status DC Midazolam HCl (Versed) 5 mg STK-MED ONCE .ROUTE ; Start 01/21/17 at 14:33; Stop 01/21/17 at 14:34; Status DC Heparin Sodium (Porcine) 10,000 unit STK-MED ONCE .ROUTE ; Start 01/21/17 at 14: 33; Stop 01/21/17 at 14:34; Status DC Nitroglycerin (Nitroglycerin) 200 mcg 1X ONCE IART Last administered on 15:17; Start 01/21/17 at 15:00; Stop 01/21/17 at 15:01; Status DC Verapamil HCl (Verapamil) 2.5 mg 1X ONCE IART Last administered on 01/21/17 15:17; Start 01/21/17 at 15:00; Stop 01/21/17 at 15:01; Status DC Heparin Sodium (Porcine) 2,500 unit 1X ONCE IART Last administered on 15:25; Start 01/21/17 at 15:00; Stop 01/21/17 at 15:01; Status DC Heparin Sodium/ Sodium Chloride 1,000 unit 1X ONCE IART Last administered on 15:17; Start 01/21/17 at 15:00; Stop 01/21/17 at 15:01; Status DC Midazolam HCl (Versed) 2 mg 1X ONCE IV Last administered on 01/21/17 15:16; Start 01/21/17 at 15:00; Stop 01/21/17 at 15:01; Status DC Fentanyl Citrate (Fentanyl 2ml Vial) 50 mcg 1X ONCE IV Last administered on 15:16; Start 01/21/17 at 15:00; Stop 01/21/17 at 15:01; Status DC Iodixanol (Visipaque 320) 100 ml 1X ONCE IART Last administered on 01/21/17 15:15; Start 01/21/17 at 15:00; Stop 01/21/17 at 15:01; Status DC Lidocaine HCl 1 ml 1X ONCE IJ Last administered on 01/21/17 15:17; Start 08/30 at 14:45; Stop 01/21/17 at 14:55; Status DC Info 1 each 1 each PRN DAILY PRN MC SEE COMMENTS; Start 01/21/17 at 15:00; Stop 01/23/17 at 14:59 Heparin Sodium/ Sodium Chloride 500 ml @ As Directed STK-MED ONCE .ROUTE ; Start 01/21/17 at 15:02; Stop 01/21/17 at 15:03; Status DC Ibuprofen (Motrin) 600 mg PRN Q6HRS PRN PO INFLAMMATION Last administered on 19:20; Start 01/21/17 at 15:15 Verapamil HCl (Verapamil) 5 mg STK-MED ONCE .ROUTE ; Start 01/21/17 at 15:07; Stop 01/21/17 at 15:08; Status DC Nitroglycerin 200 mcg 200 mcg STK-MED ONCE .ROUTE ; Start 01/21/17 at 15:08; Stop 01/21/17 at 15:09; Status DC Sodium Chloride (Iv Sodium Chloride 0.45%) 1,000 ml @ 100 mls/hr Q10H IV ; Start 01/21/17 at 15:17; Stop 01/21/17 at 20:18; Status DC Oxycodone/ Acetaminophen (Percocet 7.5/ 325) 1 tab PRN Q4HRS PRN PO PAIN Last administered on 01/22/17 10:47; Start 01/21/17 at 20:45 Iohexol (Omnipaque 300 Mg/ml) 75 ml 1X ONCE IV Last administered on 01/22/17 08:38; Start 01/22/17 at 08:15; Stop 01/22/17 at 08:16; Status DC Info (Do NOT chart on this entry -- for MONITORING) 1 each PRN DAILY PRN MC SEE COMMENTS; Start 01/22/17 at 08:15; Stop 01/24/17 at 08:14 Budesonide (Pulmicort) 0.5 mg RTBID NEB Last administered on 01/22/17 11:35; Start 01/22/17 at 10:00 Amiodarone HCl (Cordarone) 200 mg BID PO Last administered on 01/22/17 12:49; Start 01/22/17 at 12:00; Stop 01/29/17 at 11:59 Amiodarone HCl (Cordarone) 100 mg DAILY PO ; Start 01/30/17 at 09:00 Apixaban (Eliquis) 5 mg BID PO Last administered on 01/22/17t 12:49; Start 09/30 at 12:00 Info (Anti-Coagulation Monitoring By Pharmacy) 1 each PRN DAILY PRN MC SEE COMMENTS; Start 01/22/17 at 11:30 Active Scripts Active Doxycycline Hyclate 100 Mg Tablet 1 Tab PO BID Reported Acetaminophen 500 Mg Tablet 2 Tab PO BID PRN Vitamin D (Cholecalciferol (Vitamin D3)) 1,000 Unit Capsule 1 Cap PO DAILY [place] Allergy (Fexofenadine Hcl) 180 Mg Tablet 1 Tab PO DAILY Latanoprost 2.5 Ml Drops 1 Drop OP HS [stool softner] [pravastatin] 40 Mg PO HS Aspirin 81 Mg Tab.chew 81 Mg PO Paxil Cr (Paroxetine Hcl) 37.5 Mg Tab.er.24h 37.5 Mg PO DAILY Buspirone Hcl 10 Mg Tablet 10 Mg PO BID Fish Oil 1,000 Mg Capsule ([place]-3 Fatty Acids/Fish Oil) 1 Each Capsule 1 Each PO BID [vitamin d] Glucosamine 1,500 Complex Cp (Gluc Johnson/Chondro Johnson A/Vit C/Mn) 1 Each Capsule 1 Each PO Lisinopril 40 Mg Tablet 40 Mg PO DAILY Levothyroxine Sodium 88 Mcg Tablet 88 Mcg PO DAILYAC Celebrex (Celecoxib) 200 Mg Capsule 200 Mg PO DAILY 30 Days Prevacid (Lansoprazole) 30 Mg Tab.rap.dr 30 Mg PO DAILY Vitals/I & O Vital Sign - Last 24 Hours 01/21/17 01/21/17 01/21/17 01/21/17 15:16 15:17 15:31 15:42 Pulse 72 72 73 Resp 10 15 18 B/P 163/59 149/72 Pulse Ox 95 95 95 O2 Delivery Nasal Cannula Room Air Room Air O2 Flow Rate 2.0 01/21/17 01/21/17 01/21/17 01/21/17 16:00 16:15 16:30 17:00 Pulse 75 79 79 71 Resp 18 18 20 18 B/P 137/61 142/64 150/58 125/56 Pulse Ox 95 97 95 95 O2 Delivery Room Air Room Air Room Air Room Air 301/21/17 01/21/17 01/21/17 17:30 19:17 20:03 20:11 Temp 97.9 97.9 Pulse 71 81 Resp 18 18 B/P 133/60 162/75 Pulse Ox 96 96 96 O2 Delivery Room Air Room Air Room Air Room Air 01/21/17 01/21/17 01/21/17 01/22/17 21:09 22:09 23:14 03:52 Temp 97.8 97.6 97.8 97.6 Pulse 64 71 Resp 18 18 16 18 B/P 119/54 131/65 Pulse Ox 94 95 O2 Delivery Room Air Room Air Room Air Room Air 01/22/17 01/22/17 01/22/17 01/22/17 07:59 08:04 09:35 10:17 Temp 97.8 97.9 97.8 97.9 Pulse 83 86 85 Resp 20 22 B/P 122/80 129/41 131/51 Pulse Ox 94 95 91 O2 Delivery Room Air Room Air Room Air 01/22/17 01/22/17 01/22/17 01/22/17 10:47 11:36 12:49 12:49 Pulse 76 O2 Delivery Nasal Cannula Nasal Cannula O2 Flow Rate 2.0 2.0 1.0 Intake and Output 01/21/17 01/21/17 01/22/17 15:00 23:00 07:00 Intake Total 750 ml 200 ml Output Total 450 ml 700 ml Balance 300 ml -500 ml KAYLEE CAMACHO MD Jan 22, 2017 12:56
--- NOTE | 2017-01-22 15:18 | PDOC ---
PROGRESS NOTES Chief Complaint Chief Complaint 1. Generalized weakness 2 mild Hyponatremia 3. Recent Acute bronchitis 4. Rt knee pain post steroid injection 5. HTN, uncontrolled 6. Depression and anxiety NOS 7. chest pain with NEG CATH 8. svt 9. right foot pain when put weight on, fascitis? plan: 1. fu with pulm, taj, dr. Hyman 2. foot XR neg fx, no dvt cont ptot 3. on amiodarone, eliqus 4. 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 Pt now lives alone, fell at home Agreeable to rehab now, though she may still be hesitant at times still cough, and right foot pain when put weight on, neg DVT Vitals Vitals Vital Signs Date Time Temp Pulse Resp B/P Pulse Ox O2 Delivery O2 Flow Rate FiO2 01/22/17 12:49 76 01/22/17 12:49 1.0 01/22/17 11:36 Nasal Cannula 01/22/17 10:17 97.9 22 131/51 91 97.9 Physical Exam General: Alert, Oriented X3, Cooperative, No acute distress Heart: Normal S1, Normal S2, No murmurs, Other (no carotid bruits) Lungs: Clear Abdomen: Normal bowel sounds, Soft, No tenderness, No hepatosplenomegaly, No masses Extremities: No clubbing, No cyanosis, No edema, Normal pulses, No tenderness/ swelling Skin: No rashes, No breakdown, No significant lesion Labs LABS Laboratory Tests Test 01/21/17 19:16 01/21/17 19:55 01/22/17 00:02 01/22/17 04:50 Sodium Level 132mmol/L (136-145) 131mmol/L (136-145) 131mmol/L (136-145) Influenza Type A Antigen Negative (NEGATIVE) Influenza Type B Antigen Negative (NEGATIVE) White Blood Count 10.6x10^3/uL (4.0-11.0) Red Blood Count 2.94x10^6/uL (3.50-5.40) Hemoglobin 9.5g/dL (12.0-15.5) Hematocrit 28.7% (36.0-47.0) Mean Corpuscular Volume 97fL (79-100) Mean Corpuscular Hemoglobin 32pg (25-35) Mean Corpuscular Hemoglobin Concent 33g/dL (31-37) Red Cell Distribution Width 15.0% (11.5-14.5) Platelet Count 222x10^3/uL (140-400) Neutrophils (%) (Auto) 63% (31-73) Lymphocytes (%) (Auto) 22% (24-48) Monocytes (%) (Auto) 11% (0-9) Eosinophils (%) (Auto) 3% (0-3) Basophils (%) (Auto) 1% (0-3) Neutrophils # (Auto) 6.7x10^3uL (1.8-7.7) Lymphocytes # (Auto) 2.3x10^3/uL (1.0-4.8) Monocytes # (Auto) 1.2x10^3/uL (0.0-1.1) Eosinophils # (Auto) 0.3x10^3/uL (0.0-0.7) Basophils # (Auto) 0.1x10^3/uL (0.0-0.2) Potassium Level 4.5mmol/L (3.5-5.1) Chloride Level 95mmol/L (98-107) Carbon Dioxide Level 28mmol/L (21-32) Anion Gap 8 (6-14) Test 01/22/17 13:20 Sodium Level 131mmol/L (136-145) Review of Systems Review of Systems no fever, chills, sob or chest pain Assessment and Plan Assessmemt and Plan Problems Medical Problems: (1) Hyponatremia Status: Acute (2) Near syncope Status: Acute (3) Weakness Status: Acute Problems: Comment Review of Relevant I have reviewed the following items kyle (where applicable) has been applied. Labs Laboratory Tests Test 01/21/17 06:30 01/21/17 13:00 01/21/17 19:16 01/21/17 19:55 Sodium Level 130mmol/L (136-145) 130mmol/L (136-145) 132mmol/L (136-145) Potassium Level 4.2mmol/L (3.5-5.1) Chloride Level 95mmol/L (98-107) Carbon Dioxide Level 29mmol/L (21-32) Anion Gap 6 (6-14) Magnesium Level 2.3mg/dL (1.8-2.4) Influenza Type A Antigen Negative (NEGATIVE) Influenza Type B Antigen Negative (NEGATIVE) Test 01/22/17 00:02 01/22/17 04:50 01/22/17 13:20 Sodium Level 131mmol/L (136-145) 131mmol/L (136-145) 131mmol/L (136-145) White Blood Count 10.6x10^3/uL (4.0-11.0) Red Blood Count 2.94x10^6/uL (3.50-5.40) Hemoglobin 9.5g/dL (12.0-15.5) Hematocrit 28.7% (36.0-47.0) Mean Corpuscular Volume 97fL (79-100) Mean Corpuscular Hemoglobin 32pg (25-35) Mean Corpuscular Hemoglobin Concent 33g/dL (31-37) Red Cell Distribution Width 15.0% (11.5-14.5) Platelet Count 222x10^3/uL (140-400) Neutrophils (%) (Auto) 63% (31-73) Lymphocytes (%) (Auto) 22% (24-48) Monocytes (%) (Auto) 11% (0-9) Eosinophils (%) (Auto) 3% (0-3) Basophils (%) (Auto) 1% (0-3) Neutrophils # (Auto) 6.7x10^3uL (1.8-7.7) Lymphocytes # (Auto) 2.3x10^3/uL (1.0-4.8) Monocytes # (Auto) 1.2x10^3/uL (0.0-1.1) Eosinophils # (Auto) 0.3x10^3/uL (0.0-0.7) Basophils # (Auto) 0.1x10^3/uL (0.0-0.2) Potassium Level 4.5mmol/L (3.5-5.1) Chloride Level 95mmol/L (98-107) Carbon Dioxide Level 28mmol/L (21-32) Anion Gap 8 (6-14) Laboratory Tests Test 01/21/17 19:16 01/21/17 19:55 01/22/17 00:02 01/22/17 04:50 Sodium Level 132mmol/L (136-145) 131mmol/L (136-145) 131mmol/L (136-145) Influenza Type A Antigen Negative (NEGATIVE) Influenza Type B Antigen Negative (NEGATIVE) White Blood Count 10.6x10^3/uL (4.0-11.0) Red Blood Count 2.94x10^6/uL (3.50-5.40) Hemoglobin 9.5g/dL (12.0-15.5) Hematocrit 28.7% (36.0-47.0) Mean Corpuscular Volume 97fL (79-100) Mean Corpuscular Hemoglobin 32pg (25-35) Mean Corpuscular Hemoglobin Concent 33g/dL (31-37) Red Cell Distribution Width 15.0% (11.5-14.5) Platelet Count 222x10^3/uL (140-400) Neutrophils (%) (Auto) 63% (31-73) Lymphocytes (%) (Auto) 22% (24-48) Monocytes (%) (Auto) 11% (0-9) Eosinophils (%) (Auto) 3% (0-3) Basophils (%) (Auto) 1% (0-3) Neutrophils # (Auto) 6.7x10^3uL (1.8-7.7) Lymphocytes # (Auto) 2.3x10^3/uL (1.0-4.8) Monocytes # (Auto) 1.2x10^3/uL (0.0-1.1) Eosinophils # (Auto) 0.3x10^3/uL (0.0-0.7) Basophils # (Auto) 0.1x10^3/uL (0.0-0.2) Potassium Level 4.5mmol/L (3.5-5.1) Chloride Level 95mmol/L (98-107) Carbon Dioxide Level 28mmol/L (21-32) Anion Gap 8 (6-14) Test 01/22/17 13:20 Sodium Level 131mmol/L (136-145) Medications Current Medications Sodium Chloride (Iv Sodium Chloride 0.9% 1000ml Bag) 1,000 ml @ 1,000 mls/hr 1X ONCE IV Last administered on 01/18/17 00:15; Start 01/18/17 at 00:30; Stop 01/18/17 at 01:29; Status DC Ondansetron HCl 4 mg 4 mg PRN Q8HRS PRN IV NAUSEA/VOMITING; Start 01/18/17 at 01 :00; Stop 01/18/17 at 09:13; Status DC Sodium Chloride (Iv Sodium Chloride 0.9% 1000ml Bag) 1,000 ml @ 100 mls/hr Q10H IV Last administered on 01/19/17 03:10; Start 01/18/17 at 00:55; Stop at 00:54; Status DC Ondansetron HCl (Zofran) 4 mg PRN Q6HRS PRN IV NAUSEA/VOMITING; Start 01/18/17 at 09:10 Acetaminophen (Tylenol) 500 mg PRN Q6HRS PRN PO MILD PAIN / TEMP Last administered on 01/21/17 16:12; Start 01/18/17 at 09:15 Aspirin (Children'S Aspirin) 81 mg DAILY PO Last administered on 01/22/17 09: 34; Start 01/18/17 at 10:00 Buspirone HCl (Buspar) 10 mg BID PO Last administered on 01/22/17 09:34; Start 01/18/17 at 10:00 Celecoxib (Celebrex) 200 mg DAILY PO ; Start 01/18/17 at 10:00; Stop 01/19/17 at 15:51; Status DC Doxycycline Hyclate (Vibra-Tab) 100 mg BID PO Last administered on 01/22/17 09 :36; Start 01/18/17 at 10:00 Pantoprazole Sodium (Protonix) 40 mg DAILYAC PO Last administered on 01/22/17 09:35; Start 01/18/17 at 10:00 Latanoprost (Xalatan) 1 drop HS OU Last administered on 01/21/17 20:33; Start 01/18/17 at 21:00 Levothyroxine Sodium (Synthroid) 88 mcg DAILYAC PO Last administered on 09:35; Start 01/18/17 at 10:00 Fish Oil (Fish Oil) 1,000 mg BID PO ; Start 01/18/17 at 10:00; Stop 01/19/17 at 15 :51; Status DC Vitamin D (Vitamin D3) 1,000 unit DAILY PO Last administered on 01/22/17 09:34 ; Start 01/18/17 at 10:00 Cetirizine HCl (Zyrtec) 10 mg DAILY PO Last administered on 01/22/17 09:34; Start 01/18/17 at 10:00 Paroxetine HCl (Paxil Cr) 37.5 mg DAILY PO Last administered on 01/22/17 09:35 ; Start 01/18/17 at 10:00 Atorvastatin Calcium (Lipitor) 10 mg QHS PO Last administered on 01/21/17 20: 33; Start 01/18/17 at 21:00 Labetalol HCl (Normodyne) 10 mg PRN Q2HR PRN IVP HYPERTENSION, SEE COMMENTS; Start 01/18/17 at 09:15 Benzonatate 100 mg 100 mg PRN Q8HRS PRN PO COUGH Last administered on 01/18/17 14:44; Start 01/18/17 at 09:30; Stop 01/20/17 at 09:20; Status DC Magnesium Sulfate/ Dextrose (Magnesium Sulfate PREMIX 2GM) 50 ml @ 25 mls/hr 1X ONCE IV Last administered on 01/18/17 11:05; Start 01/18/17 at 11:00; Stop 01/18/17 at 12:59; Status DC Prednisone (Prednisone) 40 mg DAILY PO Last administered on 01/20/17 09:56; Start 01/19/17 at 07:28; Stop 01/20/17 at 10:16; Status DC Prednisone (Prednisone) 20 mg DAILY PO Last administered on 01/22/17 09:35; Start 01/22/17 at 09:00 Albuterol/ Ipratropium (Duoneb) 3 ml RTQID NEB Last administered on 01/22/17 11:35; Start 01/18/17 at 16:00 Benzonatate (Tessalon Perle) 100 mg [id number] PO Last administered on 01/22/17 09 :33; Start 01/18/17 at 21:00 Guaifenesin 10 ml 10 ml PRN Q6HRS PRN PO COUGH Last administered on 01/20/17 08 :58; Start 01/18/17 at 16:45; Stop 01/20/17 at 10:16; Status DC Magnesium Sulfate/ Dextrose (Magnesium Sulfate PREMIX 1GM) 100 ml @ 100 mls/hr 1X ONCE IV ; Start 01/18/17 at 23:00; Stop 01/18/17 at 23:00; Status DC Alprazolam (Xanax) 0.25 mg PRN Q8HRS PRN PO ANXIETY / AGITATION Last administered on 01/19/17 07:34; Start 01/19/17 at 07:30; Stop 01/19/17 at 15:51; Status DC Lisinopril (Prinivil) 2.5 mg DAILY PO ; Start 01/19/17 at 09:30; Stop 01/19/17 at 09:30; Status DC Lisinopril (Prinivil) 10 mg DAILY PO Last administered on 01/20/17 09:02; Start 01/19/17 at 09:30; Stop 01/21/17 at 07:46; Status DC Demeclocycline HCl 150 mg 150 mg Q12HR PO Last administered on 01/20/17 22:07; Start 01/19/17 at 14:00; Stop 01/21/17 at 07:46; Status DC Sodium Chloride (Hypertonic Saline) 500 ml @ 30 mls/hr CONT PRN PRN IV see comments Last administered on 01/19/17 20:44; Start 01/19/17 at 14:00; Stop at 17:17; Status DC Alprazolam (Xanax) 0.25 mg PRN Q6HRS PRN PO ANXIETY / AGITATION Last administered on 01/21/17 16:12; Start 01/19/17 at 16:00 Lorazepam (Ativan) 1 mg 1X ONCE PO Last administered on 01/19/17 16:17; Start 01/19/17 at 15:45; Stop 01/19/17 at 15:52; Status DC Potassium Chloride (Klor-Con) 40 meq 1X ONCE PO Last administered on 01/20/17 10:44; Start 01/20/17 at 09:30; Stop 01/20/17 at 09:31; Status DC Promethazine HCl/ Codeine 5 ml 5 ml QID PO Last administered on 01/21/17 20:33 ; Start 01/20/17 at 13:00 Magnesium Sulfate/ Dextrose (Magnesium Sulfate PREMIX 2GM) 50 ml @ 25 mls/hr 1X ONCE IV Last administered on 01/20/17 15:33; Start 01/20/17 at 15:00; Stop 01/20/17 at 16:59; Status DC Metoprolol Tartrate (Lopressor) 12.5 mg BID PO Last administered on 01/20/17 22 :09; Start 01/20/17 at 21:00; Stop 01/21/17 at 07:46; Status DC Demeclocycline HCl (Declomycin) 300 mg TID PO Last administered on 01/22/17 09 :33; Start 01/21/17 at 09:00 Lisinopril (Prinivil) 20 mg DAILY PO Last administered on 01/21/17 10:21; Start 01/21/17 at 09:00; Stop 01/22/17 at 10:16; Status DC Metoprolol Tartrate 25 mg 25 mg BID PO Last administered on 01/22/17 09:35; Start 01/21/17 at 09:00 Sodium Chloride (Iv Sodium Chloride 0.9% 1000ml Bag) 1,000 ml @ 75 mls/hr [id number] IV Last administered on 01/21/17 10:24; Start 01/21/17 at 08:30; Stop 01/21/17 at 20:18; Status DC Iohexol (Omnipaque 300 Mg/ml) 75 ml 1X ONCE IV ; Start 01/21/17 at 09:45; Stop 01/21/17 at 09:46; Status DC Info (Do NOT chart on this entry -- for MONITORING) 1 each PRN DAILY PRN MC SEE COMMENTS; Start 01/21/17 at 09:45; Stop 01/23/17 at 09:44 Fentanyl Citrate (Fentanyl 2ml Vial) 25 mcg 1X STAT IV Last administered on 10:19; Start 01/21/17 at 10:04; Stop 01/21/17 at 10:11; Status DC Lidocaine HCl 20 ml 20 ml STK-MED ONCE .ROUTE ; Start 01/21/17 at 13:48; Stop at 13:49; Status DC Heparin Sodium/ Sodium Chloride 500 ml @ As Directed STK-MED ONCE .ROUTE ; Start 01/21/17 at 13:48; Stop 01/21/17 at 13:49; Status DC Iodixanol (Visipaque 320) 100 ml STK-MED ONCE .ROUTE ; Start 01/21/17 at 13:48; Stop 01/21/17 at 13:49; Status DC Nitroglycerin (Nitroglycerin) 200 mcg STK-MED ONCE .ROUTE ; Start 01/21/17 at 14 :33; Stop 01/21/17 at 14:34; Status DC Verapamil HCl (Verapamil) 5 mg STK-MED ONCE .ROUTE ; Start 01/21/17 at 14:33; Stop 01/21/17 at 14:34; Status DC Fentanyl Citrate (Fentanyl 2ml Vial) 100 mcg STK-MED ONCE .ROUTE ; Start at 14:33; Stop 01/21/17 at 14:34; Status DC Midazolam HCl (Versed) 5 mg STK-MED ONCE .ROUTE ; Start 01/21/17 at 14:33; Stop 01/21/17 at 14:34; Status DC Heparin Sodium (Porcine) 10,000 unit STK-MED ONCE .ROUTE ; Start 01/21/17 at 14: 33; Stop 01/21/17 at 14:34; Status DC Nitroglycerin (Nitroglycerin) 200 mcg 1X ONCE IART Last administered on 15:17; Start 01/21/17 at 15:00; Stop 01/21/17 at 15:01; Status DC Verapamil HCl (Verapamil) 2.5 mg 1X ONCE IART Last administered on 01/21/17 15:17; Start 01/21/17 at 15:00; Stop 01/21/17 at 15:01; Status DC Heparin Sodium (Porcine) 2,500 unit 1X ONCE IART Last administered on 15:25; Start 01/21/17 at 15:00; Stop 01/21/17 at 15:01; Status DC Heparin Sodium/ Sodium Chloride 1,000 unit 1X ONCE IART Last administered on 15:17; Start 01/21/17 at 15:00; Stop 01/21/17 at 15:01; Status DC Midazolam HCl (Versed) 2 mg 1X ONCE IV Last administered on 01/21/17 15:16; Start 01/21/17 at 15:00; Stop 01/21/17 at 15:01; Status DC Fentanyl Citrate (Fentanyl 2ml Vial) 50 mcg 1X ONCE IV Last administered on 15:16; Start 01/21/17 at 15:00; Stop 01/21/17 at 15:01; Status DC Iodixanol (Visipaque 320) 100 ml 1X ONCE IART Last administered on 01/21/17 15:15; Start 01/21/17 at 15:00; Stop 01/21/17 at 15:01; Status DC Lidocaine HCl 1 ml 1X ONCE IJ Last administered on 01/21/17 15:17; Start 08/30 at 14:45; Stop 01/21/17 at 14:55; Status DC Info 1 each 1 each PRN DAILY PRN MC SEE COMMENTS; Start 01/21/17 at 15:00; Stop 01/23/17 at 14:59 Heparin Sodium/ Sodium Chloride 500 ml @ As Directed STK-MED ONCE .ROUTE ; Start 01/21/17 at 15:02; Stop 01/21/17 at 15:03; Status DC Ibuprofen (Motrin) 600 mg PRN Q6HRS PRN PO INFLAMMATION Last administered on 19:20; Start 01/21/17 at 15:15 Verapamil HCl (Verapamil) 5 mg STK-MED ONCE .ROUTE ; Start 01/21/17 at 15:07; Stop 01/21/17 at 15:08; Status DC Nitroglycerin 200 mcg 200 mcg STK-MED ONCE .ROUTE ; Start 01/21/17 at 15:08; Stop 01/21/17 at 15:09; Status DC Sodium Chloride (Iv Sodium Chloride 0.45%) 1,000 ml @ 100 mls/hr Q10H IV ; Start 01/21/17 at 15:17; Stop 01/21/17 at 20:18; Status DC Oxycodone/ Acetaminophen (Percocet 7.5/ 325) 1 tab PRN Q4HRS PRN PO PAIN Last administered on 01/22/17 10:47; Start 01/21/17 at 20:45 Iohexol (Omnipaque 300 Mg/ml) 75 ml 1X ONCE IV Last administered on 01/22/17 08:38; Start 01/22/17 at 08:15; Stop 01/22/17 at 08:16; Status DC Info (Do NOT chart on this entry -- for MONITORING) 1 each PRN DAILY PRN MC SEE COMMENTS; Start 01/22/17 at 08:15; Stop 01/24/17 at 08:14 Budesonide (Pulmicort) 0.5 mg RTBID NEB Last administered on 01/22/17 11:35; Start 01/22/17 at 10:00 Amiodarone HCl (Cordarone) 200 mg BID PO Last administered on 01/22/17 12:49; Start 01/22/17 at 12:00; Stop 01/29/17 at 11:59 Amiodarone HCl (Cordarone) 100 mg DAILY PO ; Start 01/30/17 at 09:00 Apixaban (Eliquis) 5 mg BID PO Last administered on 01/22/17 12:49; Start 09/30 at 12:00 Info (Anti-Coagulation Monitoring By Pharmacy) 1 each PRN DAILY PRN MC SEE COMMENTS; Start 01/22/17 at 11:30 Active Scripts Active Doxycycline Hyclate 100 Mg Tablet 1 Tab PO BID Reported Acetaminophen 500 Mg Tablet 2 Tab PO BID PRN Vitamin D (Cholecalciferol (Vitamin D3)) 1,000 Unit Capsule 1 Cap PO DAILY Kassy Allergy (Fexofenadine Hcl) 180 Mg Tablet 1 Tab PO DAILY Latanoprost 2.5 Ml Drops 1 Drop OP HS [stool softner] [pravastatin] 40 Mg PO HS Aspirin 81 Mg Tab.chew 81 Mg PO Paxil Cr (Paroxetine Hcl) 37.5 Mg Tab.er.24h 37.5 Mg PO DAILY Buspirone Hcl 10 Mg Tablet 10 Mg PO BID Fish Oil 1,000 Mg Capsule ([place]-3 Fatty Acids/Fish Oil) 1 Each Capsule 1 Each PO BID [vitamin d] Glucosamine 1,500 Complex Cp (Gluc Johnson/Chondro Johnson A/Vit C/Mn) 1 Each Capsule 1 Each PO Lisinopril 40 Mg Tablet 40 Mg PO DAILY Levothyroxine Sodium 88 Mcg Tablet 88 Mcg PO DAILYAC Celebrex (Celecoxib) 200 Mg Capsule 200 Mg PO DAILY 30 Days Prevacid (Lansoprazole) 30 Mg Tab.rap.dr 30 Mg PO DAILY Vitals/I & O Vital Sign - Last 24 Hours 01/21/17 01/21/17 01/21/17 01/21/17 15:16 15:17 15:31 15:42 Pulse 72 72 73 Resp 10 15 18 B/P 163/59 149/72 Pulse Ox 95 95 95 O2 Delivery Nasal Cannula Room Air Room Air O2 Flow Rate 2.0 01/21/17 01/21/17 01/21/17 01/21/17 16:00 16:15 16:30 17:00 Pulse 75 79 79 71 Resp 18 18 20 18 B/P 137/61 142/64 150/58 125/56 Pulse Ox 95 97 95 95 O2 Delivery Room Air Room Air Room Air Room Air 01/21/17 01/21/17 01/21/17 01/21/17 17:30 19:17 20:03 20:11 Temp 97.9 97.9 Pulse 71 81 Resp 18 18 B/P 133/60 162/75 Pulse Ox 96 96 96 O2 Delivery Room Air Room Air Room Air Room Air 01/21/17 01/21/17 01/21/17 01/22/17 21:09 22:09 23:14 03:52 Temp 97.8 97.6 97.8 97.6 Pulse 64 71 Resp 16 18 B/P 119/54 131/65 Pulse Ox 94 95 O2 Delivery Room Air Room Air Room Air Room Air 01/22/17 01/22/17 01/22/17 01/22/17 07:59 08:04 09:35 10:17 Temp 97.8 97.9 97.8 97.9 Pulse 83 86 85 Resp 20 22 B/P 122/80 129/41 131/51 Pulse Ox 94 95 91 O2 Delivery Room Air Room Air Room Air 01/22/17 01/22/17 01/22/17 01/22/17 10:47 11:36 12:49 12:49 Pulse 76 O2 Delivery Nasal Cannula Nasal Cannula O2 Flow Rate 2.0 2.0 1.0 Intake and Output 01/21/17 01/21/17 01/22/17 15:00 23:00 07:00 Intake Total 750 ml 200 ml Output Total 450 ml 700 ml Balance 300 ml -500 ml GALEN BLACKMON MD Jan 22, 2017 15:18
[2017-01-22 15:26] VITALS: BP 144/82
[2017-01-22 19:00] VITALS: BP 125/50
[2017-01-22] MEDS: ATORVASTATIN CALCIUM 10 MG TABLET. PO SCH (20:57)
[2017-01-22] MEDS: LATANOPROST 0.005% OPHTH SOLUTION 2.5ML BOTTLE. OU SCH (20:57)
[2017-01-22 22:35] LABS: POTASSIUM 4.4 mmol/L (3.5-5.1)
[2017-01-22 23:00] VITALS: BP 147/69
--- NOTE | 2017-01-22 23:01 | PDOC ---
Provider Note Provider Note RENAL F/U : SUPRIYA S : Doing better. Slightly weak and frail. No SOA No active CP. O : VSS Afebrile. Alert. Neck : Supple Lungs : Non labored. Decreased bases. CVS : RRR Abd : Benign appearance. Ext : No CCE No major edema. Neuro : Grossly intact. Labs reviewed. ARF/ATN HYPONATREMIA HTN with CKD ? Doing better Change frequency of Na checks. Follow I/Os Supportive care. Ada Epps M.D. ADA EPPS MD Jan 22, 2017 23:01
[2017-01-23 03:38] VITALS: BP 138/61
[2017-01-23 05:41] LABS: POTASSIUM 4.4 mmol/L (3.5-5.1)
[2017-01-23 07:32] VITALS: BP 143/77
[2017-01-23] MEDS: BUDESONIDE 0.5 MG/2 ML NEBU NEB SCH (08:09)
[2017-01-23] MEDS: IPRATRPIUM/ALBUTEROL 0.5/2.5MG 3 ML NEBU. NEB SCH ×3 (08:09→15:41)
--- NOTE | 2017-01-23 08:18 | EKG ---
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
[2017-01-23] MEDS: PROMETH/CODEINE 6.25/10MG 5 ML SYRUP. PO SCH ×3 (09:00→17:00)
[2017-01-23] MEDS: APIXABAN 5 MG TABLET. PO SCH (09:41)
[2017-01-23] MEDS: CETIRIZINE HCL 10 MG TABLET PO SCH (09:42)
[2017-01-23] MEDS: CHOLECALCIFEROL (VITAMIN D3) 1,000 UNIT TABLET PO SCH (09:42)
[2017-01-23] MEDS: PANTOPRAZOLE 40 MG TABLET. PO SCH (09:42)
[2017-01-23] MEDS: busPIRone 10 MG TABLET. PO SCH (09:42)
[2017-01-23] MEDS: BENZONATATE 100 MG CAPSULE. PO SCH ×2 (09:42→14:10)
[2017-01-23] MEDS: PAROXETINE ER 12.5 MG TAB.ER.24H. PO SCH (09:42)
[2017-01-23] MEDS: AMIODARONE HCL 200 MG TABLET PO SCH (09:42)
[2017-01-23] MEDS: LEVOTHYROXINE 88 MCG TABLET PO SCH (09:42)
[2017-01-23] MEDS: ASPIRIN 81 MG TAB.CHEW PO SCH (09:43)
[2017-01-23] MEDS: DOXYCYCLINE HYCLATE 100 MG TABLET PO SCH (09:43)
[2017-01-23] MEDS: DEMECLOCYCLINE HCL 150 MG TABLET PO SCH ×2 (09:43→14:11)
[2017-01-23] MEDS: PREDNISONE 20 MG TABLET PO SCH (09:43)
[2017-01-23] MEDS: METOPROLOL TART IMMED RELEASE 25 MG TABLET PO SCH (09:44)
[2017-01-23] MEDS: OXYCODONE/APAP 7.5/325 TABLET. PO PRN ×2 (09:47→17:49)
[2017-01-23 11:06] VITALS: BP 107/56
[2017-01-23] MEDS ORDERED: PRED20TA PO (11:40)
[2017-01-23] MEDS ORDERED: DEME150T PO (11:40)
[2017-01-23] MEDS ORDERED: BENZ100C2 PO (11:40)
[2017-01-23] MEDS ORDERED: DOXY100T PO (11:40)
[2017-01-23] MEDS ORDERED: APIX5TAB PO (11:42)
[2017-01-23] MEDS ORDERED: AMIO200T2 PO ×2 (11:42)
--- NOTE | 2017-01-23 11:58 | PDOC ---
PULMONARY PROGRESS NOTES Subjective feels better Vitals Vital Signs Date Time Temp Pulse Resp B/P Pulse Ox O2 Delivery O2 Flow Rate FiO2 01/23/17 11:06 97.7 73 18 107/56 94 Room Air 97.7 01/22/17 12:49 1.0 General: Alert, No acute distress Lungs: Clear Cardiovascular: S1, S2 Abdomen: Soft, Non-tender Neuro Exam: Alert Extremities: Other (echymosis right leg) Labs Laboratory Tests Test 01/21/17 13:00 01/21/17 19:16 01/21/17 19:55 01/22/17 00:02 Sodium Level 130mmol/L (136-145) 132mmol/L (136-145) 131mmol/L (136-145) Influenza Type A Antigen Negative (NEGATIVE) Influenza Type B Antigen Negative (NEGATIVE) Test 01/22/17 04:50 01/22/17 13:20 01/22/17 22:00 01/23/17 05:00 White Blood Count 10.6x10^3/uL (4.0-11.0) Red Blood Count 2.94x10^6/uL (3.50-5.40) Hemoglobin 9.5g/dL (12.0-15.5) Hematocrit 28.7% (36.0-47.0) Mean Corpuscular Volume 97fL (79-100) Mean Corpuscular Hemoglobin 32pg (25-35) Mean Corpuscular Hemoglobin Concent 33g/dL (31-37) Red Cell Distribution Width 15.0% (11.5-14.5) Platelet Count 222x10^3/uL (140-400) Neutrophils (%) (Auto) 63% (31-73) Lymphocytes (%) (Auto) 22% (24-48) Monocytes (%) (Auto) 11% (0-9) Eosinophils (%) (Auto) 3% (0-3) Basophils (%) (Auto) 1% (0-3) Neutrophils # (Auto) 6.7x10^3uL (1.8-7.7) Lymphocytes # (Auto) 2.3x10^3/uL (1.0-4.8) Monocytes # (Auto) 1.2x10^3/uL (0.0-1.1) Eosinophils # (Auto) 0.3x10^3/uL (0.0-0.7) Basophils # (Auto) 0.1x10^3/uL (0.0-0.2) Sodium Level 131mmol/L (136-145) 131mmol/L (136-145) 130mmol/L (136-145) 132mmol/L (136-145) Potassium Level 4.5mmol/L (3.5-5.1) 4.4mmol/L (3.5-5.1) 4.4mmol/L (3.5-5.1) Chloride Level 95mmol/L (98-107) 96mmol/L (98-107) 97mmol/L (98-107) Carbon Dioxide Level 28mmol/L (21-32) 29mmol/L (21-32) 30mmol/L (21-32) Anion Gap 8 (6-14) 5 (6-14) 5 (6-14) Laboratory Tests Test 01/22/17 13:20 01/22/17 22:00 01/23/17 05:00 Sodium Level 131mmol/L (136-145) 130mmol/L (136-145) 132mmol/L (136-145) Potassium Level 4.4mmol/L (3.5-5.1) 4.4mmol/L (3.5-5.1) Chloride Level 96mmol/L (98-107) 97mmol/L (98-107) Carbon Dioxide Level 29mmol/L (21-32) 30mmol/L (21-32) Anion Gap 5 (6-14) 5 (6-14) Medications Active Scripts Medications Dose Route/Sig Days Date Category Doxycycline Hyclate 100 Mg Tablet 1 Tab PO BID 01/17/17 Rx Acetaminophen 500 Mg Tablet 2 Tab PO BID PRN 01/14/17 Reported Vitamin D (Cholecalciferol (Vitamin D3)) 1,000 Unit Capsule 1 Cap PO DAILY 01/14/17 Reported Kassy Allergy (Fexofenadine Hcl) 180 Mg Tablet 1 Tab PO DAILY 03/14/15 Reported Latanoprost 2.5 Ml Drops 1 Drop OP HS 05/19/14 Reported [stool softner] 05/19/14 Reported [pravastatin] 40 Mg PO HS 05/19/14 Reported Aspirin 81 Mg Tab.chew 81 Mg PO 05/19/14 Reported Paxil Cr (Paroxetine Hcl) 37.5 Mg Tab.er.24h 37.5 Mg PO DAILY 05/19/14 Reported Buspirone Hcl 10 Mg Tablet 10 Mg PO BID 05/19/14 Reported Fish Oil 1,000 Mg Capsule ([place]-3 Fatty Acids/Fish Oil) 1 Each Capsule 1 Each PO BID 05/19/14 Reported [vitamin d] 05/19/14 Reported Glucosamine 1,500 Complex Cp (Gluc Johnson/Chondro Johnson A/Vit C/Mn) 1 Each Capsule 1 Each PO 05/19/14 Reported Lisinopril 40 Mg Tablet 40 Mg PO DAILY 05/19/14 Reported Levothyroxine Sodium 88 Mcg Tablet 88 Mcg PO DAILYAC 05/19/14 Reported Celebrex (Celecoxib) 200 Mg Capsule 200 Mg PO DAILY 30 05/19/14 Reported Prevacid (Lansoprazole) 30 Mg Tab.rap.dr 30 Mg PO DAILY 05/19/14 Reported Impression . 1. Chronic cough for past 1 year, which did flared up worsening 2 weeks ago, most likely triggered by flu-like symptoms. The cough is slowly getting better, but not back to her baseline. I suspect that we may be dealing with ANGEL inhibitor lisinopril-induced cough. 2. Recent hospitalization with generalized weakness and hyponatremia. Cardiology has been consulted and cardiac cath has been planned. 3. No significant history of tobacco use. 4. Cleared chest x-ray. Plan . 1. Continue with present prednisone. 2. Nebulizers with steroids. 3. Oral prednisone taper. 4. off lisinopril. 5. Follow cardiology recommendation. 6. s/p cath 7. no DVT SAIRA SHAH MD Jan 23, 2017 11:58
--- NOTE | 2017-01-23 14:44 | PDOC3 ---
Discharge Summary [facility] Date of Admission: Jan 18, 2017 Discharge Date: Jan 23, 2017 Admitting Diagnosis 1. 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 Recent Acute bronchitis 4. Rt knee pain post steroid injection 5. HTN, uncontrolled 6. Depression and anxiety NOS 7. chest pain with NEG CATH 8. svt 9. right foot pain when put weight on, fascitis? Problems: Final Diagnosis CONSULTS CARD pulm renal dr. huynh Procedures neg cath Brief Hospital Course Ms. Vizcarra is a 86 old F, was here recently for knee pain post steroid injection, bronchitis. comes again for cough, right foot pain. lower ext US negfor dvt, and neg FX. + soft tissue swelling. still cough, on doxy and taper steroid now. She had chest pain, elevated troponin, got cath, neg. SVT/afib then on eliquis and amiodarone. dc to snf dc time 40min General: Alert, Oriented X3, Cooperative, No acute distress Heart: Normal S1, Normal S2, No murmurs, Other (no carotid bruits) Lungs: Clear Abdomen: Normal bowel sounds, Soft, No tenderness, No hepatosplenomegaly, No masses Extremities: No clubbing, No cyanosis, No edema, Normal pulses, No tenderness/ swelling Skin: No rashes, No breakdown, No significant lesion Patient History: Family history: Diabetes mellitus (situation) 32 MOTHER Problems: Disposition snf CONDITION AT DISCHARGE: Improved Diet cardiac Scheduled ([pravastatin]) 40 MG PO HS (Reported) Amiodarone Hcl (Amiodarone Hcl) 200 MG PO BID Amiodarone Hcl (Amiodarone Hcl) 100 MG PO DAILY Apixaban (Eliquis) 5 MG PO BID Benzonatate (Benzonatate) 100 MG PO [id number] Buspirone Hcl (Buspirone Hcl) 10 MG PO BID (Reported) Cholecalciferol (Vitamin D3) (Vitamin D) 1 CAP PO DAILY (Reported) Demeclocycline Hcl (Demeclocycline Hcl) 300 MG PO TID Doxycycline Hyclate (Doxycycline Hyclate) 1 TAB PO BID Fexofenadine Hcl (Kassy Allergy) 1 TAB PO DAILY (Reported) Lansoprazole (Prevacid) 30 MG PO DAILY (Reported) Latanoprost (Latanoprost) 1 DROP OP HS (Reported) Levothyroxine Sodium (Levothyroxine Sodium) 88 MCG PO DAILYAC (Reported) Hope-3 Fatty Acids/Fish Oil (Fish Oil 1,000 Mg Capsule) 1 EACH PO BID (Reported ) Paroxetine Hcl (Paxil Cr) 37.5 MG PO DAILY (Reported) Prednisone (Prednisone) 20 MG PO DAILY Scheduled PRN Acetaminophen (Acetaminophen) 2 TAB PO BID PRN PRN PAIN (Reported) Miscellaneous Medications ([vitamin d]) (Reported) ([stool softner]) (Reported) Aspirin (Aspirin) 81 MG PO (Reported) Gluc Johnson/Chondro Johnson A/Vit C/Mn (Glucosamine 1,500 Complex Cp) 1 EACH PO (Reported ) Discontinued Medications Celecoxib (Celebrex) 200 MG PO DAILY (Reported) Doxycycline Hyclate (Doxycycline Hyclate) 1 TAB PO BID (Reported) Lisinopril (Lisinopril) 40 MG PO DAILY (Reported) Prednisone (Prednisone) 2 TAB PO DAILY Follow Up pcp in 2 weeks GALEN BLACKMON MD Jan 23, 2017 14:44
[2017-01-23 14:52] VITALS: BP 101/57
--- NOTE | 2017-01-23 16:23 | PDOC ---
Provider Note Provider Note RENAL F/U : SUPRIYA S : Doing much better. No new c/o No SOA No active CP. O : VSS Afebrile. Alert. Neck : Supple Lungs : Non labored. Decreased bases. CVS : RRR Abd : Benign appearance. Ext : No CCE No major edema. Neuro : Grossly intact. Labs reviewed. ARF/ATN HYPONATREMIA HTN with CKD ? Better na sttable low 130s OK to DC home f/u with Dr. Vigil in two weeks. ADA EPPS MD Jan 23, 2017 16:23
[2017-01-30] MEDS ORDERED: AMIODARONE HCL 200 MG TABLET PO SCH (09:00)
== END 2017-01-23 18:40 | DRG 643 ==
LOC: ER 23:48 → CVICU 01-18 00:55 → INTOOBSV 01-18 00:55 → OBSVTOIN 01-18 11:36
PROVIDERS: ADMIT Internal Medicine; ATTEND Internal Medicine
PROC: 02HV33Z Insertion of Infusion Device into Superior Vena Cava, Percutaneous Approach (ICD-10-PCS; principal; 2017-01-19)
PROC: B5181ZA Fluoroscopy of Superior Vena Cava using Low Osmolar Contrast, Guidance (ICD-10-PCS; 2017-01-19)
PROC: 4A023N7 Measurement of Cardiac Sampling and Pressure, Left Heart, Percutaneous Approach (ICD-10-PCS; 2017-01-21)
PROC: B2111ZZ Fluoroscopy of Multiple Coronary Arteries using Low Osmolar Contrast (ICD-10-PCS; 2017-01-21)
DX: E22.2 Syndrome of inappropriate secretion of antidiuretic hormone (principal); N17.0 Acute kidney failure with tubular necrosis; I47.1 Supraventricular tachycardia; R53.1 Weakness; F32.9 Major depressive disorder, single episode, unspecified; F41.1 Generalized anxiety disorder; I10 Essential (primary) hypertension; Z96.652 Presence of left artificial knee joint; Z96.641 Presence of right artificial hip joint; M19.90 Unspecified osteoarthritis, unspecified site; E78.5 Hyperlipidemia, unspecified; J20.9 Acute bronchitis, unspecified; E03.9 Hypothyroidism, unspecified; K21.9 Gastro-esophageal reflux disease without esophagitis; C50.911 Malignant neoplasm of unspecified site of right female breast; E78.00 Pure hypercholesterolemia, unspecified; E86.0 Dehydration; G47.00 Insomnia, unspecified; I48.91 Unspecified atrial fibrillation; M77.9 Enthesopathy, unspecified; W18.2XXA Fall in (into) shower or empty bathtub, initial encounter; Y92.091 Bathroom in other non-institutional residence as the place of occurrence of the external cause; Y99.8 Other external cause status; Y93.E1 Activity, personal bathing and showering; Z85.3 Personal history of malignant neoplasm of breast; Z90.49 Acquired absence of other specified parts of digestive tract; Z79.82 Long term (current) use of aspirin; Z88.0 Allergy status to penicillin; Z88.2 Allergy status to sulfonamides; Z88.8 Allergy status to other drugs, medicaments and biological substances; Z83.3 Family history of diabetes mellitus
CPT/HCPCS: 36415; 70491; 71010; 71260; 73600; 76770; 80048; 80051; 80061; 83735; 83930; 83935; 84295; 84300; 84439; 84443; 84484; 84550; 85027; 87804; 93005; 93306; 93454; 93971; 94640; 94760; 96360; 96361; C1769; C1892; G0378; G0379; J2250; J3010; J3490; J7030; J7060; J7512; J7620; Q9967; 97110; 97116; 97535; 99285-25

== ENCOUNTER 2017-02-18 14:00 | Emergency (ER) | payer MEDICARE, OTHER ==
[~2017-02-18 14:00] MED LIST changes: +AMIO200T2 PO; +APIX5TAB PO; +BENZ100C2 PO; +DEME150T PO
[2017-02-18 14:52] LABS: BASO # 0.1 x10^3/uL (0.0-0.2); BASO % 1 % (0-3); EOS % 4 % (0-3); HEMATOCRIT 30.9 % (36.0-47.0); HEMOGLOBIN 10.2 g/dL (12.0-15.5); LYMPH # 1.4 x10^3/uL (1.0-4.8); LYMPH % 28 % (24-48); MEAN CORPUSCULAR HEMOGLOBIN 33 pg (25-35); MEAN CORPUSCULAR HGB CONC 33 g/dL (31-37); MEAN CORPUSCULAR VOLUME 100 fL (79-100); MONO % 13 % (0-9); NEUT % 55 % (31-73); PLATELET COUNT 261 x10^3/uL (140-400); RED BLOOD COUNT 3.08 x10^6/uL (3.50-5.40); RED CELL DISTRIBUTION WIDTH 16.7 % (11.5-14.5); WHITE BLOOD COUNT 5.1 x10^3/uL (4.0-11.0)
[2017-02-18] MEDS ORDERED: IV NORMAL SALINE 1000ML BAG 1,000 ML IV SCH (15:00)
--- NOTE | 2017-02-18 15:01 | RAD ---
Exam: AP portable chest. History: Shortness of breath. Comparison: 01/19/2017. Findings: The heart and mediastinal structures are within normal limits for size. Lungs are without infiltrate. No pneumothorax or pleural effusion is appreciated. Aortic atherosclerosis is present. Eventration of right hemidiaphragm is seen. Impression: 1. No acute cardiopulmonary process.
--- NOTE | 2017-02-18 15:10 | EKG ---
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
[2017-02-18 15:19] LABS: CALCIUM 8.6 mg/dL (8.5-10.1); CREATININE 0.8 mg/dL (0.6-1.0); GFR 68.2; POTASSIUM 4.6 mmol/L (3.5-5.1)
[2017-02-18 15:24] LABS: CKMB MASS 0.8 ng/mL (0.0-3.6); CREATINE KINASE 47 U/L (26-192)
[2017-02-18 15:25] LABS: ALBUMIN/GLOBULIN RATIO 0.8 (1.0-1.7); TOTAL BILIRUBIN 0.4 mg/dL (0.2-1.0); TOTAL PROTEIN 6.6 g/dL (6.4-8.2)
[2017-02-18 15:31] LABS: BILIRUBIN,URINE NEGATIVE (NEG); GLUCOSE,URINE NEGATIVE (NEG); NITRITE,URINE NEGATIVE (NEG); PH,URINE 6.5; PROTEIN,URINE NEGATIVE (NEG-TRACE); UROBILINOGEN,URINE 0.2 mg/dL (0.2 mg/dL)
[2017-02-18 15:42] LABS: BACTERIA,URINE 0 /HPF (0-FEW); WBC,URINE OCC /HPF (0-4)
[2017-02-18 15:43] LABS: SQUAMOUS EPITHELIAL CELL,UR FEW /LPF
--- NOTE | 2017-02-18 16:18 | PHYS DOC ---
Past Medical History Past Medical History: Anxiety, Arthritis, Cancer, Depression, GERD, High Cholesterol, Hypertension, Hypothyroid Additional Past Medical Histor: BREAST CANCER Past Surgical History: Cancer Surgery, Cholecystectomy, Knee Replacement, Tonsillectomy, Other Additional Past Surgical Histo: bladder sx, lumpectomy Alcohol Use: None Drug Use: None Adult General Chief Complaint Chief Complaint: SHORTNESS OF BREATH HPI HPI Patient is a 86 year old female who presents with complaint of intermittent shortness of breath and chest pain. The patient states that she started having symptoms at approximately 1000 this morning. Patient states that she started getting sudden episodes of shortness of breath with mild associated left-sided chest pain. Patient states that these episodes would last a few minutes and go away. Patient states that she has otherwise not felt well today and was concerned that she may be having trouble with her heart. The patient was recently admitted to the hospital in January where she was treated for hyponatremia and generalized weakness. At that time felt like she was having palpitations and upon discharge was placed on a Holter monitor. Patient states that she has had the Holter monitor since discharge and was recently released back home from a prison facility where she had been for the past couple weeks. Patient denies any productive cough or fever associated with symptoms. Patient states currently she is asymptomatic. The patient states that she is concerned that she may be having anxiety which could be triggering her episodes. Review of Systems Review of Systems Constitutional: Denies fever or chills [] Eyes: Denies change in visual acuity, redness, or eye pain [] HENT: Denies nasal congestion or sore throat [] Respiratory: Shortness of breath, now resolved [] Cardiovascular: Chest pain, now resolved [] GI: Denies abdominal pain, nausea, vomiting, bloody stools or diarrhea [] : Denies dysuria or hematuria [] Musculoskeletal: Denies back pain or joint pain [] Integument: Denies rash or skin lesions [] Neurologic: Denies headache, focal weakness or sensory changes [] Current Medications Current Medications Current Medications Medications (Trade) Dose Ordered Sig/Michael Start Time Stop Time Status Last Admin Dose Admin Sodium Chloride (Iv Sodium Chloride 0.9% 1000ml Bag) 1,000 ml @ 100 mls/hr Q10H 02/18/17 15:00 02/19/17 00:59 02/18/17 15:19 100 MLS/HR Allergies Allergies Allergies Coded Allergies Type Severity Reaction Last Updated Verified Penicillins Allergy Intermediate Swelling 01/20/17 Yes Sulfa (Sulfonamide Antibiotics) Allergy Intermediate Rash 01/20/17 Yes nabumetone Adverse Reaction Intermediate nausea/vomiting 01/20/17 Yes Physical Exam Physical Exam Constitutional: Alert, afebrile, no acute distress. [] HENT: Normocephalic, atraumatic, bilateral external ears normal, oropharynx moist, no oral exudates, nose normal. [] Eyes: PERRLA, EOMI, conjunctiva normal, no discharge. [] Neck: Normal range of motion, no tenderness, supple, no stridor. [] Cardiovascular:Heart rate regular rhythm, no murmur [] Lungs & Thorax: Bilateral breath sounds clear to auscultation [] Abdomen: Bowel sounds normal, soft, no tenderness, no masses, no pulsatile masses. [] Skin: Warm, dry, no erythema, no rash. [] Back: No tenderness, no CVA tenderness. [] Extremities: No tenderness, no cyanosis, no clubbing, ROM intact, no edema. [] Neurologic: Alert and oriented X 3, normal motor function, normal sensory function, no focal deficits noted. [] Current Patient Data Vital Signs Vital Signs Date Time Temp Pulse Resp B/P Pulse Ox O2 Delivery O2 Flow Rate FiO2 02/18/17 15:19 62 14 175/75 99 02/18/17 14:10 98.3 Room Air 98.3 Lab Values Laboratory Tests Test 02/18/17 14:36 02/18/17 15:04 White Blood Count 5.1x10^3/uL (4.0-11.0) Red Blood Count 3.08x10^6/uL (3.50-5.40) L Hemoglobin 10.2g/dL (12.0-15.5) L Hematocrit 30.9% (36.0-47.0) L Mean Corpuscular Volume 100fL (79-100) Mean Corpuscular Hemoglobin 33pg (25-35) Mean Corpuscular Hemoglobin Concent 33g/dL (31-37) Red Cell Distribution Width 16.7% (11.5-14.5) H Platelet Count 261x10^3/uL (140-400) Neutrophils (%) (Auto) 55% (31-73) Lymphocytes (%) (Auto) 28% (24-48) Monocytes (%) (Auto) 13% (0-9) H Eosinophils (%) (Auto) 4% (0-3) H Basophils (%) (Auto) 1% (0-3) Neutrophils # (Auto) 2.8x10^3uL (1.8-7.7) Lymphocytes # (Auto) 1.4x10^3/uL (1.0-4.8) Monocytes # (Auto) 0.6x10^3/uL (0.0-1.1) Eosinophils # (Auto) 0.2x10^3/uL (0.0-0.7) Basophils # (Auto) 0.1x10^3/uL (0.0-0.2) Sodium Level 132mmol/L (136-145) L Potassium Level 4.6mmol/L (3.5-5.1) Chloride Level 98mmol/L (98-107) Carbon Dioxide Level 27mmol/L (21-32) Anion Gap 7 (6-14) Blood Urea Nitrogen 13mg/dL (7-20) Creatinine 0.8mg/dL (0.6-1.0) Estimated GFR (Cockcroft-Gault) 68.2 BUN/Creatinine Ratio 16 (6-20) Glucose Level 120mg/dL (70-99) H Calcium Level 8.6mg/dL (8.5-10.1) Total Bilirubin 0.4mg/dL (0.2-1.0) Aspartate Amino Transferase (AST) 23U/L (15-37) Alanine Aminotransferase (ALT) 16U/L (14-59) Alkaline Phosphatase 82U/L (46-116) Creatine Kinase 47U/L (26-192) Creatine Kinase MB (Mass) 0.8ng/mL (0.0-3.6) Creatine Kinase MB Relative Index % (0-4) Troponin I Quantitative 0.034ng/mL (0.000-0.055) BX-Eys-A-Type Natriuretic Peptide 501pg/mL (0-449) H Total Protein 6.6g/dL (6.4-8.2) Albumin 3.0g/dL (3.4-5.0) L Albumin/Globulin Ratio 0.8 (1.0-1.7) L Urine Collection Type Unknown Urine Color Yellow Urine Clarity Clear Urine pH 6.5 Urine Specific [place] 1.015 Urine Protein Negativemg/dL (NEG-TRACE) Urine Glucose (UA) Negativemg/dL (NEG) Urine Ketones (Stick) Negativemg/dL (NEG) Urine Blood Negative (NEG) Urine Nitrite Negative (NEG) Urine Bilirubin Negative (NEG) Urine Urobilinogen Dipstick 0.2mg/dL (0.2 mg/dL) Urine Leukocyte Esterase Trace (NEG) Urine RBC 1-2/HPF (0-2) Urine WBC Occ/HPF (0-4) Urine Squamous Epithelial Cells Few/LPF Urine Bacteria 0/HPF (0-FEW) Urine Mucus Slight/LPF Laboratory Tests 02/18/17 14:36 Laboratory Tests 02/18/17 14:36 EKG EKG Interpreted by me: Heart rate 65, sinus rhythm, normal intervals, normal axis, no acute ST/T-wave abnormalities present [] Radiology/Procedures Radiology/Procedures [facility] [address] [place] [address] IMAGING REPORT Signed PATIENT: OMA SHETTY ACCOUNT: [id number] : 1930 LOCATION: ER AGE: 86 SEX: F EXAM STATUS: PRE ER ORD. PHYSICIAN: RHONDA TORRES MD REASON: shortness of breath PROCEDURE: PORTABLE CHEST 1V Exam: AP portable chest. History: Shortness of breath. Comparison: 01/19/2017. Findings: The heart and mediastinal structures are within normal limits for size. Lungs are without infiltrate. No pneumothorax or pleural effusion is appreciated. Aortic atherosclerosis is present. Eventration of right hemidiaphragm is seen. Impression: 1. No acute cardiopulmonary process. DICTATED and SIGNED BY: DESTINY WALTON MD DATE: 02/18/17 1450 CC: RHONDA TORRES MD; RM BURROUGHS ~ [] Course & Med Decision Making Course & Med Decision Making Pertinent Labs and Imaging studies reviewed. (See chart for details) Patient's lab work reviewed and appears unremarkable at this time. I contacted Dr. Peters who was able to review results from the patient's Holter monitor. He stated that the patient did not have any significant tachydysrhythmia events other than occasional sinus tachycardia. He stated that it would be appropriate for the patient to follow-up in the next 2 weeks with the cardiology office and continue with the Holter monitor as ordered. I spoke with the patient who agreed and stated that she would like to go home at this time as she was not having any further symptoms. The patient's symptoms may be triggered by anxiety and we discussed coping skills. Advised return to the emergency department for any worsening symptoms. Patient voiced understanding and in agreement with treatment plan. Dragon Disclaimer Dragon Disclaimer This electronic medical record was generated, in whole or in part, using a voice recognition dictation system. Departure Departure Impression: Primary Impression: Chest pain Disposition: 01 HOME, SELF-CARE Condition: IMPROVED Referrals: RM BURROUGHS (PCP) Patient Instructions: Anxiety and Panic Attacks, Chest Pain (Nonspecific), Holter Monitoring Additional Instructions: Follow-up with Dr. Peters in the next 2 weeks. Return to the emergency department for any worsening symptoms. Problem Qualifiers Primary Impression: Chest pain Chest pain type: unspecified Qualified Code: R07.9 - Chest pain, unspecified RHONDA TORRES MD Feb 18, 2017 16:18
[2017-02-18 16:32] VITALS: BP 184/72
== END 2017-02-18 16:45 | disposition home or self-care (01) ==
LOC: ER 14:00
DX: R07.89 Other chest pain (principal); R06.02 Shortness of breath; R00.0 Tachycardia, unspecified; F41.9 Anxiety disorder, unspecified; M19.90 Unspecified osteoarthritis, unspecified site; F32.9 Major depressive disorder, single episode, unspecified; K21.9 Gastro-esophageal reflux disease without esophagitis; E78.00 Pure hypercholesterolemia, unspecified; I10 Essential (primary) hypertension; E03.9 Hypothyroidism, unspecified; Z88.6 Allergy status to analgesic agent; Z88.2 Allergy status to sulfonamides; Z88.0 Allergy status to penicillin
CPT/HCPCS: 36415; 71010; 80053; 81001; 82553; 83880; 84484; 85027; 87086; 93005; 96360; 99285; J7030

== ENCOUNTER 2017-02-24 07:02 | Emergency (ER) | payer MEDICARE, OTHER ==
--- NOTE | 2017-02-24 07:22 | PHYS DOC ---
Past Medical History Past Medical History: Anxiety, Arthritis, Cancer, Depression, GERD, High Cholesterol, Hypertension, Hypothyroid Additional Past Medical Histor: BREAST CANCER Past Surgical History: Cancer Surgery, Cholecystectomy, Knee Replacement, Tonsillectomy, Other Additional Past Surgical Histo: bladder sx, lumpectomy Alcohol Use: None Drug Use: None Adult General Chief Complaint Chief Complaint: LOWER EXT PAIN HPI HPI 86-year-old presenting with acute right knee pain and significant swelling that occurred in the night. Patient states she has been receiving injections into that knee for pain control by her orthopedic surgeon. She recently had an injection last . She does not have a history of gout. She denies any fever or chills. She denies any recent injury although she does state she had a fall on Tuesday where she fell on her left shoulder does have some noted bruising to her left shoulder and left knee but no bruising is noted to the right knee. She does not believe she injured her right knee in the fall. She was able to ambulate yesterday now states she cannot ambulate secondary to pain in the right knee. She denies any chest pain or SOB. Pt is on eliquis therapy for atrial fibrillation. Review of Systems Review of Systems Constitutional: Denies fever or chills [] Eyes: Denies change in visual acuity, redness, or eye pain [] HENT: Denies nasal congestion or sore throat [] Respiratory: Denies cough or shortness of breath [] Cardiovascular: No additional information not addressed in HPI [] GI: Denies abdominal pain, nausea, vomiting, bloody stools or diarrhea [] : Denies dysuria or hematuria [] Musculoskeletal: Denies back pain, has joint pain [] Integument: Denies rash or skin lesions [] Neurologic: Denies headache, focal weakness or sensory changes [] Endocrine: Denies polyuria or polydipsia [] Current Medications Current Medications Current Medications Medications (Trade) Dose Ordered Sig/Michael Start Time Stop Time Status Last Admin Dose Admin Fentanyl Citrate (Fentanyl 2ml Vial) 50 mcg 1X ONCE 02/24/17 07:30 02/24/17 07:31 DC 02/24/17 07:59 50 MCG Lidocaine/Sodium Bicarbonate (Buffered Lidocaine 1%) 20 ml 1X ONCE 02/24/17 07:30 02/24/17 07:31 DC 02/24/17 08:00 20 ML Allergies Allergies Allergies Coded Allergies Type Severity Reaction Last Updated Verified Penicillins Allergy Intermediate Swelling 02/24/17 Yes Sulfa (Sulfonamide Antibiotics) Allergy Intermediate Rash 02/24/17 Yes nabumetone Adverse Reaction Intermediate nausea/vomiting 02/24/17 Yes Physical Exam Physical Exam Constitutional: Well developed, well nourished, no acute distress, non-toxic appearance. [] HENT: Normocephalic, atraumatic, bilateral external ears normal, oropharynx moist, no oral exudates, nose normal. [] Eyes: PERRLA, EOMI, conjunctiva normal, no discharge. [] Neck: Normal range of motion, no tenderness, supple, no stridor. [] Cardiovascular:Heart rate regular rhythm, no murmur [] Lungs & Thorax: Bilateral breath sounds clear to auscultation [] Abdomen: Bowel sounds normal, soft, no tenderness, no masses, no pulsatile masses. [] Skin: Warm, dry, no erythema, no rash. [] Back: No tenderness, no CVA tenderness. [] Extremities: Moderate tenderness and swelling to the anterior right knee with no obvious erythema or deformity seen, no cyanosis, no clubbing, ROM intact, no edema. [] Neurologic: Alert and oriented X 3, normal motor function, normal sensory function, no focal deficits noted. [] Psychologic: Affect normal, judgement normal, mood normal. [] Current Patient Data Vital Signs Vital Signs Date Time Temp Pulse Resp B/P Pulse Ox O2 Delivery O2 Flow Rate FiO2 02/24/17 07:59 20 96 Room Air 02/24/17 07:10 97.6 65 122/95 97.6 Lab Values Laboratory Tests Test 02/24/17 08:00 White Blood Count 7.2x10^3/uL (4.0-11.0) Red Blood Count 2.95x10^6/uL (3.50-5.40) L Hemoglobin 9.7g/dL (12.0-15.5) L Hematocrit 29.3% (36.0-47.0) L Mean Corpuscular Volume 100fL (79-100) Mean Corpuscular Hemoglobin 33pg (25-35) Mean Corpuscular Hemoglobin Concent 33g/dL (31-37) Red Cell Distribution Width 16.5% (11.5-14.5) H Platelet Count 224x10^3/uL (140-400) Neutrophils (%) (Auto) 68% (31-73) Lymphocytes (%) (Auto) 20% (24-48) L Monocytes (%) (Auto) 9% (0-9) Eosinophils (%) (Auto) 2% (0-3) Basophils (%) (Auto) 1% (0-3) Neutrophils # (Auto) 4.9x10^3uL (1.8-7.7) Lymphocytes # (Auto) 1.5x10^3/uL (1.0-4.8) Monocytes # (Auto) 0.6x10^3/uL (0.0-1.1) Eosinophils # (Auto) 0.1x10^3/uL (0.0-0.7) Basophils # (Auto) 0.1x10^3/uL (0.0-0.2) Sodium Level 131mmol/L (136-145) L Potassium Level 4.4mmol/L (3.5-5.1) Chloride Level 97mmol/L (98-107) L Carbon Dioxide Level 28mmol/L (21-32) Anion Gap 6 (6-14) Blood Urea Nitrogen 13mg/dL (7-20) Creatinine 0.8mg/dL (0.6-1.0) Estimated GFR (Cockcroft-Gault) 68.2 Glucose Level 108mg/dL (70-99) H Calcium Level 8.6mg/dL (8.5-10.1) C-Reactive Protein, Quantitative 2.8mg/L (0-3.3) Laboratory Tests 02/24/17 08:00 Laboratory Tests 02/24/17 08:00 EKG EKG [] Radiology/Procedures Radiology/Procedures Three-view right knee radiographs 02/24/2017 Clinical history: Right knee pain and swelling since last night. Fall 3 days ago. AP, lateral and oblique digital radiographs of the right knee were obtained. No fracture or dislocation of the right knee is seen. Moderate degenerative changes are seen involving all 3 compartments of the right knee. Chondrocalcinosis is seen involving the medial compartment. There is a moderate to large sized right suprapatellar joint effusion. Impression: Moderate to large right suprapatellar joint effusion. No acute fracture or dislocation of the right knee is seen. Right lower extremity venous duplex study 02/24/2017 Clinical History: Right leg pain.. Technique: Using a combination of real time ultrasound imaging and color-flow and pulse Doppler imaging techniques along with graded compression and augmentation, duplex evaluation of the deep venous system of the right lower extremity was performed. Multiple images were obtained. Findings: There is no sonographic evidence of deep venous thrombosis involving the visualized deep venous structures of right lower extremity. Impression: Negative study. Course & Med Decision Making Course & Med Decision Making Pertinent Labs and Imaging studies reviewed. (See chart for details) This 86 yo female is presenting with acute right knee pain and will have laboratory workup and arthrocentesis performed at bedside to rule out any acute cause of her symptoms. Right knee films and a lower extremity doppler will be obtained. Her imaging was unrevealing for any acute finding other than a patellar joint effusion. An attempt at arthrocentesis was unsuccessful for removing any significant joint fluid. Her fluid is likely localized above the joint. Her laboratory workup was unremarkable including her CBC and C-reactive protein level. In light of the fact that she had a recent fall, her knee findings are likely related to her recent traumatic injury and her eliquis therapy. She is set to follow up with an orthopedic surgeon this afternoon and attempt to reach Dr. Copeland's office was made and she was able to have an appointment within the next hour as they had a cancellation. She'll be transported directly to 's office for evaluation. An Bonifacio wrap was placed and a prescription for hydrocodone for the next several days was provided. Dragon Disclaimer Dragon Disclaimer This electronic medical record was generated, in whole or in part, using a voice recognition dictation system. Departure Departure Impression: Primary Impression: Knee effusion, right Disposition: HOME, SELF-CARE Admitting Physician: Other Condition: STABLE Referrals: RM BURROUGHS (PCP) CHA CORTEZ MD Patient Instructions: Knee Effusion, [id number] Additional Instructions: Please follow up with the orthopedic surgeon this afternoon for your knee swelling and take your pain medication as prescribed. Avoid any strenuous activites and ambulate only as needed. Keep the extremity elevated. Return to the ER if you develop any worsening of your symptoms. Scripts Hydrocodone/Apap 5-325 (Jasper 5-325 Tablet)1 Each Tablet1 Tab PO PRN Q6HRS PRN PAIN #10 TAB Ref 0 Prov:AZ MOTLEY DO 02/24/17 AZ MOTLEY DO Feb 24, 2017 07:22
--- NOTE | 2017-02-24 07:27 | RAD ---
Three-view right knee radiographs 02/24/2017 Clinical history: Right knee pain and swelling since last night. Fall 3 days ago. AP, lateral and oblique digital radiographs of the right knee were obtained. No fracture or dislocation of the right knee is seen. Moderate degenerative changes are seen involving all 3 compartments of the right knee. Chondrocalcinosis is seen involving the medial compartment. There is a moderate to large sized right suprapatellar joint effusion. Impression: Moderate to large right suprapatellar joint effusion. No acute fracture or dislocation of the right knee is seen.
[2017-02-24] MEDS ORDERED: LIDOCAINE 1% / SOD BICARB 8.4% 20 ML VIAL. IJ ONE (07:30)
[2017-02-24] MEDS ORDERED: FENTANYL PF 100 MCG/2 ML VIAL. IV ONE (07:30)
[2017-02-24 08:14] LABS: BASO # 0.1 x10^3/uL (0.0-0.2); BASO % 1 % (0-3); EOS % 2 % (0-3); HEMATOCRIT 29.3 % (36.0-47.0); HEMOGLOBIN 9.7 g/dL (12.0-15.5); LYMPH # 1.5 x10^3/uL (1.0-4.8); LYMPH % 20 % (24-48); MEAN CORPUSCULAR HEMOGLOBIN 33 pg (25-35); MEAN CORPUSCULAR HGB CONC 33 g/dL (31-37); MEAN CORPUSCULAR VOLUME 100 fL (79-100); MONO % 9 % (0-9); NEUT % 68 % (31-73); PLATELET COUNT 224 x10^3/uL (140-400); RED BLOOD COUNT 2.95 x10^6/uL (3.50-5.40); RED CELL DISTRIBUTION WIDTH 16.5 % (11.5-14.5); WHITE BLOOD COUNT 7.2 x10^3/uL (4.0-11.0)
[2017-02-24 08:16] LABS: CALCIUM 8.6 mg/dL (8.5-10.1); CREATININE 0.8 mg/dL (0.6-1.0); GFR 68.2; POTASSIUM 4.4 mmol/L (3.5-5.1)
[2017-02-24 08:18] LABS: C-REACTIVE PROTEIN 2.8 mg/L (0-3.3)
--- NOTE | 2017-02-24 08:18 | RAD ---
Right lower extremity venous duplex study 02/24/2017 Clinical History: Right leg pain.. Technique: Using a combination of real time ultrasound imaging and color-flow and pulse Doppler imaging techniques along with graded compression and augmentation, duplex evaluation of the deep venous system of the right lower extremity was performed. Multiple images were obtained. Findings: There is no sonographic evidence of deep venous thrombosis involving the visualized deep venous structures of right lower extremity. Impression: Negative study.
[2017-02-24] MEDS ORDERED: HYDR-971 PO (08:40)
[2017-02-24 09:05] VITALS: BP 164/70
[2017-02-24] MEDS ORDERED: CELE200C PO (17:03)
[2017-02-24] MEDS ORDERED: FEXO180T81 PO (17:05)
[2017-02-24] MEDS ORDERED: LISI40TA PO (17:05)
== END 2017-02-24 09:20 | disposition home or self-care (01) ==
LOC: ER 07:02
DX: M25.461 Effusion, right knee (principal); S40.012A Contusion of left shoulder, initial encounter; S80.02XA Contusion of left knee, initial encounter; F41.9 Anxiety disorder, unspecified; M19.90 Unspecified osteoarthritis, unspecified site; F32.9 Major depressive disorder, single episode, unspecified; K21.9 Gastro-esophageal reflux disease without esophagitis; E78.00 Pure hypercholesterolemia, unspecified; I10 Essential (primary) hypertension; E03.9 Hypothyroidism, unspecified; I48.91 Unspecified atrial fibrillation; Z96.659 Presence of unspecified artificial knee joint; Z79.01 Long term (current) use of anticoagulants; Z88.8 Allergy status to other drugs, medicaments and biological substances; Z88.2 Allergy status to sulfonamides; Z88.0 Allergy status to penicillin; W18.39XA Other fall on same level, initial encounter; Y93.89 Activity, other specified; Y92.89 Other specified places as the place of occurrence of the external cause; Y99.8 Other external cause status
CPT/HCPCS: 20610; 36415; 73562; 80048; 85027; 85651; 86140; 93971; 96374; 99285; J3010

== ENCOUNTER 2017-03-22 21:30 | Inpatient (IN) | payer MEDICARE, OTHER ==
[~2017-03-22] VITALS: Ht 165.1 cm; Wt 73.1 kg
[~2017-03-22 21:30] MED LIST changes: +CETIRIZINE HCL 10 MG TABLET. PO PRN; -GLUC1CAP14 PO; +GLUCOSAMINE 1,1 EACH PO; +HYDR-971 PO
[2017-03-22 22:56] LABS: BASO % 0 % (0-3); EOS % 0 % (0-3); HEMATOCRIT 31.9 % (36.0-47.0); HEMOGLOBIN 10.9 g/dL (12.0-15.5); LYMPH # 0.8 x10^3/uL (1.0-4.8); LYMPH % 10 % (24-48); MEAN CORPUSCULAR HEMOGLOBIN 32 pg (25-35); MEAN CORPUSCULAR HGB CONC 34 g/dL (31-37); MEAN CORPUSCULAR VOLUME 94 fL (79-100); MONO % 8 % (0-9); NEUT % 81 % (31-73); PLATELET COUNT 287 x10^3/uL (140-400); RED CELL DISTRIBUTION WIDTH 15.6 % (11.5-14.5); WHITE BLOOD COUNT 8.2 x10^3/uL (4.0-11.0)
[2017-03-22 23:07] LABS: CALCIUM 9.6 mg/dL (8.5-10.1); CREATININE 0.9 mg/dL (0.6-1.0); GFR 59.4; POTASSIUM 3.9 mmol/L (3.5-5.1)
[2017-03-22 23:12] LABS: BILIRUBIN,URINE NEGATIVE (NEG); GLUCOSE,URINE NEGATIVE (NEG); NITRITE,URINE NEGATIVE (NEG); PROTEIN,URINE 100 mg/dL (NEG-TRACE); UROBILINOGEN,URINE 0.2 mg/dL (0.2 mg/dL)
[2017-03-22 23:13] LABS: ALBUMIN 3.5 g/dL (3.4-5.0); ALBUMIN/GLOBULIN RATIO 0.8 (1.0-1.7); TOTAL BILIRUBIN 0.6 mg/dL (0.2-1.0); TOTAL PROTEIN 7.7 g/dL (6.4-8.2)
[2017-03-22 23:22] LABS: BACTERIA,URINE FEW /HPF (0-FEW); RBC,URINE 0 /HPF (0-2)
[2017-03-22 23:23] LABS: SQUAMOUS EPITHELIAL CELL,UR FEW /LPF
[2017-03-22] MEDS ORDERED: IV NORMAL SALINE 1000ML BAG 1,000 ML IV ONE (23:30)
[2017-03-22] MEDS ORDERED: ASPIRIN CHEWABLE 81 MG TABLET. PO ONE (23:30)
[2017-03-22] MEDS ORDERED: ACETAMINOPHEN 325 MG TABLET. PO PRN (23:45)
--- NOTE | 2017-03-22 23:53 | PHYS DOC ---
Past Medical History Past Medical History: Anxiety, Arthritis, Cancer, Depression, GERD, High Cholesterol, Hypertension, Hypothyroid, Other Additional Past Medical Histor: BREAST CANCER,ETIENNE'S CYST Past Surgical History: Cancer Surgery, Cholecystectomy, Hip Replacement, Knee Replacement, Tonsillectomy, Other Additional Past Surgical Histo: bladder sx, lumpectomy, L knee, R hip Alcohol Use: None Drug Use: None Adult General Chief Complaint Chief Complaint: OVERDOSE HPI HPI Patient is a 87 year old female with history of hypertension who presents here today secondary to generalized weakness and anxiety. Patient reports she feels nervous because she thinks she was taken more of her nighttime medicine than she should've. Patient is not able to the lab 8 any further as to which pills she took and how many she took. Patient is not a great historian. Patient currently denies any other symptomatology other than just generalized weakness. Patient has any fevers shakes chills nausea vomiting diarrhea chest pain shortness of breath abdominal pain. Patient has any cough URI symptoms. Patient has a dysuria frequency or urgency. Patient denies any liver longer kidney problems. Patient has any diabetes CHF or COPD. Patient does not smoke drink or do any drugs. Patient reports she is allergic to penicillin and sulfa drugs. Patient's physical exam and the ER was unremarkable. Patient was alert awake oriented 3 moving all extremities well. Patient's vital signs were within normal limits. Patient's abdomen was soft nontender no rebound or guarding. Patient's lungs are clear without any wheezing rales or rhonchi. Patient's ER hospital course was significant for abnormal labs. Patient had a sodium of 125 and a mildly elevated troponin as well to .056. A/P #1 generalized weakness. Etiology of her weakness is unclear. Initially it was suspicious for possible nontoxic ingestion or unintentional overdose of her medications. Patient was found to have a sodium of 125 and a mildly elevated troponin as well. Patient is otherwise clinically hemodynamically stable. Patient does have euvolemic hyponatremia. Patient will be admitted to the hospital for further evaluation of this. 2. Elevated troponin. Patient's prior was 0.056. Patient is currently asymptomatic. Patient has any chest pain or shortness of breath. Patient was given aspirin in the ED. Patient's EKG was unremarkable. Patient did have some deep inverted T waves in leads V1 to 3 and 4. We will repeat that EKG to make sure that nothing is progressing. Review of Systems Review of Systems Constitutional: Denies fever or chills [] Eyes: Denies change in visual acuity, redness, or eye pain [] All other review systems are negative except as documented in the history of present illness portion. Current Medications Current Medications Current Medications Medications (Trade) Dose Ordered Sig/Michael Start Time Stop Time Status Last Admin Dose Admin Acetaminophen (Tylenol) 650 mg PRN Q4HRS PRN 03/22/17 23:45 03/23/17 23:44 Aspirin (Children'S Aspirin) 324 mg 1X ONCE 03/22/17 23:30 03/22/17 23:31 DC 03/22/17 23:47 324 MG Ondansetron HCl (Zofran) 4 mg PRN Q8HRS PRN 03/22/17 23:45 03/23/17 23:44 Sodium Chloride 1,000 ml @ 1,000 mls/hr 1X ONCE 03/22/17 23:30 03/23/17 00:29 DC 03/22/17 23:48 1,000 MLS/HR Allergies Allergies Allergies Coded Allergies Type Severity Reaction Last Updated Verified Penicillins Allergy Intermediate Swelling 02/24/17 Yes Sulfa (Sulfonamide Antibiotics) Allergy Intermediate Rash 02/24/17 Yes nabumetone Adverse Reaction Intermediate nausea/vomiting 02/24/17 Yes Physical Exam Physical Exam Constitutional: Well developed, well nourished, no acute distress, non-toxic appearance. [] HENT: Normocephalic, atraumatic, bilateral external ears normal, oropharynx moist, no oral exudates, nose normal. [] Eyes: PERRLA, EOMI, conjunctiva normal, no discharge. [] Neck: Normal range of motion, no tenderness, supple, no stridor. [] Cardiovascular:Heart rate regular rhythm, Lungs & Thorax: Bilateral breath sounds clear to auscultation [] Abdomen: Bowel sounds normal, soft, no tenderness, no masses, no pulsatile masses. [] Skin: Warm, dry, no erythema, no rash. [] Back: No tenderness, no CVA tenderness. [] Extremities: No tenderness, no cyanosis, no clubbing, ROM intact, Neurologic: Alert and oriented X 3, normal motor function, normal sensory function, no focal deficits noted. [] Psychologic: Affect normal, judgement normal, mood normal. [] Current Patient Data Vital Signs Vital Signs Date Time Temp Pulse Resp B/P (MAP) Pulse Ox O2 Delivery O2 Flow Rate FiO2 03/22/17 23:31 82 16 135/64 (87) 98 Room Air 03/22/17 21:30 98.1 98.1 Laboratory Tests Test 03/22/17 22:45 03/22/17 22:55 White Blood Count 8.2 x10^3/uL Red Blood Count 3.40 x10^6/uL Hemoglobin 10.9 g/dL Hematocrit 31.9 % Mean Corpuscular Volume 94 fL Mean Corpuscular Hemoglobin 32 pg Mean Corpuscular Hemoglobin Concent 34 g/dL Red Cell Distribution Width 15.6 % Platelet Count 287 x10^3/uL Neutrophils (%) (Auto) 81 % Lymphocytes (%) (Auto) 10 % Monocytes (%) (Auto) 8 % Eosinophils (%) (Auto) 0 % Basophils (%) (Auto) 0 % Neutrophils # (Auto) 6.6 x10^3uL Lymphocytes # (Auto) 0.8 x10^3/uL Monocytes # (Auto) 0.7 x10^3/uL Eosinophils # (Auto) 0.0 x10^3/uL Basophils # (Auto) 0.0 x10^3/uL Sodium Level 125 mmol/L Potassium Level 3.9 mmol/L Chloride Level 89 mmol/L Carbon Dioxide Level 28 mmol/L Anion Gap 8 Blood Urea Nitrogen 17 mg/dL Creatinine 0.9 mg/dL Estimated GFR (Cockcroft-Gault) 59.4 BUN/Creatinine Ratio 19 Glucose Level 131 mg/dL Calcium Level 9.6 mg/dL Total Bilirubin 0.6 mg/dL Aspartate Amino Transf (AST/SGOT) 20 U/L Alanine Aminotransferase (ALT/SGPT) 14 U/L Alkaline Phosphatase 94 U/L Troponin I Quantitative 0.056 ng/mL Total Protein 7.7 g/dL Albumin 3.5 g/dL Albumin/Globulin Ratio 0.8 Lipase 90 U/L Urine Collection Type Unknown Urine Color Yellow Urine Clarity Cloudy Urine pH 6.0 Urine Specific Lena 1.020 Urine Protein 100 mg/dL Urine Glucose (UA) Negative mg/dL Urine Ketones (Stick) Trace mg/dL Urine Blood Negative Urine Nitrite Negative Urine Bilirubin Negative Urine Urobilinogen Dipstick 0.2 mg/dL Urine Leukocyte Esterase Small Urine RBC 0 /HPF Urine WBC 1-4 /HPF Urine Squamous Epithelial Cells Few /LPF Urine Bacteria Few /HPF Urine Mucus Slight /LPF Current Medications Medications (Trade) Dose Ordered Sig/Michael Route PRN Reason Start Time Stop Time Status Last Admin Dose Admin Aspirin (Children'S Aspirin) 324 mg 1X ONCE PO 03/22/17 23:30 03/22/17 23:31 DC 03/22/17 23:47 324 MG Sodium Chloride 1,000 ml @ 1,000 mls/hr 1X ONCE IV 03/22/17 23:30 03/23/17 00:29 DC 03/22/17 23:48 1,000 MLS/HR Ondansetron HCl (Zofran) 4 mg PRN Q8HRS PRN IV NAUSEA/VOMITING 03/22/17 23:45 03/23/17 23:44 Acetaminophen (Tylenol) 650 mg PRN Q4HRS PRN PO FEVER 03/22/17 23:45 03/23/17 23:44 Lab Values Laboratory Tests Test 03/22/17 22:45 03/22/17 22:55 White Blood Count 8.2 x10^3/uL (4.0-11.0) Red Blood Count 3.40 x10^6/uL (3.50-5.40) L Hemoglobin 10.9 g/dL (12.0-15.5) L Hematocrit 31.9 % (36.0-47.0) L Mean Corpuscular Volume 94 fL (79-100) Mean Corpuscular Hemoglobin 32 pg (25-35) Mean Corpuscular Hemoglobin Concent 34 g/dL (31-37) Red Cell Distribution Width 15.6 % (11.5-14.5) H Platelet Count 287 x10^3/uL (140-400) Neutrophils (%) (Auto) 81 % (31-73) H Lymphocytes (%) (Auto) 10 % (24-48) L Monocytes (%) (Auto) 8 % (0-9) Eosinophils (%) (Auto) 0 % (0-3) Basophils (%) (Auto) 0 % (0-3) Neutrophils # (Auto) 6.6 x10^3uL (1.8-7.7) Lymphocytes # (Auto) 0.8 x10^3/uL (1.0-4.8) L Monocytes # (Auto) 0.7 x10^3/uL (0.0-1.1) Eosinophils # (Auto) 0.0 x10^3/uL (0.0-0.7) Basophils # (Auto) 0.0 x10^3/uL (0.0-0.2) Sodium Level 125 mmol/L (136-145) L Potassium Level 3.9 mmol/L (3.5-5.1) Chloride Level 89 mmol/L (98-107) L Carbon Dioxide Level 28 mmol/L (21-32) Anion Gap 8 (6-14) Blood Urea Nitrogen 17 mg/dL (7-20) Creatinine 0.9 mg/dL (0.6-1.0) Estimated GFR (Cockcroft-Gault) 59.4 BUN/Creatinine Ratio 19 (6-20) Glucose Level 131 mg/dL (70-99) H Calcium Level 9.6 mg/dL (8.5-10.1) Total Bilirubin 0.6 mg/dL (0.2-1.0) Aspartate Amino Transferase (AST) 20 U/L (15-37) Alanine Aminotransferase (ALT) 14 U/L (14-59) Alkaline Phosphatase 94 U/L (46-116) Troponin I Quantitative 0.056 ng/mL (0.000-0.055) Total Protein 7.7 g/dL (6.4-8.2) Albumin 3.5 g/dL (3.4-5.0) Albumin/Globulin Ratio 0.8 (1.0-1.7) L Lipase 90 U/L (73-393) Urine Collection Type Unknown Urine Color Yellow Urine Clarity Cloudy Urine pH 6.0 Urine Specific Lena 1.020 Urine Protein 100 mg/dL (NEG-TRACE) Urine Glucose (UA) Negative mg/dL (NEG) Urine Ketones (Stick) Trace mg/dL (NEG) Urine Blood Negative (NEG) Urine Nitrite Negative (NEG) Urine Bilirubin Negative (NEG) Urine Urobilinogen Dipstick 0.2 mg/dL (0.2 mg/dL) Urine Leukocyte Esterase Small (NEG) Urine RBC 0 /HPF (0-2) Urine WBC 1-4 /HPF (0-4) Urine Squamous Epithelial Cells Few /LPF Urine Bacteria Few /HPF (0-FEW) Urine Mucus Slight /LPF Laboratory Tests 03/22/17 22:45 Laboratory Tests 03/22/17 22:45 EKG EKG [] Patient's EKG revealed normal sinus rhythm at a heart rate of 80. Patient has nonspecific ST-T wave abnormalities. Patient does have significant only inverted T waves in leads V1 through V4. Patient had repeat EKG performed approximately 2 hours after the initial EKG which did not reveal any significant changes. Patient was asked multiple times throughout her ER stay and has completely denied any chest pain or shortness of breath throughout. Although the patient to come in for weakness I doubt that this is her anginal- type equivalent. I highly doubt that the EKG currently is concerning for coronary artery disease however the prospect of a Wellens sign on her EKG has been raised by me. I was able to review one of her old EKGs and these deep inverted T waves were not there. Patient had a repeat troponin level that was ordered which was slightly elevated. We will have cardiology evaluate this in the morning as patient currently is pain-free and I do not think that she would be a candidate for emergent cardiac catheterization at this time given no symptoms. Radiology/Procedures Radiology/Procedures [Critical care time of 35 minutes were utilizing a treatment and this patient's care. Critical care time was utilized and management of her severe hyponatremia. Critical care was utilized and management of her non-ST elevation IA. Patient has a troponin of 0.056. Critical care time was utilized and evaluation treatment of her possible overdose. This was all exclusive of any procedures performed in the ER. Course & Med Decision Making Course & Med Decision Making Pertinent Labs and Imaging studies reviewed. (See chart for details) [] Dragon Disclaimer Dragon Disclaimer This electronic medical record was generated, in whole or in part, using a voice recognition dictation system. Departure Departure Impression: Primary Impression: Hyponatremia Additional Impressions: Weakness Non-STEMI (non-ST elevated myocardial infarction) Abnormal EKG Disposition: ADMITTED INPATIENT Admitting Physician: Other (reusch) Condition: GUARDED Referrals: RM BURROUGHS (PCP) Problem Qualifiers MAYNOR ROBLES MD March 22, 2017 23:53
[2017-03-23] VITALS (7 sets, daily range): BP systolic 137–170; BP diastolic 61–75
--- NOTE | 2017-03-23 00:24 | ACF ---
Admission Forms Criteria HYPONATREMIA; HYPERNATREMIA; HYPOKALEMIA; HYPERKALEMIA; HYPOCALCEMIA; HYPERCALCEMIA Clinical Indications for Inpatient Care (Place 'X' for any and all applicable criteria): Ongoing inpatient care may be indicated for ANY ONE of the following [G](1)(2)(3 )(5): [X]I. Hyponatremia with ANY ONE of the following: [X]a) Sodium less than 130 mEq/L (mmol/L) (new) (6)(22) [ ]b) Sodium less than 135 mEq/L (mmol/L) with ANY ONE of the following: [ ]i) Severe medical etiology requiring inpatient management (eg, heart failure, hypovolemia) [ ]ii) Altered mental status [ ]iii) Seizures [ ]II. Hypernatremia with ANY ONE of the following: [ ]a) Sodium greater than 155 mEq/L (mmol/L) [ ]b) Sodium greater than 150 mEq/L (mmol/L) with ANY ONE of the following: [ ] i) Altered mental status [ ]ii) Seizures [ ]iii) Severe medical etiology (eg, hypovolemia, diabetes insipidus) [ ]iv) Severe weakness [ ]v) Severe medical etiology (eg, hemolysis, infection, drug overdose) [ ]III. Hypokalemia with ANY ONE of the following: [ ]a) Potassium less than 2.5 mEq/L (mmol/L) despite outpatient and emergency treatment [ ]b) Potassium less than 3.0 mEq/L (mmol/L) with ANY ONE of the following: [ ]i) Weakness [ ]ii) Cardiac abnormality (eg, arrhythmia, conduction disturbance) [ ]iii) Cardiac ischemia [ ]iv) Ileus [ ]v) Ongoing medical cause requiring inpatient management. ( e.g., acute renal wasting, SIADH) [ ]vi) Other severe symptoms [ ] IV. Hyperkalemia with ANY ONE of the following: [ ]a) Potassium greater than 6.5 mEq/L (mmol/L) [ ]b) Potassium greater than 5 mEq/L (mmol/L) with ANY ONE of the following: [ ]i) Severe ECG findings [H] [ ]ii) Acute worsening of renal failure (creatinine greater than 2.5 mg/dL (221 micromoles/L) or significant elevation for age and size) [ ] V. Hypocalcemia with ANY ONE of the following: [ ]a) Calcium less than 7 mg/dL (1.75 mmol/L) despite outpatient and emergency treatment(19) [ ]b) Calcium less than 8 mg/dL (2 mmol/L) with significant symptoms or findings; examples include: [ ]i) Cardiac abnormality (eg, arrhythmia or conduction disturbance) [ ]ii) Altered mental status [ ]iii) Seizures [ ]iv) Breathing difficulty [ ]v) Muscle spasms [ ]. Hypercalcemia with ANY ONE of the following: [ ]a) Calcium greater than 14 mg/dL (3.5 mmol/L) [ ]b) Calcium greater than 12 mg/dL (3 mmol/L) with ANY ONE of the following: [ ]i) Significant dehydration or hypovolemia as indicated by ANY ONE of the following(2): [ ]1. Clinically significant dehydration as indicated by ANY ONE of the following: [ ]A. Acute loss of weight from baseline (5% of body weight in adults, 9% in pediatric patients) [ ]B. Hemodynamic instability [ ]C. Acute renal failure [ ]D. Serum sodium greater than 150 mEq/L (mmol/L) [ ]2) Dehydration that is persistent indicated by ALL of the following: [ ]A. Oral rehydration therapy not tolerated or insufficient to adequately correct dehydration [ ]B. Appropriate intravenous treatment (eg, fluids ) does not readily correct dehydration ie, after 12 to 24 hours of treatment) [ ]ii) Significant symptoms or findings; examples include: [ ]1) Altered mental status [ ]2) Cardiac abnormality (eg, arrhythmia, conduction disturbance) [ ]3) Cardiac abnormality (eg, arrhythmia, conduction disturbance) The original [facility] content created by [facility] has been revised. The portions of the content which have been revised are identified through the use of italic text or in bold, and [facility] has neither reviewed nor approved the modified material. All other unmodified content is copyright [facility] [place], [place] [employer] Please see references footnoted in the original [facility] [place] [place] [employer] edition 2016 Admission Criteria Met?: Yes ALEJANDRO GONZALEZ March 23, 2017 00:24
[2017-03-23] MEDS: IV NORMAL SALINE 1000ML BAG 1,000 ML IV SCH ×3 (03:26→19:26)
[2017-03-23] MEDS: ONDANSETRON PF 4 MG/2 ML VIAL. IV PRN ×2 (06:19→11:01)
[2017-03-23 06:30] LABS: BASO % 0 % (0-3); EOS % 0 % (0-3); HEMATOCRIT 29.5 % (36.0-47.0); HEMOGLOBIN 10.1 g/dL (12.0-15.5); LYMPH # 1.2 x10^3/uL (1.0-4.8); LYMPH % 16 % (24-48); MEAN CORPUSCULAR HEMOGLOBIN 32 pg (25-35); MEAN CORPUSCULAR HGB CONC 34 g/dL (31-37); MEAN CORPUSCULAR VOLUME 95 fL (79-100); MONO % 12 % (0-9); NEUT % 72 % (31-73); PLATELET COUNT 266 x10^3/uL (140-400); RED BLOOD COUNT 3.12 x10^6/uL (3.50-5.40); WHITE BLOOD COUNT 7.6 x10^3/uL (4.0-11.0)
--- NOTE | 2017-03-23 07:15 | RAD ---
Exam performed: One view chest. Indication: Dizziness today Date of Service: 03/23/2017 1:25 AM Comparison: Single view chest from 02/18/17. Single AP upright portable view chest findings: Cardiomediastinal silhouette is within limits of normal. Atheromatous calcification of the aortic knob. No acute infiltrates, effusion or pneumothorax is detected. The bony structures are normal. Impression: No acute cardiopulmonary process is detected.
--- NOTE | 2017-03-23 07:50 | EKG ---
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
--- NOTE | 2017-03-23 07:51 | EKG ---
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
--- NOTE | 2017-03-23 10:11 | PDOC2 ---
PHU DUMONT TELEVISION SERVICE ENGINEER 03/23/17 1011: CARDIAC CONSULT DATE OF CONSULT Date of Consult DATE: 03/23/17 TIME: 10:11 REASON FOR CONSULT Reason for Consult: elevated troponin REFERRING PHYSICIAN Referring Physician: Dr. Ramos Mendenhall SOURCE Source: Chart review, Patient HISTORY OF PRESENT ILLNESS HISTORY OF PRESENT ILLNESS 87 year old female admitted through the ER with weakness and anxiety as well as nausea and gagging. ? confusion yesterday evening as she went to the neighbor's house for assistance rather than calling her daughter or calling 911. Denies chest pain, dyspnea, dizziness, lightheadedness, syncope or lower extremity edema. Found to be hyponatremic with sodium level of 125 which is lower than she has been previously. Nephrology previously recommended discontinuation of SSRI and/or ACEI and she was reluctant to do this. ER diagnosed pt with NSTEMI, however, troponin peaked @ 0.064. No acute changes in EKG and with T wave inversions in V1-V4 which are unchanged. Cardiac cath in January did not demonstrate significant disease. Reason for Visit: elevated troponin PAST MEDICAL HISTORY Past Medical History Cardiovascular: HTN, Hyperlipidemia, atrial fibrillation, VT vs aberrant atrial fib Pulmonary: Bronchitis (01/2017) GI: GERD Heme/Onc: Cancer (right breast) Psych: Anxiety, Depression Musculoskeletal: Osteoarthritis (DJD) Endocrine: Hypothyroidism, hyponatremia PAST SURGICAL HISTORY Past Surgical History Cholecystectomy, Total hip replacement (right), Total knee replacement (left), Other (bladder surgery; lumpectomy) FAMILY HISTORY Family History: Other (non-contributory) SOCIAL HISTORY Social History Smoke: No ALCOHOL: none Drugs: None Lives: Alone ( in NH due to dementia) CURRENT MEDICATIONS CURRENT MEDICATIONS Current Medications Medications (Trade) Dose Ordered Sig/Michael Route PRN Reason Start Time Stop Time Status Last Admin Dose Admin Aspirin (Children'S Aspirin) 324 mg 1X ONCE PO 03/22/17 23:30 03/22/17 23:31 DC 03/22/17 23:47 Sodium Chloride 1,000 ml @ 1,000 mls/hr 1X ONCE IV 03/22/17 23:30 03/23/17 00:29 DC 03/22/17 23:48 Ondansetron HCl (Zofran) 4 mg PRN Q8HRS PRN IV NAUSEA/VOMITING 03/22/17 23:45 03/23/17 23:44 03/23/17 06:19 Sodium Chloride 1,000 ml @ 125 mls/hr Q8H IV 03/23/17 01:30 03/23/17 03:26 ALLERGIES ALLERGIES: Coded Allergies: Penicillins (Verified Allergy, Intermediate, Swelling, 02/24/17) Sulfa (Sulfonamide Antibiotics) (Verified Allergy, Intermediate, Rash, ) nabumetone (Verified Adverse Reaction, Intermediate, nausea/vomiting, 02/24) PHYSICAL EXAM General: Alert, Cooperative, No acute distress, Other (mildly confuses regarding day of week and events) HEENT: Atraumatic, PERRLA Lungs: Clear to auscultation Heart: Regular rate, Normal S1, Normal S2, No murmurs Abdomen: Normal bowel sounds, Soft, No tenderness Extremities: No edema, Normal pulses Skin: No rashes Neuro: Normal gait Psych/Mental Status: Mental status NL, Mood NL MUSCULOSKELETAL: Osteoarthritic changes both hands VITALS VITALS Vital Signs Date Time Temp Pulse Resp B/P (MAP) Pulse Ox O2 Delivery O2 Flow Rate FiO2 03/23/17 08:12 Room Air 03/23/17 07:45 98.9 84 20 137/65 (89) 96 98.9 LABS Lab: Laboratory Tests Test 03/22/17 22:45 03/22/17 22:55 03/23/17 00:35 03/23/17 05:30 White Blood Count 8.2 x10^3/uL (4.0-11.0) 7.6 x10^3/uL (4.0-11.0) Red Blood Count 3.40 x10^6/uL (3.50-5.40) 3.12 x10^6/uL (3.50-5.40) Hemoglobin 10.9 g/dL (12.0-15.5) 10.1 g/dL (12.0-15.5) Hematocrit 31.9 % (36.0-47.0) 29.5 % (36.0-47.0) Mean Corpuscular Volume 94 fL (79-100) 95 fL (79-100) Mean Corpuscular Hemoglobin 32 pg (25-35) 32 pg (25-35) Mean Corpuscular Hemoglobin Concent 34 g/dL (31-37) 34 g/dL (31-37) Red Cell Distribution Width 15.6 % (11.5-14.5) 16.0 % (11.5-14.5) Platelet Count 287 x10^3/uL (140-400) 266 x10^3/uL (140-400) Neutrophils (%) (Auto) 81 % (31-73) 72 % (31-73) Lymphocytes (%) (Auto) 10 % (24-48) 16 % (24-48) Monocytes (%) (Auto) 8 % (0-9) 12 % (0-9) Eosinophils (%) (Auto) 0 % (0-3) 0 % (0-3) Basophils (%) (Auto) 0 % (0-3) 0 % (0-3) Neutrophils # (Auto) 6.6 x10^3uL (1.8-7.7) 5.5 x10^3uL (1.8-7.7) Lymphocytes # (Auto) 0.8 x10^3/uL (1.0-4.8) 1.2 x10^3/uL (1.0-4.8) Monocytes # (Auto) 0.7 x10^3/uL (0.0-1.1) 0.9 x10^3/uL (0.0-1.1) Eosinophils # (Auto) 0.0 x10^3/uL (0.0-0.7) 0.0 x10^3/uL (0.0-0.7) Basophils # (Auto) 0.0 x10^3/uL (0.0-0.2) 0.0 x10^3/uL (0.0-0.2) Sodium Level 125 mmol/L (136-145) Potassium Level 3.9 mmol/L (3.5-5.1) Chloride Level 89 mmol/L (98-107) Carbon Dioxide Level 28 mmol/L (21-32) Anion Gap 8 (6-14) Blood Urea Nitrogen 17 mg/dL (7-20) Creatinine 0.9 mg/dL (0.6-1.0) Estimated GFR (Cockcroft-Gault) 59.4 BUN/Creatinine Ratio 19 (6-20) Glucose Level 131 mg/dL (70-99) Calcium Level 9.6 mg/dL (8.5-10.1) Total Bilirubin 0.6 mg/dL (0.2-1.0) Aspartate Amino Transf (AST/SGOT) 20 U/L (15-37) Alanine Aminotransferase (ALT/SGPT) 14 U/L (14-59) Alkaline Phosphatase 94 U/L (46-116) Troponin I Quantitative 0.056 ng/mL (0.000-0.055) 0.064 ng/mL (0.000-0.055) 0.055 ng/mL (0.000-0.055) Total Protein 7.7 g/dL (6.4-8.2) Albumin 3.5 g/dL (3.4-5.0) Albumin/Globulin Ratio 0.8 (1.0-1.7) Lipase 90 U/L (73-393) Urine Collection Type Unknown Urine Color Yellow Urine Clarity Cloudy Urine pH 6.0 Urine Specific [place] 1.020 Urine Protein 100 mg/dL (NEG-TRACE) Urine Glucose (UA) Negative mg/dL (NEG) Urine Ketones (Stick) Trace mg/dL (NEG) Urine Blood Negative (NEG) Urine Nitrite Negative (NEG) Urine Bilirubin Negative (NEG) Urine Urobilinogen Dipstick 0.2 mg/dL (0.2 mg/dL) Urine Leukocyte Esterase Small (NEG) Urine RBC 0 /HPF (0-2) Urine WBC 1-4 /HPF (0-4) Urine Squamous Epithelial Cells Few /LPF Urine Bacteria Few /HPF (0-FEW) Urine Mucus Slight /LPF IMAGES IMAGES CXR - no acute process EKG EKG no acute changes; T wave inversions V1-V4 ECHOCARDIOGRAM ECHOCARDIOGRAM 01/18/2017: TTE: The left ventricular systolic function is normal. The Ejection Fraction is 60-65%. There is normal LV segmental wall motion. Transmitral Doppler flow pattern is Grade I-abnormal relaxation pattern. Trace aortic regurgitation. There is no evidence of significant pericardial effusion. HEART CATH HEART CATH 01/21/2017: FINDINGS a. The left main coronary artery arose from the left sinus of Valsalva, gave rise to the left anterior descending and left circumflex arteries and did not show any significant stenosis. b. The left anterior descending artery did not show any significant stenosis. c. The left circumflex artery did not show any significant stenosis. d. The right coronary artery was a large and dominant vessel arising from the right sinus of Valsalva that did not show any significant stenosis. Conclusion No significant coronary disease ASSESSMENT/PLAN ASSESSMENT/PLAN 1. elevated troponin level trivial elevation and not consistent with ACS no acute changes in EKG and T wave inversions unchanged from 02/2017 cardiac cath 01/2017 without significant disease no further cardiac evaluation indicated 2. hyponatremic ? related to SSRI potentially agreeable to weaning off SSRI now IV fluids infusing 3. PAF currently NSR continue rate controlling agents and anti-arrhythmic off OAC due to fall risk 4. HTN control with meds 5. hypothyroidism on replacement therapy Patient and daughter agreeable with return to [facility] after discharge for rehab. Problems: FABIOLA CRUZ MD 03/23/17 1609: CARDIAC CONSULT ALLERGIES ALLERGIES: Coded Allergies: Penicillins (Verified Allergy, Intermediate, Swelling, 02/24/17) Sulfa (Sulfonamide Antibiotics) (Verified Allergy, Intermediate, Rash, ) nabumetone (Verified Adverse Reaction, Intermediate, nausea/vomiting, 02/24) ASSESSMENT/PLAN ASSESSMENT/PLAN Patient seen and examined. Agree with RN OBSERVATION's assessment and plan. Troponin level slightly elevated but EKG without acute changes and recent cardiac catheterization did not show any significant coronary artery stenosis. Doubt ACS. Recent 2-D echo showed normal LV systolic function. Patient has history of paroxysmal atrial fibrillation but is presently in sinus rhythm. She is poor candidate for long-term anticoagulation due to fall risk. Continue management of hyponatremia per primary team. Thank you for your consultation. Problems: PHU DUMONT APRN March 23, 2017 10:11 FABIOLA CRUZ MD March 23, 2017 16:09
[2017-03-23] MEDS ORDERED: METO25TA4 PO (10:12)
[2017-03-23] MEDS: LEVOTHYROXINE 88 MCG TABLET PO SCH (11:42)
[2017-03-23] MEDS: ASPIRIN CHEWABLE 81 MG TABLET. PO SCH (11:44)
[2017-03-23] MEDS: AMIODARONE HCL 200 MG TABLET. PO SCH (11:47)
[2017-03-23] MEDS: METOPROLOL TART IMMED RELEASE 25 MG TABLET. PO SCH ×2 (11:48→20:25)
[2017-03-23] MEDS ORDERED: HYDROcodone/APAP 5/325MG 1 TAB TABLET PO PRN (14:30)
[2017-03-23] MEDS ORDERED: ACETAMINOPHEN 500 MG TABLET PO PRN (14:30)
[2017-03-23] MEDS ORDERED: LISINOPRIL 40 MG TABLET. PO SCH (15:00)
[2017-03-23 15:04] LABS: CALCIUM 8.7 mg/dL (8.5-10.1); CREATININE 0.8 mg/dL (0.6-1.0); POTASSIUM 3.6 mmol/L (3.5-5.1)
[2017-03-23] MEDS: CHOLECALCIFEROL (VITAMIN D3) 1,000 UNIT TABLET PO SCH (15:27)
[2017-03-23] MEDS: busPIRone 10 MG TABLET. PO SCH ×2 (15:27→20:24)
[2017-03-23] MEDS: CELECOXIB 200 MG CAPSULE. PO SCH (15:27)
[2017-03-23] MEDS: PANTOPRAZOLE 40 MG TABLET.DR. PO SCH (15:27)
[2017-03-23] MEDS: DEMECLOCYCLINE HCL 150 MG TABLET. PO SCH ×2 (16:30→20:25)
[2017-03-23] MEDS: LATANOPROST 0.005% OPHTH SOLUTION 2.5ML BOTTLE. OU SCH (20:23)
[2017-03-23] MEDS: ATORVASTATIN CALCIUM 10 MG TABLET. PO SCH (20:25)
[2017-03-23] MEDS: OMEGA-3 FATTY ACIDS/FISH OIL 1,000 MG CAPSULE. PO SCH (20:26)
[2017-03-23] MEDS ORDERED: APIXABAN 5 MG TABLET. PO SCH (21:00)
[2017-03-23] MEDS ORDERED: AMIODARONE HCL 200 MG TABLET. PO SCH (21:00)
--- NOTE | 2017-03-23 21:58 | HP ---
ADMIT DATE: 03/23/2017 CHIEF COMPLAINT: Weakness, nausea. HISTORY OF PRESENT ILLNESS: The patient is an 87-year-old woman who presented from home when she experienced generalized weakness as well as increased anxiety. She relates that she is not sure how many of her meclizine she has actually taken; it may have been over the limit. She has really no other symptoms other than generalized weakness. However, family members and neighbors had noted some confusion a night before as well as earlier today, which now seemed to be resolved. The patient was admitted after being found with minimal troponin leak. She does have a history of CAD with recent catheterization in January being clean. PAST MEDICAL HISTORY: CAD, hypertension, hypercholesterolemia, anxiety, depression, GERD, hypothyroidism, osteoarthritis, status post hip and knee replacement. She is also status post cholecystectomy, tonsillectomy, bladder surgery, partial mastectomy for breast cancer. FAMILY HISTORY: No other family members with heart disease. SOCIAL HISTORY: Lives by herself. No toxic habits. Her is in a memory care unit due to Alzheimer's. ALLERGIES: SULFA, PENICILLINS AND NABUMETONE. MEDICATIONS: MAR reconciled with home medications. REVIEW OF SYSTEMS: The patient actually feels much better, well-seated in bed. She denies any focal symptoms. PHYSICAL EXAMINATION: VITAL SIGNS: From today show a blood pressure of 149/67, heart rate of 87, temperature at 99.5. GENERAL: This is a well-nourished, well-developed 87-year-old woman appearing younger than her stated age. She is alert and oriented, in no acute distress. HEENT: Shows no scleral icterus. NECK: Supple. LUNGS: Clear. HEART: Has regular rate and rhythm without any murmurs. ABDOMEN: Has positive bowel sounds, soft, nontender. EXTREMITIES: Show no edema. SKIN: Warm, soft and dry without any rash. LABORATORY DATA: CBC with a WBC of 7.6, hemoglobin 10.1, platelets of 266. Chemistries with a BUN and creatinine of 17 and 0.8, sodium at 127 (of note, she typically has a sodium of around 130-132). Rest of the electrolytes are essentially within normal limits. Troponins stable at 0.056, 0.064, 0.055. ASSESSMENT AND PLAN: The patient is an 87-year-old woman with known heart history, but recent catheterization without any acute issues. She really has had no cardiac symptoms. Her troponin clearly is stable essentially ruling out acute coronary syndrome. Greatly appreciate Cardiology service input on this matter. The patient also carries a history of paroxysmal atrial fibrillation. She has currently actually normal sinus rhythm. A decision in the past had been made against chronic anticoagulation due to multiple falls. We will monitor here. 1. Hyponatremia is not new, although is slightly lower today than it had been in the past. We will continue normal saline IV. Monitor sodium. She actually had been seen by Nephrology on an outpatient basis and the question of dual psychiatric medications causing the electrolyte abnormality was raised. The patient has been disagreeable to dropping one of these. Given a diagnosis of depression and difficulties with recurrent symptoms as well as headaches and other withdrawal symptoms, we will stop Paxil for now. Continue very low dose BuSpar for now. She will also continue on demeclocycline t.i.d. for her sodium. All other home medications will be continued as well. Discussion was held with the patient that she probably is no longer safe all by herself. Family apparently had been working in that direction for some time. The patient relates that she actually had been visiting assisted living facilities last week, but had not made any decisions. She is, however, open to the idea now. We will obtain a social work consult to assist with placement. EDEN VALADEZ MD DR: UR/nts JOB#: [id number] / [id number] RM Small MD MTDD
[2017-03-24 03:40] VITALS: BP 173/78
[2017-03-24] MEDS: IV NORMAL SALINE 1000ML BAG 1,000 ML IV SCH ×3 (03:52→21:17)
[2017-03-24 07:30] VITALS: BP 150/64
[2017-03-24 08:18] LABS: CALCIUM 8.3 mg/dL (8.5-10.1); CREATININE 0.7 mg/dL (0.6-1.0); GFR 79.3; POTASSIUM 3.6 mmol/L (3.5-5.1)
[2017-03-24] MEDS: OMEGA-3 FATTY ACIDS/FISH OIL 1,000 MG CAPSULE. PO SCH ×2 (09:00→20:42)
[2017-03-24 09:01] LABS: BASO % 0 % (0-3); EOS % 0 % (0-3); HEMATOCRIT 27.9 % (36.0-47.0); HEMOGLOBIN 9.6 g/dL (12.0-15.5); LYMPH # 1.6 x10^3/uL (1.0-4.8); LYMPH % 17 % (24-48); MEAN CORPUSCULAR HEMOGLOBIN 33 pg (25-35); MEAN CORPUSCULAR HGB CONC 34 g/dL (31-37); MEAN CORPUSCULAR VOLUME 95 fL (79-100); MONO % 11 % (0-9); NEUT % 72 % (31-73); PLATELET COUNT 266 x10^3/uL (140-400); RED BLOOD COUNT 2.94 x10^6/uL (3.50-5.40); RED CELL DISTRIBUTION WIDTH 15.7 % (11.5-14.5); WHITE BLOOD COUNT 9.1 x10^3/uL (4.0-11.0)
[2017-03-24] MEDS: CHOLECALCIFEROL (VITAMIN D3) 1,000 UNIT TABLET PO SCH (09:43)
[2017-03-24] MEDS: PANTOPRAZOLE 40 MG TABLET.DR. PO SCH (09:43)
[2017-03-24] MEDS: ASPIRIN CHEWABLE 81 MG TABLET. PO SCH (09:44)
[2017-03-24] MEDS: busPIRone 10 MG TABLET. PO SCH ×2 (09:45→20:42)
[2017-03-24] MEDS: CELECOXIB 200 MG CAPSULE. PO SCH (09:45)
[2017-03-24] MEDS: LEVOTHYROXINE 88 MCG TABLET PO SCH (09:45)
[2017-03-24] MEDS: METOPROLOL TART IMMED RELEASE 25 MG TABLET. PO SCH ×2 (09:45→20:43)
[2017-03-24] MEDS: AMIODARONE HCL 200 MG TABLET. PO SCH (09:46)
[2017-03-24] MEDS: DEMECLOCYCLINE HCL 150 MG TABLET. PO SCH ×3 (09:47→20:42)
--- NOTE | 2017-03-24 10:02 | PDOC ---
BETH SHAFFER ALUMINUM MOLDER 03/24/17 1002: CARDIO Progress Notes Date and Time Date of Service 03/24/2017 Time of Evaluation 1000 Subjective Subjective: No Chest Pain, No shortness of breath, No Palpitations, No Dizziness Vitals Vitals Vital Signs Date Time Temp Pulse Resp B/P (MAP) Pulse Ox O2 Delivery O2 Flow Rate FiO2 03/24/17 09:46 75 150/64 03/24/17 07:30 98.8 18 92 Room Air 98.8 Weight Weight [ ] Input and Output Intake and Output Intake and Output 03/24/17 07:00 Intake Total 1400 ml Output Total 500 ml Balance 900 ml IV Total 1400 ml Output Urine Total 500 ml # Voids 3 Laboratory Labs Laboratory Tests Test 03/23/17 11:40 03/24/17 07:55 Troponin I Quantitative 0.054 ng/mL (0.000-0.055) White Blood Count 9.1 x10^3/uL (4.0-11.0) Red Blood Count 2.94 x10^6/uL (3.50-5.40) Hemoglobin 9.6 g/dL (12.0-15.5) Hematocrit 27.9 % (36.0-47.0) Mean Corpuscular Volume 95 fL (79-100) Mean Corpuscular Hemoglobin 33 pg (25-35) Mean Corpuscular Hemoglobin Concent 34 g/dL (31-37) Red Cell Distribution Width 15.7 % (11.5-14.5) Platelet Count 266 x10^3/uL (140-400) Neutrophils (%) (Auto) 72 % (31-73) Lymphocytes (%) (Auto) 17 % (24-48) Monocytes (%) (Auto) 11 % (0-9) Eosinophils (%) (Auto) 0 % (0-3) Basophils (%) (Auto) 0 % (0-3) Neutrophils # (Auto) 6.5 x10^3uL (1.8-7.7) Lymphocytes # (Auto) 1.6 x10^3/uL (1.0-4.8) Monocytes # (Auto) 1.0 x10^3/uL (0.0-1.1) Eosinophils # (Auto) 0.0 x10^3/uL (0.0-0.7) Basophils # (Auto) 0.0 x10^3/uL (0.0-0.2) Sodium Level 128 mmol/L (136-145) Potassium Level 3.6 mmol/L (3.5-5.1) Chloride Level 95 mmol/L (98-107) Carbon Dioxide Level 24 mmol/L (21-32) Anion Gap 9 (6-14) Blood Urea Nitrogen 13 mg/dL (7-20) Creatinine 0.7 mg/dL (0.6-1.0) Estimated GFR (Cockcroft-Gault) 79.3 Glucose Level 94 mg/dL (70-99) Calcium Level 8.3 mg/dL (8.5-10.1) Physical Exam HEENT: Neck Supple W Full Motion Chest: Symmetric LUNGS: Clear to Auscultation Heart: S1S2, RRR Abdomen: Soft N/T Extremities: No Calf Tenderness Neurology: alert, oriented, follow commands Assessment Assessment 1. Elevated troponin level trivial elevation and not consistent with ACS cardiac cath 01/2017 without significant disease no further cardiac evaluation indicated 2. Hyponatremia: Na 128 ? related to SSRI potentially agreeable to weaning off SSRI now IV fluids infusing. Per PCP No ACEi/ARB at this time 3. PAF Remains NSR continue rate controlling agents and anti-arrhythmic off OAC due to fall risk ASA for stoke prevention 4. HTN labile Start norvasc while of lisinopril. Follow up in office as scheduled. 5. hypothyroidism on replacement therapy FABIOLA CRUZ MD 03/24/17 9629: CARDIO Progress Notes Assessment Assessment Patient seen and examined. Agree with IT QUALITY ANALYST's assessment and plan. Troponin level slightly elevated but recent cardiac catheterization did not show any significant coronary artery stenosis. Doubt ACS. Maintaining sinus rhythm. She is poor candidate for long-term anticoagulation due to fall risk. Continue management of hyponatremia per BETH CARR APRN March 24, 2017 10:02 FABIOLA CRUZ MD March 24, 2017 15:59
[2017-03-24 10:17] VITALS: BP 168/67
--- NOTE | 2017-03-24 11:56 | PDOC ---
PROGRESS NOTES Chief Complaint Chief Complaint Hyponatremia Elevated troponin ASSESSMENT AND PLAN: 1. Top elevation: chronic. no acute issues. 2. CAD: stable. "clean' cath in january.cont 2ary prevention meds 3. PAF: currently in NSR. no anticoag 2/2 frequent falls 4. Hyponatremia: chronic. poss 2/2 psych meds. paxil stopped as per nephrology rec. continue demeclocycline 5. Depression: cont Buspar at 10 bid. 6. FTT: needs placement. SW consult. History of Present Illness History of Present Illness breathing ok, no CP. per RN, sun-dowing significantly in PM Vitals Vitals Vital Signs Date Time Temp Pulse Resp B/P (MAP) Pulse Ox O2 Delivery O2 Flow Rate FiO2 03/24/17 10:17 98.8 76 18 168/67 (100) 96 Room Air 98.8 Physical Exam General: Alert, Cooperative, No acute distress Heart: Regular rate, Normal S1, Normal S2, No murmurs Lungs: Clear Abdomen: Normal bowel sounds, Soft, No tenderness Extremities: No edema, Normal pulses Skin: No rashes Labs LABS Laboratory Tests Test 03/23/17 11:40 03/24/17 07:55 Troponin I Quantitative 0.054 ng/mL (0.000-0.055) White Blood Count 9.1 x10^3/uL (4.0-11.0) Red Blood Count 2.94 x10^6/uL (3.50-5.40) Hemoglobin 9.6 g/dL (12.0-15.5) Hematocrit 27.9 % (36.0-47.0) Mean Corpuscular Volume 95 fL (79-100) Mean Corpuscular Hemoglobin 33 pg (25-35) Mean Corpuscular Hemoglobin Concent 34 g/dL (31-37) Red Cell Distribution Width 15.7 % (11.5-14.5) Platelet Count 266 x10^3/uL (140-400) Neutrophils (%) (Auto) 72 % (31-73) Lymphocytes (%) (Auto) 17 % (24-48) Monocytes (%) (Auto) 11 % (0-9) Eosinophils (%) (Auto) 0 % (0-3) Basophils (%) (Auto) 0 % (0-3) Neutrophils # (Auto) 6.5 x10^3uL (1.8-7.7) Lymphocytes # (Auto) 1.6 x10^3/uL (1.0-4.8) Monocytes # (Auto) 1.0 x10^3/uL (0.0-1.1) Eosinophils # (Auto) 0.0 x10^3/uL (0.0-0.7) Basophils # (Auto) 0.0 x10^3/uL (0.0-0.2) Sodium Level 128 mmol/L (136-145) Potassium Level 3.6 mmol/L (3.5-5.1) Chloride Level 95 mmol/L (98-107) Carbon Dioxide Level 24 mmol/L (21-32) Anion Gap 9 (6-14) Blood Urea Nitrogen 13 mg/dL (7-20) Creatinine 0.7 mg/dL (0.6-1.0) Estimated GFR (Cockcroft-Gault) 79.3 Glucose Level 94 mg/dL (70-99) Calcium Level 8.3 mg/dL (8.5-10.1) EDEN VALADEZ MD March 24, 2017 11:45
[2017-03-24] MEDS: amLODIPine BESYLATE 5 MG TABLET PO SCH (14:04)
[2017-03-24 15:47] VITALS: BP 161/69
[2017-03-24 19:17] VITALS: BP 121/84
[2017-03-24] MEDS: ATORVASTATIN CALCIUM 10 MG TABLET. PO SCH (20:43)
[2017-03-24] MEDS: LATANOPROST 0.005% OPHTH SOLUTION 2.5ML BOTTLE. OU SCH (20:43)
[2017-03-24 23:14] VITALS: BP 166/74
[2017-03-25 03:41] VITALS: BP 173/76
[2017-03-25] MEDS: IV NORMAL SALINE 1000ML BAG 1,000 ML IV SCH (06:25)
[2017-03-25 07:30] VITALS: BP 182/81
[2017-03-25] MEDS: AMIODARONE HCL 200 MG TABLET. PO SCH (08:04)
[2017-03-25] MEDS: METOPROLOL TART IMMED RELEASE 25 MG TABLET. PO SCH (08:04)
[2017-03-25] MEDS: amLODIPine BESYLATE 5 MG TABLET PO SCH (08:05)
[2017-03-25] MEDS: LEVOTHYROXINE 88 MCG TABLET PO SCH (08:06)
[2017-03-25] MEDS: OMEGA-3 FATTY ACIDS/FISH OIL 1,000 MG CAPSULE. PO SCH (08:06)
[2017-03-25] MEDS: ASPIRIN CHEWABLE 81 MG TABLET. PO SCH (08:06)
[2017-03-25] MEDS: CHOLECALCIFEROL (VITAMIN D3) 1,000 UNIT TABLET PO SCH (08:06)
[2017-03-25] MEDS: busPIRone 10 MG TABLET. PO SCH (08:07)
[2017-03-25] MEDS: DEMECLOCYCLINE HCL 150 MG TABLET. PO SCH ×2 (08:07→14:16)
[2017-03-25] MEDS: PANTOPRAZOLE 40 MG TABLET.DR. PO SCH (08:07)
[2017-03-25] MEDS: CELECOXIB 200 MG CAPSULE. PO SCH (09:00)
--- NOTE | 2017-03-25 09:40 | PDOC ---
PROGRESS NOTES Chief Complaint Chief Complaint Hyponatremia Elevated troponin ASSESSMENT AND PLAN: 1. Trop elevation: chronic. no acute issues. 2. CAD: stable. "clean' cath in January. cont 2ary prevention meds 3. PAF: currently in NSR. no anticoag 2/2 frequent falls 4. Hyponatremia: chronic. poss 2/2 psych meds. paxil stopped as per nephrology rec. continue demeclocycline 5. Depression/anxiety: cont Buspar at 10 bid. 6. dispo: to SNF today History of Present Illness History of Present Illness no CP or SOB. Vitals Vitals Vital Signs Date Time Temp Pulse Resp B/P (MAP) Pulse Ox O2 Delivery O2 Flow Rate FiO2 03/25/17 08:05 82 191/82 03/25/17 08:00 Room Air 03/25/17 07:30 98.8 19 95 98.8 Physical Exam General: Alert, Cooperative, No acute distress Heart: Regular rate, Normal S1, Normal S2, No murmurs Lungs: Clear Abdomen: Normal bowel sounds, Soft, No tenderness Extremities: No edema, Normal pulses Skin: No rashes EDEN VALADEZ MD March 25, 2017 09:40
[2017-03-25] MEDS ORDERED: AMLO5TAB2 PO (10:27)
[2017-03-25 11:00] VITALS: BP 168/74
--- NOTE | 2017-03-25 11:29 | PDOC ---
CARDIO Progress Notes Date and Time Date of Service 03/25/2017 Time of Evaluation 1129 Subjective Subjective: No Chest Pain, No shortness of breath, No Palpitations, No Dizziness Comments: nursing staff reports "sundowning" Vitals Vitals Vital Signs Date Time Temp Pulse Resp B/P (MAP) Pulse Ox O2 Delivery O2 Flow Rate FiO2 03/25/17 11:00 98.7 69 18 168/74 (105) 96 Room Air 98.7 Weight Weight [ ] Input and Output Intake and Output Intake and Output 03/25/17 06:59 Intake Total 850 ml Balance 850 ml Intake Oral 850 ml # Voids 9 Microbiology Micro Microbiology 03/22/17 Urine Culture - Final, Complete 03/22/17 Urine Culture Result 1 (NONA) - Final, Complete Physical Exam HEENT: Neck Supple W Full Motion Chest: Symmetric LUNGS: Clear to Auscultation Heart: S1S2, RRR Abdomen: Soft N/T Extremities: No Calf Tenderness Neurology: alert, oriented, follow commands Assessment Assessment 1. Elevated troponin level trivial elevation and not consistent with ACS cardiac cath 01/2017 without significant disease no further cardiac evaluation indicated 2. Hyponatremia: Na 128 off Paxil remains on Buspar 3. PAF NSR; 9 sec of PAF late on 03/23/2071 continue rate controlling agents and anti-arrhythmic off OAC due to fall risk ASA for stoke prevention - patient also on chronic NSAIDs 4. HTN consider uptitrating BB rather than addition of medications. 5. hypothyroidism on replacement therapy agreeable with transfer to SNF; expect will need assisted living terminal gauger supervisor avoid sedatives/hypnotics at bedtime as may exacerbated nighttime confusion PHU DUMONT SAFETY LAMP KEEPER March 25, 2017 11:29
[2017-03-25 14:35] VITALS: BP 143/65
--- NOTE | 2017-03-26 02:27 | DS ---
DATE OF DISCHARGE: 03/25/2017 CHIEF COMPLAINT: Generalized weakness, failure to thrive, hyponatremia. HOSPITAL COURSE: The patient is an 87-year-old woman with CAD, PAF as well as chronic hyponatremia, who presented to the hospital with confusion and generalized weakness. In the Emergency Room, she was found with worsened hyponatremia and admitted for further management. She had been found with a mild troponin elevation in the Emergency Room. This, however, did not represent an NSTEMI, but rather her chronically elevated levels without any acute abnormalities. She actually had had clean catheterization in 01/2017. Her rhythm during her hospitalization remained in normal sinus, no anticoagulation had been given and is planned secondary to frequent falls. Hyponatremia is chronic, albeit somewhat lower during admission. This had been addressed in the past and recommendations by Nephrology had been to stop psychiatric medications. Given her underlying history of depression and anxiety, compromise was deemed appropriate in stopping Paxil but continuing BuSpar. The patient was noted to have sundowning during her hospitalization at times even during the day and some confusion. With combined failure to thrive, she was deemed appropriate for SNF placement and was accepted on 03/25/2017 to [facility]. PHYSICAL EXAMINATION: Please refer to note from 03/25/2017. DISCHARGE DIAGNOSES: Failure to thrive, hyponatremia. DISCHARGE MEDICATIONS: Please refer to MAR. DISCHARGE INSTRUCTIONS: The patient will follow up with PCP on an outpatient basis. EDEN VALADEZ MD DR: UR/nts JOB#: [id number] / [id number] RM Small MD MTDD
== END 2017-03-25 16:15 | DRG 641 ==
LOC: ER 21:30 → 2 NORTH 23:46
PROVIDERS: ADMIT Internal Medicine Hematology & Oncology; ATTEND Internal Medicine Hematology & Oncology
DX: E87.1 Hypo-osmolality and hyponatremia (principal); E03.9 Hypothyroidism, unspecified; E11.9 Type 2 diabetes mellitus without complications; E78.5 Hyperlipidemia, unspecified; F32.9 Major depressive disorder, single episode, unspecified; F41.9 Anxiety disorder, unspecified; I11.0 Hypertensive heart disease with heart failure; I25.10 Atherosclerotic heart disease of native coronary artery without angina pectoris; I48.0 Paroxysmal atrial fibrillation; J44.9 Chronic obstructive pulmonary disease, unspecified; K21.9 Gastro-esophageal reflux disease without esophagitis; Z79.01 Long term (current) use of anticoagulants; Z79.1 Long term (current) use of non-steroidal anti-inflammatories (NSAID); Z85.3 Personal history of malignant neoplasm of breast; Z88.0 Allergy status to penicillin; Z88.2 Allergy status to sulfonamides; Z90.49 Acquired absence of other specified parts of digestive tract; Z91.81 History of falling; Z96.641 Presence of right artificial hip joint; Z96.652 Presence of left artificial knee joint; R62.7 Adult failure to thrive
CPT/HCPCS: 36415; 71010; 80048; 80053; 81001; 83690; 84484; 85027; 87086; 93005; 96361; 96374; J2405; J7030; 99285-25

== ENCOUNTER 2017-03-29 09:29 | Inpatient (IN) | payer MEDICARE, OTHER ==
[~2017-03-29] VITALS: Ht 165.1 cm; Wt 72.4 kg
[2017-03-29] VITALS (12 sets, daily range): BP systolic 119–190; BP diastolic 57–84
[~2017-03-29 09:29] MED LIST changes: +AMLO5TAB2 PO; -CETIRIZINE HCL 10 MG TABLET. PO PRN; +METO25TA4 PO
--- NOTE | 2017-03-29 10:23 | PHYS DOC ---
Past Medical History Past Medical History: Anxiety, Arrhythmia, Constipation, Depression, GERD, High Cholesterol, Hypertension Additional Past Medical Histor: BREAST CANCER,ETIENNE'S CYST Past Surgical History: Hip Replacement Additional Past Surgical Histo: bladder sx, lumpectomy, L knee, R hip Alcohol Use: None Drug Use: None Adult General Chief Complaint Chief Complaint: MECHANICAL FALL HPI HPI Patient is a 87 year old female [facility] the [facility] across the street. Patient states that she was standing up and took a step backwards and tripped and fell. She hit the back of her head on the floor. She denies any loss of consciousness. She denies any cervical spine or back pain. Patient appears to be alert and oriented here in the emergency department. Patient states she believes that she has a history of A. fib but is not for sure. She states that she does take thyroid medication and medication for high blood pressure. Patient as I am assessing her and talking with her for her history of present illness information patient does not make eye contact she continues to veer off to the left. Patient was noted to have difficulty following instructions with registration in signing paperwork for treatment in which she had to be redirected and where to sign her name. Review of Systems Review of Systems Constitutional: Denies fever or chills [] Eyes: Denies change in visual acuity, redness, or eye pain [] HENT: Denies nasal congestion or sore throat [] Respiratory: Denies cough or shortness of breath [] Cardiovascular: No additional information not addressed in HPI [] GI: Denies abdominal pain, nausea, vomiting, bloody stools or diarrhea [] : Denies dysuria or hematuria [] Musculoskeletal: Denies back pain or joint pain [] Integument: Denies rash or skin lesions [] Neurologic: Denies headache, focal weakness or sensory changes [] Endocrine: Denies polyuria or polydipsia [] Current Medications Current Medications Current Medications Medications (Trade) Dose Ordered Sig/Michael Start Time Stop Time Status Last Admin Dose Admin Potassium Chloride (Klor-Con) 40 meq 1X ONCE 03/29/17 11:15 03/29/17 11:16 DC Allergies Allergies Allergies Coded Allergies Type Severity Reaction Last Updated Verified Penicillins Allergy Intermediate Swelling 02/24/17 Yes Sulfa (Sulfonamide Antibiotics) Allergy Intermediate Rash 02/24/17 Yes nabumetone Adverse Reaction Intermediate nausea/vomiting 02/24/17 Yes Physical Exam Physical Exam Constitutional: Well developed, well nourished, no acute distress, non-toxic appearance. [] HENT: Normocephalic, atraumatic, bilateral external ears normal, oropharynx moist, no oral exudates, nose normal. [] Eyes: PERRLA, EOMI, conjunctiva normal, no discharge. [] Neck: Normal range of motion, no tenderness, supple, no stridor. [] Cardiovascular:Heart rate regular rhythm, no murmur [] Lungs & Thorax: Bilateral breath sounds clear to auscultation [] Skin: Warm, dry, no erythema, no rash. [] Back: No tenderness Extremities: No cervical spine tenderness, no step-offs no deformities no crepitus noted. No cyanosis, no clubbing, ROM intact, no edema. Peripheral pulses 2+ cap refill brisk less than 2 seconds. Neurologic: Alert and oriented X 3, normal motor function, normal sensory function, no focal deficits noted. 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 She was able to follow simple directions. Psychologic: Affect normal, judgement normal, mood normal. [] Current Patient Data Vital Signs Vital Signs Date Time Temp Pulse Resp B/P (MAP) Pulse Ox O2 Delivery O2 Flow Rate FiO2 03/29/17 09:46 98.7 76 20 149/69 (95) 93 Room Air 98.7 Lab Values Laboratory Tests Test 03/29/17 10:30 White Blood Count 14.4 x10^3/uL (4.0-11.0) #H Red Blood Count 3.67 x10^6/uL (3.50-5.40) Hemoglobin 11.5 g/dL (12.0-15.5) L Hematocrit 35.3 % (36.0-47.0) L Mean Corpuscular Volume 96 fL (79-100) Mean Corpuscular Hemoglobin 31 pg (25-35) Mean Corpuscular Hemoglobin Concent 33 g/dL (31-37) Red Cell Distribution Width 16.0 % (11.5-14.5) H Platelet Count 332 x10^3/uL (140-400) Neutrophils (%) (Auto) 77 % (31-73) H Lymphocytes (%) (Auto) 11 % (24-48) L Monocytes (%) (Auto) 11 % (0-9) H Eosinophils (%) (Auto) 0 % (0-3) Basophils (%) (Auto) 1 % (0-3) Neutrophils # (Auto) 11.1 x10^3uL (1.8-7.7) H Lymphocytes # (Auto) 1.6 x10^3/uL (1.0-4.8) Monocytes # (Auto) 1.6 x10^3/uL (0.0-1.1) H Eosinophils # (Auto) 0.1 x10^3/uL (0.0-0.7) Basophils # (Auto) 0.1 x10^3/uL (0.0-0.2) Sodium Level 130 mmol/L (136-145) L Potassium Level 3.1 mmol/L (3.5-5.1) L Chloride Level 91 mmol/L (98-107) L Carbon Dioxide Level 31 mmol/L (21-32) Anion Gap 8 (6-14) Blood Urea Nitrogen 15 mg/dL (7-20) Creatinine 1.0 mg/dL (0.6-1.0) Estimated GFR (Cockcroft-Gault) 52.6 BUN/Creatinine Ratio 15 (6-20) Glucose Level 121 mg/dL (70-99) H Calcium Level 9.2 mg/dL (8.5-10.1) Total Bilirubin 0.4 mg/dL (0.2-1.0) Aspartate Amino Transferase (AST) 22 U/L (15-37) Alanine Aminotransferase (ALT) 22 U/L (14-59) Alkaline Phosphatase 91 U/L (46-116) Troponin I Quantitative 0.059 ng/mL (0.000-0.055) Total Protein 7.0 g/dL (6.4-8.2) Albumin 3.4 g/dL (3.4-5.0) Albumin/Globulin Ratio 0.9 (1.0-1.7) L Laboratory Tests 03/29/17 10:30 Laboratory Tests 03/29/17 10:30 EKG EKG EKG completed with a heart rate of 76 severe ventricular rhythm noted no STEMI noted per Dr. Yepez Radiology/Procedures Radiology/Procedures [][facility] [address] [place] [address] IMAGING REPORT Signed PATIENT: OMA SHETTY ACCOUNT: [id number] : 1930 LOCATION: ER AGE: 87 SEX: F EXAM STATUS: REG ER ORD. PHYSICIAN: MAGO CANALES APRN REASON: fall hit head no LOC PROCEDURE: CT HEAD AND CERVICAL SPINE WO Examination: CT head and cervical spine without contrast History: History of fall, hit head prior comparison: CT head from 05/19/2014 Technique: Axial CT images of the head was performed without contrast. Axial CT images of the cervical spine were performed without contrast with coronal and sagittal reformats of the cervical spine were performed. PQRS Compliance Statement: One or more of the following individualized dose reduction techniques were utilized for this examination: 1. Automated exposure control 2. Adjustment of the mA and/or kV according to patient size 3. Use of iterative reconstruction technique Findings: There is no evidence of midline shift. There is no acute intracranial bleed or extra-axial fluid collection identified. Mild bilateral periventricular white matter hypodensities likely chronic small vessel ischemic disease. The visualized lateral ventricles, third ventricle, fourth ventricle are patent. The basal cisterns are uneffaced The mastoid air cells are clear. Minimal mucosal thickening identified in the left sphenoid sinus likely sinus disease. The vertebral body heights are maintained. Severe intervertebral disc height loss identified throughout the cervical spine most at C3-C4, C4-C5, C5-C6, C6-C7 vertebral levels. The bilateral facets are well aligned. The lateral masses of C1 are aligned with C2 vertebra. The C2 dens appears intact The visualized apical lungs are clear. Impression: 1. No acute intracranial findings. 2. No acute fracture of the cervical spine. Correlate clinically. 3. Severe degenerative changes cervical spine. DICTATED and SIGNED BY: SNOW BOB MD DATE: 03/29/17 1036 CC: MAGO CANALES APRN; RM BURROUGHS ~ Course & Med Decision Making Course & Med Decision Making Pertinent Labs and Imaging studies reviewed. (See chart for details) [address] sultana in regards to admission into the hospital for close head injury of hyponatremia hypokalemia, with an elevated troponin. 1122 called to the patient's room by nursing staff as patient has become nonresponsive. Patient continues to the gaze off to the left. She is able to squeeze right hand with no ability to squeeze or use the left side. Dr. Yepez is at bedside as well as assessing the patient. Dr. Yepez spoke with neurology who had requested that she talk with [facility]. Attempted to contact the healthcare resort across the street to determine patients neuro status. Phone at the resort was having issues that I was unable to obtain neuro status and ADL ability. 1145 Care of this patient has been taken over by Dr Yepez. [] Dragon Disclaimer Dragon Disclaimer This electronic medical record was generated, in whole or in part, using a voice recognition dictation system. Departure Departure Impression: Primary Impression: Closed head injury Additional Impressions: Hyponatremia Hypokalemia Disposition: ADMITTED INPATIENT Admitting Physician: Other (Dr Sultana, Dr Long) Condition: CRITICAL Referrals: RM BURROUGHS (PCP) Problem Qualifiers MAGO CANALES APRN March 29, 2017 10:23
--- NOTE | 2017-03-29 10:43 | RAD ---
Examination: CT head and cervical spine without contrast History: History of fall, hit head prior comparison: CT head from 05/19/2014 Technique: Axial CT images of the head was performed without contrast. Axial CT images of the cervical spine were performed without contrast with coronal and sagittal reformats of the cervical spine were performed. PQRS Compliance Statement: One or more of the following individualized dose reduction techniques were utilized for this examination: 1. Automated exposure control 2. Adjustment of the mA and/or kV according to patient size 3. Use of iterative reconstruction technique Findings: There is no evidence of midline shift. There is no acute intracranial bleed or extra-axial fluid collection identified. Mild bilateral periventricular white matter hypodensities likely chronic small vessel ischemic disease. The visualized lateral ventricles, third ventricle, fourth ventricle are patent. The basal cisterns are uneffaced The mastoid air cells are clear. Minimal mucosal thickening identified in the left sphenoid sinus likely sinus disease. The vertebral body heights are maintained. Severe intervertebral disc height loss identified throughout the cervical spine most at C3-C4, C4-C5, C5-C6, C6-C7 vertebral levels. The bilateral facets are well aligned. The lateral masses of C1 are aligned with C2 vertebra. The C2 dens appears intact The visualized apical lungs are clear. Impression: 1. No acute intracranial findings. 2. No acute fracture of the cervical spine. Correlate clinically. 3. Severe degenerative changes cervical spine.
[2017-03-29 10:58] LABS: BASO # 0.1 x10^3/uL (0.0-0.2); BASO % 1 % (0-3); EOS % 0 % (0-3); HEMATOCRIT 35.3 % (36.0-47.0); HEMOGLOBIN 11.5 g/dL (12.0-15.5); LYMPH # 1.6 x10^3/uL (1.0-4.8); LYMPH % 11 % (24-48); MEAN CORPUSCULAR HEMOGLOBIN 31 pg (25-35); MEAN CORPUSCULAR HGB CONC 33 g/dL (31-37); MEAN CORPUSCULAR VOLUME 96 fL (79-100); MONO % 11 % (0-9); NEUT % 77 % (31-73); PLATELET COUNT 332 x10^3/uL (140-400); RED BLOOD COUNT 3.67 x10^6/uL (3.50-5.40); WHITE BLOOD COUNT 14.4 x10^3/uL (4.0-11.0)
[2017-03-29 11:02] LABS: CALCIUM 9.2 mg/dL (8.5-10.1); GFR 52.6; POTASSIUM 3.1 mmol/L (3.5-5.1)
--- NOTE | 2017-03-29 11:06 | EKG ---
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
[2017-03-29 11:07] LABS: ALBUMIN 3.4 g/dL (3.4-5.0); ALBUMIN/GLOBULIN RATIO 0.9 (1.0-1.7); TOTAL BILIRUBIN 0.4 mg/dL (0.2-1.0)
[2017-03-29] MEDS ORDERED: POTASSIUM CHLORIDE 20 MEQ TABLET.ER. PO ONE ×2 (11:15→16:30)
[2017-03-29] MEDS ORDERED: IOHEXOL 300 MG/ML 75 ML VIAL IV ONE (12:00)
--- NOTE | 2017-03-29 13:35 | RAD ---
CTA of the head and neck with contrast, 03/29/2017: History: Acute CVA Multidetector CT imaging was performed from the level of the aortic arch through the vertex of the skull following an IV bolus injection of iodinated contrast material. Multiplanar reconstructions were produced as well as 3-D volume rendered reconstructions of the major arteries. There is moderate calcific plaquing of the aortic arch. The right subclavian artery arises from the distal aortic arch which is a normal variant. There is mild calcific plaquing of the cervicocephalic arterial origins from the aortic arch without evidence of high-grade stenosis. There is minimal calcific plaquing of the left carotid bifurcation without evidence of significant stenosis. The internal carotid artery in the upper neck is quite tortuous. It is widely patent up through the level of the skull base. There is mild calcific plaquing involving its cavernous segment. The left middle cerebral and anterior cerebral arteries and their major branches are unremarkable. There is mild calcific plaquing at the right carotid bifurcation with only minimal narrowing of the internal carotid and external carotid artery origins. The right internal carotid artery in the neck is quite tortuous, similar to that seen on the left. The right internal carotid artery is widely patent with only mild calcific plaquing involving its cavernous segment. The right anterior cerebral and middle cerebral arteries and their major branches are unremarkable. The vertebral arteries in the neck are widely patent with dominance of the left vertebral artery. They are moderately tortuous both proximally and distally. The basilar artery is unremarkable. Both posterior cerebral arteries and there major branches show no abnormality. Incidental CT findings include the presence of mild dilatation of the upper thoracic esophagus containing gas and retained food. Moderate multilevel degenerative changes are present in the cervical and upper thoracic spine. There is a small amount of debris in the left sphenoid sinus. IMPRESSION: 1. Moderate aortic atherosclerosis. 2. 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 3. Mild calcific plaquing at the carotid bifurcations without evidence of high-grade stenosis. 4. No significant intracranial arterial abnormality is detected.
--- NOTE | 2017-03-29 13:53 | PDOC2 ---
NEUROLOGY CONSULT Date of Admission Date of Admission DATE: 03/29/17 TIME: 13:40 Reason for Consult Reason for Consult: Stroke symptoms Referring Physician Referring Physician: Dr. Sultana PCP: Dr. Vernon Source Source: Chart review, Patient History of Present Illness History of Present Illness The patient is an 87-year-old right-handed female on Elaquis for atrial fibrillation who fell and hit the back of her head [facility] the [facility] this [facility]. She may have been confused on awakening. She does not think she lost consciousness. In the emergency department here, she was noticed to have some inattention on the left side and some weakness of the left side, tending to veer toward the left when she walked. I discussed the case with Dr. Rodriguez. She discussed the case with stroke neurology who declined transfer. I did recommend a CT angiogram, which is reviewed below, and was negative. Patient was improving after the initial symptoms so was not a candidate for either interventional radiology and because of Elaquis, was not a candidate for tissue plasminogen activator. She feels fine now and denies any headache, diplopia, dysphagia, dysarthria, numbness, or weakness. She has no history of stroke, seizure, or other head injury. Past Medical History Cardiovascular: AFIB, HTN, Hyperlipidemia CENTRAL NERVOUS SYSTEM: Other (macular degeneration) GI: Diverticulosis, GERD Heme/Onc: Cancer (breast) Psych: Anxiety, Depression Musculoskeletal: low back pain (cc Dr. Keene) Endocrine: Hypothyroidism Past Surgical History Past Surgical History: Cholecystectomy, Cataract Removal, Total hip replacement (right), Total knee replacement (left), Tonsillectomy, Other ( breast lumpectomy) Family History Family History: Cancer, CAD Social History Social History Single, nonsmoker, nondrinker, currently in [facility] Current Medications Current Medications Current Medications Potassium Chloride (Klor-Con) 40 meq 1X ONCE PO ; Start 03/29/17 at 11:15; Stop 03/29/17 at 11:16; Status DC Iohexol (Omnipaque 300 Mg/ml) 60 ml 1X ONCE IV ; Start 03/29/17 at 12:00; Stop 03/29/17 at 12:01; Status DC Active Scripts Active Amlodipine Besylate 5 Mg Tablet 5 Mg PO DAILY Irwin 5-325 Tablet (Acetaminophen/Hydrocodone Bitart) 1 Each Tablet 1 Tab PO PRN Q6HRS PRN Eliquis (Apixaban) 5 Mg Tablet 5 Mg PO BID 30 Days Amiodarone Hcl 200 Mg Tablet 100 Mg PO DAILY 30 Days Demeclocycline Hcl 150 Mg Tablet 300 Mg PO TID 30 Days Reported Metoprolol Tartrate 25 Mg Tablet 1 Tab PO BID Kassy Allergy (Fexofenadine Hcl) 180 Mg Tablet 1 Tab PO PRN DAILY PRN Lisinopril 40 Mg Tablet 1 Tab PO DAILY Celebrex (Celecoxib) 200 Mg Capsule 1 Cap PO DAILY Acetaminophen 500 Mg Tablet 2 Tab PO BID PRN Vitamin D (Cholecalciferol (Vitamin D3)) 1,000 Unit Capsule 1 Cap PO DAILY Kassy Allergy (Fexofenadine Hcl) 180 Mg Tablet 1 Tab PO DAILY Latanoprost 2.5 Ml Drops 1 Drop OP HS [pravastatin] 40 Mg PO HS Aspirin 81 Mg Tab.chew 81 Mg PO Buspirone Hcl 10 Mg Tablet 10 Mg PO BID Fish Oil 1,000 Mg Capsule (Sabine-3 Fatty Acids/Fish Oil) 1 Each Capsule 1 Each PO BID Glucosamine 1,500 Complex Cp (Gluc Johnson/Chondro Johnson A/Vit C/Mn) 1 Each Capsule 1 Each PO Levothyroxine Sodium 88 Mcg Tablet 88 Mcg PO DAILYAC Prevacid (Lansoprazole) 30 Mg Tab.rap.dr 30 Mg PO DAILY Allergies Allergies: Coded Allergies: Penicillins (Verified Allergy, Intermediate, Swelling, 02/24/17) Sulfa (Sulfonamide Antibiotics) (Verified Allergy, Intermediate, Rash, ) nabumetone (Verified Adverse Reaction, Intermediate, nausea/vomiting, 02/24) prednisone (Verified Adverse Reaction, Intermediate, Anxiety, Altered Mental Status, 03/29/17) Pt states when she takes prednisone she becomes "really tense" "gets stressed" and it "makes me crazy". ROS Review of System Patient denies fevers, chills, weight loss, dyspnea, angina, abdominal pain, change in bowels, or dysuria. 14 point review of systems is negative. Physical Exam Physical Examination PHYSICAL EXAMINATION: Vital signs: see above. General appearance is normal and in no acute distress. HEENT: Normocephalic. Small occipital scalp hematoma. Eyes, nose, ears, and throat are unremarkable. Neck is supple. No lymphadenopathy. No bruits are heard over the carotid artery. No crepitus. NEUROLOGICAL EXAMINATION: Mental Status Examination: Alert. Oriented to time, place, and person. Answers questions and follows commends. Vague on her medical history. Pupils are equal round and reactive to light and accommodation. Funduscopic exam: No papilledema. Extraocular movements are intact. Visual field exam shows no defect on the direct confrontation. No motor or sensory deficits on the facial exam. Uvula in the midline and the soft palate elevated symmetrically. No deviation of the tongue to any direction. Gross hearing is normal. Shoulder shrug normal. Muscle tone is normal. Muscle strength is 5. Deep tendon reflexes are 1+ all around. Plantar reflex is with flexion response bilaterally. Okwuxv-ot-icaw test performance is accurate. Alternative movements are accurate. Gait not tested. Sensory exam shows no deficits. No cerebellar signs are elicited. Vitals VITALS Vital Signs Date Time Temp Pulse Resp B/P (MAP) Pulse Ox O2 Delivery O2 Flow Rate FiO2 03/29/17 13:01 76 157/70 (99) 93 Room Air 03/29/17 11:30 20 03/29/17 09:46 98.7 98.7 Labs Labs Laboratory Tests Test 03/29/17 10:30 03/29/17 11:34 White Blood Count 14.4 x10^3/uL (4.0-11.0) Red Blood Count 3.67 x10^6/uL (3.50-5.40) Hemoglobin 11.5 g/dL (12.0-15.5) Hematocrit 35.3 % (36.0-47.0) Mean Corpuscular Volume 96 fL (79-100) Mean Corpuscular Hemoglobin 31 pg (25-35) Mean Corpuscular Hemoglobin Concent 33 g/dL (31-37) Red Cell Distribution Width 16.0 % (11.5-14.5) Platelet Count 332 x10^3/uL (140-400) Neutrophils (%) (Auto) 77 % (31-73) Lymphocytes (%) (Auto) 11 % (24-48) Monocytes (%) (Auto) 11 % (0-9) Eosinophils (%) (Auto) 0 % (0-3) Basophils (%) (Auto) 1 % (0-3) Neutrophils # (Auto) 11.1 x10^3uL (1.8-7.7) Lymphocytes # (Auto) 1.6 x10^3/uL (1.0-4.8) Monocytes # (Auto) 1.6 x10^3/uL (0.0-1.1) Eosinophils # (Auto) 0.1 x10^3/uL (0.0-0.7) Basophils # (Auto) 0.1 x10^3/uL (0.0-0.2) Sodium Level 130 mmol/L (136-145) Potassium Level 3.1 mmol/L (3.5-5.1) Chloride Level 91 mmol/L (98-107) Carbon Dioxide Level 31 mmol/L (21-32) Anion Gap 8 (6-14) Blood Urea Nitrogen 15 mg/dL (7-20) Creatinine 1.0 mg/dL (0.6-1.0) Estimated GFR (Cockcroft-Gault) 52.6 BUN/Creatinine Ratio 15 (6-20) Glucose Level 121 mg/dL (70-99) Calcium Level 9.2 mg/dL (8.5-10.1) Total Bilirubin 0.4 mg/dL (0.2-1.0) Aspartate Amino Transf (AST/SGOT) 22 U/L (15-37) Alanine Aminotransferase (ALT/SGPT) 22 U/L (14-59) Alkaline Phosphatase 91 U/L (46-116) Troponin I Quantitative 0.059 ng/mL (0.000-0.055) Total Protein 7.0 g/dL (6.4-8.2) Albumin 3.4 g/dL (3.4-5.0) Albumin/Globulin Ratio 0.9 (1.0-1.7) Glucose (Fingerstick) 120 mg/dL (70-99) Laboratory Tests Test 03/29/17 10:30 03/29/17 11:34 White Blood Count 14.4 x10^3/uL (4.0-11.0) Red Blood Count 3.67 x10^6/uL (3.50-5.40) Hemoglobin 11.5 g/dL (12.0-15.5) Hematocrit 35.3 % (36.0-47.0) Mean Corpuscular Volume 96 fL (79-100) Mean Corpuscular Hemoglobin 31 pg (25-35) Mean Corpuscular Hemoglobin Concent 33 g/dL (31-37) Red Cell Distribution Width 16.0 % (11.5-14.5) Platelet Count 332 x10^3/uL (140-400) Neutrophils (%) (Auto) 77 % (31-73) Lymphocytes (%) (Auto) 11 % (24-48) Monocytes (%) (Auto) 11 % (0-9) Eosinophils (%) (Auto) 0 % (0-3) Basophils (%) (Auto) 1 % (0-3) Neutrophils # (Auto) 11.1 x10^3uL (1.8-7.7) Lymphocytes # (Auto) 1.6 x10^3/uL (1.0-4.8) Monocytes # (Auto) 1.6 x10^3/uL (0.0-1.1) Eosinophils # (Auto) 0.1 x10^3/uL (0.0-0.7) Basophils # (Auto) 0.1 x10^3/uL (0.0-0.2) Sodium Level 130 mmol/L (136-145) Potassium Level 3.1 mmol/L (3.5-5.1) Chloride Level 91 mmol/L (98-107) Carbon Dioxide Level 31 mmol/L (21-32) Anion Gap 8 (6-14) Blood Urea Nitrogen 15 mg/dL (7-20) Creatinine 1.0 mg/dL (0.6-1.0) Estimated GFR (Cockcroft-Gault) 52.6 BUN/Creatinine Ratio 15 (6-20) Glucose Level 121 mg/dL (70-99) Calcium Level 9.2 mg/dL (8.5-10.1) Total Bilirubin 0.4 mg/dL (0.2-1.0) Aspartate Amino Transf (AST/SGOT) 22 U/L (15-37) Alanine Aminotransferase (ALT/SGPT) 22 U/L (14-59) Alkaline Phosphatase 91 U/L (46-116) Troponin I Quantitative 0.059 ng/mL (0.000-0.055) Total Protein 7.0 g/dL (6.4-8.2) Albumin 3.4 g/dL (3.4-5.0) Albumin/Globulin Ratio 0.9 (1.0-1.7) Glucose (Fingerstick) 120 mg/dL (70-99) Images Images Head CT: Findings: There is no evidence of midline shift. There is no acute intracranial bleed or extra-axial fluid collection identified. Mild bilateral periventricular white matter hypodensities likely chronic small vessel ischemic disease. The visualized lateral ventricles, third ventricle, fourth ventricle are patent. The basal cisterns are uneffaced The mastoid air cells are clear. Minimal mucosal thickening identified in the left sphenoid sinus likely sinus disease. The vertebral body heights are maintained. Severe intervertebral disc height loss identified throughout the cervical spine most at C3-C4, C4-C5, C5-C6, C6-C7 vertebral levels. The bilateral facets are well aligned. The lateral masses of C1 are aligned with C2 vertebra. The C2 dens appears intact The visualized apical lungs are clear. Impression: 1. No acute intracranial findings. 2. No acute fracture of the cervical spine. Correlate clinically. 3. Severe degenerative changes cervical spine. CTA head/neck: IMPRESSION: 1. Moderate aortic atherosclerosis. 2. 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 3. Mild calcific plaquing at the carotid bifurcations without evidence of high-grade stenosis. 4. No significant intracranial arterial abnormality is detected. Assessment/Plan Assessment/Plan Impression: Strokelike symptoms after mechanical fall in patient on Elaquis, with head injury.. Recommendations: ICU monitoring given the head injury Discontinue ICU monitoring tomorrow morning Continue previous medications including Elaquis. Thank you for letting me help with the patient's care. GIANLUCA TUCKER MD March 29, 2017 13:53
[2017-03-29] MEDS ORDERED: POLY17PO29 PO (13:54)
[2017-03-29] MEDS ORDERED: ALPR0.25 PO (13:54)
[2017-03-29] MEDS ORDERED: CETI10TA16 PO (13:54)
[2017-03-29] MEDS ORDERED: MAGN2400 PO (13:54)
[2017-03-29] MEDS ORDERED: ATOR10TA60 PO (13:54)
--- NOTE | 2017-03-29 14:49 | PDOC ---
PROGRESS NOTES Vitals Vitals Vital Signs Date Time Temp Pulse Resp B/P (MAP) Pulse Ox O2 Delivery O2 Flow Rate FiO2 03/29/17 13:40 Room Air 03/29/17 13:40 98.4 75 20 144/67 (92) 98.4 03/29/17 13:01 93 Physical Exam Lungs: Clear Labs LABS Laboratory Tests Test 03/29/17 10:30 03/29/17 11:34 White Blood Count 14.4 x10^3/uL (4.0-11.0) Red Blood Count 3.67 x10^6/uL (3.50-5.40) Hemoglobin 11.5 g/dL (12.0-15.5) Hematocrit 35.3 % (36.0-47.0) Mean Corpuscular Volume 96 fL (79-100) Mean Corpuscular Hemoglobin 31 pg (25-35) Mean Corpuscular Hemoglobin Concent 33 g/dL (31-37) Red Cell Distribution Width 16.0 % (11.5-14.5) Platelet Count 332 x10^3/uL (140-400) Neutrophils (%) (Auto) 77 % (31-73) Lymphocytes (%) (Auto) 11 % (24-48) Monocytes (%) (Auto) 11 % (0-9) Eosinophils (%) (Auto) 0 % (0-3) Basophils (%) (Auto) 1 % (0-3) Neutrophils # (Auto) 11.1 x10^3uL (1.8-7.7) Lymphocytes # (Auto) 1.6 x10^3/uL (1.0-4.8) Monocytes # (Auto) 1.6 x10^3/uL (0.0-1.1) Eosinophils # (Auto) 0.1 x10^3/uL (0.0-0.7) Basophils # (Auto) 0.1 x10^3/uL (0.0-0.2) Sodium Level 130 mmol/L (136-145) Potassium Level 3.1 mmol/L (3.5-5.1) Chloride Level 91 mmol/L (98-107) Carbon Dioxide Level 31 mmol/L (21-32) Anion Gap 8 (6-14) Blood Urea Nitrogen 15 mg/dL (7-20) Creatinine 1.0 mg/dL (0.6-1.0) Estimated GFR (Cockcroft-Gault) 52.6 BUN/Creatinine Ratio 15 (6-20) Glucose Level 121 mg/dL (70-99) Calcium Level 9.2 mg/dL (8.5-10.1) Total Bilirubin 0.4 mg/dL (0.2-1.0) Aspartate Amino Transf (AST/SGOT) 22 U/L (15-37) Alanine Aminotransferase (ALT/SGPT) 22 U/L (14-59) Alkaline Phosphatase 91 U/L (46-116) Troponin I Quantitative 0.059 ng/mL (0.000-0.055) Total Protein 7.0 g/dL (6.4-8.2) Albumin 3.4 g/dL (3.4-5.0) Albumin/Globulin Ratio 0.9 (1.0-1.7) Glucose (Fingerstick) 120 mg/dL (70-99) Assessment and Plan Assessmemt and Plan Problems Medical Problems: (1) Closed head injury Status: Acute (2) Hypokalemia Status: Acute (3) Hyponatremia Status: Acute Problems: Comment Review of Relevant I have reviewed the following items kyle (where applicable) has been applied. Labs Laboratory Tests Test 03/29/17 10:30 03/29/17 11:34 White Blood Count 14.4 x10^3/uL (4.0-11.0) Red Blood Count 3.67 x10^6/uL (3.50-5.40) Hemoglobin 11.5 g/dL (12.0-15.5) Hematocrit 35.3 % (36.0-47.0) Mean Corpuscular Volume 96 fL (79-100) Mean Corpuscular Hemoglobin 31 pg (25-35) Mean Corpuscular Hemoglobin Concent 33 g/dL (31-37) Red Cell Distribution Width 16.0 % (11.5-14.5) Platelet Count 332 x10^3/uL (140-400) Neutrophils (%) (Auto) 77 % (31-73) Lymphocytes (%) (Auto) 11 % (24-48) Monocytes (%) (Auto) 11 % (0-9) Eosinophils (%) (Auto) 0 % (0-3) Basophils (%) (Auto) 1 % (0-3) Neutrophils # (Auto) 11.1 x10^3uL (1.8-7.7) Lymphocytes # (Auto) 1.6 x10^3/uL (1.0-4.8) Monocytes # (Auto) 1.6 x10^3/uL (0.0-1.1) Eosinophils # (Auto) 0.1 x10^3/uL (0.0-0.7) Basophils # (Auto) 0.1 x10^3/uL (0.0-0.2) Sodium Level 130 mmol/L (136-145) Potassium Level 3.1 mmol/L (3.5-5.1) Chloride Level 91 mmol/L (98-107) Carbon Dioxide Level 31 mmol/L (21-32) Anion Gap 8 (6-14) Blood Urea Nitrogen 15 mg/dL (7-20) Creatinine 1.0 mg/dL (0.6-1.0) Estimated GFR (Cockcroft-Gault) 52.6 BUN/Creatinine Ratio 15 (6-20) Glucose Level 121 mg/dL (70-99) Calcium Level 9.2 mg/dL (8.5-10.1) Total Bilirubin 0.4 mg/dL (0.2-1.0) Aspartate Amino Transf (AST/SGOT) 22 U/L (15-37) Alanine Aminotransferase (ALT/SGPT) 22 U/L (14-59) Alkaline Phosphatase 91 U/L (46-116) Troponin I Quantitative 0.059 ng/mL (0.000-0.055) Total Protein 7.0 g/dL (6.4-8.2) Albumin 3.4 g/dL (3.4-5.0) Albumin/Globulin Ratio 0.9 (1.0-1.7) Glucose (Fingerstick) 120 mg/dL (70-99) Laboratory Tests Test 03/29/17 10:30 03/29/17 11:34 White Blood Count 14.4 x10^3/uL (4.0-11.0) Red Blood Count 3.67 x10^6/uL (3.50-5.40) Hemoglobin 11.5 g/dL (12.0-15.5) Hematocrit 35.3 % (36.0-47.0) Mean Corpuscular Volume 96 fL (79-100) Mean Corpuscular Hemoglobin 31 pg (25-35) Mean Corpuscular Hemoglobin Concent 33 g/dL (31-37) Red Cell Distribution Width 16.0 % (11.5-14.5) Platelet Count 332 x10^3/uL (140-400) Neutrophils (%) (Auto) 77 % (31-73) Lymphocytes (%) (Auto) 11 % (24-48) Monocytes (%) (Auto) 11 % (0-9) Eosinophils (%) (Auto) 0 % (0-3) Basophils (%) (Auto) 1 % (0-3) Neutrophils # (Auto) 11.1 x10^3uL (1.8-7.7) Lymphocytes # (Auto) 1.6 x10^3/uL (1.0-4.8) Monocytes # (Auto) 1.6 x10^3/uL (0.0-1.1) Eosinophils # (Auto) 0.1 x10^3/uL (0.0-0.7) Basophils # (Auto) 0.1 x10^3/uL (0.0-0.2) Sodium Level 130 mmol/L (136-145) Potassium Level 3.1 mmol/L (3.5-5.1) Chloride Level 91 mmol/L (98-107) Carbon Dioxide Level 31 mmol/L (21-32) Anion Gap 8 (6-14) Blood Urea Nitrogen 15 mg/dL (7-20) Creatinine 1.0 mg/dL (0.6-1.0) Estimated GFR (Cockcroft-Gault) 52.6 BUN/Creatinine Ratio 15 (6-20) Glucose Level 121 mg/dL (70-99) Calcium Level 9.2 mg/dL (8.5-10.1) Total Bilirubin 0.4 mg/dL (0.2-1.0) Aspartate Amino Transf (AST/SGOT) 22 U/L (15-37) Alanine Aminotransferase (ALT/SGPT) 22 U/L (14-59) Alkaline Phosphatase 91 U/L (46-116) Troponin I Quantitative 0.059 ng/mL (0.000-0.055) Total Protein 7.0 g/dL (6.4-8.2) Albumin 3.4 g/dL (3.4-5.0) Albumin/Globulin Ratio 0.9 (1.0-1.7) Glucose (Fingerstick) 120 mg/dL (70-99) Medications Current Medications Potassium Chloride (Klor-Con) 40 meq 1X ONCE PO ; Start 03/29/17 at 11:15; Stop 03/29/17 at 11:16; Status DC Iohexol (Omnipaque 300 Mg/ml) 60 ml 1X ONCE IV ; Start 03/29/17 at 12:00; Stop 03/29/17 at 12:01; Status DC Active Scripts Active Amlodipine Besylate 5 Mg Tablet 5 Mg PO DAILY [place] 5-325 Tablet (Acetaminophen/Hydrocodone Bitart) 1 Each Tablet 1 Tab PO PRN Q6HRS PRN Eliquis (Apixaban) 5 Mg Tablet 5 Mg PO BID 30 Days Amiodarone Hcl 200 Mg Tablet 100 Mg PO DAILY 30 Days Demeclocycline Hcl 150 Mg Tablet 300 Mg PO TID 30 Days Reported Atorvastatin Calcium 10 Mg Tablet 1 Tab PO HS Miralax (Polyethylene Glycol 3350) 17 Gm Powd.pack 1 Packet PO DAILY Xanax (Alprazolam) 0.25 Mg Tablet 0.25 Mg PO PRN Q6HRS PRN Metoprolol Tartrate 25 Mg Tablet 1 Tab PO BID Celebrex (Celecoxib) 200 Mg Capsule 1 Cap PO DAILY Acetaminophen 500 Mg Tablet 2 Tab PO BID PRN Vitamin D (Cholecalciferol (Vitamin D3)) 1,000 Unit Capsule 1 Cap PO DAILY Latanoprost 2.5 Ml Drops 1 Drop OP HS Aspirin 81 Mg Tab.chew 81 Mg PO Buspirone Hcl 10 Mg Tablet 10 Mg PO BID Fish Oil 1,000 Mg Capsule ([place]-3 Fatty Acids/Fish Oil) 1 Each Capsule 1 Each PO BID Glucosamine 1,500 Complex Cp (Gluc Johnson/Chondro Johnson A/Vit C/Mn) 1 Each Capsule 1 Each PO Levothyroxine Sodium 88 Mcg Tablet 88 Mcg PO DAILYAC Prevacid (Lansoprazole) 30 Mg Tab.rap.dr 30 Mg PO DAILY Milk Of Magnesia (Magnesium Hydroxide) 2,400 Mg/10 Ml Oral.susp 2,400 Mg PO PRN DAILY PRN Cetirizine Hcl 10 Mg Tablet 1 Tab PO DAILY Vitals/I & O Vital Sign - Last 24 Hours 03/29/17 03/29/17 03/29/1703/29/17 09:46 11:30 13:01 13:40 Temp 98.7 98.4 98.7 98.4 Pulse 76 88 76 75 Resp 20 20 20 B/P (MAP) 149/69 (95) 200/89 (126) 157/70 (99) 144/67 (92) Pulse Ox 93 92 93 O2 Delivery Room Air Room Air Room Air 03/29/17 13:40 O2 Delivery Room Air KASIE AMBROSIO MD March 29, 2017 14:49
[2017-03-29] MEDS ORDERED: ALPRAZolam 0.25 MG TABLET PO PRN (15:00)
[2017-03-29] MEDS ORDERED: ACETAMINOPHEN 500 MG TABLET PO PRN (15:00)
[2017-03-29] MEDS ORDERED: HYDROcodone/APAP 5/325MG 1 TAB TABLET PO PRN (15:00)
[2017-03-29] MEDS ORDERED: MAGNESIUM HYDROXIDE 2,400 MG/30 ML ORAL.SUSP. PO PRN (15:00)
--- NOTE | 2017-03-29 16:18 | PDOC1 ---
History and Physical Date of Admission Date of Admission DATE: 03/29/17 TIME: 16:13 Identification/Chief Complaint Chief Complaint mental status change, confusion Problems: Source Source: Chart review, Patient History of Present Illness History of Present Illness [place] [facility] and [place] and fell and struck her head. brought for w/u of head injury, CT neg, then mental status change, acute confusion and leftward gaze. confusion CT angio neg, and symptoms improved neuro eval, [facility] called, no Neuro intervention warranted as patient improving no Headache, no real pain, but odd affect, looking left, and has strange responses and is looking at the curtains and making odd comments Past Medical History Cardiovascular: AFIB, HTN, Hyperlipidemia Pulmonary: Bronchitis CENTRAL NERVOUS SYSTEM: Other (macular degeneration) GI: Diverticulosis, GERD Heme/Onc: Cancer (breast) Psych: Anxiety, Depression Musculoskeletal: low back pain (cc Dr. Keene) Endocrine: Hypothyroidism Past Surgical History Past Surgical History: Cholecystectomy, Cataract Removal, Total hip replacement (right), Total knee replacement (left), Tonsillectomy, Other ( breast lumpectomy) Family History Family History: Hypertension, Other Social History Smoke: No ALCOHOL: none Drugs: None Current Problem List Problem List Problems Medical Problems: (1) Closed head injury Status: Acute (2) Hypokalemia Status: Acute (3) Hyponatremia Status: Acute Problems: Current Medications Current Medications Current Medications Potassium Chloride (Klor-Con) 40 meq 1X ONCE PO ; Start 03/29/17 at 11:15; Stop 03/29/17 at 11:16; Status DC Iohexol (Omnipaque 300 Mg/ml) 60 ml 1X ONCE IV ; Start 03/29/17 at 12:00; Stop 03/29/17 at 12:01; Status DC Acetaminophen (Tylenol) 1,000 mg PRN BID PRN PO PAIN; Start 03/29/17 at 15:00 Alprazolam (Xanax) 0.25 mg PRN Q6HRS PRN PO ANXIETY; Start 03/29/17 at 15:00 Amiodarone HCl (Cordarone) 100 mg DAILY PO ; Start 03/29/17 at 16:00 Amlodipine Besylate (Norvasc) 5 mg DAILY PO ; Start 03/29/17 at 16:00 Apixaban (Eliquis) 5 mg BID PO ; Start 03/29/17 at 21:00 Aspirin (Children'S Aspirin) 81 mg DAILY PO ; Start 03/29/17 at 17:00 Atorvastatin Calcium (Lipitor) 10 mg HS PO ; Start 03/29/17 at 21:00 Buspirone HCl (Buspar) 10 mg BID PO ; Start 03/29/17 at 21:00 Celecoxib (CeleBREX) 200 mg DAILY PO ; Start 03/29/17 at 17:00 Cetirizine HCl (ZyrTEC) 10 mg DAILY PO ; Start 03/29/17 at 17:00 Demeclocycline HCl (Declomycin) 300 mg TID PO ; Start 03/29/17 at 16:00 Acetaminophen/ Hydrocodone Bitart (Lortab 5/325) 1 tab PRN Q6HRS PRN PO PAIN; Start 03/29/17 at 15:00 Lansoprazole (Prevacid) 30 mg DAILY PO ; Start 03/29/17 at 17:00 Latanoprost (Xalatan) 1 drop HS OU ; Start 03/29/17 at 21:00 Levothyroxine Sodium (Synthroid) 88 mcg DAILYAC PO ; Start 03/29/17 at 17:00 Metoprolol Tartrate (Lopressor) 25 mg BID PO ; Start 03/29/17 at 21:00 Polyethylene Glycol (miraLAX PACKET) 17 gm DAILY PO ; Start 03/29/17 at 17:00 Vitamin D (Vitamin D3) 1,000 unit DAILY PO ; Start 03/29/17 at 17:00 Magnesium Hydroxide (Milk Of Magnesia) 2,400 mg PRN DAILY PRN PO CONSTIPATION; Start 03/29/17 at 15:00 Active Scripts Active Amlodipine Besylate 5 Mg Tablet 5 Mg PO DAILY [place] 5-325 Tablet (Acetaminophen/Hydrocodone Bitart) 1 Each Tablet 1 Tab PO PRN Q6HRS PRN Eliquis (Apixaban) 5 Mg Tablet 5 Mg PO BID 30 Days Amiodarone Hcl 200 Mg Tablet 100 Mg PO DAILY 30 Days Demeclocycline Hcl 150 Mg Tablet 300 Mg PO TID 30 Days Reported Milk Of Magnesia (Magnesium Hydroxide) 2,400 Mg/10 Ml Oral.susp 2,400 Mg PO PRN DAILY PRN Cetirizine Hcl 10 Mg Tablet 1 Tab PO DAILY Atorvastatin Calcium 10 Mg Tablet 1 Tab PO HS Miralax (Polyethylene Glycol 3350) 17 Gm Powd.pack 1 Packet PO DAILY Xanax (Alprazolam) 0.25 Mg Tablet 0.25 Mg PO PRN Q6HRS PRN Metoprolol Tartrate 25 Mg Tablet 1 Tab PO BID Celebrex (Celecoxib) 200 Mg Capsule 1 Cap PO DAILY Acetaminophen 500 Mg Tablet 2 Tab PO BID PRN Vitamin D (Cholecalciferol (Vitamin D3)) 1,000 Unit Capsule 1 Cap PO DAILY Latanoprost 2.5 Ml Drops 1 Drop OP HS Aspirin 81 Mg Tab.chew 81 Mg PO Buspirone Hcl 10 Mg Tablet 10 Mg PO BID Fish Oil 1,000 Mg Capsule ([place]-3 Fatty Acids/Fish Oil) 1 Each Capsule 1 Each PO BID Glucosamine 1,500 Complex Cp (Gluc Johnson/Chondro Johnson A/Vit C/Mn) 1 Each Capsule 1 Each PO Levothyroxine Sodium 88 Mcg Tablet 88 Mcg PO DAILYAC Prevacid (Lansoprazole) 30 Mg Tab.rap.dr 30 Mg PO DAILY Allergies Allergies: Coded Allergies: Penicillins (Verified Allergy, Intermediate, Swelling, 02/24/17) Sulfa (Sulfonamide Antibiotics) (Verified Allergy, Intermediate, Rash, ) nabumetone (Verified Adverse Reaction, Intermediate, nausea/vomiting, 02/24) ROS General: No: Chills, Night Sweats, Fatigue, Malaise, Appetite, Other PSYCHOLOGICAL ROS: No: Anxiety, Behavioral Disorder, Concentration difficultie , Decreased libido, Depression, Disorientation, Hallucinations, Hostility, Irritablity, Memory difficulties, Mood Swings, Obsessive thoughts, Physical abuse, Sexual abuse, Sleep disturbances, Suicidal ideation, Other Eyes: No Blurry vision, No Decreased vision, No Double vision, No Dry eyes, No Excessive tearing, No Eye Pain, No Itchy Eyes, No Loss of vision, No Photophobia , No Scotomata, No Uses contacts, No Uses glasses, No Other HEENT: No: Heacaches, Visual Changes, Hearing change, Nasal congestion, Nasal discharge, Oral lesions, Sinus pain, Sore Throat, Epistaxis, Sneezing, Snoring, Tinnitus, Vertigo, Vocal changes, Other Respiratory: No: Cough, Hemoptysis, Orthopnea, Pleuritic Pain, Shortness of breath, SOB with excertion, Sputum Changes, Stridor, Tachypnea, Wheezing, Other Cardiovascular: No Chest Pain, No Palpitations, No Orthopnea, No Paroxysmal Noc. Dyspnea, No Edema, No Lt Headedness, No Other Gastrointestinal: No Nausea, No Vomiting, No Abdominal Pain, No Diarrhea, No Constipation, No Melena, No Hematochezia, No Other Genitourinary: No Dysuria, No Frequency, No Incontinence, No Hematuria, No Retention, No Discharge, No Urgency, No Pain, No Flank Pain, No Other, No , No , No , No , No , No , No Musculoskeletal: No Gait Disturbance, No Joint Pain, No Joint Stiffness, No Joint Swelling, No Muscle Pain, No Muscular Weakness, No Pain In:, No Swelling In:, No Other Neurological: Yes Confusion, No Behavorial Changes, No Bowel/Bladder ControlChng, No Dizziness, No Gait Disturbance, No Headaches, No Impaired Coord/balance, No Memory Loss, No Numbness/Tingling, No Seizures, No Speech Problems, No Tremors, No Visual Changes, No Weakness, No Other Skin: No Dry Skin, No Eczema, No Hair Changes, No Lumps, No Mole Changes, No Mottling, No Nail Changes, No Pruritus, No Rash, No Skin Lesion Changes, No Other, No Acne Physical Exam General: Alert, Oriented X3, Cooperative, Other (odd responses at times, had trouble following commands for exam, slow) HEENT: Atraumatic, PERRLA, EOMI, Mucous membr. moist/pink Lungs: Normal air movement Abdomen: Normal bowel sounds, Soft Extremities: No clubbing, No edema, Normal pulses Skin: No rashes Neuro: Normal tone, Sensation intact, Cranial nerves 3-12 NL Psych/Mental Status: Other Vitals Vitals Vital Signs Date Time Temp Pulse Resp B/P (MAP) Pulse Ox O2 Delivery O2 Flow Rate FiO2 03/29/17 15:00 73 21 190/84 (119) Room Air 03/29/17 13:40 98.4 98.4 03/29/17 13:01 93 Labs Labs Laboratory Tests Test 03/29/17 10:30 03/29/17 11:34 White Blood Count 14.4 x10^3/uL (4.0-11.0) Red Blood Count 3.67 x10^6/uL (3.50-5.40) Hemoglobin 11.5 g/dL (12.0-15.5) Hematocrit 35.3 % (36.0-47.0) Mean Corpuscular Volume 96 fL (79-100) Mean Corpuscular Hemoglobin 31 pg (25-35) Mean Corpuscular Hemoglobin Concent 33 g/dL (31-37) Red Cell Distribution Width 16.0 % (11.5-14.5) Platelet Count 332 x10^3/uL (140-400) Neutrophils (%) (Auto) 77 % (31-73) Lymphocytes (%) (Auto) 11 % (24-48) Monocytes (%) (Auto) 11 % (0-9) Eosinophils (%) (Auto) 0 % (0-3) Basophils (%) (Auto) 1 % (0-3) Neutrophils # (Auto) 11.1 x10^3uL (1.8-7.7) Lymphocytes # (Auto) 1.6 x10^3/uL (1.0-4.8) Monocytes # (Auto) 1.6 x10^3/uL (0.0-1.1) Eosinophils # (Auto) 0.1 x10^3/uL (0.0-0.7) Basophils # (Auto) 0.1 x10^3/uL (0.0-0.2) Sodium Level 130 mmol/L (136-145) Potassium Level 3.1 mmol/L (3.5-5.1) Chloride Level 91 mmol/L (98-107) Carbon Dioxide Level 31 mmol/L (21-32) Anion Gap 8 (6-14) Blood Urea Nitrogen 15 mg/dL (7-20) Creatinine 1.0 mg/dL (0.6-1.0) Estimated GFR (Cockcroft-Gault) 52.6 BUN/Creatinine Ratio 15 (6-20) Glucose Level 121 mg/dL (70-99) Calcium Level 9.2 mg/dL (8.5-10.1) Total Bilirubin 0.4 mg/dL (0.2-1.0) Aspartate Amino Transf (AST/SGOT) 22 U/L (15-37) Alanine Aminotransferase (ALT/SGPT) 22 U/L (14-59) Alkaline Phosphatase 91 U/L (46-116) Troponin I Quantitative 0.059 ng/mL (0.000-0.055) Total Protein 7.0 g/dL (6.4-8.2) Albumin 3.4 g/dL (3.4-5.0) Albumin/Globulin Ratio 0.9 (1.0-1.7) Glucose (Fingerstick) 120 mg/dL (70-99) Laboratory Tests Test 03/29/17 10:30 03/29/17 11:34 White Blood Count 14.4 x10^3/uL (4.0-11.0) Red Blood Count 3.67 x10^6/uL (3.50-5.40) Hemoglobin 11.5 g/dL (12.0-15.5) Hematocrit 35.3 % (36.0-47.0) Mean Corpuscular Volume 96 fL (79-100) Mean Corpuscular Hemoglobin 31 pg (25-35) Mean Corpuscular Hemoglobin Concent 33 g/dL (31-37) Red Cell Distribution Width 16.0 % (11.5-14.5) Platelet Count 332 x10^3/uL (140-400) Neutrophils (%) (Auto) 77 % (31-73) Lymphocytes (%) (Auto) 11 % (24-48) Monocytes (%) (Auto) 11 % (0-9) Eosinophils (%) (Auto) 0 % (0-3) Basophils (%) (Auto) 1 % (0-3) Neutrophils # (Auto) 11.1 x10^3uL (1.8-7.7) Lymphocytes # (Auto) 1.6 x10^3/uL (1.0-4.8) Monocytes # (Auto) 1.6 x10^3/uL (0.0-1.1) Eosinophils # (Auto) 0.1 x10^3/uL (0.0-0.7) Basophils # (Auto) 0.1 x10^3/uL (0.0-0.2) Sodium Level 130 mmol/L (136-145) Potassium Level 3.1 mmol/L (3.5-5.1) Chloride Level 91 mmol/L (98-107) Carbon Dioxide Level 31 mmol/L (21-32) Anion Gap 8 (6-14) Blood Urea Nitrogen 15 mg/dL (7-20) Creatinine 1.0 mg/dL (0.6-1.0) Estimated GFR (Cockcroft-Gault) 52.6 BUN/Creatinine Ratio 15 (6-20) Glucose Level 121 mg/dL (70-99) Calcium Level 9.2 mg/dL (8.5-10.1) Total Bilirubin 0.4 mg/dL (0.2-1.0) Aspartate Amino Transf (AST/SGOT) 22 U/L (15-37) Alanine Aminotransferase (ALT/SGPT) 22 U/L (14-59) Alkaline Phosphatase 91 U/L (46-116) Troponin I Quantitative 0.059 ng/mL (0.000-0.055) Total Protein 7.0 g/dL (6.4-8.2) Albumin 3.4 g/dL (3.4-5.0) Albumin/Globulin Ratio 0.9 (1.0-1.7) Glucose (Fingerstick) 120 mg/dL (70-99) VTE Prophylaxis Ordered VTE Prophylaxis Devices: Yes VTE Pharmacological Prophylaxi: Contraindicated Assessment/Plan Assessment/Plan trip and fall, struck head acute mental status change, concussion, traumatic encephalopathy, post concussive syndrome ON Eliquis for Afib, bleed risk higher, ICU admit Leukocytosis, UA ordered from ER, still pending, no other SIRS criteria, check CXR symptoms concerning for TIA, neuro eval, w/u hyponatremia hypokalemia htn, KASIE AMBROSIO MD March 29, 2017 16:18
[2017-03-29] MEDS: POLYETHYLENE GLYCOL 3350 17 GM PACKET. PO SCH (17:12)
[2017-03-29] MEDS: CETIRIZINE HCL 10 MG TABLET. PO SCH (17:12)
[2017-03-29] MEDS: AMIODARONE HCL 200 MG TABLET. PO SCH (17:13)
[2017-03-29] MEDS: DEMECLOCYCLINE HCL 150 MG TABLET. PO SCH ×2 (17:14→20:49)
[2017-03-29] MEDS: LEVOTHYROXINE 88 MCG TABLET PO SCH (17:14)
[2017-03-29] MEDS: amLODIPine BESYLATE 5 MG TABLET PO SCH (17:14)
[2017-03-29] MEDS: LANSOPRAZOLE 30 MG TAB.RAP.DR PO SCH (17:15)
[2017-03-29] MEDS: ASPIRIN CHEWABLE 81 MG TABLET. PO SCH (17:15)
[2017-03-29] MEDS: CELECOXIB 200 MG CAPSULE. PO SCH (17:15)
[2017-03-29] MEDS: CHOLECALCIFEROL (VITAMIN D3) 1,000 UNIT TABLET PO SCH (17:15)
--- NOTE | 2017-03-29 17:23 | RAD ---
EXAM: CHEST 1 VIEW History: Leukocytosis COMPARISON: 03/22/2017 TECHNIQUE: Single portable radiograph of the chest FINDINGS: The cardiac silhouette is unremarkable. The lungs are clear bilaterally. The costophrenic sulci are clear and well demarcated. IMPRESSION: No radiographic evidence of an acute cardiopulmonary process.
[2017-03-29 18:28] LABS: BILIRUBIN,URINE NEGATIVE (NEG); GLUCOSE,URINE NEGATIVE (NEG); NITRITE,URINE NEGATIVE (NEG); PH,URINE 6.5; PROTEIN,URINE 100 mg/dL (NEG-TRACE)
[2017-03-29 18:39] LABS: BACTERIA,URINE 0 /HPF (0-FEW)
[2017-03-29 18:40] LABS: SQUAMOUS EPITHELIAL CELL,UR FEW /LPF
[2017-03-29] MEDS: ATORVASTATIN CALCIUM 10 MG TABLET. PO SCH (20:46)
[2017-03-29] MEDS: busPIRone 10 MG TABLET. PO SCH (20:46)
[2017-03-29] MEDS: LATANOPROST 0.005% OPHTH SOLUTION 2.5ML BOTTLE. OU SCH (20:49)
[2017-03-29] MEDS: METOPROLOL TART IMMED RELEASE 25 MG TABLET. PO SCH (20:49)
[2017-03-29] MEDS: APIXABAN 5 MG TABLET. PO SCH (20:50)
[2017-03-30] VITALS (12 sets, daily range): BP systolic 120–176; BP diastolic 54–88
[2017-03-30 04:34] LABS: BASO # 0.1 x10^3/uL (0.0-0.2); BASO % 1 % (0-3); EOS % 0 % (0-3); HEMATOCRIT 31.3 % (36.0-47.0); HEMOGLOBIN 10.1 g/dL (12.0-15.5); LYMPH # 1.8 x10^3/uL (1.0-4.8); LYMPH % 15 % (24-48); MEAN CORPUSCULAR HEMOGLOBIN 31 pg (25-35); MEAN CORPUSCULAR HGB CONC 32 g/dL (31-37); MEAN CORPUSCULAR VOLUME 96 fL (79-100); MONO % 11 % (0-9); NEUT % 73 % (31-73); PLATELET COUNT 309 x10^3/uL (140-400); RED BLOOD COUNT 3.27 x10^6/uL (3.50-5.40); RED CELL DISTRIBUTION WIDTH 15.9 % (11.5-14.5)
[2017-03-30 05:05] LABS: CREATININE 0.8 mg/dL (0.6-1.0)
[2017-03-30] MEDS: LEVOTHYROXINE 88 MCG TABLET PO SCH (08:28)
[2017-03-30] MEDS: CELECOXIB 200 MG CAPSULE. PO SCH (08:28)
[2017-03-30] MEDS: APIXABAN 5 MG TABLET. PO SCH ×2 (08:28→21:03)
[2017-03-30] MEDS: DEMECLOCYCLINE HCL 150 MG TABLET. PO SCH ×3 (08:28→21:03)
[2017-03-30] MEDS: CETIRIZINE HCL 10 MG TABLET. PO SCH (08:29)
[2017-03-30] MEDS: ASPIRIN CHEWABLE 81 MG TABLET. PO SCH (08:29)
[2017-03-30] MEDS: amLODIPine BESYLATE 5 MG TABLET PO SCH (08:29)
[2017-03-30] MEDS: LANSOPRAZOLE 30 MG TAB.RAP.DR PO SCH (08:29)
[2017-03-30] MEDS: AMIODARONE HCL 200 MG TABLET. PO SCH (08:29)
[2017-03-30] MEDS: CHOLECALCIFEROL (VITAMIN D3) 1,000 UNIT TABLET PO SCH (08:29)
[2017-03-30] MEDS: busPIRone 10 MG TABLET. PO SCH ×2 (08:29→21:03)
[2017-03-30] MEDS: METOPROLOL TART IMMED RELEASE 25 MG TABLET. PO SCH ×2 (08:30→21:03)
[2017-03-30] MEDS: POLYETHYLENE GLYCOL 3350 17 GM PACKET. PO SCH (08:30)
--- NOTE | 2017-03-30 08:38 | PDOC ---
PROGRESS NOTES Chief Complaint Chief Complaint s/p fall with closed head injury traumatic encephalopathy ASSESSMENT AND PALN: 1. AMS: postconcussive syndrome vs CVA. greatly appreciate Dr Clifton's input. MRI pending 2. Afib: rate controlled. cont home meds 3. OAC: on eliquis 4. Leukocytosis: reactive. monitor 5. Hyponatremia: chronic; baseline around 130. monitor. 6. Hypokalemia: resolved 7. HTN: borderline control. continue home meds for now. hydralazine PRN 8. Depression: on Buspar; paxil d/c.ed during previous hospitalization 2/2 potential cause of low Na. 9. Hx narcotic dependence: avoid any type of narcotic. History of Present Illness History of Present Illness confused. gazing right upward. denies FERRER or other pain Vitals Vitals Vital Signs Date Time Temp Pulse Resp B/P (MAP) Pulse Ox O2 Delivery O2 Flow Rate FiO2 03/30/17 08:00 99.3 75 27 145/55 (85) 97 Room Air 99.3 Physical Exam General: Alert, Oriented X3, Cooperative, Other (odd responses at times, had trouble following commands for exam, slow) Heart: Other (irreg) Lungs: Clear Abdomen: Normal bowel sounds, Soft Extremities: No clubbing, No edema, Normal pulses Skin: No rashes Labs LABS Laboratory Tests Test 03/29/17 10:30 03/29/17 11:34 03/29/17 14:15 03/29/17 17:20 White Blood Count 14.4 x10^3/uL (4.0-11.0) Red Blood Count 3.67 x10^6/uL (3.50-5.40) Hemoglobin 11.5 g/dL (12.0-15.5) Hematocrit 35.3 % (36.0-47.0) Mean Corpuscular Volume 96 fL (79-100) Mean Corpuscular Hemoglobin 31 pg (25-35) Mean Corpuscular Hemoglobin Concent 33 g/dL (31-37) Red Cell Distribution Width 16.0 % (11.5-14.5) Platelet Count 332 x10^3/uL (140-400) Neutrophils (%) (Auto) 77 % (31-73) Lymphocytes (%) (Auto) 11 % (24-48) Monocytes (%) (Auto) 11 % (0-9) Eosinophils (%) (Auto) 0 % (0-3) Basophils (%) (Auto) 1 % (0-3) Neutrophils # (Auto) 11.1 x10^3uL (1.8-7.7) Lymphocytes # (Auto) 1.6 x10^3/uL (1.0-4.8) Monocytes # (Auto) 1.6 x10^3/uL (0.0-1.1) Eosinophils # (Auto) 0.1 x10^3/uL (0.0-0.7) Basophils # (Auto) 0.1 x10^3/uL (0.0-0.2) Sodium Level 130 mmol/L (136-145) Potassium Level 3.1 mmol/L (3.5-5.1) Chloride Level 91 mmol/L (98-107) Carbon Dioxide Level 31 mmol/L (21-32) Anion Gap 8 (6-14) Blood Urea Nitrogen 15 mg/dL (7-20) Creatinine 1.0 mg/dL (0.6-1.0) Estimated GFR (Cockcroft-Gault) 52.6 BUN/Creatinine Ratio 15 (6-20) Glucose Level 121 mg/dL (70-99) Calcium Level 9.2 mg/dL (8.5-10.1) Total Bilirubin 0.4 mg/dL (0.2-1.0) Aspartate Amino Transf (AST/SGOT) 22 U/L (15-37) Alanine Aminotransferase (ALT/SGPT) 22 U/L (14-59) Alkaline Phosphatase 91 U/L (46-116) Troponin I Quantitative 0.059 ng/mL (0.000-0.055) 0.064 ng/mL (0.000-0.055) Total Protein 7.0 g/dL (6.4-8.2) Albumin 3.4 g/dL (3.4-5.0) Albumin/Globulin Ratio 0.9 (1.0-1.7) Glucose (Fingerstick) 120 mg/dL (70-99) Nasal Screen MRSA (PCR) Negative (Negative) Test 03/29/17 18:18 03/30/17 04:20 Urine Collection Type Unknown Urine Color Yellow Urine Clarity Clear Urine pH 6.5 Urine Specific [place] >=1.030 Urine Protein 100 mg/dL (NEG-TRACE) Urine Glucose (UA) Negative mg/dL (NEG) Urine Ketones (Stick) Negative mg/dL (NEG) Urine Blood Trace (NEG) Urine Nitrite Negative (NEG) Urine Bilirubin Negative (NEG) Urine Urobilinogen Dipstick 1.0 mg/dL (0.2 mg/dL) Urine Leukocyte Esterase Negative (NEG) Urine RBC 6-10 /HPF (0-2) Urine WBC 1-4 /HPF (0-4) Urine Squamous Epithelial Cells Few /LPF Urine Transitional Epithelial Cells Few /LPF Urine Bacteria 0 /HPF (0-FEW) Urine Hyaline Casts Moderate /HPF Urine Mucus Slight /LPF White Blood Count 12.0 x10^3/uL (4.0-11.0) Red Blood Count 3.27 x10^6/uL (3.50-5.40) Hemoglobin 10.1 g/dL (12.0-15.5) Hematocrit 31.3 % (36.0-47.0) Mean Corpuscular Volume 96 fL (79-100) Mean Corpuscular Hemoglobin 31 pg (25-35) Mean Corpuscular Hemoglobin Concent 32 g/dL (31-37) Red Cell Distribution Width 15.9 % (11.5-14.5) Platelet Count 309 x10^3/uL (140-400) Neutrophils (%) (Auto) 73 % (31-73) Lymphocytes (%) (Auto) 15 % (24-48) Monocytes (%) (Auto) 11 % (0-9) Eosinophils (%) (Auto) 0 % (0-3) Basophils (%) (Auto) 1 % (0-3) Neutrophils # (Auto) 8.8 x10^3uL (1.8-7.7) Lymphocytes # (Auto) 1.8 x10^3/uL (1.0-4.8) Monocytes # (Auto) 1.3 x10^3/uL (0.0-1.1) Eosinophils # (Auto) 0.0 x10^3/uL (0.0-0.7) Basophils # (Auto) 0.1 x10^3/uL (0.0-0.2) Sodium Level 129 mmol/L (136-145) Potassium Level 4.0 mmol/L (3.5-5.1) Chloride Level 92 mmol/L (98-107) Carbon Dioxide Level 33 mmol/L (21-32) Anion Gap 4 (6-14) Blood Urea Nitrogen 17 mg/dL (7-20) Creatinine 0.8 mg/dL (0.6-1.0) Estimated GFR (Cockcroft-Gault) 68.0 Glucose Level 124 mg/dL (70-99) Calcium Level 9.0 mg/dL (8.5-10.1) Magnesium Level 1.8 mg/dL (1.8-2.4) EDEN VALADEZ MD March 30, 2017 08:38
--- NOTE | 2017-03-30 11:21 | PDOC ---
PROGRESS NOTES Assessment Problems Medical Problems: (1) Closed head injury Status: Acute (2) Hypokalemia Status: Acute (3) Hyponatremia Status: Acute Fall, scalp hematoma, possible concussion She does have some left visual neglect raising the possibility of a right hemispheric stroke On Eliquis for atrial fibrillation Plan Await MRI report Okay to transfer to floor If MRI negative, okay to transfer back to nursing facility Subjective No complaints Objective Vital Signs Date Time Temp Pulse Resp B/P (MAP) Pulse Ox O2 Delivery O2 Flow Rate FiO2 03/30/17 08:30 75 145/55 03/30/17 08:00 99.3 27 97 Room Air 99.3 Intake and Output 03/30/17 07:00 Intake Total 300 ml Output Total 150 ml Balance 150 ml Intake Oral 300 ml Output Urine Total 150 ml # Voids 3 PHYSICAL EXAM Alert. Oriented to month and year, place and person. PERRL. EOMI. CN: Possible left visual neglect, otherwise no focal findings. Muscle tone: normal. Muscle strength: 5/5 DTR: 2+ Plantar reflex: flexor Gait: not examined in bed. Sensory exam: no abnormal findings. No cerebellar signs elicited. Review of Relevant I have reviewed the following items kyle (where applicable) has been applied. Labs Laboratory Tests Test 03/29/17 10:30 03/29/17 11:34 03/29/17 14:15 03/29/17 17:20 White Blood Count 14.4 x10^3/uL (4.0-11.0) Red Blood Count 3.67 x10^6/uL (3.50-5.40) Hemoglobin 11.5 g/dL (12.0-15.5) Hematocrit 35.3 % (36.0-47.0) Mean Corpuscular Volume 96 fL (79-100) Mean Corpuscular Hemoglobin 31 pg (25-35) Mean Corpuscular Hemoglobin Concent 33 g/dL (31-37) Red Cell Distribution Width 16.0 % (11.5-14.5) Platelet Count 332 x10^3/uL (140-400) Neutrophils (%) (Auto) 77 % (31-73) Lymphocytes (%) (Auto) 11 % (24-48) Monocytes (%) (Auto) 11 % (0-9) Eosinophils (%) (Auto) 0 % (0-3) Basophils (%) (Auto) 1 % (0-3) Neutrophils # (Auto) 11.1 x10^3uL (1.8-7.7) Lymphocytes # (Auto) 1.6 x10^3/uL (1.0-4.8) Monocytes # (Auto) 1.6 x10^3/uL (0.0-1.1) Eosinophils # (Auto) 0.1 x10^3/uL (0.0-0.7) Basophils # (Auto) 0.1 x10^3/uL (0.0-0.2) Sodium Level 130 mmol/L (136-145) Potassium Level 3.1 mmol/L (3.5-5.1) Chloride Level 91 mmol/L (98-107) Carbon Dioxide Level 31 mmol/L (21-32) Anion Gap 8 (6-14) Blood Urea Nitrogen 15 mg/dL (7-20) Creatinine 1.0 mg/dL (0.6-1.0) Estimated GFR (Cockcroft-Gault) 52.6 BUN/Creatinine Ratio 15 (6-20) Glucose Level 121 mg/dL (70-99) Calcium Level 9.2 mg/dL (8.5-10.1) Total Bilirubin 0.4 mg/dL (0.2-1.0) Aspartate Amino Transf (AST/SGOT) 22 U/L (15-37) Alanine Aminotransferase (ALT/SGPT) 22 U/L (14-59) Alkaline Phosphatase 91 U/L (46-116) Troponin I Quantitative 0.059 ng/mL (0.000-0.055) 0.064 ng/mL (0.000-0.055) Total Protein 7.0 g/dL (6.4-8.2) Albumin 3.4 g/dL (3.4-5.0) Albumin/Globulin Ratio 0.9 (1.0-1.7) Glucose (Fingerstick) 120 mg/dL (70-99) Nasal Screen MRSA (PCR) Negative (Negative) Test 03/29/17 18:18 03/30/17 04:20 Urine Collection Type Unknown Urine Color Yellow Urine Clarity Clear Urine pH 6.5 Urine Specific [place] >=1.030 Urine Protein 100 mg/dL (NEG-TRACE) Urine Glucose (UA) Negative mg/dL (NEG) Urine Ketones (Stick) Negative mg/dL (NEG) Urine Blood Trace (NEG) Urine Nitrite Negative (NEG) Urine Bilirubin Negative (NEG) Urine Urobilinogen Dipstick 1.0 mg/dL (0.2 mg/dL) Urine Leukocyte Esterase Negative (NEG) Urine RBC 6-10 /HPF (0-2) Urine WBC 1-4 /HPF (0-4) Urine Squamous Epithelial Cells Few /LPF Urine Transitional Epithelial Cells Few /LPF Urine Bacteria 0 /HPF (0-FEW) Urine Hyaline Casts Moderate /HPF Urine Mucus Slight /LPF White Blood Count 12.0 x10^3/uL (4.0-11.0) Red Blood Count 3.27 x10^6/uL (3.50-5.40) Hemoglobin 10.1 g/dL (12.0-15.5) Hematocrit 31.3 % (36.0-47.0) Mean Corpuscular Volume 96 fL (79-100) Mean Corpuscular Hemoglobin 31 pg (25-35) Mean Corpuscular Hemoglobin Concent 32 g/dL (31-37) Red Cell Distribution Width 15.9 % (11.5-14.5) Platelet Count 309 x10^3/uL (140-400) Neutrophils (%) (Auto) 73 % (31-73) Lymphocytes (%) (Auto) 15 % (24-48) Monocytes (%) (Auto) 11 % (0-9) Eosinophils (%) (Auto) 0 % (0-3) Basophils (%) (Auto) 1 % (0-3) Neutrophils # (Auto) 8.8 x10^3uL (1.8-7.7) Lymphocytes # (Auto) 1.8 x10^3/uL (1.0-4.8) Monocytes # (Auto) 1.3 x10^3/uL (0.0-1.1) Eosinophils # (Auto) 0.0 x10^3/uL (0.0-0.7) Basophils # (Auto) 0.1 x10^3/uL (0.0-0.2) Sodium Level 129 mmol/L (136-145) Potassium Level 4.0 mmol/L (3.5-5.1) Chloride Level 92 mmol/L (98-107) Carbon Dioxide Level 33 mmol/L (21-32) Anion Gap 4 (6-14) Blood Urea Nitrogen 17 mg/dL (7-20) Creatinine 0.8 mg/dL (0.6-1.0) Estimated GFR (Cockcroft-Gault) 68.0 Glucose Level 124 mg/dL (70-99) Calcium Level 9.0 mg/dL (8.5-10.1) Magnesium Level 1.8 mg/dL (1.8-2.4) Laboratory Tests Test 03/29/17 11:34 03/29/17 14:15 03/29/17 17:20 03/29/17 18:18 Glucose (Fingerstick) 120 mg/dL (70-99) Nasal Screen MRSA (PCR) Negative (Negative) Troponin I Quantitative 0.064 ng/mL (0.000-0.055) Urine Collection Type Unknown Urine Color Yellow Urine Clarity Clear Urine pH 6.5 Urine Specific [place] >=1.030 Urine Protein 100 mg/dL (NEG-TRACE) Urine Glucose (UA) Negative mg/dL (NEG) Urine Ketones (Stick) Negative mg/dL (NEG) Urine Blood Trace (NEG) Urine Nitrite Negative (NEG) Urine Bilirubin Negative (NEG) Urine Urobilinogen Dipstick 1.0 mg/dL (0.2 mg/dL) Urine Leukocyte Esterase Negative (NEG) Urine RBC 6-10 /HPF (0-2) Urine WBC 1-4 /HPF (0-4) Urine Squamous Epithelial Cells Few /LPF Urine Transitional Epithelial Cells Few /LPF Urine Bacteria 0 /HPF (0-FEW) Urine Hyaline Casts Moderate /HPF Urine Mucus Slight /LPF Test 03/30/17 04:20 White Blood Count 12.0 x10^3/uL (4.0-11.0) Red Blood Count 3.27 x10^6/uL (3.50-5.40) Hemoglobin 10.1 g/dL (12.0-15.5) Hematocrit 31.3 % (36.0-47.0) Mean Corpuscular Volume 96 fL (79-100) Mean Corpuscular Hemoglobin 31 pg (25-35) Mean Corpuscular Hemoglobin Concent 32 g/dL (31-37) Red Cell Distribution Width 15.9 % (11.5-14.5) Platelet Count 309 x10^3/uL (140-400) Neutrophils (%) (Auto) 73 % (31-73) Lymphocytes (%) (Auto) 15 % (24-48) Monocytes (%) (Auto) 11 % (0-9) Eosinophils (%) (Auto) 0 % (0-3) Basophils (%) (Auto) 1 % (0-3) Neutrophils # (Auto) 8.8 x10^3uL (1.8-7.7) Lymphocytes # (Auto) 1.8 x10^3/uL (1.0-4.8) Monocytes # (Auto) 1.3 x10^3/uL (0.0-1.1) Eosinophils # (Auto) 0.0 x10^3/uL (0.0-0.7) Basophils # (Auto) 0.1 x10^3/uL (0.0-0.2) Sodium Level 129 mmol/L (136-145) Potassium Level 4.0 mmol/L (3.5-5.1) Chloride Level 92 mmol/L (98-107) Carbon Dioxide Level 33 mmol/L (21-32) Anion Gap 4 (6-14) Blood Urea Nitrogen 17 mg/dL (7-20) Creatinine 0.8 mg/dL (0.6-1.0) Estimated GFR (Cockcroft-Gault) 68.0 Glucose Level 124 mg/dL (70-99) Calcium Level 9.0 mg/dL (8.5-10.1) Magnesium Level 1.8 mg/dL (1.8-2.4) Medications Current Medications Potassium Chloride (Klor-Con) 40 meq 1X ONCE PO ; Start 03/29/17 at 11:15; Stop 03/29/17 at 11:16; Status DC Iohexol (Omnipaque 300 Mg/ml) 60 ml 1X ONCE IV ; Start 03/29/17 at 12:00; Stop 03/29/17 at 12:01; Status DC Acetaminophen (Tylenol) 1,000 mg PRN BID PRN PO PAIN Last administered on t 20:54; Start 03/29/17 at 15:00 Alprazolam (Xanax) 0.25 mg PRN Q6HRS PRN PO ANXIETY; Start 03/29/17 at 15:00 Amiodarone HCl (Cordarone) 100 mg DAILY PO Last administered on 03/30/17 08:29 ; Start 03/29/17 at 16:00 Amlodipine Besylate (Norvasc) 5 mg DAILY PO Last administered on 03/30/17 08: 29; Start 03/29/17 at 16:00 Apixaban (Eliquis) 5 mg BID PO Last administered on 03/30/17 08:28; Start at 21:00 Aspirin (Children'S Aspirin) 81 mg DAILY PO Last administered on 03/30/17 08: 29; Start 03/29/17 at 17:00 Atorvastatin Calcium (Lipitor) 10 mg HS PO Last administered on 03/29/17 20:46 ; Start 03/29/17 at 21:00 Buspirone HCl (Buspar) 10 mg BID PO Last administered on 03/30/17 08:29; Start 03/29/17 at 21:00 Celecoxib (CeleBREX) 200 mg DAILY PO Last administered on 03/30/17 08:28; Start 03/29/17 at 17:00 Cetirizine HCl (ZyrTEC) 10 mg DAILY PO Last administered on 03/30/17 08:29; Start 03/29/17 at 17:00 Demeclocycline HCl (Declomycin) 300 mg TID PO Last administered on 03/30/17 08 :28; Start 03/29/17 at 16:00 Acetaminophen/ Hydrocodone Bitart (Lortab 5/325) 1 tab PRN Q6HRS PRN PO PAIN; Start 03/29/17 at 15:00 Lansoprazole (Prevacid) 30 mg DAILY PO Last administered on 03/30/17 08:29; Start 03/29/17 at 17:00 Latanoprost (Xalatan) 1 drop HS OU Last administered on 03/29/17 20:49; Start 03/29/17 at 21:00 Levothyroxine Sodium (Synthroid) 88 mcg DAILYAC PO Last administered on 08:28; Start 03/29/17 at 17:00 Metoprolol Tartrate (Lopressor) 25 mg BID PO Last administered on 03/30/17 08: 30; Start 03/29/17 at 21:00 Polyethylene Glycol (miraLAX PACKET) 17 gm DAILY PO Last administered on 17:12; Start 03/29/17 at 17:00 Vitamin D (Vitamin D3) 1,000 unit DAILY PO Last administered on 03/30/17 08:29 ; Start 03/29/17 at 17:00 Magnesium Hydroxide (Milk Of Magnesia) 2,400 mg PRN DAILY PRN PO CONSTIPATION; Start 03/29/17 at 15:00 Potassium Chloride (Klor-Con) 40 meq 1X ONCE PO Last administered on 17:13; Start 03/29/17 at 16:30; Stop 03/29/17 at 16:31; Status DC Info (Anti-Coagulation Monitoring By Pharmacy) 1 each PRN DAILY PRN [facility] SEE COMMENTS; Start 03/30/17 at 09:45 Active Scripts Active Amlodipine Besylate 5 Mg Tablet 5 Mg PO DAILY [place] 5-325 Tablet (Acetaminophen/Hydrocodone Bitart) 1 Each Tablet 1 Tab PO PRN Q6HRS PRN Eliquis (Apixaban) 5 Mg Tablet 5 Mg PO BID 30 Days Amiodarone Hcl 200 Mg Tablet 100 Mg PO DAILY 30 Days Demeclocycline Hcl 150 Mg Tablet 300 Mg PO TID 30 Days Reported Milk Of Magnesia (Magnesium Hydroxide) 2,400 Mg/10 Ml Oral.susp 2,400 Mg PO PRN DAILY PRN Cetirizine Hcl 10 Mg Tablet 1 Tab PO DAILY Atorvastatin Calcium 10 Mg Tablet 1 Tab PO HS Miralax (Polyethylene Glycol 3350) 17 Gm Powd.pack 1 Packet PO DAILY Xanax (Alprazolam) 0.25 Mg Tablet 0.25 Mg PO PRN Q6HRS PRN Metoprolol Tartrate 25 Mg Tablet 1 Tab PO BID Celebrex (Celecoxib) 200 Mg Capsule 1 Cap PO DAILY Acetaminophen 500 Mg Tablet 2 Tab PO BID PRN Vitamin D (Cholecalciferol (Vitamin D3)) 1,000 Unit Capsule 1 Cap PO DAILY Latanoprost 2.5 Ml Drops 1 Drop OP HS Aspirin 81 Mg Tab.chew 81 Mg PO Buspirone Hcl 10 Mg Tablet 10 Mg PO BID Fish Oil 1,000 Mg Capsule ([place]-3 Fatty Acids/Fish Oil) 1 Each Capsule 1 Each PO BID Glucosamine 1,500 Complex Cp (Gluc Johnson/Chondro Johnson A/Vit C/Mn) 1 Each Capsule 1 Each PO Levothyroxine Sodium 88 Mcg Tablet 88 Mcg PO DAILYAC Prevacid (Lansoprazole) 30 Mg Tab.rap.dr 30 Mg PO DAILY Vitals/I & O Vital Sign - Last 24 Hours 03/29/17 03/29/17 03/29/17 03/29/17 11:30 13:01 13:40 13:40 Temp 98.4 98.4 Pulse 88 76 75 Resp 20 20 B/P (MAP) 200/89 (126) 157/70 (99) 144/67 (92) Pulse Ox 92 93 O2 Delivery Room Air Room Air Room Air 03/29/17 03/29/17 03/29/17 03/29/17 14:00 15:00 16:00 16:00 Temp 98.8 98.8 Pulse 79 73 79 Resp 23 21 24 B/P (MAP) 119/58 (78) 190/84 (119) 149/70 (96) O2 Delivery Room Air Room Air Room Air Room Air 03/29/17 03/29/17 03/29/17 03/29/17 17:00 17:13 17:14 18:00 Pulse 76 75 73 88 Resp 17 B/P (MAP) 150/73 (98) 150/60 150/60 176/76 (109) O2 Delivery Room Air Room Air 03/29/17 03/29/17 03/29/17 03/29/17 19:00 19:30 20:00 20:00 Temp 97.7 97.7 Pulse 82 86 Resp 19 20 B/P (MAP) 176/76 (109) 149/61 (90) 178/82 (114) Pulse Ox 96 95 O2 Delivery Room Air Room Air Room Air 03/29/17 03/29/17 03/29/17 03/29/17 20:49 21:00 22:00 23:00 Pulse 90 94 76 86 Resp 27 23 21 B/P (MAP) 178/82 125/60 (81) 149/57 (87) 178/73 (108) Pulse Ox 94 97 93 O2 Delivery Room Air Room Air Room Air 03/30/17 03/30/17 03/30/17 03/30/17 00:00 00:00 01:00 02:00 Temp 98.4 98.4 Pulse 84 84 74 Resp 19 22 19 B/P (MAP) 176/76 (109) 137/60 (85) Pulse Ox 96 96 94 O2 Delivery Room Air Room Air Room Air Room Air 03/30/17 03/30/17 03/30/17 03/30/17 03:00 04:00 04:00 05:00 Temp 98.4 98.4 Pulse 74 71 71 Resp 17 19 19 B/P (MAP) 169/70 (103) 120/55 (76) 129/64 (85) Pulse Ox 91 100 100 O2 Delivery Room Air Room Air Room Air Room Air 03/30/17 03/30/17 03/30/17 03/30/17 06:00 07:00 08:00 08:00 Temp 99.3 99.3 Pulse 81 75 75 Resp 17 28 27 B/P (MAP) 153/88 (109) 141/54 (83) 145/55 (85) Pulse Ox 100 98 97 O2 Delivery Room Air Room Air Room Air Room Air 03/30/17 03/30/17 03/30/17 08:29 08:29 08:30 Pulse 75 75 75 B/P (MAP) 145/55 145/55 145/55 Intake and Output 03/29/17 03/29/17 03/30/17 15:00 23:00 07:00 Intake Total 300 ml Output Total 150 ml 0 ml Balance 150 ml 0 ml GIANLUCA TUCKER MD March 30, 2017 11:21
--- NOTE | 2017-03-30 12:19 | RAD ---
PROCEDURE MRI of the brain without contrast 03/30/2017 HISTORY Altered mental status with left-sided weakness. TECHNIQUE Unenhanced T1 weighted sagittal and axial, T2 weighted axial and coronal and FLAIR, diffusion weighted and gradient echo axial images of the brain were obtained. FINDINGS Comparison is made to a CT scan of the head dated 05/19/2014. Images from the study are degraded by patient motion. There is generalized parenchymal atrophy. Patchy, confluent and multiple focal areas of increased signal intensity are seen within the periventricular and subcortical white matter of both cerebral hemispheres along with the jessica on the FLAIR and T2 weighted images consistent with areas of small vessel ischemic disease. Increased signal intensity is seen involving the medial aspect of the right temporal lobe on the FLAIR and T2 weighted images. There is mild associated mass effect. The area involved measures 6 centimeters in greatest diameter. No restricted diffusion is seen. These findings are concerning for an encephalitis particularly herpes encephalitis given the location. No involvement of the basal ganglia is seen. There is no evidence of intraparenchymal hemorrhage. There is no evidence of acute ischemia/infarction. No extra-axial fluid collection is seen. Mild mucosal thickening is seen involving the sphenoid sinus and scattered throughout the ethmoid air cells bilaterally. Normal flow voids are seen within the major vascular structures surrounding the brain parenchyma. FINDINGS Area of increased signal intensity is seen on the FLAIR and T2 weighted images involving the medial right temporal lobe. There is associated mass effect. These findings are concerning for an encephalitis, particularly herpes encephalitis given the location. Clinical correlation is recommended. The patient's nurse was notified of these findings. Electronically signed by: Lawson Sloan MD (March 30, 2017 12:17:49)
[2017-03-30] MEDS: ANTI-COAG MONITOR BY PHARMACY. MC PRN (13:42)
--- NOTE | 2017-03-30 15:32 | RAD ---
Carotid ultrasound, 03/30/2017: History: Stroke Duplex evaluation of the carotid arteries in neck was performed including grayscale, color-flow and spectral Doppler analysis. There are mild scattered atherosclerotic plaques in the common carotid arteries and at the carotid bifurcations, right greater than left. The peak systolic velocity in the right internal carotid artery is 106 cm/s. The end-diastolic velocity is 42 cm/s. The internal carotid to common carotid artery ratio is 1.2. The Doppler findings suggest narrowing in the 0-50% diameter range. There is a mild velocity elevation in the proximal right external carotid artery up to 175 cm/s. On the left, the peak systolic velocity in the internal carotid artery is 74 cm per sec with an end-diastolic velocity of 18 cm/s. Antegrade flow is present in both vertebral arteries in the neck. IMPRESSION: Mild atherosclerotic plaquing at both carotid bifurcations with underlying luminal narrowing of the proximal internal carotid arteries in the 0-50% diameter range bilaterally. Note: Stenosis calculations for CT, MRA and conventional angiography are based upon determination of the distal ICA diameter in accordance with the NASCET methodology. Stenosis calculations for Doppler studies are derived from validated velocity criteria which are known to correlate with NASCET methodology of determining stenosis.
[2017-03-30] MEDS: ATORVASTATIN CALCIUM 10 MG TABLET. PO SCH (21:03)
[2017-03-30] MEDS: LATANOPROST 0.005% OPHTH SOLUTION 2.5ML BOTTLE. OU SCH (21:03)
[2017-03-31 02:41] VITALS: BP 141/83
[2017-03-31 04:27] LABS: BASO % 1 % (0-3); EOS % 1 % (0-3); HEMATOCRIT 28.8 % (36.0-47.0); HEMOGLOBIN 9.5 g/dL (12.0-15.5); LYMPH # 1.9 x10^3/uL (1.0-4.8); LYMPH % 18 % (24-48); MEAN CORPUSCULAR HEMOGLOBIN 31 pg (25-35); MEAN CORPUSCULAR HGB CONC 33 g/dL (31-37); MEAN CORPUSCULAR VOLUME 95 fL (79-100); MONO % 13 % (0-9); NEUT % 68 % (31-73); PLATELET COUNT 284 x10^3/uL (140-400); RED BLOOD COUNT 3.03 x10^6/uL (3.50-5.40); RED CELL DISTRIBUTION WIDTH 15.8 % (11.5-14.5); WHITE BLOOD COUNT 10.4 x10^3/uL (4.0-11.0)
[2017-03-31 04:43] LABS: ALBUMIN 3.2 g/dL (3.4-5.0); CREATININE 0.8 mg/dL (0.6-1.0); POTASSIUM 3.9 mmol/L (3.5-5.1); TOTAL BILIRUBIN 0.5 mg/dL (0.2-1.0); TOTAL PROTEIN 6.3 g/dL (6.4-8.2)
[2017-03-31 04:49] LABS: CHOLESTEROL/HDL RATIO 2.3
[2017-03-31 07:10] VITALS: BP 140/59
[2017-03-31] MEDS: ANTI-COAG MONITOR BY PHARMACY. MC PRN (07:53)
--- NOTE | 2017-03-31 10:02 | PDOC ---
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 AMS: postconcussive syndrome vs CVA. greatly appreciate Dr Clifton's input. MRI today, 2. ?Afib: rate controlled. cont home meds, d/w cardiology, her Afib burden is less, pt has high risk for falls and bleeding, cardiology stopped OAC due to bleeding risk. 3. OAC: aspirin. 4. Leukocytosis: reactive. monitor 5. Hyponatremia: chronic; baseline around 130. monitor. 6. Hypokalemia: resolved 7. HTN: borderline control. continue home meds for now. hydralazine PRN 8. Depression: on BuSpar; paxil d/c.ed during previous hospitalization 2/2 potential cause of low Na. 9. Hx narcotic dependence: avoid any type of narcotic. 10. Mild elevation troponin: chronic, recent normal cardiac catheterization 11. Disposition: possible in AM to SN[facility] History of Present Illness History of Present Illness ALERT, MUCH BETTER DAUGHTER AT BEDSIDE. Vitals Vitals Vital Signs Date Time Temp Pulse Resp B/P (MAP) Pulse Ox O2 Delivery O2 Flow Rate FiO2 03/31/17 07:10 97.5 74 22 140/59 (86) 98 Room Air 97.5 Physical Exam General: Alert, Oriented X3, Cooperative, Other (odd responses at times, had trouble following commands for exam, slow) Heart: Other (REG) Lungs: Clear Abdomen: Normal bowel sounds, Soft Extremities: No clubbing, No edema, Normal pulses Skin: No rashes Labs LABS Laboratory Tests Test 03/31/17 03:05 White Blood Count 10.4 x10^3/uL (4.0-11.0) Red Blood Count 3.03 x10^6/uL (3.50-5.40) Hemoglobin 9.5 g/dL (12.0-15.5) Hematocrit 28.8 % (36.0-47.0) Mean Corpuscular Volume 95 fL (79-100) Mean Corpuscular Hemoglobin 31 pg (25-35) Mean Corpuscular Hemoglobin Concent 33 g/dL (31-37) Red Cell Distribution Width 15.8 % (11.5-14.5) Platelet Count 284 x10^3/uL (140-400) Neutrophils (%) (Auto) 68 % (31-73) Lymphocytes (%) (Auto) 18 % (24-48) Monocytes (%) (Auto) 13 % (0-9) Eosinophils (%) (Auto) 1 % (0-3) Basophils (%) (Auto) 1 % (0-3) Neutrophils # (Auto) 7.0 x10^3uL (1.8-7.7) Lymphocytes # (Auto) 1.9 x10^3/uL (1.0-4.8) Monocytes # (Auto) 1.3 x10^3/uL (0.0-1.1) Eosinophils # (Auto) 0.1 x10^3/uL (0.0-0.7) Basophils # (Auto) 0.0 x10^3/uL (0.0-0.2) Sodium Level 131 mmol/L (136-145) Potassium Level 3.9 mmol/L (3.5-5.1) Chloride Level 94 mmol/L (98-107) Carbon Dioxide Level 30 mmol/L (21-32) Anion Gap 7 (6-14) Blood Urea Nitrogen 22 mg/dL (7-20) Creatinine 0.8 mg/dL (0.6-1.0) Estimated GFR (Cockcroft-Gault) 68.0 BUN/Creatinine Ratio 28 (6-20) Glucose Level 101 mg/dL (70-99) Calcium Level 9.0 mg/dL (8.5-10.1) Total Bilirubin 0.5 mg/dL (0.2-1.0) Aspartate Amino Transf (AST/SGOT) 20 U/L (15-37) Alanine Aminotransferase (ALT/SGPT) 19 U/L (14-59) Alkaline Phosphatase 74 U/L (46-116) Total Protein 6.3 g/dL (6.4-8.2) Albumin 3.2 g/dL (3.4-5.0) Albumin/Globulin Ratio 1.0 (1.0-1.7) Triglycerides Level 52 mg/dL (0-150) Cholesterol Level 129 mg/dL (0-200) LDL Cholesterol, Calculated 63 mg/dL (0-100) VLDL Cholesterol, Calculated 10 mg/dL (0-40) Non-HDL Cholesterol Calculated 73 mg/dL (0-129) HDL Cholesterol 56 mg/dL (40-60) Cholesterol/HDL Ratio 2.3 Assessment and Plan Assessmemt and Plan Problems Medical Problems: (1) Closed head injury Status: Acute (2) Hypokalemia Status: Acute (3) Hyponatremia Status: Acute Problems: Comment Review of Relevant I have reviewed the following items kyle (where applicable) has been applied. Labs Laboratory Tests Test 03/29/17 10:30 03/29/17 11:34 03/29/17 14:15 03/29/17 17:20 White Blood Count 14.4 x10^3/uL (4.0-11.0) Red Blood Count 3.67 x10^6/uL (3.50-5.40) Hemoglobin 11.5 g/dL (12.0-15.5) Hematocrit 35.3 % (36.0-47.0) Mean Corpuscular Volume 96 fL (79-100) Mean Corpuscular Hemoglobin 31 pg (25-35) Mean Corpuscular Hemoglobin Concent 33 g/dL (31-37) Red Cell Distribution Width 16.0 % (11.5-14.5) Platelet Count 332 x10^3/uL (140-400) Neutrophils (%) (Auto) 77 % (31-73) Lymphocytes (%) (Auto) 11 % (24-48) Monocytes (%) (Auto) 11 % (0-9) Eosinophils (%) (Auto) 0 % (0-3) Basophils (%) (Auto) 1 % (0-3) Neutrophils # (Auto) 11.1 x10^3uL (1.8-7.7) Lymphocytes # (Auto) 1.6 x10^3/uL (1.0-4.8) Monocytes # (Auto) 1.6 x10^3/uL (0.0-1.1) Eosinophils # (Auto) 0.1 x10^3/uL (0.0-0.7) Basophils # (Auto) 0.1 x10^3/uL (0.0-0.2) Sodium Level 130 mmol/L (136-145) Potassium Level 3.1 mmol/L (3.5-5.1) Chloride Level 91 mmol/L (98-107) Carbon Dioxide Level 31 mmol/L (21-32) Anion Gap 8 (6-14) Blood Urea Nitrogen 15 mg/dL (7-20) Creatinine 1.0 mg/dL (0.6-1.0) Estimated GFR (Cockcroft-Gault) 52.6 BUN/Creatinine Ratio 15 (6-20) Glucose Level 121 mg/dL (70-99) Calcium Level 9.2 mg/dL (8.5-10.1) Total Bilirubin 0.4 mg/dL (0.2-1.0) Aspartate Amino Transf (AST/SGOT) 22 U/L (15-37) Alanine Aminotransferase (ALT/SGPT) 22 U/L (14-59) Alkaline Phosphatase 91 U/L (46-116) Troponin I Quantitative 0.059 ng/mL (0.000-0.055) 0.064 ng/mL (0.000-0.055) Total Protein 7.0 g/dL (6.4-8.2) Albumin 3.4 g/dL (3.4-5.0) Albumin/Globulin Ratio 0.9 (1.0-1.7) Glucose (Fingerstick) 120 mg/dL (70-99) Nasal Screen MRSA (PCR) Negative (Negative) Test 03/29/17 18:18 03/30/17 04:20 03/31/17 03:05 Urine Collection Type Unknown Urine Color Yellow Urine Clarity Clear Urine pH 6.5 Urine Specific [place] >=1.030 Urine Protein 100 mg/dL (NEG-TRACE) Urine Glucose (UA) Negative mg/dL (NEG) Urine Ketones (Stick) Negative mg/dL (NEG) Urine Blood Trace (NEG) Urine Nitrite Negative (NEG) Urine Bilirubin Negative (NEG) Urine Urobilinogen Dipstick 1.0 mg/dL (0.2 mg/dL) Urine Leukocyte Esterase Negative (NEG) Urine RBC 6-10 /HPF (0-2) Urine WBC 1-4 /HPF (0-4) Urine Squamous Epithelial Cells Few /LPF Urine Transitional Epithelial Cells Few /LPF Urine Bacteria 0 /HPF (0-FEW) Urine Hyaline Casts Moderate /HPF Urine Mucus Slight /LPF White Blood Count 12.0 x10^3/uL (4.0-11.0) 10.4 x10^3/uL (4.0-11.0) Red Blood Count 3.27 x10^6/uL (3.50-5.40) 3.03 x10^6/uL (3.50-5.40) Hemoglobin 10.1 g/dL (12.0-15.5) 9.5 g/dL (12.0-15.5) Hematocrit 31.3 % (36.0-47.0) 28.8 % (36.0-47.0) Mean Corpuscular Volume 96 fL (79-100) 95 fL (79-100) Mean Corpuscular Hemoglobin 31 pg (25-35) 31 pg (25-35) Mean Corpuscular Hemoglobin Concent 32 g/dL (31-37) 33 g/dL (31-37) Red Cell Distribution Width 15.9 % (11.5-14.5) 15.8 % (11.5-14.5) Platelet Count 309 x10^3/uL (140-400) 284 x10^3/uL (140-400) Neutrophils (%) (Auto) 73 % (31-73) 68 % (31-73) Lymphocytes (%) (Auto) 15 % (24-48) 18 % (24-48) Monocytes (%) (Auto) 11 % (0-9) 13 % (0-9) Eosinophils (%) (Auto) 0 % (0-3) 1 % (0-3) Basophils (%) (Auto) 1 % (0-3) 1 % (0-3) Neutrophils # (Auto) 8.8 x10^3uL (1.8-7.7) 7.0 x10^3uL (1.8-7.7) Lymphocytes # (Auto) 1.8 x10^3/uL (1.0-4.8) 1.9 x10^3/uL (1.0-4.8) Monocytes # (Auto) 1.3 x10^3/uL (0.0-1.1) 1.3 x10^3/uL (0.0-1.1) Eosinophils # (Auto) 0.0 x10^3/uL (0.0-0.7) 0.1 x10^3/uL (0.0-0.7) Basophils # (Auto) 0.1 x10^3/uL (0.0-0.2) 0.0 x10^3/uL (0.0-0.2) Sodium Level 129 mmol/L (136-145) 131 mmol/L (136-145) Potassium Level 4.0 mmol/L (3.5-5.1) 3.9 mmol/L (3.5-5.1) Chloride Level 92 mmol/L (98-107) 94 mmol/L (98-107) Carbon Dioxide Level 33 mmol/L (21-32) 30 mmol/L (21-32) Anion Gap 4 (6-14) 7 (6-14) Blood Urea Nitrogen 17 mg/dL (7-20) 22 mg/dL (7-20) Creatinine 0.8 mg/dL (0.6-1.0) 0.8 mg/dL (0.6-1.0) Estimated GFR (Cockcroft-Gault) 68.0 68.0 Glucose Level 124 mg/dL (70-99) 101 mg/dL (70-99) Calcium Level 9.0 mg/dL (8.5-10.1) 9.0 mg/dL (8.5-10.1) Magnesium Level 1.8 mg/dL (1.8-2.4) BUN/Creatinine Ratio 28 (6-20) Total Bilirubin 0.5 mg/dL (0.2-1.0) Aspartate Amino Transf (AST/SGOT) 20 U/L (15-37) Alanine Aminotransferase (ALT/SGPT) 19 U/L (14-59) Alkaline Phosphatase 74 U/L (46-116) Total Protein 6.3 g/dL (6.4-8.2) Albumin 3.2 g/dL (3.4-5.0) Albumin/Globulin Ratio 1.0 (1.0-1.7) Triglycerides Level 52 mg/dL (0-150) Cholesterol Level 129 mg/dL (0-200) LDL Cholesterol, Calculated 63 mg/dL (0-100) VLDL Cholesterol, Calculated 10 mg/dL (0-40) Non-HDL Cholesterol Calculated 73 mg/dL (0-129) HDL Cholesterol 56 mg/dL (40-60) Cholesterol/HDL Ratio 2.3 Laboratory Tests Test 03/31/17 03:05 White Blood Count 10.4 x10^3/uL (4.0-11.0) Red Blood Count 3.03 x10^6/uL (3.50-5.40) Hemoglobin 9.5 g/dL (12.0-15.5) Hematocrit 28.8 % (36.0-47.0) Mean Corpuscular Volume 95 fL (79-100) Mean Corpuscular Hemoglobin 31 pg (25-35) Mean Corpuscular Hemoglobin Concent 33 g/dL (31-37) Red Cell Distribution Width 15.8 % (11.5-14.5) Platelet Count 284 x10^3/uL (140-400) Neutrophils (%) (Auto) 68 % (31-73) Lymphocytes (%) (Auto) 18 % (24-48) Monocytes (%) (Auto) 13 % (0-9) Eosinophils (%) (Auto) 1 % (0-3) Basophils (%) (Auto) 1 % (0-3) Neutrophils # (Auto) 7.0 x10^3uL (1.8-7.7) Lymphocytes # (Auto) 1.9 x10^3/uL (1.0-4.8) Monocytes # (Auto) 1.3 x10^3/uL (0.0-1.1) Eosinophils # (Auto) 0.1 x10^3/uL (0.0-0.7) Basophils # (Auto) 0.0 x10^3/uL (0.0-0.2) Sodium Level 131 mmol/L (136-145) Potassium Level 3.9 mmol/L (3.5-5.1) Chloride Level 94 mmol/L (98-107) Carbon Dioxide Level 30 mmol/L (21-32) Anion Gap 7 (6-14) Blood Urea Nitrogen 22 mg/dL (7-20) Creatinine 0.8 mg/dL (0.6-1.0) Estimated GFR (Cockcroft-Gault) 68.0 BUN/Creatinine Ratio 28 (6-20) Glucose Level 101 mg/dL (70-99) Calcium Level 9.0 mg/dL (8.5-10.1) Total Bilirubin 0.5 mg/dL (0.2-1.0) Aspartate Amino Transf (AST/SGOT) 20 U/L (15-37) Alanine Aminotransferase (ALT/SGPT) 19 U/L (14-59) Alkaline Phosphatase 74 U/L (46-116) Total Protein 6.3 g/dL (6.4-8.2) Albumin 3.2 g/dL (3.4-5.0) Albumin/Globulin Ratio 1.0 (1.0-1.7) Triglycerides Level 52 mg/dL (0-150) Cholesterol Level 129 mg/dL (0-200) LDL Cholesterol, Calculated 63 mg/dL (0-100) VLDL Cholesterol, Calculated 10 mg/dL (0-40) Non-HDL Cholesterol Calculated 73 mg/dL (0-129) HDL Cholesterol 56 mg/dL (40-60) Cholesterol/HDL Ratio 2.3 Medications Current Medications Potassium Chloride (Klor-Con) 40 meq 1X ONCE PO ; Start 03/29/17 at 11:15; Stop 03/29/17 at 11:16; Status DC Iohexol (Omnipaque 300 Mg/ml) 60 ml 1X ONCE IV ; Start 03/29/17 at 12:00; Stop 03/29/17 at 12:01; Status DC Acetaminophen (Tylenol) 1,000 mg PRN BID PRN PO PAIN Last administered on 20:54; Start 03/29/17 at 15:00 Alprazolam (Xanax) 0.25 mg PRN Q6HRS PRN PO ANXIETY; Start 03/29/17 at 15:00 Amiodarone HCl (Cordarone) 100 mg DAILY PO Last administered on 03/30/17 08:29 ; Start 03/29/17 at 16:00 Amlodipine Besylate (Norvasc) 5 mg DAILY PO Last administered on 03/30/17 08: 29; Start 03/29/17 at 16:00 Apixaban (Eliquis) 5 mg BID PO Last administered on 03/30/17 21:03; Start at 21:00 Aspirin (Children'S Aspirin) 81 mg DAILY PO Last administered on 03/30/17 08: 29; Start 03/29/17 at 17:00 Atorvastatin Calcium (Lipitor) 10 mg HS PO Last administered on 03/30/17 21:03 ; Start 03/29/17 at 21:00 Buspirone HCl (Buspar) 10 mg BID PO Last administered on 03/30/17 21:03; Start 03/29/17 at 21:00 Celecoxib (CeleBREX) 200 mg DAILY PO Last administered on 03/30/17 08:28; Start 03/29/17 at 17:00 Cetirizine HCl (ZyrTEC) 10 mg DAILY PO Last administered on 03/30/17 08:29; Start 03/29/17 at 17:00 Demeclocycline HCl (Declomycin) 300 mg TID PO Last administered on 03/30/17 21 :03; Start 03/29/17 at 16:00 Acetaminophen/ Hydrocodone Bitart (Lortab 5/325) 1 tab PRN Q6HRS PRN PO PAIN; Start 03/29/17 at 15:00; Stop 03/30/17 at 12:43; Status DC Lansoprazole (Prevacid) 30 mg DAILY PO Last administered on 03/30/17 08:29; Start 03/29/17 at 17:00 Latanoprost (Xalatan) 1 drop HS OU Last administered on 03/30/17 21:03; Start 03/29/17 at 21:00 Levothyroxine Sodium (Synthroid) 88 mcg DAILYAC PO Last administered on 08:28; Start 03/29/17 at 17:00 Metoprolol Tartrate (Lopressor) 25 mg BID PO Last administered on 03/30/17 21: 03; Start 03/29/17 at 21:00 Polyethylene Glycol (miraLAX PACKET) 17 gm DAILY PO Last administered on 17:12; Start 03/29/17 at 17:00 Vitamin D (Vitamin D3) 1,000 unit DAILY PO Last administered on 03/30/17 08:29 ; Start 03/29/17 at 17:00 Magnesium Hydroxide (Milk Of Magnesia) 2,400 mg PRN DAILY PRN PO CONSTIPATION; Start 03/29/17 at 15:00 Potassium Chloride (Klor-Con) 40 meq 1X ONCE PO Last administered on 17:13; Start 03/29/17 at 16:30; Stop 03/29/17 at 16:31; Status DC Info (Anti-Coagulation Monitoring By Pharmacy) 1 each PRN DAILY PRN MC SEE COMMENTS Last administered on 03/31/17 07:53; Start 03/30/17 at 09:45 Lorazepam (Ativan) 0.5 mg 1X ONCE IV ; Start 03/30/17 at 16:30; Stop 03/30/17 at 16:31; Status Cancel Lorazepam (Ativan) 0.5 mg 1X ONCE IV ; Start 03/31/17 at 19:00; Stop 03/31/17 at 19:01; Status Cancel Lorazepam (Ativan) 0.5 mg 1X ONCE IV Last administered on 03/31/17t 09:44; Start 03/31/17 at 07:00; Stop 03/31/17 at 07:01; Status DC Active Scripts Active Amlodipine Besylate 5 Mg Tablet 5 Mg PO DAILY [facility] 5-325 Tablet (Acetaminophen/Hydrocodone Bitart) 1 Each Tablet 1 Tab PO PRN Q6HRS PRN Eliquis (Apixaban) 5 Mg Tablet 5 Mg PO BID 30 Days Amiodarone Hcl 200 Mg Tablet 100 Mg PO DAILY 30 Days Demeclocycline Hcl 150 Mg Tablet 300 Mg PO TID 30 Days Reported Milk Of Magnesia (Magnesium Hydroxide) 2,400 Mg/10 Ml Oral.susp 2,400 Mg PO PRN DAILY PRN Cetirizine Hcl 10 Mg Tablet 1 Tab PO DAILY Atorvastatin Calcium 10 Mg Tablet 1 Tab PO HS Miralax (Polyethylene Glycol 3350) 17 Gm Powd.pack 1 Packet PO DAILY Xanax (Alprazolam) 0.25 Mg Tablet 0.25 Mg PO PRN Q6HRS PRN Metoprolol Tartrate 25 Mg Tablet 1 Tab PO BID Celebrex (Celecoxib) 200 Mg Capsule 1 Cap PO DAILY Acetaminophen 500 Mg Tablet 2 Tab PO BID PRN Vitamin D (Cholecalciferol (Vitamin D3)) 1,000 Unit Capsule 1 Cap PO DAILY Latanoprost 2.5 Ml Drops 1 Drop OP HS Aspirin 81 Mg Tab.chew 81 Mg PO Buspirone Hcl 10 Mg Tablet 10 Mg PO BID Fish Oil 1,000 Mg Capsule (Zion-3 Fatty Acids/Fish Oil) 1 Each Capsule 1 Each PO BID Glucosamine 1,500 Complex Cp (Gluc Johnson/Chondro Johnson A/Vit C/Mn) 1 Each Capsule 1 Each PO Levothyroxine Sodium 88 Mcg Tablet 88 Mcg PO DAILYAC Prevacid (Lansoprazole) 30 Mg Tab.rap.dr 30 Mg PO DAILY Vitals/I & O Vital Sign - Last 24 Hours 03/30/17 03/30/17 03/30/17 03/30/17 12:00 15:00 19:15 20:15 Temp 98.7 99.2 98.4 98.7 99.2 98.4 Pulse 64 66 85 Resp 24 20 18 B/P (MAP) 120/58 (78) 146/63 (90) 140/70 (93) Pulse Ox 94 95 93 O2 Delivery Room Air Room Air Room Air Room Air 03/30/17 03/30/17 03/31/17 03/31/17 21:03 23:10 02:41 07:10 Temp 98.7 98.4 97.5 98.7 98.4 97.5 Pulse 85 77 89 74 Resp 18 18 22 B/P (MAP) 140/70 151/70 (97) 141/83 (102) 140/59 (86) Pulse Ox 94 94 98 O2 Delivery Room Air Room Air Room Air Intake and Output 03/30/17 03/30/17 03/31/17 15:00 23:00 07:00 Intake Total 440 ml Output Total 0 ml 200 ml 200 ml Balance 0 ml -200 ml 240 ml JONATHAN CALZADA MD March 31, 2017 10:02
[2017-03-31] MEDS ORDERED: GADOBUTROL 7.5 MMOL/7.5 ML VIAL IV ONE (10:15)
[2017-03-31 10:38] VITALS: BP 102/46
[2017-03-31] MEDS: CETIRIZINE HCL 10 MG TABLET. PO SCH (10:50)
[2017-03-31] MEDS: DEMECLOCYCLINE HCL 150 MG TABLET. PO SCH ×3 (10:50→21:05)
[2017-03-31] MEDS: CHOLECALCIFEROL (VITAMIN D3) 1,000 UNIT TABLET PO SCH (10:50)
[2017-03-31] MEDS: busPIRone 10 MG TABLET. PO SCH ×2 (10:51→21:05)
[2017-03-31] MEDS: METOPROLOL TART IMMED RELEASE 25 MG TABLET. PO SCH ×2 (10:51→21:05)
[2017-03-31] MEDS: ASPIRIN CHEWABLE 81 MG TABLET. PO SCH (10:51)
[2017-03-31] MEDS: amLODIPine BESYLATE 5 MG TABLET PO SCH (10:51)
[2017-03-31] MEDS: CELECOXIB 200 MG CAPSULE. PO SCH (10:52)
[2017-03-31] MEDS: AMIODARONE HCL 200 MG TABLET. PO SCH (10:53)
[2017-03-31] MEDS: POLYETHYLENE GLYCOL 3350 17 GM PACKET. PO SCH (10:57)
[2017-03-31] MEDS: APIXABAN 5 MG TABLET. PO SCH ×2 (10:58→16:05)
[2017-03-31] MEDS: LANSOPRAZOLE 30 MG TAB.RAP.DR PO SCH (11:01)
[2017-03-31] MEDS: LEVOTHYROXINE 88 MCG TABLET PO SCH (11:01)
--- NOTE | 2017-03-31 11:26 | RAD ---
PROCEDURE MRI of brain without and with contrast 03/31/2017 HISTORY Headaches, balance issues and memory problems. TECHNIQUE Unenhanced T1 weighted sagittal and axial and FLAIR, T2 weighted, gradient echo and diffusion weighted axial images of the brain were obtained. After the intravenous administration of 7.5 cc of Gadovist, enhanced T1 weighted axial and coronal images of the brain were obtained. FINDINGS Comparison study is dated 03/30/2017. Images from the study are degraded by patient motion. Increased signal intensity is again seen involving the medial aspect of the right temporal lobe on the FLAIR and T2 weighted images. There is mild associated mass effect. These findings are unchanged. No area of restricted diffusion is seen to suggest evidence of acute ischemia/infarction. No extra-axial fluid collection is noted. No area of abnormal contrast enhancement is seen. Mild mucosal thickening is seen involving the sphenoid sinus and scattered throughout the ethmoid air cells bilaterally. Normal flow voids are seen within the major vascular structures surrounding the brain parenchyma. There is generalized parenchymal atrophy. Patchy, confluent multiple focal areas of abnormally increased signal intensity are seen within the periventricular and subcortical white matter both cerebral hemispheres along with the jessica on the FLAIR and T2 weighted images consistent with areas of small vessel ischemic disease. IMPRESSION Area of increased signal intensity is seen on the FLAIR and T2 weighted images involving the medial right temporal lobe. There is associated mass effect. 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 No abnormal area of contrast enhancement is seen. Electronically signed by: Lawson Sloan MD (March 31, 2017 11:25:16)
--- NOTE | 2017-03-31 14:48 | PDOC ---
PROGRESS NOTES Assessment Problems Medical Problems: (1) Closed head injury Status: Acute (2) Hypokalemia Status: Acute (3) Hyponatremia Status: Acute Fall, scalp hematoma, possible concussion Right medial temporal stroke, I do not think this is encephalitis as she has no headache or fever and her sensorium is not clouded On Eliquis for atrial fibrillation, doubt echocardiogram would interchange agent I do suspect that she's had some dementia in the past Plan Continue Eliquis, I do not think switching to a different anticoagulant would be helpful and warfarin is problematic given her history of falls and bruising [facility] Discussed my findings with the patient's daughter. Subjective She denies headaches Objective Vital Signs Date Time Temp Pulse Resp B/P (MAP) Pulse Ox O2 Delivery O2 Flow Rate FiO2 03/31/17 10:53 102/46 03/31/17 10:38 98.1 76 20 96 Room Air 98.1 Intake and Output 03/31/17 07:00 Intake Total 440 ml Output Total 400 ml Balance 40 ml Intake Oral 440 ml Output Urine Total 400 ml # Voids 1 # Bowel Movements 1 PHYSICAL EXAM Alert. Oriented to month and year, place and person. PERRL. EOMI. CN: Left visual neglect, otherwise no focal findings. Muscle tone: normal. Muscle strength: 5/5 DTR: 2+ Bilateral grasp reflexes Plantar reflex: flexor Gait: not examined in bed. Sensory exam: no abnormal findings. No cerebellar signs elicited. Review of Relevant I have reviewed the following items kyle (where applicable) has been applied. Labs Laboratory Tests Test 03/29/17 17:20 03/29/17 18:18 03/30/17 04:20 03/31/17 03:05 Troponin I Quantitative 0.064 ng/mL (0.000-0.055) Urine Collection Type Unknown Urine Color Yellow Urine Clarity Clear Urine pH 6.5 Urine Specific [place] >=1.030 Urine Protein 100 mg/dL (NEG-TRACE) Urine Glucose (UA) Negative mg/dL (NEG) Urine Ketones (Stick) Negative mg/dL (NEG) Urine Blood Trace (NEG) Urine Nitrite Negative (NEG) Urine Bilirubin Negative (NEG) Urine Urobilinogen Dipstick 1.0 mg/dL (0.2 mg/dL) Urine Leukocyte Esterase Negative (NEG) Urine RBC 6-10 /HPF (0-2) Urine WBC 1-4 /HPF (0-4) Urine Squamous Epithelial Cells Few /LPF Urine Transitional Epithelial Cells Few /LPF Urine Bacteria 0 /HPF (0-FEW) Urine Hyaline Casts Moderate /HPF Urine Mucus Slight /LPF White Blood Count 12.0 x10^3/uL (4.0-11.0) 10.4 x10^3/uL (4.0-11.0) Red Blood Count 3.27 x10^6/uL (3.50-5.40) 3.03 x10^6/uL (3.50-5.40) Hemoglobin 10.1 g/dL (12.0-15.5) 9.5 g/dL (12.0-15.5) Hematocrit 31.3 % (36.0-47.0) 28.8 % (36.0-47.0) Mean Corpuscular Volume 96 fL (79-100) 95 fL (79-100) Mean Corpuscular Hemoglobin 31 pg (25-35) 31 pg (25-35) Mean Corpuscular Hemoglobin Concent 32 g/dL (31-37) 33 g/dL (31-37) Red Cell Distribution Width 15.9 % (11.5-14.5) 15.8 % (11.5-14.5) Platelet Count 309 x10^3/uL (140-400) 284 x10^3/uL (140-400) Neutrophils (%) (Auto) 73 % (31-73) 68 % (31-73) Lymphocytes (%) (Auto) 15 % (24-48) 18 % (24-48) Monocytes (%) (Auto) 11 % (0-9) 13 % (0-9) Eosinophils (%) (Auto) 0 % (0-3) 1 % (0-3) Basophils (%) (Auto) 1 % (0-3) 1 % (0-3) Neutrophils # (Auto) 8.8 x10^3uL (1.8-7.7) 7.0 x10^3uL (1.8-7.7) Lymphocytes # (Auto) 1.8 x10^3/uL (1.0-4.8) 1.9 x10^3/uL (1.0-4.8) Monocytes # (Auto) 1.3 x10^3/uL (0.0-1.1) 1.3 x10^3/uL (0.0-1.1) Eosinophils # (Auto) 0.0 x10^3/uL (0.0-0.7) 0.1 x10^3/uL (0.0-0.7) Basophils # (Auto) 0.1 x10^3/uL (0.0-0.2) 0.0 x10^3/uL (0.0-0.2) Sodium Level 129 mmol/L (136-145) 131 mmol/L (136-145) Potassium Level 4.0 mmol/L (3.5-5.1) 3.9 mmol/L (3.5-5.1) Chloride Level 92 mmol/L (98-107) 94 mmol/L (98-107) Carbon Dioxide Level 33 mmol/L (21-32) 30 mmol/L (21-32) Anion Gap 4 (6-14) 7 (6-14) Blood Urea Nitrogen 17 mg/dL (7-20) 22 mg/dL (7-20) Creatinine 0.8 mg/dL (0.6-1.0) 0.8 mg/dL (0.6-1.0) Estimated GFR (Cockcroft-Gault) 68.0 68.0 Glucose Level 124 mg/dL (70-99) 101 mg/dL (70-99) Calcium Level 9.0 mg/dL (8.5-10.1) 9.0 mg/dL (8.5-10.1) Magnesium Level 1.8 mg/dL (1.8-2.4) BUN/Creatinine Ratio 28 (6-20) Total Bilirubin 0.5 mg/dL (0.2-1.0) Aspartate Amino Transf (AST/SGOT) 20 U/L (15-37) Alanine Aminotransferase (ALT/SGPT) 19 U/L (14-59) Alkaline Phosphatase 74 U/L (46-116) Total Protein 6.3 g/dL (6.4-8.2) Albumin 3.2 g/dL (3.4-5.0) Albumin/Globulin Ratio 1.0 (1.0-1.7) Triglycerides Level 52 mg/dL (0-150) Cholesterol Level 129 mg/dL (0-200) LDL Cholesterol, Calculated 63 mg/dL (0-100) VLDL Cholesterol, Calculated 10 mg/dL (0-40) Non-HDL Cholesterol Calculated 73 mg/dL (0-129) HDL Cholesterol 56 mg/dL (40-60) Cholesterol/HDL Ratio 2.3 Laboratory Tests Test 03/31/17 03:05 White Blood Count 10.4 x10^3/uL (4.0-11.0) Red Blood Count 3.03 x10^6/uL (3.50-5.40) Hemoglobin 9.5 g/dL (12.0-15.5) Hematocrit 28.8 % (36.0-47.0) Mean Corpuscular Volume 95 fL (79-100) Mean Corpuscular Hemoglobin 31 pg (25-35) Mean Corpuscular Hemoglobin Concent 33 g/dL (31-37) Red Cell Distribution Width 15.8 % (11.5-14.5) Platelet Count 284 x10^3/uL (140-400) Neutrophils (%) (Auto) 68 % (31-73) Lymphocytes (%) (Auto) 18 % (24-48) Monocytes (%) (Auto) 13 % (0-9) Eosinophils (%) (Auto) 1 % (0-3) Basophils (%) (Auto) 1 % (0-3) Neutrophils # (Auto) 7.0 x10^3uL (1.8-7.7) Lymphocytes # (Auto) 1.9 x10^3/uL (1.0-4.8) Monocytes # (Auto) 1.3 x10^3/uL (0.0-1.1) Eosinophils # (Auto) 0.1 x10^3/uL (0.0-0.7) Basophils # (Auto) 0.0 x10^3/uL (0.0-0.2) Sodium Level 131 mmol/L (136-145) Potassium Level 3.9 mmol/L (3.5-5.1) Chloride Level 94 mmol/L (98-107) Carbon Dioxide Level 30 mmol/L (21-32) Anion Gap 7 (6-14) Blood Urea Nitrogen 22 mg/dL (7-20) Creatinine 0.8 mg/dL (0.6-1.0) Estimated GFR (Cockcroft-Gault) 68.0 BUN/Creatinine Ratio 28 (6-20) Glucose Level 101 mg/dL (70-99) Calcium Level 9.0 mg/dL (8.5-10.1) Total Bilirubin 0.5 mg/dL (0.2-1.0) Aspartate Amino Transf (AST/SGOT) 20 U/L (15-37) Alanine Aminotransferase (ALT/SGPT) 19 U/L (14-59) Alkaline Phosphatase 74 U/L (46-116) Total Protein 6.3 g/dL (6.4-8.2) Albumin 3.2 g/dL (3.4-5.0) Albumin/Globulin Ratio 1.0 (1.0-1.7) Triglycerides Level 52 mg/dL (0-150) Cholesterol Level 129 mg/dL (0-200) LDL Cholesterol, Calculated 63 mg/dL (0-100) VLDL Cholesterol, Calculated 10 mg/dL (0-40) Non-HDL Cholesterol Calculated 73 mg/dL (0-129) HDL Cholesterol 56 mg/dL (40-60) Cholesterol/HDL Ratio 2.3 Medications Current Medications Potassium Chloride (Klor-Con) 40 meq 1X ONCE PO ; Start 03/29/17 at 11:15; Stop 03/29/17 at 11:16; Status DC Iohexol (Omnipaque 300 Mg/ml) 60 ml 1X ONCE IV ; Start 03/29/17 at 12:00; Stop 03/29/17 at 12:01; Status DC Acetaminophen (Tylenol) 1,000 mg PRN BID PRN PO PAIN Last administered on 20:54; Start 03/29/17 at 15:00 Alprazolam (Xanax) 0.25 mg PRN Q6HRS PRN PO ANXIETY; Start 03/29/17 at 15:00 Amiodarone HCl (Cordarone) 100 mg DAILY PO Last administered on 03/31/17 10:53 ; Start 03/29/17 at 16:00 Amlodipine Besylate (Norvasc) 5 mg DAILY PO Last administered on 03/31/17 10: 51; Start 03/29/17 at 16:00 Apixaban (Eliquis) 5 mg BID PO Last administered on 03/31/17 10:58; Start at 21:00 Aspirin (Children'S Aspirin) 81 mg DAILY PO Last administered on 03/31/17 10: 51; Start 03/29/17 at 17:00 Atorvastatin Calcium (Lipitor) 10 mg HS PO Last administered on 03/30/17 21:03 ; Start 03/29/17 at 21:00 Buspirone HCl (Buspar) 10 mg BID PO Last administered on 03/31/17 10:51; Start 03/29/17 at 21:00 Celecoxib (CeleBREX) 200 mg DAILY PO Last administered on 03/31/17 10:52; Start 03/29/17 at 17:00 Cetirizine HCl (ZyrTEC) 10 mg DAILY PO Last administered on 03/31/17 10:50; Start 03/29/17 at 17:00 Demeclocycline HCl (Declomycin) 300 mg TID PO Last administered on 03/31/17 10 :50; Start 03/29/17 at 16:00 Acetaminophen/ Hydrocodone Bitart (Lortab 5/325) 1 tab PRN Q6HRS PRN PO PAIN; Start 03/29/17 at 15:00; Stop 03/30/17 at 12:43; Status DC Lansoprazole (Prevacid) 30 mg DAILY PO Last administered on 03/31/17 11:01; Start 03/29/17 at 17:00 Latanoprost (Xalatan) 1 drop HS OU Last administered on 03/30/17 21:03; Start 03/29/17 at 21:00 Levothyroxine Sodium (Synthroid) 88 mcg DAILYAC PO Last administered on 11:01; Start 03/29/17 at 17:00 Metoprolol Tartrate (Lopressor) 25 mg BID PO Last administered on 03/31/17 10: 51; Start 03/29/17 at 21:00 Polyethylene Glycol (miraLAX PACKET) 17 gm DAILY PO Last administered on 10:57; Start 03/29/17 at 17:00 Vitamin D (Vitamin D3) 1,000 unit DAILY PO Last administered on 03/31/17 10:50 ; Start 03/29/17 at 17:00 Magnesium Hydroxide (Milk Of Magnesia) 2,400 mg PRN DAILY PRN PO CONSTIPATION; Start 03/29/17 at 15:00 Potassium Chloride (Klor-Con) 40 meq 1X ONCE PO Last administered on 17:13; Start 03/29/17 at 16:30; Stop 03/29/17 at 16:31; Status DC Info (Anti-Coagulation Monitoring By Pharmacy) 1 each PRN DAILY PRN MC SEE COMMENTS Last administered on 03/31/17 07:53; Start 03/30/17 at 09:45 Lorazepam (Ativan) 0.5 mg 1X ONCE IV ; Start 03/30/17 at 16:30; Stop 03/30/17 at 16:31; Status Cancel Lorazepam (Ativan) 0.5 mg 1X ONCE IV ; Start 03/31/17 at 19:00; Stop 03/31/17 at 19:01; Status Cancel Lorazepam (Ativan) 0.5 mg 1X ONCE IV Last administered on 03/31/17 09:44; Start 03/31/17 at 07:00; Stop 03/31/17 at 07:01; Status DC Gadobutrol (Gadavist) 7.5 mmol 1X ONCE IV Last administered on 03/31/17 10:18 ; Start 03/31/17 at 10:15; Stop 03/31/17 at 10:16; Status DC Active Scripts Active Amlodipine Besylate 5 Mg Tablet 5 Mg PO DAILY [place] 5-325 Tablet (Acetaminophen/Hydrocodone Bitart) 1 Each Tablet 1 Tab PO PRN Q6HRS PRN Eliquis (Apixaban) 5 Mg Tablet 5 Mg PO BID 30 Days Amiodarone Hcl 200 Mg Tablet 100 Mg PO DAILY 30 Days Demeclocycline Hcl 150 Mg Tablet 300 Mg PO TID 30 Days Reported Milk Of Magnesia (Magnesium Hydroxide) 2,400 Mg/10 Ml Oral.susp 2,400 Mg PO PRN DAILY PRN Cetirizine Hcl 10 Mg Tablet 1 Tab PO DAILY Atorvastatin Calcium 10 Mg Tablet 1 Tab PO HS Miralax (Polyethylene Glycol 3350) 17 Gm Powd.pack 1 Packet PO DAILY Xanax (Alprazolam) 0.25 Mg Tablet 0.25 Mg PO PRN Q6HRS PRN Metoprolol Tartrate 25 Mg Tablet 1 Tab PO BID Celebrex (Celecoxib) 200 Mg Capsule 1 Cap PO DAILY Acetaminophen 500 Mg Tablet 2 Tab PO BID PRN Vitamin D (Cholecalciferol (Vitamin D3)) 1,000 Unit Capsule 1 Cap PO DAILY Latanoprost 2.5 Ml Drops 1 Drop OP HS Aspirin 81 Mg Tab.chew 81 Mg PO Buspirone Hcl 10 Mg Tablet 10 Mg PO BID Fish Oil 1,000 Mg Capsule ([place]-3 Fatty Acids/Fish Oil) 1 Each Capsule 1 Each PO BID Glucosamine 1,500 Complex Cp (Gluc [place]/Chondro Johnson A/Vit C/Mn) 1 Each Capsule 1 Each PO Levothyroxine Sodium 88 Mcg Tablet 88 Mcg PO DAILYAC Prevacid (Lansoprazole) 30 Mg Tab.rap.dr 30 Mg PO DAILY Vitals/I & O Vital Sign - Last 24 Hours 03/30/17 03/30/17 03/30/17 03/30/17 15:00 19:15 20:15 21:03 Temp 99.2 98.4 99.2 98.4 Pulse 66 85 85 Resp 20 18 B/P (MAP) 146/63 (90) 140/70 (93) 140/70 Pulse Ox 95 93 O2 Delivery Room Air Room Air Room Air 03/30/17 03/31/17 03/31/17 03/31/17 23:10 02:41 07:10 08:00 Temp 98.7 98.4 97.5 98.7 98.4 97.5 Pulse 77 89 74 Resp 18 18 22 B/P (MAP) 151/70 (97) 141/83 (102) 140/59 (86) Pulse Ox 94 94 98 O2 Delivery Room Air Room Air Room Air Room Air 03/31/17 03/31/17 03/31/17 03/31/17 10:38 10:51 10:51 10:53 Temp 98.1 98.1 Pulse 76 Resp 20 B/P (MAP) 102/46 (64) 102/46 102/46 102/46 Pulse Ox 96 O2 Delivery Room Air Intake and Output 03/30/17 03/30/17 03/31/17 15:00 23:00 07:00 Intake Total 440 ml Output Total 0 ml 200 ml 200 ml Balance 0 ml -200 ml 240 ml Images 2nd MRI: FINDINGS Comparison study is dated 03/30/2017. Images from the study are degraded by patient motion. Increased signal intensity is again seen involving the medial aspect of the right temporal lobe on the FLAIR and T2 weighted images. There is mild associated mass effect. These findings are unchanged. No area of restricted diffusion is seen to suggest evidence of acute ischemia/infarction. No extra-axial fluid collection is noted. No area of abnormal contrast enhancement is seen. Mild mucosal thickening is seen involving the sphenoid sinus and scattered throughout the ethmoid air cells bilaterally. Normal flow voids are seen within the major vascular structures surrounding the brain parenchyma. There is generalized parenchymal atrophy. Patchy, confluent multiple focal areas of abnormally increased signal intensity are seen within the periventricular and subcortical white matter both cerebral hemispheres along with the jessica on the FLAIR and T2 weighted images consistent with areas of small vessel ischemic disease. IMPRESSION Area of increased signal intensity is seen on the FLAIR and T2 weighted images involving the medial right temporal lobe. There is associated mass effect. 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 No abnormal area of contrast enhancement is seen. Carotids: IMPRESSION: Mild atherosclerotic plaquing at both carotid bifurcations with underlying luminal narrowing of the proximal internal carotid arteries in the 0-50% diameter range bilaterally. GIANLUCA TUCKER MD March 31, 2017 14:48
[2017-03-31 15:04] VITALS: BP 144/65
[2017-03-31 19:00] VITALS: BP 157/66
[2017-03-31] MEDS: ATORVASTATIN CALCIUM 10 MG TABLET. PO SCH (21:04)
[2017-03-31] MEDS: LATANOPROST 0.005% OPHTH SOLUTION 2.5ML BOTTLE. OU SCH (21:05)
[2017-03-31 23:00] VITALS: BP 142/62
[2017-04-01 03:00] VITALS: BP 174/66
[2017-04-01 07:00] VITALS: BP 150/64
[2017-04-01] MEDS: ASPIRIN CHEWABLE 81 MG TABLET. PO SCH (08:52)
[2017-04-01] MEDS: LEVOTHYROXINE 88 MCG TABLET PO SCH (08:52)
[2017-04-01] MEDS: METOPROLOL TART IMMED RELEASE 25 MG TABLET. PO SCH (08:53)
[2017-04-01] MEDS: DEMECLOCYCLINE HCL 150 MG TABLET. PO SCH (08:53)
[2017-04-01] MEDS: amLODIPine BESYLATE 5 MG TABLET PO SCH (08:53)
[2017-04-01] MEDS: busPIRone 10 MG TABLET. PO SCH (08:53)
[2017-04-01] MEDS: CETIRIZINE HCL 10 MG TABLET. PO SCH (08:53)
[2017-04-01] MEDS: CHOLECALCIFEROL (VITAMIN D3) 1,000 UNIT TABLET PO SCH (08:53)
[2017-04-01] MEDS: AMIODARONE HCL 200 MG TABLET. PO SCH (08:54)
[2017-04-01] MEDS: LANSOPRAZOLE 30 MG TAB.RAP.DR PO SCH (08:54)
[2017-04-01] MEDS: CELECOXIB 200 MG CAPSULE. PO SCH (08:54)
[2017-04-01] MEDS: POLYETHYLENE GLYCOL 3350 17 GM PACKET. PO SCH (08:55)
--- NOTE | 2017-04-01 10:53 | PDOC ---
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 Follow-up with me in 1 month. Subjective Denies headache, no complaints, wants to go back to the nursing facility Objective Vital Signs Date Time Temp Pulse Resp B/P (MAP) Pulse Ox O2 Delivery O2 Flow Rate FiO2 04/01/17 08:54 69 150/64 04/01/17 07:00 98.4 20 98 Room Air 98.4 Intake and Output 04/01/17 07:00 Intake Total 660 ml Output Total 450 ml Balance 210 ml Intake Oral 660 ml Output Urine Total 450 ml # Voids 4 PHYSICAL EXAM Alert. Oriented to month and year, place and person. PERRL. EOMI. CN: Left visual neglect, otherwise no focal findings. Muscle tone: normal. Muscle strength: 5/5 DTR: 2+ Bilateral grasp reflexes Plantar reflex: flexor Gait: not examined in bed. Sensory exam: no abnormal findings. No cerebellar signs elicited. Review of Relevant I have reviewed the following items kyle (where applicable) has been applied. Labs Laboratory Tests Test 03/31/17 03:05 White Blood Count 10.4 x10^3/uL (4.0-11.0) Red Blood Count 3.03 x10^6/uL (3.50-5.40) Hemoglobin 9.5 g/dL (12.0-15.5) Hematocrit 28.8 % (36.0-47.0) Mean Corpuscular Volume 95 fL (79-100) Mean Corpuscular Hemoglobin 31 pg (25-35) Mean Corpuscular Hemoglobin Concent 33 g/dL (31-37) Red Cell Distribution Width 15.8 % (11.5-14.5) Platelet Count 284 x10^3/uL (140-400) Neutrophils (%) (Auto) 68 % (31-73) Lymphocytes (%) (Auto) 18 % (24-48) Monocytes (%) (Auto) 13 % (0-9) Eosinophils (%) (Auto) 1 % (0-3) Basophils (%) (Auto) 1 % (0-3) Neutrophils # (Auto) 7.0 x10^3uL (1.8-7.7) Lymphocytes # (Auto) 1.9 x10^3/uL (1.0-4.8) Monocytes # (Auto) 1.3 x10^3/uL (0.0-1.1) Eosinophils # (Auto) 0.1 x10^3/uL (0.0-0.7) Basophils # (Auto) 0.0 x10^3/uL (0.0-0.2) Sodium Level 131 mmol/L (136-145) Potassium Level 3.9 mmol/L (3.5-5.1) Chloride Level 94 mmol/L (98-107) Carbon Dioxide Level 30 mmol/L (21-32) Anion Gap 7 (6-14) Blood Urea Nitrogen 22 mg/dL (7-20) Creatinine 0.8 mg/dL (0.6-1.0) Estimated GFR (Cockcroft-Gault) 68.0 BUN/Creatinine Ratio 28 (6-20) Glucose Level 101 mg/dL (70-99) Calcium Level 9.0 mg/dL (8.5-10.1) Total Bilirubin 0.5 mg/dL (0.2-1.0) Aspartate Amino Transf (AST/SGOT) 20 U/L (15-37) Alanine Aminotransferase (ALT/SGPT) 19 U/L (14-59) Alkaline Phosphatase 74 U/L (46-116) Total Protein 6.3 g/dL (6.4-8.2) Albumin 3.2 g/dL (3.4-5.0) Albumin/Globulin Ratio 1.0 (1.0-1.7) Triglycerides Level 52 mg/dL (0-150) Cholesterol Level 129 mg/dL (0-200) LDL Cholesterol, Calculated 63 mg/dL (0-100) VLDL Cholesterol, Calculated 10 mg/dL (0-40) Non-HDL Cholesterol Calculated 73 mg/dL (0-129) HDL Cholesterol 56 mg/dL (40-60) Cholesterol/HDL Ratio 2.3 Medications Current Medications Potassium Chloride (Klor-Con) 40 meq 1X ONCE PO ; Start 03/29/17 at 11:15; Stop 03/29/17 at 11:16; Status DC Iohexol (Omnipaque 300 Mg/ml) 60 ml 1X ONCE IV ; Start 03/29/17 at 12:00; Stop 03/29/17 at 12:01; Status DC Acetaminophen (Tylenol) 1,000 mg PRN BID PRN PO PAIN Last administered on 20:54; Start 03/29/17 at 15:00 Alprazolam (Xanax) 0.25 mg PRN Q6HRS PRN PO ANXIETY Last administered on 21:05; Start 03/29/17 at 15:00 Amiodarone HCl (Cordarone) 100 mg DAILY PO Last administered on 04/01/17 08:54 ; Start 03/29/17 at 16:00 Amlodipine Besylate (Norvasc) 5 mg DAILY PO Last administered on 04/01/17 08: 53; Start 03/29/17 at 16:00 Apixaban (Eliquis) 5 mg BID PO Last administered on 03/31/17 10:58; Start at 21:00; Stop 03/31/17 at 16:09; Status DC Aspirin (Children'S Aspirin) 81 mg DAILY PO Last administered on 04/01/17 08: 52; Start 03/29/17 at 17:00 Atorvastatin Calcium (Lipitor) 10 mg HS PO Last administered on 03/31/17 21:04 ; Start 03/29/17 at 21:00 Buspirone HCl (Buspar) 10 mg BID PO Last administered on 04/01/17 08:53; Start 03/29/17 at 21:00 Celecoxib (CeleBREX) 200 mg DAILY PO Last administered on 04/01/17 08:54; Start 03/29/17 at 17:00 Cetirizine HCl (ZyrTEC) 10 mg DAILY PO Last administered on 04/01/17 08:53; Start 03/29/17 at 17:00 Demeclocycline HCl (Declomycin) 300 mg TID PO Last administered on 04/01/17 08 :53; Start 03/29/17 at 16:00 Acetaminophen/ Hydrocodone Bitart (Lortab 5/325) 1 tab PRN Q6HRS PRN PO PAIN; Start 03/29/17 at 15:00; Stop 03/30/17 at 12:43; Status DC Lansoprazole (Prevacid) 30 mg DAILY PO Last administered on 04/01/17 08:54; Start 03/29/17 at 17:00 Latanoprost (Xalatan) 1 drop HS OU Last administered on 03/31/17 21:05; Start 03/29/17 at 21:00 Levothyroxine Sodium (Synthroid) 88 mcg DAILYAC PO Last administered on 08:52; Start 03/29/17 at 17:00 Metoprolol Tartrate (Lopressor) 25 mg BID PO Last administered on 04/01/17 08: 53; Start 03/29/17 at 21:00 Polyethylene Glycol (miraLAX PACKET) 17 gm DAILY PO Last administered on 08:55; Start 03/29/17 at 17:00 Vitamin D (Vitamin D3) 1,000 unit DAILY PO Last administered on 04/01/17 08:53 ; Start 03/29/17 at 17:00 Magnesium Hydroxide (Milk Of Magnesia) 2,400 mg PRN DAILY PRN PO CONSTIPATION; Start 03/29/17 at 15:00 Potassium Chloride (Klor-Con) 40 meq 1X ONCE PO Last administered on 17:13; Start 03/29/17 at 16:30; Stop 03/29/17 at 16:31; Status DC Info (Anti-Coagulation Monitoring By Pharmacy) 1 each PRN DAILY PRN MC SEE COMMENTS Last administered on 03/31/17 07:53; Start 03/30/17 at 09:45 Lorazepam (Ativan) 0.5 mg 1X ONCE IV ; Start 03/30/17 at 16:30; Stop 03/30/17 at 16:31; Status Cancel Lorazepam (Ativan) 0.5 mg 1X ONCE IV ; Start 03/31/17 at 19:00; Stop 03/31/17 at 19:01; Status Cancel Lorazepam (Ativan) 0.5 mg 1X ONCE IV Last administered on 03/31/17 09:44; Start 03/31/17 at 07:00; Stop 03/31/17 at 07:01; Status DC Gadobutrol (Gadavist) 7.5 mmol 1X ONCE IV Last administered on 03/31/17 10:18 ; Start 03/31/17 at 10:15; Stop 03/31/17 at 10:16; Status DC Active Scripts Active Amlodipine Besylate 5 Mg Tablet 5 Mg PO DAILY [place] 5-325 Tablet (Acetaminophen/Hydrocodone Bitart) 1 Each Tablet 1 Tab PO PRN Q6HRS PRN Eliquis (Apixaban) 5 Mg Tablet 5 Mg PO BID 30 Days Amiodarone Hcl 200 Mg Tablet 100 Mg PO DAILY 30 Days Demeclocycline Hcl 150 Mg Tablet 300 Mg PO TID 30 Days Reported Milk Of Magnesia (Magnesium Hydroxide) 2,400 Mg/10 Ml Oral.susp 2,400 Mg PO PRN DAILY PRN Cetirizine Hcl 10 Mg Tablet 1 Tab PO DAILY Atorvastatin Calcium 10 Mg Tablet 1 Tab PO HS Miralax (Polyethylene Glycol 3350) 17 Gm Powd.pack 1 Packet PO DAILY Xanax (Alprazolam) 0.25 Mg Tablet 0.25 Mg PO PRN Q6HRS PRN Metoprolol Tartrate 25 Mg Tablet 1 Tab PO BID Celebrex (Celecoxib) 200 Mg Capsule 1 Cap PO DAILY Acetaminophen 500 Mg Tablet 2 Tab PO BID PRN Vitamin D (Cholecalciferol (Vitamin D3)) 1,000 Unit Capsule 1 Cap PO DAILY Latanoprost 2.5 Ml Drops 1 Drop OP HS Aspirin 81 Mg Tab.chew 81 Mg PO Buspirone Hcl 10 Mg Tablet 10 Mg PO BID Fish Oil 1,000 Mg Capsule ([place]-3 Fatty Acids/Fish Oil) 1 Each Capsule 1 Each PO BID Glucosamine 1,500 Complex Cp (Gluc [place]/Chondro Johnson A/Vit C/Mn) 1 Each Capsule 1 Each PO Levothyroxine Sodium 88 Mcg Tablet 88 Mcg PO DAILYAC Prevacid (Lansoprazole) 30 Mg Tab.rap.dr 30 Mg PO DAILY Vitals/I & O Vital Sign - Last 24 Hours 03/31/17 03/31/17 03/31/17 03/31/17 10:53 15:04 19:00 20:10 Temp 98.2 99.0 98.2 99.0 Pulse 79 79 Resp 20 18 B/P (MAP) 102/46 144/65 (91) 157/66 (96) Pulse Ox 95 92 O2 Delivery Room Air Room Air Room Air 03/31/17 03/31/17 04/01/17 04/01/17 21:05 23:00 03:00 07:00 Temp 98.5 98.5 98.4 98.5 98.5 98.4 Pulse 79 81 70 69 Resp 18 18 20 B/P (MAP) 144/65 142/62 (88) 174/66 (102) 150/64 (92) Pulse Ox 92 95 98 O2 Delivery Room Air Room Air 04/01/17 04/01/17 04/01/17 08:53 08:53 08:54 Pulse 69 69 69 B/P (MAP) 150/64 150/64 150/64 Intake and Output 03/31/17 03/31/17 04/01/17 15:00 23:00 07:00 Intake Total 660 ml Output Total 0 ml 450 ml Balance 660 ml 0 ml -450 ml GIANLUCA TUCKER MD April 01, 2017 10:53
[2017-04-01 11:00] VITALS: BP 159/68
--- NOTE | 2017-04-02 04:33 | DS ---
DATE OF DISCHARGE: 04/01/2017 DISCHARGE DIAGNOSES: 1. Altered mental status, likely due to post concussion after a mechanical fall. 2. Paroxysmal atrial fibrillation, discussed with Cardiology. Her atrial fibrillation burden is very less. Given her risk for falls, oral anticoagulation has been stopped and currently on aspirin. 3. Leukocytosis, reactive. 4. Hyponatremia, resolved. 5. Hypokalemia, resolved. 6. Hypertension, stable. 7. Depression, stable. 8. History of narcotic dependence, currently stable. 9. Mild elevation of troponin, is chronic, recent cardiac catheterization stable. BRIEF HOSPITAL COURSE: An 87-year-old female patient admitted to the hospital with altered mental status and confusion. She had MRI of the brain, which showed right medial temporal CVA with scalp hematoma. She was evaluated by Neurology. Symptoms are most likely due to postconcussion. During hospitalization, she had episodes of agitation; however, all the symptoms resolved at the time of discharge. She deemed clinically stable for the last 48 hours to go to group home facility and continue her physical therapy. DISCHARGE PHYSICAL EXAMINATION: GENERAL: Alert, oriented x 3. HEART: S1, S2 present. LUNGS: Anterior chest clear. ABDOMEN: Soft, nontender, no organomegaly. EXTREMITIES: No edema. DISCHARGE DISPOSITION: group home facility. DISCHARGE CONDITION: Stable. MEDICATIONS: Reviewed and reconciled. Please see MRAD. Total time spent for discharge is 36 minutes for patient education, counseling and coordination of care. I discussed with the patient and her daughter at bedside about risks, benefits, alternatives of stopping Eliquis. Family and the patient agreed to stop it now and continue only aspirin. JONATHAN CALZADA MD DR: MARK/yelena JOB#: [id number] / [id number] [place]
== END 2017-04-01 14:50 | DRG 88 ==
LOC: ER 09:29 → 1 WEST ICU 11:19 → 4 NORTH 03-30 11:52
PROVIDERS: ADMIT Internal Medicine; ATTEND Internal Medicine
DX: S06.0X9A Concussion with loss of consciousness of unspecified duration, initial encounter (principal); I63.9 Cerebral infarction, unspecified; E87.1 Hypo-osmolality and hyponatremia; F11.20 Opioid dependence, uncomplicated; G44.309 Post-traumatic headache, unspecified, not intractable; S00.03XA Contusion of scalp, initial encounter; F07.81 Postconcussional syndrome; D72.829 Elevated white blood cell count, unspecified; E03.9 Hypothyroidism, unspecified; E78.00 Pure hypercholesterolemia, unspecified; E78.5 Hyperlipidemia, unspecified; E87.6 Hypokalemia; F03.90 Unspecified dementia, unspecified severity, without behavioral disturbance, psychotic disturbance, mood disturbance, and anxiety; F32.9 Major depressive disorder, single episode, unspecified; H35.30 Unspecified macular degeneration; I10 Essential (primary) hypertension; I48.0 Paroxysmal atrial fibrillation; I70.0 Atherosclerosis of aorta; K21.9 Gastro-esophageal reflux disease without esophagitis; W01.0XXA Fall on same level from slipping, tripping and stumbling without subsequent striking against object, initial encounter; F41.9 Anxiety disorder, unspecified; Z96.652 Presence of left artificial knee joint; Z96.641 Presence of right artificial hip joint; Z82.49 Family history of ischemic heart disease and other diseases of the circulatory system; Z79.82 Long term (current) use of aspirin; Z85.3 Personal history of malignant neoplasm of breast; Z90.49 Acquired absence of other specified parts of digestive tract; Z98.49 Cataract extraction status, unspecified eye; Z88.0 Allergy status to penicillin; Z88.2 Allergy status to sulfonamides; Z88.8 Allergy status to other drugs, medicaments and biological substances
CPT/HCPCS: 36415; 70450; 70496; 70498; 70551; 70553; 71010; 72125; 80048; 80053; 80061; 81001; 82947; 83735; 83935; 84484; 85027; 87641; 93005; 93880; J2060; 92610; 97110; 97116; 97535; 99285-25; A9585

== ENCOUNTER → 2018-02-22 | Outpatient (CLI) | payer MEDICARE, OTHER | END | disposition home or self-care (01) | LOC: ECHO 09:39 | DX: I48.0 Paroxysmal atrial fibrillation (principal); I08.2 Rheumatic disorders of both aortic and tricuspid valves | CPT/HCPCS: 93306 ==

== ENCOUNTER → 2018-03-01 | Outpatient (CLI) | payer MEDICARE | END | disposition home or self-care (01) | LOC: RAD 11:00 | DX: R06.09 Other forms of dyspnea (principal) | CPT/HCPCS: 71046 ==

== ENCOUNTER → 2018-03-09 | Outpatient (CLI) | payer MEDICARE, OTHER ==
[2018-03-09] MEDS: REGADENOSON 0.4 MG/5 ML DISP.SYRIN. IV (10:46)
== END | disposition home or self-care (01) ==
LOC: NM 09:18
DX: I44.7 Left bundle-branch block, unspecified (principal); I48.91 Unspecified atrial fibrillation
CPT/HCPCS: 78452; 93017; 96374; 96375; 96376; A9500; J2785

== ENCOUNTER → 2019-03-29 | Outpatient (CLI) | payer MEDICARE ==
[~2019-03-29] MED LIST changes: +ALPR0.25 PO; -AMIO200T2 PO; +AMIO200T4 PO; +AMLO5TAB10 PO; -AMLO5TAB2 PO; +ASPI-630 PO; -ASPI81TA2 PO; +ATOR10TA60 PO; +BENZ-8 PO; -BENZ100C2 PO; +CETI10TA16 PO; -HYDR-2762 PO; +HYDR-2765 PO; +HYDR-3164 PO; -HYDR-971 PO; +LISI-130 PO; -LISI40TA PO; +MAGN2400 PO; -OMEG1CAP16 PO; +OMEG1CAP27 PO; +POLY17PO29 PO
--- NOTE | 2019-03-29 14:46 | CARD ---
MR#: [id number] Date of Study: 03/29/2019 Ordering Physician: JOSE CARR, Referring Physician: JOSE CARR, Tech: Rose Carreon BREANNA APPROVED REPORT EXAM: Two-dimensional and M-mode echocardiogram with Doppler and color Doppler. INDICATION Atrial Fibrillation 2D DIMENSIONS RVDd2.1 (2.9-3.5cm)Left Atrium(2D)4.0 (1.6-4.0cm) IVSd1.5 (0.7-1.1cm)Aortic Root(2D)2.3 (2.0-3.7cm) LVDd4.9 (3.9-5.9cm)LVOT Diameter2.0 (1.8-2.4cm) PWd1.0 (0.7-1.1cm)LVDs3.4 (2.5-4.0cm) FS (%) 31.5 %SV67.1 ml LVEF(%)59.3 (>50%) Aortic Valve AoV Peak Luis M.113.6cm/sAoV VTI21.0cm AO Peak GR.5.2mmHgLVOT Peak Luis M.97.7cm/s AO Mean GR.3mmHgAVA (VMAX)2.60cm2 HARJEET (VTI)3.08vj0AU P 1/2 Vqbt684ew Mitral Valve MV E Pxzlrbnc50.2cm/sMV DECEL BBSA483uz MV A Bblgeoaa16.6cm/sE/A Ratio0.9 Tricuspid Valve TR P. Kpfymknw076pl/sRAP XDRMNOMS4puAy TR Peak Gr.75iyPqXXZB79bcHu Pulmonary Vein S1 Wuuqvpyk78.0cm/sD2 Cpoeppms27.7cm/s LEFT VENTRICLE The left ventricle is normal size. There is moderate asymmetric septal hypertrophy. Left ventricle sy stolic function is normal. The Ejection Fraction is 55%. Septal motion consistent with conduction abn ormality. Transmitral Doppler flow pattern is Grade I-abnormal relaxation pattern. RIGHT VENTRICLE The right ventricle is normal size. The right ventricular systolic function is normal. ATRIA The left atrium is mildly dilated. The right atrium size is normal. The interatrial septum is intact with no evidence for an atrial septal defect or patent foramen ovale as noted on 2-D or Doppler imagi ng. AORTIC VALVE The aortic valve is calcified but opens well. Doppler and Color Flow revealed mild aortic regurgitati on. There is no significant aortic valvular stenosis. MITRAL VALVE The mitral valve is calcified but opens well. There is no evidence of mitral valve prolapse. There is no mitral valve stenosis. Doppler and Color-flow revealed trace mitral regurgitation. TRICUSPID VALVE The tricuspid valve is normal in structure and function. Doppler and Color Flow revealed trace to mil d tricuspid regurgitation. There is mild pulmonary hypertension. The PA pressure was estimated at 36 mmHg. There is no tricuspid valve stenosis. PULMONIC VALVE The pulmonary valve is normal in structure and function. Doppler and Color Flow revealed trace to mil d pulmonic valvular regurgitation. There is no pulmonic valvular stenosis. GREAT VESSELS The aortic root is normal in size. The ascending aorta is mildly dilated at 3.6 cm. The IVC is normal in size and collapses >50% with inspiration. PERICARDIAL EFFUSION There is no evidence of significant pericardial effusion. Critical Notification Critical Value: No <Conclusion> Left ventricle systolic function is normal. The Ejection Fraction is 55%. Septal motion consistent with conduction abnormality. The left atrium is mildly dilated. Mild aortic regurgitation. Trace mitral regurgitation. Trace to mild tricuspid regurgitation. The PA pressure was estimated at 36 mmHg. There is no evidence of significant pericardial effusion. Signed by : Adelfo Trinidad, Electronically Approved : 03/29/2019 14:45:41
== END | disposition home or self-care (01) ==
LOC: ECHO 12:57
PROVIDERS: ATTEND Internal Medicine Cardiovascular Disease
DX: I08.8 Other rheumatic multiple valve diseases (principal); I27.20 Pulmonary hypertension, unspecified; I11.9 Hypertensive heart disease without heart failure; I48.0 Paroxysmal atrial fibrillation
CPT/HCPCS: 93306

== ENCOUNTER → 2019-10-22 | Outpatient (CLI) | payer MEDICARE ==
--- NOTE | 2019-10-31 16:02 | KCIC ---
Bilateral digital screening mammograms: Reason for examination: Routine screening. History of right breast cancer with lumpectomy in 2000. Comparison is made to previous studies dated back to 04/09/2016. Interpretation was made with the benefit of CAD. The skin and nipples show no abnormalities. No abnormal axillary lymph nodes are seen. The breast parenchyma shows scattered fibroglandular density. (Breast density: Category B.) There are postop changes in the right breast. There are no new dominant masses, suspicious calcifications or architectural distortions. Impression: Postop changes in the right breast. No evidence of new or recurrent malignancy. Recommend routine screening. BI-RADS Category 2: Benign. "Our facility is accredited by the [employer] Mammography Program." This patient's information has been entered into a reminder system for the patient to be notified with the results of her examination and a target date for the next mammogram. Electronically signed by: Hayley Gomez MD (10/31/2019 3:59 PM) [id number]
== END | disposition home or self-care (01) ==
LOC: KCIC MAMMO 12:52
PROVIDERS: ATTEND Family Medicine
DX: Z12.31 Encounter for screening mammogram for malignant neoplasm of breast (principal); Z85.3 Personal history of malignant neoplasm of breast
CPT/HCPCS: 77067